=== PATIENT | female | born 1975 | race Caucasian/White ===

== ENCOUNTER → 2020-07-16 14:35 | Outpatient (BNVA) | payer OTHER, SELFPAY | PROVIDERS: PCP Internal Medicine; Referring Provider Internal Medicine; Visit Provider Internal Medicine | DX: I25.10 Atherosclerotic heart disease of native coronary artery without angina pectoris (principal); E66.01 Morbid (severe) obesity due to excess calories; Z68.42 Body mass index [BMI] 45.0-49.9, adult; I10 Essential (primary) hypertension; E78.5 Hyperlipidemia, unspecified; E11.9 Type 2 diabetes mellitus without complications; Z79.4 Long term (current) use of insulin; G47.33 Obstructive sleep apnea (adult) (pediatric); Z99.89 Dependence on other enabling machines and devices | CPT/HCPCS: 99214 ==

== ENCOUNTER → 2020-07-21 13:36 | Outpatient (BNVA) | payer OTHER, SELFPAY | PROVIDERS: PCP Internal Medicine; Referring Provider Internal Medicine; Visit Provider Internal Medicine Endocrinology, Diabetes & Metabolism | DX: E11.65 Type 2 diabetes mellitus with hyperglycemia (principal); E11.649 Type 2 diabetes mellitus with hypoglycemia without coma; E11.29 Type 2 diabetes mellitus with other diabetic kidney complication; E66.01 Morbid (severe) obesity due to excess calories; I10 Essential (primary) hypertension; G47.33 Obstructive sleep apnea (adult) (pediatric); I25.10 Atherosclerotic heart disease of native coronary artery without angina pectoris; E55.9 Vitamin D deficiency, unspecified; M19.90 Unspecified osteoarthritis, unspecified site; J45.909 Unspecified asthma, uncomplicated; E78.2 Mixed hyperlipidemia; R80.9 Proteinuria, unspecified; Z79.82 Long term (current) use of aspirin; Z68.42 Body mass index [BMI] 45.0-49.9, adult; Z79.899 Other long term (current) drug therapy; Z79.4 Long term (current) use of insulin; Z79.891 Long term (current) use of opiate analgesic | CPT/HCPCS: 99214 ==

== ENCOUNTER → 2020-08-14 08:30 | Outpatient (BNVA) | payer OTHER, SELFPAY | PROVIDERS: PCP Internal Medicine; Referring Provider Internal Medicine; Visit Provider Surgery | DX: Z76.89 Persons encountering health services in other specified circumstances (principal) ==

== ENCOUNTER → 2020-09-22 14:18 | Outpatient (BNVA) | payer OTHER, SELFPAY | PROVIDERS: PCP Internal Medicine; Referring Provider Internal Medicine; Visit Provider Student in an Organized Health Care Education/Training Program | DX: Z76.89 Persons encountering health services in other specified circumstances (principal) ==

== ENCOUNTER 2020-10-21 10:05 | Emergency (ER) | payer OTHER, SELFPAY ==
[2020-10-21 10:09] VITALS: BP 143/89; BP 160/90; PULSE 116; PULSE 119; RESP 18; TEMP 38.3; O2SAT 95; O2SAT 97; BMI 46.6
--- NOTE | 2020-10-21 10:34 | XR_ITS ---
EXAMINATION: XR CHEST CLINICAL INFORMATION: Cough and fever. COMPARISON: None TECHNIQUE: Frontal view of the chest was obtained. FINDINGS: The lungs are well-expanded with patchy by lateral perihilar increased interstitial markings but no acute infiltrates. There is no pleural effusion or thickening. The heart size and pulmonary vascularity is normal. There is mild spondylosis dorsal spine. No lytic process. XR/XR chest 1V IMPRESSION: Slight prominent bilateral parahilar interstitial markings but no acute process.
[2020-10-21] MEDS: 0.9 % Sodium Chloride 1,000 ML 999 ML IV (10:44)
[2020-10-21] MEDS: ondansetron HCL 4 MG/2 ML VIAL IVPUSH (10:48)
[2020-10-21] MEDS: Acetaminophen 325 MG TABLET 975 MG PO (10:48)
[2020-10-21 10:51] LABS: MANUAL DIFF FLAG NO
[2020-10-21 10:59] LABS: Basophils Percent Auto 0.4 % (0-2); Hematocrit 40.2 % (37-47); Hemoglobin 12.8 g/dl (12.0-16.0); INTERNATIONAL NORM RATIO 1.3 (0.9-1.1); Imm Gran Abs Auto 0.02 X10*3/uL (0.00-0.03); Imm Gran Pct Auto 0.4 % (0.0-0.4); Lymphocytes Absolute Auto 1.7 X10*3/uL (1.2-4.9); Lymphocytes Percent Auto 29.9 % (20-40); Mean Corpuscular HGB Conc 31.8 g/dl (31.0-35.0); Mean Corpuscular Hemoglobin 25.8 pg (27.0-33.0); Mean Corpuscular Volume 80.9 fL (80-98); Mean Platelet Volume 12.7 fL (9.4-12.3); Monocytes Absolute Auto 0.5 X10*3/uL (0.1-1.2); Monocytes Percent Auto 8.8 % (2-11); Neutrophils Absolute Auto 3.4 X10*3/uL (2.0-8.3); Neutrophils Percent Auto 60.5 % (45-73); Platelet Count 190 X10*3/uL (160-400); Prothrombin Time 15.3 SEC (10.8-13.0); Red Blood Count 4.97 X10*6/uL (4.20-5.50); Red Cell Distribution Width 15.4 % (11.0-16.0); White Blood Count 5.6 X10*3/uL (4.8-10.8)
[2020-10-21 11:02] LABS: Partial Thromboplastin Time 31.1 SEC (24.1-38.0)
[2020-10-21 11:20] LABS: Lactic Acid 1.5 mmol/L (0.5-2.0)
[2020-10-21 11:26] LABS: Alanine Aminotransferase 29 U/L (0-31); Albumin Level 4.2 g/dL (3.5-5.0); Alkaline Phosphatase 62 U/L (39-117); Anion Gap 16 (12-20); Aspartate Amino Transferase 31 U/L (5-31); Bilirubin Total 0.3 mg/dL (0.0-1.0); Blood Urea Nitrogen 12 mg/dL (9-16); Calcium 8.5 mg/dL (8.4-10.2); Carbon Dioxide 22 mmol/L (22-29); Chloride 101 mmol/L (96-108); Creatinine Clr Calc Pharmacy 110.8; Estimated Glomerular Filt Rate > 60; Glucose Random 174 mg/dL (60-115); Potassium 3.6 mmol/l (3.3-5.1); Sodium 135 mmol/L (135-145); Total Protein 7.7 g/dL (6.5-8.0)
[2020-10-21] MEDS: Lidocaine HCl Viscous 2 % 15 ML SOLUTION 10 ML MUCOUS MEM (11:57)
[2020-10-21] MEDS: Magnesium Hydrox/Alum Hydrox 30 ML ORAL.SUSP PO (11:57)
[2020-10-21 12:03] LABS: Influenza A PCR NEGATIVE (Negative); Influenza B PCR NEGATIVE (Negative); Resp Syncy Virus RNA Qual PCR NEGATIVE (Negative)
[2020-10-21 12:08] LABS: SARS COV2 PCR INHOUSE POSITIVE (Negative)
[2020-10-21 12:47] VITALS: BP 117/68; PULSE 88; RESP 16; O2SAT 95
--- NOTE | 2020-10-21 13:07 | ED_ITS ---
HPI - General Adult General Chief complaint: Nausea/Vomiting/Diarrhea <Deandre Dow NP - Last Filed: 10/21/20 13:45> Stated complaint: n/v/d [id number] <Deandre Dow NP - Last Filed: 10/21/20 13:45> Time Seen by Provider: 10/21/20 10:34 <Deandre Dow NP - Last Filed: 10/21/20 13:45> Source: EMS <Deandre Dow NP - Last Filed: 10/21/20 13:45> Mode of arrival: EMS <Deandre Dow NP - Last Filed: 10/21/20 13:45> Limitations: no limitations <Deandre Dow NP - Last Filed: 10/21/20 13:45> History of Present Illness HPI narrative: 44-year-old female with below noted past medical history including history of Atherosclerotic heart disease, diabetes, hypertension, hyperlipidemia, fibromyalgia, diabetes, obstructive sleep apnea amongst other history as noted below presenting via EMS from home with complaint of ongoing nausea vomiting and diarrhea for the past 1 and half week with associated body aches and today slightly congested with mild rhinorrhea. No recent travel hospitalizations or antibiotic use. States some diffuse epigastric pain with the nausea vomiting. No chest pain shortness of breath. <Deandre Dow NP - Last Filed: 10/21/20 13:45> Quality: burning <Deandre Dow NP - Last Filed: 10/21/20 13:45> Relieving factors: rest <Deandre Dow NP - Last Filed: 10/21/20 13:45> Exacerbating factors: other (Vomiting) <Deandre Dow NP - Last Filed: 10/21/20 13:45> Treatments prior to arrival: none <Deandre Dow NP - Last Filed: 10/21/20 13:45> Related Data Home medications: Home Medications Medication Instructions Recorded Confirmed insulin lispro 100 unit/mL 12 unit SUBCUT TID 09/24/20 10/23/20 subcutaneous pen Previous Rx's Medication Instructions Recorded metoprolol succinate 25 mg 25 mg PO DAILY #90 tab 07/21/20 tablet,extended release 24 hr pen needle, diabetic 32 gauge x #400 ea 07/21/20 tofacitinib 11 mg tablet,extended 11 mg PO DAILY #30 tab 09/22/20 release 24 hr dicyclomine 20 mg tablet 20 mg PO QID #30 tab 10/07/20 azithromycin [Zithromax Z-Gennaro] 250 mg PO DAILY 5 Days #6 tab 10/21/20 ondansetron HCl [Zofran] 4 mg PO Q8H PRN #10 tab 10/21/20 aspirin 81 mg tablet,delayed 81 mg PO DAILY #90 tab 10/22/20 release budesonide-formoterol HFA 160 2 puff INHALATION BID 30 Days 10/22/20 mcg-4.5 mcg/actuation aerosol #10.2 g inhaler cholecalciferol (vitamin D3) 50 50 mcg PO DAILY 90 Days #90 cap 10/22/20 mcg (2,000 unit) capsule folic acid 1 mg tablet 1 mg PO DAILY 90 Days #90 tab 10/22/20 gabapentin 400 mg capsule 400 mg PO BID 30 Days #60 cap 10/22/20 lisinopril 2.5 mg tablet 2.5 mg PO DAILY 90 Days #90 tab 10/22/20 omeprazole magnesium 20 mg 20 mg PO BID 90 Days #180 tab 10/22/20 tablet,delayed release oxybutynin chloride 5 mg 5 mg PO DAILY 90 Days #90 tab 10/22/20 tablet,extended release 24 hr rosuvastatin 40 mg tablet 40 mg PO DAILY #90 tab 10/22/20 flash glucose sensor #2 ea 10/23/20 insulin glargine 100 unit/mL (3 45 unit SUBCUT QPM 30 Days #15 ml 10/23/20 mL) subcutaneous pen tramadol 50 mg tablet 50 mg PO Q8H PRN 30 Days #90 tab 10/27/20 methotrexate sodium 2.5 mg tablet 2.5 mg PO QWEEK #32 tab 10/29/20 <Deandre Dow NP - Last Filed: 10/21/20 13:45> Allergies/adverse reactions: Allergies Allergy/AdvReac Type Severity Reaction Status Date / Time morphine [MORPHINE] Allergy Severe Anaphylaxis Verified 10/23/20 14:02 latex [LATEX] Allergy Intermediate Rash Verified 10/23/20 14:02 shellfish derived Allergy Unknown Verified 10/23/20 14:02 calcium AdvReac Unknown weakness, Verified 10/23/20 14:02 swells iron AdvReac Unknown weakness, Verified 10/23/20 14:02 swells metformin AdvReac Unknown Diarrhea Verified 10/23/20 14:02 pioglitazone AdvReac Unknown Swelling Verified 10/23/20 14:02 <Deandre Dow NP - Last Filed: 10/21/20 13:45> Review of Systems Review of Systems: Constitutional: No Weight loss, No Fever, No Chills, No Night Sweats, No Fatigue, No Malaise ENT/Mouth: No Hearing loss, No Ear Pain, No Sinus Pain, No Hoarseness, No sore throat, + Rhinorrhea, No Swallowing Difficulty Eyes: No Eye Pain, No Swelling, No Redness, No Foreign Body, No Discharge, No Vision Changes Cardiovascular: No Chest Pain, No SOB, No Dyspnea on Exertion, No Orthopnea, No Edema, No Palpitations Respiratory: No Cough, No Sputum, No Wheezing, No Smoke Exposure, No Dyspnea Gastrointestinal: As noted in HPI, No Hematochezia, No Melena Genitourinary: no irregular bleeding, No Dysuria, No Urinary Frequency, No Hematuria, No Urinary Incontinence, No Urgency, No Flank Pain, No Urinary Flow Changes, No Hesitancy Musculoskeletal: No joint pain, No Myalgias, No Joint Swelling Skin: No Skin Lesions, No rash Neuro: No Weakness, No Numbness, No Paresthesias, No Loss of Consciousness, No Dizziness, No Headache Psych: No Social Issues Heme/Lymph: No Bruising, No Bleeding,No Lymphadenopathy Endocrine: No Polyuria, No Polydipsia, No Temperature Intolerance <Deandre Dow NP - Last Filed: 10/21/20 13:45> Yes all other systems are reviewed and are negative <Deandre Dow NP - Last Filed: 10/21/20 13:45> [facility] Past Medical History Medical History: Medical History Atherosclerotic heart disease of campo coronary artery without angina pectoris Diabetes type 2, uncontrolled Essential hypertension Fibromyalgia Hyperlipidemia, unspecified Hypovitaminosis D 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 Microalbuminuria due to type 2 diabetes mellitus Morbid (severe) obesity due to excess calories PEDRO on CPAP Psoriatic arthritis Type 2 diabetes mellitus with unspecified complications <Deandre Dow NP - Last Filed: 10/21/20 13:45> Surgical History: Surgical History History of section History of laparoscopic cholecystectomy History of open reduction and internal fixation (ORIF) procedure History of tubal ligation <Deandre Dow NP - Last Filed: 10/21/20 13:45> Family History Family History: Family History Father Gout Mother Diabetes Maternal Aunt Diabetes Epilepsy Maternal Grandfather Diabetes Maternal Uncle Diabetes Maternal Grandmother Diabetes Paternal Grandfather Diabetes Paternal Grandmother Diabetes Daughter Asthma Seizure Family/Other FH: mental illness <Deandre Dow NP - Last Filed: 10/21/20 13:45> Social History Social History: Social History Alcohol intake: never Smoking Status: Never smoker <Deandre Dow NP - Last Filed: 10/21/20 13:45> Physical Exam Vital Signs: Vital Signs: Last Vital Signs Temp 94.8 F L 10/21/20 13:51 Pulse 85 10/21/20 13:51 Resp 17 10/21/20 13:51 BP 111/63 10/21/20 13:51 Pulse Ox 98 10/21/20 13:51 Body Mass Index 46.6 Reviewed <Deandre Dow NP - Last Filed: 10/21/20 13:45> Vital Signs: Last Vital Signs Temp 94.8 F L 10/21/20 13:51 Pulse 85 10/21/20 13:51 Resp 17 10/21/20 13:51 BP 111/63 10/21/20 13:51 Pulse Ox 98 10/21/20 13:51 Body Mass Index 46.6 <Mayur Blair MD - Last Filed: 10/29/20 23:28> Const: General: cooperative and healthy appearing; No acute distress or intoxicated appearing <Deandre Dow NP - Last Filed: 10/21/20 13:45> Nutritional Appearance: average body habitus <Deandre Dow NP - Last Filed: 10/21/20 13:45> Orientation/consciousness: patient oriented x3 <Deandre Dow NP - Last Filed: 10/21/20 13:45> HENMT: Head: Yes normal to inspection <[facility] Dow [facility] Last Filed: 10/21/20 13:45> Ears: hearing grossly normal bilaterally <[facility] Dow [facility] Last Filed: 10/21/20 13:45> Eyes: General: appearance normal, both eyes and all related structures <[facility] Dow [facility] Last Filed: 10/21/20 13:45> Visual Agarwal: normal visual agarwal by confrontation <[facility] Dow - Last Filed: 10/21/20 13:45> Neck: Neck: Yes normal visual inspection, No positive Brudzinski's sign, No positive Kernig's sign and No tender <[facility] Dow, [facility] Last Filed: 10/21/20 13:45> Thyroid: Thyroid normal <[facility] Dow [facility] Last Filed: 10/21/20 13:45> Chest: Chest palpation & inspection: normal inspection of the chest <[facility] Dow, [facility] Last Filed: 10/21/20 13:45> Resp: Effort & Inspection: normal respiratory effort <[facility] Dow [facility] Last Filed: 10/21/20 13:45> Auscultation: clear to auscultation bilaterally <[facility] Dow, [facility] Last Filed: 10/21/20 13:45> Cardio: Jugular venous distension: no JVD <[facility] Dow [facility] Last Filed: 10/21/20 13:45> [facility]: regular [facility] Last Filed: 10/21/20 13:45> Rhythm: regular rhythm [facility] Last Filed: 10/21/20 13:45> Heart sounds: S1 normal heart sound present and S2 normal heart sound present [facility] Last Filed: 10/21/20 13:45> GI: Inspection: Yes normal to inspection [facility] Last Filed: 10/21/20 13:45> Palpation (GI): Soft to palpation, nontender, no guarding, not rigid and hepatosplenomegaly present [facility] Last Filed: 10/21/20 13:45> Percussion: Yes normal to percussion <Deandre Dow NP - Last Filed: 10/21/20 13:45> Auscultation: normal bowel sounds <Deandre Dow NP - Last Filed: 10/21/20 1 3:45> : General: Yes no CVA tenderness <Deandre Dow NP - Last Filed: 10/21/20 13:45> Back/Spine/Pelvis: Back: no CVA tenderness <Deandre Dow NP - Last Filed: 10/21/20 13:45> Skin: General skin exam: no rashes or lesions noted <Deandre Dow NP - Last Filed: 10/21/20 13:45> Neuro: General: patient oriented x3 <Deandre Dow NP - Last Filed: 10/21/20 13:45> Extrem: General: Yes normal to inspection <Deandre Dow NP - Last Filed: 10/21/20 13:45> Course Course Course Narrative: Interview 44-year-old female with above history presenting with complaint of nausea and vomiting with mild diarrhea couple episodes that has resolved now associated with nausea and vomiting there is some epigastric pain only after vomiting otherwise no abdominal pain at this time and also body aches and chills. Labs overall stable. Exam reveals no acute abdomen. No additional nausea vomiting here. Given IV fluids. COVID-19 positive checks x-ray negative for acute disease. She is hemodynamically stable, not hypoxic not tachycardic. Will discharge home with supportive care for COVID-19 with clear return follow- up instructions. Cdc/state guidelines provided. <Deandre Dow NP - Last Filed: 10/21/20 13:45> I have reviewed the chart <Mayur Blair MD - Last Filed: 10/29/20 23:28> Medical Decision Making Differential Diagnosis Differential Diagnosis: Gastroenteritis, viral syndrome, diverticular disease, SBO, appendicitis. <Deandre Dow NP - Last Filed: 10/21/20 13:45> Lab Data Lab results reviewed: Yes I reviewed the patient's lab results. <Deandre Dow NP - Last Filed: 10/21/20 13:45> Result diagrams: : 10/21/20 10:39 10/21/20 10:39 <Deandre Dow NP - Last Filed: 10/21/20 13:45> Labs: Lab Results 10/21/20 10/21/20 10/21/20 Range/Units 10:39 10:39 10:39 WBC 5.6 (4.8-10.8) X10*3/uL RBC 4.97 (4.20-5.50) X10*6/uL Hgb 12.8 (12.0-16.0) g/dl Hct 40.2 (37-47) % MCV 80.9 (80-98) fL MCH 25.8 L (27.0-33.0) pg MCHC 31.8 (31.0-35.0) g/dl RDW 15.4 (11.0-16.0) % Plt Count 190 (160-400) X10*3/uL MPV 12.7 H (9.4-12.3) fL Immature Gran % (Auto) 0.4 (0.0-0.4) % Neut % (Auto) 60.5 (45-73) % Lymph % (Auto) 29.9 (20-40) % Bledsoe % (Auto) 8.8 (2-11) % Eos % (Auto) 0.0 (0-4) % Baso % (Auto) 0.4 (0-2) % Lymph # (Auto) 1.7 (1.2-4.9) X10*3/uL Bledsoe # (Auto) 0.5 (0.1-1.2) X10*3/uL Eos # (Auto) 0.0 (0.0-0.4) X10*3/uL Baso # (Auto) 0.0 (0.0-0.2) X10*3/uL Abs Immat Gran (auto) 0.02 (0.00-0.03) X10*3/uL Absolute Neuts (auto) 3.4 (2.0-8.3) X10*3/uL Absolute Nucleated RBC 0.000 (0.0-0.012) X10*3/uL Nucleated RBC % (auto) 0.0 (0.0-0.2) /100WBC PT 15.3 H (10.8-13.0) SEC INR 1.3 H (0.9-1.1) APTT 31.1 (24.1-38.0) SEC Sodium 135 (135-145) mmol/L Potassium 3.6 (3.3-5.1) mmol/l Chloride 101 (96-108) mmol/L Carbon Dioxide 22 (22-29) mmol/L Anion Gap 16 (12-20) BUN 12 (9-16) mg/dL Creatinine 0.95 (0.5-1.4) mg/dL Estim Creat Clear Calc 110.8 Estimated GFR > 60 Random Glucose 174 H (60-115) mg/dL Lactic Acid (0.5-2.0) mmol/L Calcium 8.5 (8.4-10.2) mg/dL Total Bilirubin 0.3 (0.0-1.0) mg/dL AST 31 (5-31) U/L ALT 29 (0-31) U/L Alkaline Phosphatase 62 (39-117) U/L Total Protein 7.7 (6.5-8.0) g/dL Albumin 4.2 (3.5-5.0) g/dL Coronavirus (PCR) (Negative) COVID-19 (LUISA) COVID-19 Clin Com Influenza Type A (PCR) (Negative) Influenza Type B (PCR) (Negative) RSV RNA Qual (PCR) (Negative) 10/21/20 10/21/20 10/21/20 Range/Units 10:39 10:39 Unknown WBC (4.8-10.8) X10*3/uL RBC (4.20-5.50) X10*6/uL Hgb (12.0-16.0) g/dl Hct (37-47) % MCV (80-98) fL MCH (27.0-33.0) pg MCHC (31.0-35.0) g/dl RDW (11.0-16.0) % Plt Count (160-400) X10*3/uL MPV (9.4-12.3) fL Immature Gran % (Auto) (0.0-0.4) % Neut % (Auto) (45-73) % Lymph % (Auto) (20-40) % Bledsoe % (Auto) (2-11) % Eos % (Auto) (0-4) % Baso % (Auto) (0-2) % Lymph # (Auto) (1.2-4.9) X10*3/uL Bledsoe # (Auto) (0.1-1.2) X10*3/uL Eos # (Auto) (0.0-0.4) X10*3/uL Baso # (Auto) (0.0-0.2) X10*3/uL Abs Immat Gran (auto) (0.00-0.03) X10*3/uL Absolute Neuts (auto) (2.0-8.3) X10*3/uL Absolute Nucleated RBC (0.0-0.012) X10*3/uL Nucleated RBC % (auto) (0.0-0.2) /100WBC PT (10.8-13.0) SEC INR (0.9-1.1) APTT (24.1-38.0) SEC Sodium (135-145) mmol/L Potassium (3.3-5.1) mmol/l Chloride (96-108) mmol/L Carbon Dioxide (22-29) mmol/L Anion Gap (12-20) BUN (9-16) mg/dL Creatinine (0.5-1.4) mg/dL Estim Creat Clear Calc Estimated GFR Random Glucose (60-115) mg/dL Lactic Acid 1.5 (0.5-2.0) mmol/L Calcium (8.4-10.2) mg/dL Total Bilirubin (0.0-1.0) mg/dL AST (5-31) U/L ALT (0-31) U/L Alkaline Phosphatase (39-117) U/L Total Protein (6.5-8.0) g/dL Albumin (3.5-5.0) g/dL Coronavirus (PCR) POSITIVE A (Negative) COVID-19 (LUISA) Cancelled COVID-19 Clin Com Cancelled Influenza Type A (PCR) NEGATIVE (Negative) Influenza Type B (PCR) NEGATIVE (Negative) RSV RNA Qual (PCR) NEGATIVE (Negative) <Deandre Dow NP - Last Filed: 10/21/20 13:45> Lab Results 10/21/20 10/21/20 10/21/20 Range/Units 10:39 10:39 10:39 WBC 5.6 (4.8-10.8) X10*3/uL RBC 4.97 (4.20-5.50) X10*6/uL Hgb 12.8 (12.0-16.0) g/dl Hct 40.2 (37-47) % MCV 80.9 (80-98) fL MCH 25.8 L (27.0-33.0) pg MCHC 31.8 (31.0-35.0) g/dl RDW 15.4 (11.0-16.0) % Plt Count 190 (160-400) X10*3/uL MPV 12.7 H (9.4-12.3) fL Immature Gran % (Auto) 0.4 (0.0-0.4) % Neut % (Auto) 60.5 (45-73) % Lymph % (Auto) 29.9 (20-40) % Bledsoe % (Auto) 8.8 (2-11) % Eos % (Auto) 0.0 (0-4) % Baso % (Auto) 0.4 (0-2) % Lymph # (Auto) 1.7 (1.2-4.9) X10*3/uL Bledsoe # (Auto) 0.5 (0.1-1.2) X10*3/uL Eos # (Auto) 0.0 (0.0-0.4) X10*3/uL Baso # (Auto) 0.0 (0.0-0.2) X10*3/uL Abs Immat Gran (auto) 0.02 (0.00-0.03) X10*3/uL Absolute Neuts (auto) 3.4 (2.0-8.3) X10*3/uL Absolute Nucleated RBC 0.000 (0.0-0.012) X10*3/uL Nucleated RBC % (auto) 0.0 (0.0-0.2) /100WBC PT 15.3 H (10.8-13.0) SEC INR 1.3 H (0.9-1.1) APTT 31.1 (24.1-38.0) SEC Sodium 135 (135-145) mmol/L Potassium 3.6 (3.3-5.1) mmol/l Chloride 101 (96-108) mmol/L Carbon Dioxide 22 (22-29) mmol/L Anion Gap 16 (12-20) BUN 12 (9-16) mg/dL Creatinine 0.95 (0.5-1.4) mg/dL Estim Creat Clear Calc 110.8 Estimated GFR > 60 Random Glucose 174 H (60-115) mg/dL Lactic Acid (0.5-2.0) mmol/L Calcium 8.5 (8.4-10.2) mg/dL Total Bilirubin 0.3 (0.0-1.0) mg/dL AST 31 (5-31) U/L ALT 29 (0-31) U/L Alkaline Phosphatase 62 (39-117) U/L Total Protein 7.7 (6.5-8.0) g/dL Albumin 4.2 (3.5-5.0) g/dL Coronavirus (PCR) (Negative) COVID-19 (LUISA) COVID-19 Clin Com Influenza Type A (PCR) (Negative) Influenza Type B (PCR) (Negative) RSV RNA Qual (PCR) (Negative) 10/21/20 10/21/20 10/21/20 Range/Units 10:39 10:39 Unknown WBC (4.8-10.8) X10*3/uL RBC (4.20-5.50) X10*6/uL Hgb (12.0-16.0) g/dl Hct (37-47) % MCV (80-98) fL MCH (27.0-33.0) pg MCHC (31.0-35.0) g/dl RDW (11.0-16.0) % Plt Count (160-400) X10*3/uL MPV (9.4-12.3) fL Immature Gran % (Auto) (0.0-0.4) % Neut % (Auto) (45-73) % Lymph % (Auto) (20-40) % Bledsoe % (Auto) (2-11) % Eos % (Auto) (0-4) % Baso % (Auto) (0-2) % Lymph # (Auto) (1.2-4.9) X10*3/uL Bledsoe # (Auto) (0.1-1.2) X10*3/uL Eos # (Auto) (0.0-0.4) X10*3/uL Baso # (Auto) (0.0-0.2) X10*3/uL Abs Immat Gran (auto) (0.00-0.03) X10*3/uL Absolute Neuts (auto) (2.0-8.3) X10*3/uL Absolute Nucleated RBC (0.0-0.012) X10*3/uL Nucleated RBC % (auto) (0.0-0.2) /100WBC PT (10.8-13.0) SEC INR (0.9-1.1) APTT (24.1-38.0) SEC Sodium (135-145) mmol/L Potassium (3.3-5.1) mmol/l Chloride (96-108) mmol/L Carbon Dioxide (22-29) mmol/L Anion Gap (12-20) BUN (9-16) mg/dL Creatinine (0.5-1.4) mg/dL Estim Creat Clear Calc Estimated GFR Random Glucose (60-115) mg/dL Lactic Acid 1.5 (0.5-2.0) mmol/L Calcium (8.4-10.2) mg/dL Total Bilirubin (0.0-1.0) mg/dL AST (5-31) U/L ALT (0-31) U/L Alkaline Phosphatase (39-117) U/L Total Protein (6.5-8.0) g/dL Albumin (3.5-5.0) g/dL Coronavirus (PCR) POSITIVE A (Negative) COVID-19 (LUISA) Cancelled COVID-19 Clin Com Cancelled Influenza Type A (PCR) NEGATIVE (Negative) Influenza Type B (PCR) NEGATIVE (Negative) RSV RNA Qual (PCR) NEGATIVE (Negative) <Mayur Blair MD - Last Filed: 10/29/20 23:28> Imaging Data Chest x-ray: Radiologist's impression: [address] [address] XRay Report Signed Patient: Wilfredo Valencia#: [id number] : 1975Acct:[id number] Age/Sex: 44 / FADM Date: 10/21/20 Loc: HO.ED Attending Dr: Ordering Physician: Deandre Dow NP Date of Service: 10/21/20 Procedure(s): XR chest 1V Accession Number(s): [id number] cc: Deandre Dow NP~ EXAMINATION: XR CHEST CLINICAL INFORMATION: Cough and fever. COMPARISON: None TECHNIQUE: Frontal view of the chest was obtained. FINDINGS: The lungs are well-expanded with patchy by lateral perihilar increased interstitial markings but no acute infiltrates. There is no pleural effusion or thickening. The heart size and pulmonary vascularity is normal. There is mild spondylosis dorsal spine. No lytic process. XR/XR chest 1V IMPRESSION: Slight prominent bilateral parahilar interstitial markings but no acute process. Dictated By:JANEE DAVID MD Signed By:<Electronically signed by JANEE DAVID MD in OV>10/21/20 1052 DD/ 1034 TD/TT: Graduate Assistant: ÁNGEL <Deandre Dow NP - Last Filed: 10/21/20 13:45> Discharge Plan Discharge Clinical Impression: Nausea & vomiting, COVID-19 <Deandre Dow NP - Last Filed: 10/21/20 13:45> Patient Disposition: Home, Self-Care <Deandre Dow NP - Last Filed: 10/21/20 13:45> Instructions: Acute Nausea and Vomiting (ED), COVID-19 (Coronavirus Disease 2019) (ED) <Deandre Dow NP - Last Filed: 10/21/20 13:45> Additional Instructions: Your COVID test was positive today Quarantine yourself for 14 days Drink plenty of fluids Supportive care as discussed Return if any concerns or worsening symptoms. Thank you <Deandre Dow NP - Last Filed: 10/21/20 13:45> Prescriptions: New azithromycin [Zithromax Z-Gennaro] 250 mg tablet 250 mg PO DAILY 5 Days Qty: 6 RF: 0 ondansetron HCl [Zofran] 4 mg tablet 4 mg PO Q8H PRN (Reason: nausea and vomiting) Qty: 10 RF: 0 No Action aspirin [Ecotrin Low Strength] 81 mg tablet,delayed release (DR/EC) 81 mg PO DAILY Qty: 90 RF: 4 cholecalciferol (vitamin D3) 50 mcg (2,000 unit) capsule 50 mcg PO DAILY 90 Days Qty: 90 RF: 3 folic acid 1 mg tablet 1 mg PO DAILY 90 Days Qty: 90 RF: 3 rosuvastatin 40 mg tablet 40 mg PO DAILY Qty: 90 RF: 4 omeprazole magnesium [Prilosec OTC] 20 mg tablet,delayed release (DR/EC) 20 mg PO BID 90 Days Qty: 180 RF: 3 oxybutynin chloride 5 mg tablet extended release 24hr 5 mg PO DAILY 90 Days Qty: 90 RF: 3 lisinopril 2.5 mg tablet 2.5 mg PO DAILY 90 Days Qty: 90 RF: 4 gabapentin 400 mg capsule 400 mg PO BID 30 Days Qty: 60 RF: 3 budesonide-formoterol [Symbicort] 160-4.5 mcg/actuation HFA aerosol inhaler 2 puff inhalation BID 30 Days Qty: 10.2 RF: 6 Basaglar KwikPen U-100 Insulin 100 unit/mL (3 mL) insulin pen 45 unit subcut QPM 30 Days Qty: 15 RF: 6 tramadol 50 mg tablet 50 mg PO Q8H PRN (Reason: pain) 30 Days Qty: 90 RF: 0 methotrexate sodium 2.5 mg tablet 2.5 mg PO QWEEK Qty: 32 RF: 3 insulin lispro [Admelog SoloStar U-100 Insulin] 100 unit/mL insulin pen 12 unit subcut TID RF: 0 dicyclomine 20 mg tablet 20 mg PO QID Qty: 30 RF: 3 (DME) pen needle, diabetic [BD Ashia 2nd Gen Pen Needle] 32 gauge x 5/32 needle See Rx Instructions .MEDSUPPLY Qty: 400 RF: 4 metoprolol succinate 25 mg tablet extended release 24 hr 25 mg PO DAILY Qty: 90 RF: 4 Xeljanz XR 11 mg tablet extended release 24 hr 11 mg PO DAILY Qty: 30 RF: 3 (DME) FreeStyle Vandana 14 Day Sensor Kit See Rx Instructions .MEDSUPPLY Qty: 2 RF: 11 <Deandre Dow NP - Last Filed: 10/21/20 13:45> Referrals: Shae Ponce MD [Primary Care Provider] - 2 weeks (PHONE VISIT ) <Deandre Dow NP - Last Filed: 10/21/20 13:45> Interventions: ED Discharge Assessment Last Done: 10/21/20 14:01 <Deandre Dow NP - Last Filed: 10/21/20 13:45> Discharge Date/Time: 10/21/20 14:01 <Deandre Dow NP - Last Filed: 10/21/20 13:45>
[2020-10-21 13:51] VITALS: BP 111/63; PULSE 85; RESP 17; TEMP 34.9; O2SAT 98
== END 2020-10-21 14:01 | disposition home or self-care (01) ==
PROVIDERS: Nurse Practitioner Primary Care; Emergency Provider Internal Medicine; PCP Internal Medicine
DX: U07.1 COVID-19 (principal); R11.2 Nausea with vomiting, unspecified; E11.9 Type 2 diabetes mellitus without complications; I10 Essential (primary) hypertension; Z79.4 Long term (current) use of insulin; Z79.899 Other long term (current) drug therapy
CPT/HCPCS: 0241U; 36415; 71045; 80053; 83605; 85025; 85610; 85730; 87040; 96361; 96374; 99283; 99284; J2405

== ENCOUNTER → 2020-10-23 13:58 | Outpatient (BNVA) | payer OTHER, SELFPAY | PROVIDERS: PCP Internal Medicine; Visit Provider Internal Medicine Endocrinology, Diabetes & Metabolism | DX: Z76.89 Persons encountering health services in other specified circumstances (principal) ==

== ENCOUNTER 2020-11-20 14:14 | Outpatient (REF) | payer OTHER, SELFPAY ==
--- NOTE | ~2020-11-20 | XR_ITS ---
EXAMINATION: XR LUMBOSACRAL SPINE CLINICAL INFORMATION: Psoriatic arthritis COMPARISON: Previous x-ray August 2014 TECHNIQUE: Three views of the lumbosacral spine. FINDINGS: There is mild 2 mm anterior subluxation of L4 with respect L5. Bone alignment is otherwise normal. No fracture or dislocation is seen. There is degenerative disc disease at L5-S1. There is lower lumbar spine facet arthritis XR/XR lumbar spine 2-3V IMPRESSION: Mild anterior subluxation of L5 with respect L5 likely spine facet arthritis. Mild degenerative disc disease at L5-S1.
[2020-11-20 15:12] LABS: MANUAL DIFF FLAG NO
[2020-11-20 15:18] LABS: Basophils Percent Auto 0.3 % (0-2); Eosinophils Absolute Auto 0.1 X10*3/uL (0.0-0.4); Eosinophils Percent Auto 0.5 % (0-4); Hematocrit 37.1 % (37-47); Hemoglobin 11.5 g/dl (12.0-16.0); Imm Gran Abs Auto 0.03 X10*3/uL (0.00-0.03); Imm Gran Pct Auto 0.3 % (0.0-0.4); Lymphocytes Absolute Auto 3.7 X10*3/uL (1.2-4.9); Lymphocytes Percent Auto 36.8 % (20-40); Mean Corpuscular Hemoglobin 25.3 pg (27.0-33.0); Mean Corpuscular Volume 81.7 fL (80-98); Mean Platelet Volume 12.1 fL (9.4-12.3); Monocytes Absolute Auto 0.4 X10*3/uL (0.1-1.2); Monocytes Percent Auto 4.4 % (2-11); Neutrophils Absolute Auto 5.8 X10*3/uL (2.0-8.3); Neutrophils Percent Auto 57.7 % (45-73); Platelet Count 282 X10*3/uL (160-400); Red Blood Count 4.54 X10*6/uL (4.20-5.50); Red Cell Distribution Width 15.9 % (11.0-16.0); White Blood Count 10.1 X10*3/uL (4.8-10.8)
[2020-11-20 15:42] LABS: Alanine Aminotransferase 19 U/L (0-31); Albumin Level 4.4 g/dL (3.5-5.0); Alkaline Phosphatase 80 U/L (39-117); Anion Gap 14 (12-20); Aspartate Amino Transferase 18 U/L (5-31); Bilirubin Total 0.4 mg/dL (0.0-1.0); Blood Urea Nitrogen 15 mg/dL (9-16); C Reactive Protein 1.31 mg/dL (< or = 0.50); Calcium 9.3 mg/dL (8.4-10.2); Carbon Dioxide 25 mmol/L (22-29); Chloride 103 mmol/L (96-108); Cholesterol 135 mg/dL; Estimated Glomerular Filt Rate > 60; Glucose Random 128 mg/dL (60-115); HDL Cholesterol 51 mg/dL; LDL Cholesterol Calculated 62 mg/dl; Potassium 4.1 mmol/L (3.3-5.1); Sodium 138 mmol/L (135-145); Total Protein 7.8 g/dL (6.5-8.0); Triglycerides 110 mg/dL
[2020-11-20 15:52] LABS: HCG Quantitative < 2 mIU/mL
[2020-11-20 16:04] LABS: Erythrocyte Sedimentation Rate 50 MM/HR (0-20)
[2020-11-20 16:07] LABS: Vitamin B12 320 pg/mL (200-900)
[2020-11-20 16:23] LABS: Reflex LDLD? No
[2020-11-21 03:13] LABS: LDL Cholesterol Direct 67 mg/dL (<100)
[2020-11-25 00:11] LABS: Fructosamine 310 umol/L (205-285)
[2020-11-26 12:02] LABS: Vitamin D 25-OH, D2 9 ng/mL; Vitamin D 25-OH, D3 21 ng/mL; Vitamin D 25-OH, Total 30 ng/mL (30-100)
== END 2020-11-20 14:15 | disposition home or self-care (01) ==
LOC: HO.LAB 14:14
PROVIDERS: Absent Provider Internal Medicine Endocrinology, Diabetes & Metabolism; PCP Nurse Practitioner Family; Visit Provider Student in an Organized Health Care Education/Training Program
DX: E11.65 Type 2 diabetes mellitus with hyperglycemia (principal); E11.649 Type 2 diabetes mellitus with hypoglycemia without coma; L40.50 Arthropathic psoriasis, unspecified; N92.1 Excessive and frequent menstruation with irregular cycle
CPT/HCPCS: 36415; 72100; 80053; 80061; 82306; 82607; 82985; 83721; 84702; 85025; 85652; 86140

== ENCOUNTER → 2020-12-16 13:10 | Outpatient (BNVA) | payer OTHER, SELFPAY | PROVIDERS: PCP Internal Medicine; Visit Provider Obstetrics & Gynecology | DX: N93.9 Abnormal uterine and vaginal bleeding, unspecified (principal) | CPT/HCPCS: 99202 ==

== ENCOUNTER → 2021-01-22 14:09 | Outpatient (BNVA) | payer OTHER, SELFPAY | PROVIDERS: PCP Internal Medicine; Visit Provider Surgery Vascular Surgery | DX: I83.11 Varicose veins of right lower extremity with inflammation (principal) | CPT/HCPCS: 99202 ==

== ENCOUNTER 2021-02-01 12:34 | Outpatient (REF) | payer OTHER, SELFPAY ==
--- NOTE | ~2021-02-01 | US_ITS ---
EXAMINATION: RIGHT and LEFT LOWER EXTREMITY VENOUS ULTRASOUND (Reflux Exam) CLINICAL INDICATION: leg pain and varicose veins. COMPARISON: None. TECHNIQUE: Color flow triplex imaging and compression Doppler was performed to evaluate both the deep and the superficial systems bilaterally. To evaluate the superficial system, the examination was performed in the upright position. Color-flow Doppler ultrasound and compression ultrasound were utilized. In addition, maneuvers were utilized to demonstrate reflux. Exam is limited due to patient body habitus. FINDINGS: 1. DEEP VENOUS ULTRASOUND OF THE RIGHT LOWER EXTREMITY: Respiratory variation, normal compression and augmented flow are noted in the right common femoral vein as well as the right popliteal vein and there is no evidence of deep venous thrombosis at these locations. There is no evidence of reflux in the deep system in either the common femoral vein or the popliteal vein. There is no evidence of a Zelaya's cyst. 2. SUPERFICIAL ULTRASOUND WITH DOPPLER OF RIGHT LOWER EXTREMITY: The right great saphenous vein at the saphenofemoral junction measures 8 mm, at the mid thigh 5 mm, yuszu-lhq-kdze 6 mm, adutj-lrt-zbca 7 mm, at mid calf 3 mm and at the ankle measures 4 mm. There is extensive right greater saphenous vein reflux measuring maximum 3.3 seconds below the knee. The right small saphenous vein measures 3 mm and shows no reflux. 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 There are multiple varicosities. The largest are below the knee and in the calf, largest maximum 0.9 mm and demonstrates maximum 2.1 seconds reflux. 3. DEEP VENOUS ULTRASOUND OF THE LEFT LOWER EXTREMITY: Respiratory variation, normal compression and augmented flow are noted in the left common femoral vein as well as the left popliteal vein and there is no evidence of deep venous thrombosis at these locations. There is no evidence of reflux in the deep system in either the common femoral vein or the popliteal vein. . There is no evidence of a Zelaya's cyst. 4. SUPERFICIAL ULTRASOUND WITH DOPPLER OF LEFT LOWER EXTREMITY: Left great saphenous vein at the saphenofemoral junction measures 9 mm, at the mid thigh 5 mm, gwuhb-dlb-ibwr 6 mm, jylbr-hht-kfav 6 mm, at mid calf 4 mm and at the ankle measures 4 mm. There is left greater saphenous vein reflux measuring maximum 2.7 seconds above the knee. The left small saphenous vein measures 3 mm and shows no reflux. There is a asbestos shingle roofer that measures 3 mm and does not demonstrate reflux. There are multiple varicosities, largest measuring 7 mm. There is a reflux in the mid thigh varicosity that measures 5 mm and demonstrates 1.4 seconds reflux. No other varicosity reflux is seen. US/US venous duplex LE BI IMPRESSION: 1. No evidence of reflux or thrombus in the common femoral veins or popliteal veins bilaterally. 2. Bilateral greater saphenous vein reflux, right greater than left. Bilateral varicosities with reflux, right greater than left.
== END 2021-02-01 12:35 | disposition home or self-care (01) ==
LOC: HO.US 12:34
PROVIDERS: PCP Internal Medicine; Visit Provider Surgery Vascular Surgery
DX: I83.893 Varicose veins of bilateral lower extremities with other complications (principal); I83.11 Varicose veins of right lower extremity with inflammation
CPT/HCPCS: 93970

== ENCOUNTER → 2021-02-09 13:31 | Outpatient (BNVA) | payer OTHER, SELFPAY | PROVIDERS: PCP Internal Medicine; Visit Provider Surgery Vascular Surgery | DX: N32.81 Overactive bladder (principal); I83.11 Varicose veins of right lower extremity with inflammation | CPT/HCPCS: 99212 ==

== ENCOUNTER → 2021-03-10 15:52 | Outpatient (BNVA) | payer OTHER, SELFPAY | PROVIDERS: PCP Internal Medicine; Visit Provider Student in an Organized Health Care Education/Training Program | DX: L40.50 Arthropathic psoriasis, unspecified (principal); Z79.899 Other long term (current) drug therapy | CPT/HCPCS: 99212 ==

== ENCOUNTER → 2021-03-30 16:01 | Outpatient (BNVA) | payer OTHER, SELFPAY | PROVIDERS: Visit Provider Urology ==

== ENCOUNTER → 2021-04-16 14:16 | Outpatient (BNVA) | payer OTHER, SELFPAY | PROVIDERS: PCP Internal Medicine; Visit Provider Internal Medicine Endocrinology, Diabetes & Metabolism | DX: E11.649 Type 2 diabetes mellitus with hypoglycemia without coma (principal); E11.29 Type 2 diabetes mellitus with other diabetic kidney complication; E78.2 Mixed hyperlipidemia; E66.01 Morbid (severe) obesity due to excess calories; E55.9 Vitamin D deficiency, unspecified; R80.9 Proteinuria, unspecified; I10 Essential (primary) hypertension; Z79.4 Long term (current) use of insulin | CPT/HCPCS: 82947; 99212 ==

== ENCOUNTER → 2021-05-14 07:38 | Outpatient (BNVA) | payer OTHER, SELFPAY | PROVIDERS: PCP Internal Medicine; Visit Provider Surgery Vascular Surgery | DX: R32 Unspecified urinary incontinence (principal); I83.11 Varicose veins of right lower extremity with inflammation | CPT/HCPCS: 36482 ==

== ENCOUNTER 2021-05-17 11:39 | Outpatient (REF) | payer OTHER, SELFPAY ==
--- NOTE | ~2021-05-17 | US_ITS ---
EXAMINATION: US VENOUS ULTRASOUND WITH DOPPLER LOWER EXTREMITY, RIGHT CLINICAL INFORMATION: Status post venaseal COMPARISON: None TECHNIQUE: Ultrasound of the deep veins is performed from the hip to the calf with compression sonography and color and pulse Doppler assessment. Spectral analysis with color-flow imaging is performed. FINDINGS: There is thrombus visualized in the greater saphenous vein approximately 2.9 cm from the common femoral venous junction. There is normal venous compression and respiratory variation and augmented flow. The visualized common femoral vein, superficial femoral vein, profunda femoral vein, popliteal vein, and the trifurcation region shows no evidence of deep venous thrombosis. The right peroneal vein is not visualized due to body habitus. There is no significant popliteal fossa cyst. If the patient's symptoms persist, followup ultrasound in 5 days 7 days might be of value to exclude proximal propagation from a non-visualized calf vein. US/US venous duplex LE RT IMPRESSION: There is a thrombus visualized in the greater saphenous vein 2.9 cm from the common femoral venous junction. There is no DVT in the right lower extremity.
== END 2021-05-17 11:40 | disposition home or self-care (01) ==
LOC: HO.HMGCX 11:39
PROVIDERS: PCP Internal Medicine; Visit Provider Surgery Vascular Surgery
DX: M79.604 Pain in right leg (principal); Z98.890 Other specified postprocedural states
CPT/HCPCS: 93971

== ENCOUNTER 2021-05-27 07:31 | Outpatient (REF) | payer OTHER, SELFPAY ==
[2021-05-27 08:02] LABS: MANUAL DIFF FLAG NO
[2021-05-27 08:10] LABS: Basophils Absolute Auto 0.1 X10*3/uL (0.0-0.2); Basophils Percent Auto 0.5 % (0-2); Eosinophils Absolute Auto 0.1 X10*3/uL (0.0-0.4); Eosinophils Percent Auto 0.8 % (0-4); Hematocrit 37.9 % (37-47); Hemoglobin 11.9 g/dl (12.0-16.0); Imm Gran Abs Auto 0.04 X10*3/uL (0.00-0.03); Imm Gran Pct Auto 0.3 % (0.0-0.4); Lymphocytes Percent Auto 25.2 % (20-40); Mean Corpuscular HGB Conc 31.4 g/dl (31.0-35.0); Mean Corpuscular Hemoglobin 26.2 pg (27.0-33.0); Mean Corpuscular Volume 83.5 fL (80-98); Mean Platelet Volume 11.3 fL (9.4-12.3); Monocytes Absolute Auto 0.7 X10*3/uL (0.1-1.2); Monocytes Percent Auto 6.1 % (2-11); Neutrophils Percent Auto 67.1 % (45-73); Platelet Count 328 X10*3/uL (160-400); Red Blood Count 4.54 X10*6/uL (4.20-5.50); Red Cell Distribution Width 15.5 % (11.0-16.0); White Blood Count 11.9 X10*3/uL (4.8-10.8)
[2021-05-27 08:56] LABS: Alanine Aminotransferase 17 U/L (0-31); Albumin Level 4.4 g/dL (3.5-5.0); Alkaline Phosphatase 69 U/L (39-117); Anion Gap 12 (12-20); Aspartate Amino Transferase 16 U/L (5-31); Bilirubin Total 0.3 mg/dL (0.0-1.0); Blood Urea Nitrogen 14 mg/dL (9-16); Calcium 9.8 mg/dL (8.4-10.2); Carbon Dioxide 25 mmol/L (22-29); Chloride 107 mmol/L (96-108); Cholesterol 115 mg/dL; Estimated Glomerular Filt Rate > 60; Glucose Fasting 88 mg/dL (60-99); HDL Cholesterol 44 mg/dL; LDL Cholesterol Calculated 52 mg/dl; Potassium 4.2 mmol/L (3.3-5.1); Sodium 140 mmol/L (135-145); Total Protein 7.7 g/dL (6.5-8.0); Triglycerides 99 mg/dL
[2021-05-27 08:57] LABS: Alanine Aminotransferase 16 U/L (0-31); Albumin Level 4.4 g/dL (3.5-5.0); Alkaline Phosphatase 69 U/L (39-117); Anion Gap 13 (12-20); Aspartate Amino Transferase 16 U/L (5-31); Bilirubin Total 0.3 mg/dL (0.0-1.0); Blood Urea Nitrogen 14 mg/dL (9-16); C Reactive Protein 0.88 mg/dL (< or = 0.50); Calcium 9.8 mg/dL (8.4-10.2); Carbon Dioxide 24 mmol/L (22-29); Chloride 106 mmol/L (96-108); Estimated Glomerular Filt Rate > 60; Glucose Random 86 mg/dL (60-115); Potassium 4.2 mmol/L (3.3-5.1); Sodium 139 mmol/L (135-145); Total Protein 7.7 g/dL (6.5-8.0)
[2021-05-27 09:07] LABS: Erythrocyte Sedimentation Rate 50 MM/HR (0-20)
[2021-05-27 11:24] LABS: Creatinine Urine 253.54 mg/dL; Microalbum/Creatinine Ratio Ur 5.1 ug/mg cr
[2021-06-01 15:41] LABS: Vitamin D 25-OH, D2 4 ng/mL; Vitamin D 25-OH, D3 28 ng/mL; Vitamin D 25-OH, Total 32 ng/mL (30-100)
== END 2021-05-27 07:32 | disposition home or self-care (01) ==
LOC: HO.LAB 07:31
PROVIDERS: Absent Provider Internal Medicine; PCP Internal Medicine; Visit Provider Student in an Organized Health Care Education/Training Program
DX: L40.50 Arthropathic psoriasis, unspecified (principal); D64.9 Anemia, unspecified; E78.5 Hyperlipidemia, unspecified; E11.9 Type 2 diabetes mellitus without complications; E55.9 Vitamin D deficiency, unspecified
CPT/HCPCS: 36415; 80053; 80061; 82043; 82306; 85025; 85652; 86140

== ENCOUNTER → 2021-06-10 13:01 | Outpatient (BNVA) | payer OTHER, SELFPAY | PROVIDERS: PCP Internal Medicine; Visit Provider Surgery Vascular Surgery | DX: I83.11 Varicose veins of right lower extremity with inflammation (principal) | CPT/HCPCS: 99212 ==

== ENCOUNTER → 2021-08-20 13:33 | Outpatient (BNVA) | payer OTHER, SELFPAY | PROVIDERS: PCP Internal Medicine; Visit Provider Nurse Practitioner Gerontology ==

== ENCOUNTER → 2021-11-26 11:40 | Outpatient (BNVA) | payer OTHER, SELFPAY | PROVIDERS: PCP Internal Medicine; Visit Provider Nurse Practitioner Gerontology | DX: E11.649 Type 2 diabetes mellitus with hypoglycemia without coma (principal); E78.2 Mixed hyperlipidemia; E55.9 Vitamin D deficiency, unspecified; E66.01 Morbid (severe) obesity due to excess calories; I10 Essential (primary) hypertension; Z79.4 Long term (current) use of insulin | CPT/HCPCS: 99212 ==

== ENCOUNTER → 2021-12-07 13:08 | Outpatient (BNVA) | payer OTHER, SELFPAY | PROVIDERS: PCP Internal Medicine; Referring Provider Internal Medicine; Visit Provider Physician Assistant ==

== ENCOUNTER → 2021-12-13 08:53 | Outpatient (BNVA) | payer OTHER, SELFPAY | PROVIDERS: PCP Internal Medicine; Visit Provider Physician Assistant Surgical ==

== ENCOUNTER 2021-12-20 06:32 | Outpatient (REF) | payer OTHER, SELFPAY ==
--- NOTE | ~2021-12-20 | XR_ITS ---
EXAMINATION: XR CHEST CLINICAL INFORMATION: Obesity COMPARISON: Previous chest x-ray October 2020 TECHNIQUE: 2 views of the chest were obtained. FINDINGS: No significant abnormality is noted involving the heart, lungs, mediastinum, bony thorax or soft tissues. XR/XR chest 2V IMPRESSION: Unremarkable examination.
--- NOTE | 2021-12-20 06:50 | ECG_ITS ---
Test Reason : OBESITY Blood Pressure : / mmHG Vent. Rate : 095 BPM Atrial Rate : 095 BPM P-R Int : 134 ms QRS Dur : 076 ms QT Int : 334 ms P-R-T Axes : 060 021 030 degrees QTc Int : 419 ms Normal sinus rhythm Normal ECG When compared with ECG of 08-MAY-2019 18:21, No significant change was found Referred By: Denver Gill Electronically Signed By:CRISTINA QUINN
[2021-12-20 06:52] LABS: MANUAL DIFF FLAG NO
[2021-12-20 07:27] LABS: Basophils Absolute Auto 0.1 X10*3/uL (0.0-0.2); Basophils Percent Auto 0.4 % (0-2); Eosinophils Absolute Auto 0.1 X10*3/uL (0.0-0.4); Eosinophils Percent Auto 0.4 % (0-4); Hematocrit 41.1 % (37.0-47.0); Hemoglobin 12.7 g/dl (12.0-16.0); Imm Gran Abs Auto 0.04 X10*3/uL (0.00-0.03); Imm Gran Pct Auto 0.3 % (0.0-0.4); Lymphocytes Absolute Auto 3.8 X10*3/uL (1.2-4.9); Lymphocytes Percent Auto 31.4 % (20-40); Mean Corpuscular HGB Conc 30.9 g/dl (31.0-35.0); Mean Corpuscular Hemoglobin 25.3 pg (27.0-33.0); Mean Corpuscular Volume 81.9 fL (80.0-98.0); Mean Platelet Volume 12.4 fL (9.4-12.3); Monocytes Absolute Auto 0.7 X10*3/uL (0.1-1.2); Monocytes Percent Auto 5.8 % (2-11); Neutrophils Absolute Auto 7.4 x10*3/uL (2.0-8.3); Neutrophils Percent Auto 61.7 % (45-73); Platelet Count 334 X10*3/uL (160-400); Red Blood Count 5.02 X10*6/uL (4.20-5.50); Red Cell Distribution Width 15.5 % (11.0-16.0)
[2021-12-20 07:37] LABS: Estimated Average Glucose 174 mg/dL; Hemoglobin A1c % 7.7 %
[2021-12-20 08:27] LABS: Creatinine Urine 142.57 mg/dL; Microalbum/Creatinine Ratio Ur 11.9 ug/mg cr
[2021-12-20 08:29] LABS: Alanine Aminotransferase 22 U/L (0-31); Albumin Level 4.6 g/dL (3.5-5.0); Alkaline Phosphatase 78 U/L (39-117); Anion Gap 17 (12-20); Aspartate Amino Transferase 18 U/L (5-31); Bilirubin Total 0.3 mg/dL (0.0-1.0); Blood Urea Nitrogen 20 mg/dL (9-16); Calcium 10.9 mg/dL (8.4-10.2); Carbon Dioxide 22 mmol/L (22-29); Chloride 103 mmol/L (96-108); Cholesterol 109 mg/dL; Estimated Glomerular Filt Rate > 60; Glucose Fasting 151 mg/dL (60-99); HDL Cholesterol 43 mg/dL; Iron 57 mcg/dL (30-160); LDL Cholesterol Calculated 51 mg/dl; Percent Iron Saturation 15 % (15-50); Potassium 4.2 mmol/L (3.3-5.1); Sodium 138 mmol/L (135-145); Total Iron Binding Capacity 373 mcg/dL (228-428); Total Protein 8.4 g/dL (6.5-8.0); Triglycerides 75 mg/dL; Unsaturated Iron Binding 316 ug/dL
[2021-12-20 08:34] LABS: Ferritin 67 ng/mL (10-250); TSH reflex Free T4 1.71 uIU/mL (0.32-4.0)
[2021-12-20 08:58] LABS: Folate > 20.0 ng/mL (> or = 4.0); Vitamin B12 958 pg/mL (200-900)
[2021-12-21 14:31] LABS: Calcium (PTHI) 10.9 mg/dL (8.6-10.2); PTHI 25 pg/mL (16-77)
[2021-12-23 23:37] LABS: Zinc 75 mcg/dL (60-130)
[2021-12-24 13:32] LABS: Vitamin B1 10 nmol/L (8-30)
[2021-12-24 13:41] LABS: Vitamin D 25-OH, D2 4 ng/mL; Vitamin D 25-OH, D3 34 ng/mL; Vitamin D 25-OH, Total 38 ng/mL (30-100)
[2021-12-26 16:22] LABS: Vitamin A 40 mcg/dL (38-98)
== END 2021-12-20 06:33 | disposition home or self-care (01) ==
LOC: HO.LAB 06:32
PROVIDERS: Absent Provider Physician Assistant Surgical; PCP Internal Medicine; Visit Provider Internal Medicine
DX: Z01.818 Encounter for other preprocedural examination (principal); A04.8 Other specified bacterial intestinal infections; L40.50 Arthropathic psoriasis, unspecified; E66.01 Morbid (severe) obesity due to excess calories; E55.9 Vitamin D deficiency, unspecified; E11.9 Type 2 diabetes mellitus without complications; E53.8 Deficiency of other specified B group vitamins; E78.5 Hyperlipidemia, unspecified
CPT/HCPCS: 36415; 71046; 80053; 80061; 82043; 82306; 82607; 82728; 82746; 83036; 83540; 83970; 84425; 84443; 84590; 84630; 85025; 86140; 93005; 99211; 99212

== ENCOUNTER 2021-12-21 13:57 | Outpatient (REF) | payer OTHER, SELFPAY ==
[2021-12-22 04:26] LABS: HBS Num1 0.95 mIU/mL (0-7.99); HBc Num1 0.07 S/CO (0.00-0.79); Hepatitis A Antibody IgM 0.16 Index (0-0.79); Hepatitis B Core Antibody Nonreactive (Nonreactive); ~HepC Num1 0.07 S/CO (0.00-0.79); ~Hepatitis A Antibody IgM Nonreactive (Nonreactive); ~Hepatitis B Surface Antibody NONREACTIVE (Nonreactive); ~Hepatitis C Antibody Nonreactive (Nonreactive)
[2021-12-22 04:37] LABS: HBsAGNum1 0.17 S/CO (0.00-0.99); Hepatitis B Surface Antigen Negative (Negative)
[2021-12-22 16:18] LABS: H Pylori Breath Test Negative (Negative)
[2021-12-23 18:22] LABS: TS Negative Control Passed; TS Panel A 0; TS Panel B 0; TS Positive Control Passed; TSpotTB Negative (Negative)
== END 2021-12-21 13:58 | disposition home or self-care (01) ==
LOC: HO.LAB 13:57
PROVIDERS: Physician Assistant Surgical; PCP Internal Medicine; Visit Provider Nurse Practitioner Family
DX: Z11.1 Encounter for screening for respiratory tuberculosis (principal); L40.50 Arthropathic psoriasis, unspecified; E66.01 Morbid (severe) obesity due to excess calories
CPT/HCPCS: 36415; 83013; 86481; 86704; 86706; 86709; 86803; 87340

== ENCOUNTER → 2021-12-23 12:11 | Outpatient (BNVA) | payer OTHER, SELFPAY | PROVIDERS: PCP Internal Medicine; Referring Provider Internal Medicine; Visit Provider Internal Medicine | DX: R00.2 Palpitations (principal); I25.10 Atherosclerotic heart disease of native coronary artery without angina pectoris; I10 Essential (primary) hypertension; E66.01 Morbid (severe) obesity due to excess calories; E78.2 Mixed hyperlipidemia; E11.8 Type 2 diabetes mellitus with unspecified complications; Z99.89 Dependence on other enabling machines and devices; G47.33 Obstructive sleep apnea (adult) (pediatric); Z68.41 Body mass index [BMI] 40.0-44.9, adult | CPT/HCPCS: 99212 ==

== ENCOUNTER → 2021-12-27 12:46 | Outpatient (BNVA) | payer OTHER, SELFPAY | PROVIDERS: PCP Internal Medicine; Referring Provider Internal Medicine; Visit Provider Physician Assistant | DX: Z13.89 Encounter for screening for other disorder (principal) ==

== ENCOUNTER → 2022-01-04 08:15 | Outpatient (BNVA) | payer OTHER, SELFPAY | PROVIDERS: PCP Internal Medicine; Visit Provider Dietitian, Registered | DX: E66.01 Morbid (severe) obesity due to excess calories (principal) | CPT/HCPCS: 97802 ==

== ENCOUNTER → 2022-01-05 14:31 | Outpatient (BNVA) | payer OTHER, SELFPAY | PROVIDERS: PCP Internal Medicine; Visit Provider Surgery | DX: Z13.89 Encounter for screening for other disorder (principal) ==

== ENCOUNTER → 2022-01-06 13:13 | Outpatient (BNVA) | payer OTHER, SELFPAY | PROVIDERS: PCP Internal Medicine; Visit Provider Nurse Practitioner Family | DX: Z13.89 Encounter for screening for other disorder (principal) ==

== ENCOUNTER → 2022-01-07 08:12 | Outpatient (BNVA) | payer OTHER, SELFPAY | PROVIDERS: PCP Internal Medicine; Visit Provider Surgery | DX: Z13.89 Encounter for screening for other disorder (principal) ==

== ENCOUNTER 2022-01-10 12:17 | Outpatient (REF) | payer OTHER, SELFPAY ==
--- NOTE | ~2022-01-10 | MM_ITS ---
EXAMINATION: MM SCREENING DIGITAL BREAST TOMOSYNTHESIS, BILATERAL CLINICAL INFORMATION: Screening. Asymptomatic. The lifetime risk of breast cancer based on the Tyrer-Cuzick Model is 11%. COMPARISON: Mammography: 03/15/2019, 09/05/2018, 08/03/2018; targeted left breast ultrasound 09/05/2018. TECHNIQUE: Digital breast tomosynthesis is performed in both the craniocaudal and mediolateral oblique views along with computer-aided detection (CAD). Synthesized 2D images are generated from the tomosynthesis. FINDINGS: There are scattered areas of fibroglandular density (ACR BI-RADS breast composition Category b). The nodular asymmetric density medial left breast noted on prior imaging is not demonstrated on current exam. Otherwise, the parenchymal pattern is similar to prior studies. There is no developing density or interval mass or architectural abnormality. No abnormal calcifications. The skin contours are smooth. MM/MM tomosynthesis screening BI IMPRESSION: No mammographic evidence of malignancy. ASSESSMENT: BI-RADS 2: Benign RECOMMENDATION: Routine annual mammography screening. This patient's information was entered into a reminder system with a target due date for their next mammogram.
== END 2022-01-10 12:18 | disposition home or self-care (01) ==
LOC: HO.MAMMO 12:17
PROVIDERS: PCP Internal Medicine; Visit Provider Internal Medicine
DX: Z12.31 Encounter for screening mammogram for malignant neoplasm of breast (principal)
CPT/HCPCS: 77063; 77067

== ENCOUNTER → 2022-01-14 14:17 | Outpatient (BNVA) | payer OTHER, SELFPAY | PROVIDERS: PCP Internal Medicine; Visit Provider Physician Assistant | DX: Z13.89 Encounter for screening for other disorder (principal) ==

== ENCOUNTER → 2022-01-20 08:06 | Outpatient (BNVA) | payer OTHER, SELFPAY | PROVIDERS: PCP Internal Medicine; Referring Provider Physician Assistant Surgical; Visit Provider Dietitian, Registered | DX: E66.01 Morbid (severe) obesity due to excess calories (principal); E11.8 Type 2 diabetes mellitus with unspecified complications; Z68.41 Body mass index [BMI] 40.0-44.9, adult | CPT/HCPCS: 97803 ==

== ENCOUNTER → 2022-01-25 11:51 | Outpatient (BNVA) | payer OTHER, SELFPAY | PROVIDERS: PCP Internal Medicine; Referring Provider Internal Medicine; Visit Provider Physician Assistant | DX: Z13.89 Encounter for screening for other disorder (principal) ==

== ENCOUNTER 2022-01-26 08:06 | Outpatient (REF) | payer OTHER, SELFPAY ==
--- NOTE | ~2022-01-26 | US_ITS ---
EXAMINATION: US COMPLETE ABDOMEN WITH LIVER ELASTOGRAPHY CLINICAL INFORMATION: Morbid obesity. COMPARISON: CT abdomen of 01/31/2017. TECHNIQUE: Real-time imaging of the abdominal viscera. Noninvasive ultrasound liver fibrosis assessment is performed using Arnav ElastPQ point quantification shear wave elastography (2D-SWE) with a C5-2 MHz transducer. Multiple elastography samples are obtained. FINDINGS: PANCREAS: Normal. The visualized pancreatic head and body are normal in appearance. The remainder of the pancreas is obscured from visualization by the overlying bowel gas. ABDOMINAL AORTA: The proximal, middle, and distal aortic segments are normal in caliber. INFERIOR VENA CAVA: Visualized portions are normal. LIVER: There is diffusely increased echogenicity consistent with fatty infiltration. No focal mass identified. No intrahepatic bile duct dilatation is seen. The right lobe is prominent at 19 cm in vertical span. The right lobe measures 19.4 cm in length. The left lobe measures 12.9 cm in length. Portal flow is hepatopedal. Shear wave liver elastography median stiffness is 1.15 m/s (reference: normal median stiffness is 1.3 m/s or less). IQR/median stiffness to assess sampling precision is 0.08 (reference: good quality data set is IQR/median stiffness of 0.15 or less). GALLBLADDER: Status post cholecystectomy. COMMON BILE DUCT: Normal in caliber measuring 0.4 cm in diameter. RIGHT KIDNEY: Within the midpole there is a 5 mm echogenic focus and within the midpole there is a 7 mm echogenic focus with some twinkle artifact consistent with nonobstructing calculi. The kidney measures 12.7 cm in maximum dimension. LEFT KIDNEY: There is mild fullness of the upper collecting system. No renal calculi or focal parenchymal lesions. The kidney measures 12.1 cm in maximum dimension. SPLEEN: Normal. The spleen measures 10.9 cm in maximum dimension. FREE FLUID: None. US/US abdomen comp w elastography IMPRESSION: 1. Fatty infiltration of the liver. Probable nonobstructing right renal calculi. Mild fullness of the left upper collecting system similar to previous CT scan of 01/31/2017. 2. Liver elastography: Measurements are consistent with a high probability of normal liver stiffness. REFERENCE: Society of Radiologists in Ultrasound Liver Stiffness Thresholds (2020): LIVER STIFFNESS THRESHOLDS: *Liver Stiffness equal or less than 1.3 m/s: High probability of being normal. *Liver Stiffness less than 1.7 m/s: In the absence of other known clinical signs, rules out compensated advanced chronic liver disease. *Liver Stiffness 1.7-2.1 m/s: Suggestive of compensated advanced chronic liver disease but need further test for confirmation. *Liver Stiffness over 2.1 m/s: Rules in compensated advanced chronic liver disease. *Liver Stiffness over 2.4 m/s: Suggestive of clinically significant portal hypertension. QUALITY OF DATA SET: *IQR/Median value equal or less than 0.15 implies a quality data set. *IQR/Median value over 0.15 implies a poor quality data set. SIGNIFICANT CHANGE FROM PRIOR EXAM: Significant change if liver stiffness measurement is 10% or greater from prior exam. OTHER CONSIDERATIONS: The stage of liver fibrosis may be overestimated in the setting of acute hepatitis, liver inflammation, elevated liver function tests, hepatic vascular congestion, obstructive cholestasis, non-fasting state, and infiltrative diseases such as amyloidosis and lymphoma. In some patients with NAFLD, the liver stiffness thresholds for compensated advanced chronic liver disease may be lower. In causes other than viral hepatitis and NAFLD, liver stiffness thresholds are not well established.
--- NOTE | ~2022-01-26 | FL_ITS ---
PROCEDURE: XR FLUOROSCOPY UPPER GI WITH AIR CLINICAL INFORMATION: Morbid obesity. COMPARISON: None TECHNIQUE: Air-contrast upper GI examination..... FINDINGS: There is normal elevation of the soft palate while saying candy . The patient swallowed barium without difficulty. There is no nasopharyngeal reflux or tracheal aspiration. There is normal esophageal motility. There is a small hiatal hernia present with some gastroesophageal reflux to the level of the abdullahi identified which cleared slowly. There appears to be some mild mucosal irregularity about the distal esophagus. The stomach demonstrates normal distensibility without evidence of abnormal mass or ulceration. There is no delay in gastric emptying. The duodenal bulb and sweep appear unremarkable. FLUOROSCOPY TIME: 1.8 minutes DOSE AREA PRODUCT: 17.392 Gy-cm2 (hernandez-centimeter squared) FL/FL upper GI w air IMPRESSION: Small hiatal hernia with mild gastroesophageal reflux to the level of the abdullahi which clears slowly. Mild mucosal irregularity about the distal esophagus.
== END 2022-01-26 08:07 | disposition home or self-care (01) ==
LOC: HO.US 08:06
PROVIDERS: Visit Provider Surgery
DX: E66.01 Morbid (severe) obesity due to excess calories (principal)
CPT/HCPCS: 74246; 76705; 76981

== ENCOUNTER 2022-02-02 13:42 | Outpatient (RCR) | payer OTHER, SELFPAY ==
--- NOTE | 2022-02-23 13:49 | MHC.OT.DC ---
[address] [phone] F: [phone] Occupational Therapy Discharge Note Provider: Rosmery Davalos PA-C Diagnosis: Psoriatic arthritis, pain and weakness in bilateral hands Date of Surgery: Date of Evaluation: 02/02/22 Date of Discharge: 02/23/22 Treatments to Date: 1 Cancellations to Date: 1 No Shows to Date: 1 Discharge Status: Visit Non-compliance Discharge Summary: See eval for details Pt seen 1x began instruction on joint protection and ther ex Electronically Signed By: Gail De OT CHT CLT Reviewed/agree with student documentation: N/A Therapist: Please Sign and return to therapist, thank you for your referral.
== END 2022-02-23 13:49 | disposition home or self-care (01) ==
LOC: HO.OT 13:42
PROVIDERS: PCP Internal Medicine; Visit Provider Nurse Practitioner Family
DX: L40.50 Arthropathic psoriasis, unspecified (principal); M79.641 Pain in right hand; M79.642 Pain in left hand
CPT/HCPCS: 97166

== ENCOUNTER → 2022-02-02 15:17 | Outpatient (BNVA) | payer OTHER, SELFPAY | PROVIDERS: PCP Internal Medicine; Referring Provider Internal Medicine; Visit Provider Physician Assistant Surgical | DX: Z13.89 Encounter for screening for other disorder (principal) ==

== ENCOUNTER → 2022-02-04 09:45 | Outpatient (BNVA) | payer OTHER, SELFPAY | PROVIDERS: PCP Internal Medicine; Referring Provider Internal Medicine; Visit Provider Dietitian, Registered | DX: E66.01 Morbid (severe) obesity due to excess calories (principal); E11.9 Type 2 diabetes mellitus without complications; Z71.3 Dietary counseling and surveillance | CPT/HCPCS: 97803 ==

== ENCOUNTER 2022-02-08 12:19 | Outpatient (REF) | payer OTHER, SELFPAY ==
[2022-02-08 12:35] LABS: MANUAL DIFF FLAG NO
[2022-02-08 12:48] LABS: Basophils Absolute Auto 0.1 X10*3/uL (0.0-0.2); Basophils Percent Auto 0.8 % (0-2); Eosinophils Absolute Auto 0.1 X10*3/uL (0.0-0.4); Eosinophils Percent Auto 1.4 % (0-4); Hematocrit 41.9 % (37.0-47.0); Hemoglobin 12.5 g/dl (12.0-16.0); Imm Gran Abs Auto 0.03 X10*3/uL (0.00-0.03); Imm Gran Pct Auto 0.3 % (0.0-0.4); Lymphocytes Absolute Auto 2.3 X10*3/uL (1.2-4.9); Lymphocytes Percent Auto 24.9 % (20-40); Mean Corpuscular HGB Conc 29.8 g/dl (31.0-35.0); Mean Corpuscular Hemoglobin 24.5 pg (27.0-33.0); Mean Corpuscular Volume 82.2 fL (80.0-98.0); Mean Platelet Volume 11.6 fL (9.4-12.3); Monocytes Absolute Auto 0.6 X10*3/uL (0.1-1.2); Monocytes Percent Auto 6.7 % (2-11); Neutrophils Percent Auto 65.9 % (45-73); Platelet Count 286 X10*3/uL (160-400); Red Cell Distribution Width 15.9 % (11.0-16.0); White Blood Count 9.1 X10*3/uL (4.8-10.8)
[2022-02-08 13:14] LABS: Alanine Aminotransferase 14 U/L (0-31); Albumin Level 4.4 g/dL (3.5-5.0); Alkaline Phosphatase 72 U/L (39-117); Anion Gap 16 (12-20); Aspartate Amino Transferase 16 U/L (5-31); Bilirubin Total 0.5 mg/dL (0.0-1.0); Blood Urea Nitrogen 17 mg/dL (9-16); C Reactive Protein 1.06 mg/dL (< or = 0.50); Calcium 9.9 mg/dL (8.4-10.2); Carbon Dioxide 24 mmol/L (22-29); Chloride 105 mmol/L (96-108); Estimated Glomerular Filt Rate > 60; Glucose Random 124 mg/dL (60-115); Potassium 4.6 mmol/L (3.3-5.1); Sodium 140 mmol/L (135-145)
[2022-02-08 16:01] LABS: Erythrocyte Sedimentation Rate 44 MM/HR (0-20)
== END 2022-02-08 12:20 | disposition home or self-care (01) ==
LOC: HO.LAB 12:19
PROVIDERS: PCP Internal Medicine; Visit Provider Nurse Practitioner Family
DX: L40.50 Arthropathic psoriasis, unspecified (principal)
CPT/HCPCS: 36415; 80053; 85025; 85652; 86140

== ENCOUNTER → 2022-02-18 09:41 | Outpatient (BNVA) | payer OTHER, SELFPAY | PROVIDERS: PCP Internal Medicine; Referring Provider Internal Medicine; Visit Provider Physician Assistant Surgical | DX: Z13.89 Encounter for screening for other disorder (principal) ==

== ENCOUNTER → 2022-02-23 08:33 | Outpatient (BNVA) | payer OTHER, SELFPAY | PROVIDERS: PCP Internal Medicine; Visit Provider Surgery | DX: E66.01 Morbid (severe) obesity due to excess calories (principal) ==

== ENCOUNTER → 2022-02-28 13:56 | Outpatient (REF) | payer OTHER, SELFPAY ==
--- NOTE | 2022-02-28 14:01 | CA_ITS ---
Transthoracic Echocardiogram Patient (Last, First, Middle): Hanna Valencia, Gender: Female Date of : 1975 Age: 46 Procedure Date: 02/28/2022 Procedure Type: Transthoracic Echocardiogram Location: OP Height: 170.18 cm Weight: 122.47 kg BSA: 2.30 m2 Heart Rate: bpm BP: 122 / 70 mmHg Hand Pattern Marker: JEFFERY Referring MD: Martin Tamayo MD Symptoms: I25.10 - Atherosclerotic heart disease of [place] coronary... Study Quality: Fair ECG Rhythm: Sinus Conclusions: - The left ventricular systolic function is normal. The calculated ejection fraction is 57% by biplane method. - No obvious valvular pathology seen on this study. Findings Left Ventricle Normal left ventricular cavity size. There is normal left ventricular wall thickness. The left ventricular systolic function is normal. The calculated ejection fraction is 57% by biplane method. There is no evidence of regional wall motion abnormalities. Diastolic function is normal for age. Right Ventricle Normal right ventricular cavity size and systolic function. Atria Both atria are normal in size. Aortic Valve There is a normal trileaflet aortic valve. There is no aortic valve stenosis. There is no aortic valve regurgitation. Mitral Valve The mitral valve appears normal. There is trace mitral valve regurgitation. There is no mitral valve stenosis. Pulmonic Valve The pulmonic valve is likely normal. Tricuspid Valve Normal tricuspid valve structure. There is mild tricuspid valve regurgitation. The pulmonary artery systolic pressure is normal. Great Vessels The aortic annulus, sinuses of valsalva, asc aorta, and aortic arch are normal in size. Venous The inferior vena cava is normal in size and collapses greater than 50% with inspiration. Pericardium/Pleural There is no evidence of pericardial effusion. Prior Study Comparison No significant change compared to prior study dated: 03/26/2018. Recommendations, Care & Conclusions No obvious valvular pathology seen on this study. Measurements 2D Linear Measurements IVSd: 0.91 0.6-0.9/0.6-1.0 cm LVIDd: 4.57 3.9-5.3/4.2-5.9 cm LVIDd Index: 1.99 2.4-3.2/2.2-3.1 cm/m2 LVIDs: 3.08 2.0-3.6 cm LVPWd: 0.91 0.7-1.1 cm LA Diam: 3.80 2.7-3.8/3.0-4.0 cm LAIDs Index: 1.65 1.5-2.3 cm/m2 LV Mass: 171.58 67-162/88-224 g LV Mass Index: 74.60 43-95/49-115 g/m2 LVOT Diam: 2.10 3.0+(-)1.3 cm 2D Systolic Function EF 4C: 55.10 >55% EF 2C: 57.60 >55% EF BiP: 57.30 >55% Mitral Valve MV Pk E: 0.78 MV PK A: 0.64 MV Decel Time: 160.00 E/A: 1.20 E'Lateral: 12.50 E'Medial: 7.51 E/E' Med: 10.40 E/E' Lat: 6.20 PHT: 47.00 MVA PHT: 4.68 Decel [place]: 4.87 Aortic Valve AoV Pk Vazquez: 1.56 AoV Mn Vazquez: 1.17 AoV VTI: 0.34 AoV Pk Grad: 10.00 Aov Mn Grad: 6.00 DAPHNEY Cont.VTI: 2.30 LVOT LVOT Pk Vazquez: 1.00 LVOT Mn Vazquez: 0.73 LVOT VTI: 0.23 LVOT Pk Grad: 4.00 LVOT Mn Grad: 2.00 LVOT Diam: 2.10 LVOT Area: 3.46 Diastolic Function MV Pk E: 0.78 MV Pk A: 0.64 E/A: 1.20 E'Medial: 7.51 E/E' Med: 10.40 E' Laterial: 12.50 E/E' Lat: 6.20 Right Ventricle TAPSE (mm): 23.50 TVS' Vazquez: 11.50 Tricuspid Valve TR Pk Vazquez: 2.67 TR Pk Grad: 29.00 RA Press: 3.00 RVSP: 32.00 Great Vessels Aorta Sinus of Valsalva: 2.78 2.0-3.[address] [place]: 2.57 1.7-3.4 cm Ao Asc: 2.80 2.1-3.4 cm Ao Arch: 2.90 Updated in Other Vendor System with Status of Final Martin Tamayo MD electronically signed on 02/28/2022 4:33:45 PM with status of Final
--- NOTE | 2022-02-28 14:01 | HM_ITS ---
* Total monitoring time 2 days and 16 hours. * Underlying rhythm is sinus. Average rate 86/Min. Range 64 to 123/Min. * No atrial fibrillation or flutter or AV blocks or pauses. * Very rare ventricular ectopy with minimal burden. * No patient events. MTDD
== END ==
LOC: HO.CARD 13:56
PROVIDERS: PCP Internal Medicine; Visit Provider Internal Medicine
DX: R00.2 Palpitations (principal); I25.10 Atherosclerotic heart disease of native coronary artery without angina pectoris
CPT/HCPCS: 93242; 93306

== ENCOUNTER → 2022-03-04 13:46 | Outpatient (BNVA) | payer OTHER, SELFPAY | PROVIDERS: PCP Internal Medicine; Visit Provider Nurse Practitioner Family | DX: L40.50 Arthropathic psoriasis, unspecified (principal) | CPT/HCPCS: 99212 ==

== ENCOUNTER → 2022-03-09 10:23 | Outpatient (BNVA) | payer OTHER, SELFPAY | PROVIDERS: PCP Internal Medicine; Visit Provider Physician Assistant | DX: Z13.89 Encounter for screening for other disorder (principal) ==

== ENCOUNTER → 2022-03-11 08:54 | Outpatient (BNVA) | payer OTHER, SELFPAY | PROVIDERS: PCP Internal Medicine; Referring Provider Internal Medicine; Visit Provider Surgery | DX: Z13.89 Encounter for screening for other disorder (principal) ==

== ENCOUNTER → 2022-03-14 13:33 | Outpatient (BNVA) | payer OTHER, SELFPAY | PROVIDERS: PCP Internal Medicine; Referring Provider Internal Medicine; Visit Provider Internal Medicine | DX: Z01.810 Encounter for preprocedural cardiovascular examination (principal); I25.10 Atherosclerotic heart disease of native coronary artery without angina pectoris; E78.2 Mixed hyperlipidemia; E66.01 Morbid (severe) obesity due to excess calories; Z68.41 Body mass index [BMI] 40.0-44.9, adult; I10 Essential (primary) hypertension; E11.9 Type 2 diabetes mellitus without complications; G47.33 Obstructive sleep apnea (adult) (pediatric); Z79.4 Long term (current) use of insulin; Z79.82 Long term (current) use of aspirin; Z79.899 Other long term (current) drug therapy; Z99.89 Dependence on other enabling machines and devices | CPT/HCPCS: 99212 ==

== ENCOUNTER 2022-03-24 06:09 | Inpatient (IN) | payer OTHER, SELFPAY ==
--- NOTE | 2022-03-20 12:47 | P.HPSUR_ITS ---
Pre-Procedural Eval Section A Date of Service: 03/20/22 The patient is an INPATIENT: Yes The History & Physical has been completed within 30 days and I have reviewed it.: Yes Section B Chief Complaint: obesity Relevant Family History (Specify if Yes): No Relevant Social History: None Present Medications: None Medical History: No relevant PMH History of Previous Operations: No relevant previous surgery Allergies: Allergies Allergy/AdvReac Type Severity Reaction Status Date / Time morphine [MORPHINE] Allergy Severe Anaphylaxis Verified 03/14/22 13:51 latex [LATEX] Allergy Intermediate Rash Verified 03/14/22 13:51 shellfish derived Allergy Intermediate swelling Verified 03/14/22 13:51 calcium AdvReac Intermediate weakness, Verified 03/14/22 13:51 swells iron AdvReac Intermediate weakness, Verified 03/14/22 13:51 swells metformin AdvReac Intermediate Diarrhea Verified 03/14/22 13:51 pioglitazone AdvReac Intermediate Swelling Verified 03/14/22 13:51 Review of Systems Sugical H&P ROS: Negative: Constitution, Cardiovascular, Respiratory, Neurological, Psychiatric, Hem-Onc, Allergic/Immunologic, Gastrointestinal, Genitourinary, Musculoskeletal, Integumentary, Endocrine and Eyes/ Ears/Nose/Throat Exam Surgical H&P Exam: Normal: HEENT, Normal: Heart, Normal: Lungs, Normal: Extremities, Normal: Abdomen, Normal: Skin and Normal: Neurological Plan Diagnosis/Plan: Unchanged I have reviewed the history and physical and performed a pertinent physical examination on my patient. No changes have occurred unless specified.
[2022-03-21 07:29] LABS: MANUAL DIFF FLAG NO
[2022-03-21 08:05] LABS: INTERNATIONAL NORM RATIO 1.1 (0.9-1.1); Prothrombin Time 12.4 SEC (9.9-13.0)
[2022-03-21 08:17] LABS: Basophils Absolute Auto 0.1 X10*3/uL (0.0-0.2); Basophils Percent Auto 0.5 % (0-2); Eosinophils Absolute Auto 0.2 X10*3/uL (0.0-0.4); Eosinophils Percent Auto 1.6 % (0-4); Hematocrit 38.6 % (37.0-47.0); Hemoglobin 11.6 g/dl (12.0-16.0); Imm Gran Abs Auto 0.03 X10*3/uL (0.00-0.03); Imm Gran Pct Auto 0.3 % (0.0-0.4); Lymphocytes Absolute Auto 2.3 X10*3/uL (1.2-4.9); Lymphocytes Percent Auto 19.6 % (20-40); Mean Corpuscular HGB Conc 30.1 g/dl (31.0-35.0); Mean Corpuscular Hemoglobin 23.8 pg (27.0-33.0); Mean Corpuscular Volume 79.1 fL (80.0-98.0); Mean Platelet Volume 11.9 fL (9.4-12.3); Monocytes Absolute Auto 0.6 X10*3/uL (0.1-1.2); Neutrophils Absolute Auto 8.4 x10*3/uL (2.0-8.3); Platelet Count 306 X10*3/uL (160-400); Red Blood Count 4.88 X10*6/uL (4.20-5.50); Red Cell Distribution Width 16.1 % (11.0-16.0); White Blood Count 11.5 X10*3/uL (4.8-10.8)
[2022-03-21 08:27] LABS: Alanine Aminotransferase 12 U/L (0-31); Albumin Level 4.1 g/dL (3.5-5.0); Alkaline Phosphatase 78 U/L (39-117); Anion Gap 11 (12-20); Aspartate Amino Transferase 12 U/L (5-31); Bilirubin Total 0.4 mg/dL (0.0-1.0); Blood Urea Nitrogen 19 mg/dL (9-16); C Reactive Protein 1.26 mg/dL (< or = 0.50); Calcium 9.2 mg/dL (8.4-10.2); Carbon Dioxide 25 mmol/L (22-29); Chloride 106 mmol/L (96-108); Cholesterol 105 mg/dL; Estimated Glomerular Filt Rate > 60; Glucose Random 124 mg/dL (60-115); HDL Cholesterol 38 mg/dL; LDL Cholesterol Calculated 50 mg/dl; Potassium 4.3 mmol/L (3.3-5.1); Sodium 138 mmol/L (135-145); Total Protein 7.5 g/dL (6.5-8.0); Triglycerides 86 mg/dL
[2022-03-21 08:49] LABS: Insulin 44 uU/mL (2-29); TSH reflex Free T4 1.48 uIU/mL (0.32-4.0)
[2022-03-21 09:04] LABS: Estimated Average Glucose 128 mg/dL; Hemoglobin A1c % 6.1 %
[2022-03-21 18:32] LABS: Erythrocyte Sedimentation Rate 36 MM/HR (0-20)
--- NOTE | 2022-03-23 08:26 | HO.ANESPROP2 ---
Documented by User: Angle Andrews NP 03/23/22 08:30 HPI - Anesthesia Eval Consult details Narrative: 46yo F for Gastrectomy Sleeve,EGD,poss diaphragmatic hernia,poss ventral hernia,poss open Cardiac cleared PMFSH Active Problems Active Problems: All Active Problems (Updated 03/20/22 @ 12:34 by Brian Pendleton MD) GERD (gastroesophageal reflux disease) (Acute) Preoperative cardiovascular examination (Acute) Renal calculi (Acute) Physical exam (Acute) Palpitation (Acute) Morbid obesity (Acute) Situational depression (Acute) Moderate asthma (Acute) Urinary incontinence (Acute) Right leg pain (Acute) Migraines (Acute) Overactive bladder (Acute) Varicose veins of right lower extremity with inflammation (Acute) Hip pain (Acute) Dyslipidemia (Acute) Peripheral arterial disease (Acute) Menometrorrhagia (Acute) COVID-19 (Acute) Nausea (Acute) 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) Psoriatic arthritis (Acute) Microalbuminuria due to type 2 diabetes mellitus (Acute) Diabetes type 2, uncontrolled (Acute) PEDRO on CPAP (Acute) 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 (Acute) Type 2 diabetes mellitus with unspecified complications (Acute) Hyperlipidemia, unspecified (Acute) Morbid (severe) obesity due to excess calories (Acute) Atherosclerotic heart disease of [place] coronary artery without angina pectoris (Acute) Fibromyalgia (Acute) Essential hypertension (Acute) Hypovitaminosis D (Acute) Past Medical History Medical History (Updated 03/24/22 @ 10:24 by Brian Pendleton MD) Fibromyalgia Hyperlipidemia, unspecified Migraines Overactive bladder PONV (postoperative nausea and vomiting) Situational depression Varicose veins of right lower extremity with inflammation Family History Family History Father Gout Mother Diabetes Dementia Maternal Aunt Diabetes Epilepsy Maternal Grandfather Diabetes Maternal Uncle Diabetes Maternal Grandmother Diabetes Paternal Grandfather Diabetes Paternal Grandmother Diabetes Daughter Asthma Seizure Family/Other FH: mental illness Surgical History Surgical History (Updated 03/24/22 @ 10:24 by Brian Pendleton MD) History of section History of laparoscopic cholecystectomy History of open reduction and internal fixation (ORIF) procedure History of tubal ligation Social History Social History Housing: Apartment Are you a primary medical care administrator to a significant other at home: No Do you presently have visiting nurse or other home services: No Alcohol intake: never Patient Tobacco Use Status: Never used Tobacco e-Cigarette/Vaping Use: Never Used Second Hand Smoke Exposure: No Use of substances other than those prescribed or required for medical reasons: No Currently Displaying Signs/Symptoms of Drug Intoxication Withdrawal: No Have you been hit, kicked, punched, or otherwise hurt by someone within the past year? If so, by whom?: No Are you DNR?: No Advance Directives: No Advance Directives Information Provided: Yes () Advance Directives on File: No Recently lost weight without trying: No How much weight loss: 24-33 pounds Eating poorly because of decreased appetite: No Nutrition screen score: 3 Nutrition Risks: No Nutritional Risk Patient : No : No Poor oral hygiene: No service: No Current occupational status: unemployed Gender identity: Female Cognitive needs: No Hearing needs: No Vision needs: No Meds Allergies Allergy/AdvReac Type Severity Reaction Status Date / Time morphine [MORPHINE] Allergy Severe Anaphylaxis Verified 03/24/22 06:39 latex [LATEX] Allergy Intermediate Rash Verified 03/24/22 06:39 shellfish derived Allergy Intermediate swelling Verified 03/24/22 06:39 calcium AdvReac Intermediate weakness, Verified 03/24/22 06:39 swells iron AdvReac Intermediate weakness, Verified 03/24/22 06:39 swells metformin AdvReac Intermediate Diarrhea Verified 03/24/22 06:39 pioglitazone AdvReac Intermediate Swelling Verified 03/24/22 06:39 Home Medications Medication Instructions Recorded Confirmed Last Taken Type metoprolol succinate 25 mg 25 mg PO BEDTIME 03/23/22 03/23/22 Unknown History tablet,extended release 24 hr Exam Exam Date and Time: March 23, 2022825 Pertinent Lab Results Pertinent Lab Results: Laboratory Tests 03/21/22 03/21/22 03/21/22 07:15 07:28 07:28 WBC 11.5 H RBC 4.88 Hgb 11.6 L Hct 38.6 MCV 79.1 L MCH 23.8 L MCHC 30.1 L RDW 16.1 H Plt Count 306 MPV 11.9 Immature Gran % (Auto) 0.3 Neut % (Auto) 73.0 Lymph % (Auto) 19.6 L [place] % (Auto) 5.0 Eos % (Auto) 1.6 Baso % (Auto) 0.5 Lymph # (Auto) 2.3 [place] # (Auto) 0.6 Eos # (Auto) 0.2 Baso # (Auto) 0.1 Abs Immat Gran (auto) 0.03 Absolute Neuts (auto) 8.4 H Absolute Nucleated RBC 0.000 Nucleated RBC % (auto) 0.0 ESR PT 12.4 INR 1.1 APTT 32.0 Sodium Potassium Chloride Carbon Dioxide Anion Gap BUN Creatinine Estim Creat Clear Calc Estimated GFR Random Glucose Estimat Average Glucose Hemoglobin A1c % Insulin Level Calcium Total Bilirubin AST ALT Alkaline Phosphatase C-Reactive Protein Total Protein Albumin Triglycerides Cholesterol LDL Cholesterol, Calc HDL Cholesterol TSH Blood Type O Positive Antibody Screen NEGATIVE 03/21/22 03/21/22 03/21/22 07:28 07:28 07:28 WBC RBC Hgb Hct MCV MCH MCHC RDW Plt Count MPV Immature Gran % (Auto) Neut % (Auto) Lymph % (Auto) [place] % (Auto) Eos % (Auto) Baso % (Auto) Lymph # (Auto) [place] # (Auto) Eos # (Auto) Baso # (Auto) Abs Immat Gran (auto) Absolute Neuts (auto) Absolute Nucleated RBC Nucleated RBC % (auto) ESR 36 H PT INR APTT Sodium 138 Potassium 4.3 Chloride 106 Carbon Dioxide 25 Anion Gap 11 L BUN 19 H Creatinine 0.81 Estim Creat Clear Calc TNP Estimated GFR > 60 Random Glucose 124 H Estimat Average Glucose 128 Hemoglobin A1c % 6.1 Insulin Level 44 H Calcium 9.2 D Total Bilirubin 0.4 AST 12 ALT 12 Alkaline Phosphatase 78 C-Reactive Protein 1.26 H Total Protein 7.5 Albumin 4.1 Triglycerides 86 Cholesterol 105 LDL Cholesterol, Calc 50 HDL Cholesterol 38 TSH 1.48 Blood Type Antibody Screen Narrative Narrative: EKG 12/2021 Vent. Rate : 095 BPM ? ? Atrial Rate : 095 BPM ?? P-R Int : 134 ms? QRS Dur : 076 ms ? ? QT Int : 334 ms ? ? ? P-R-T Axes : 060 021 030 degrees ?? QTc Int : 419 ms ? Normal sinus rhythm Normal ECG When compared with ECG of 08-MAY-2019 18:21, No significant change was found Holter 2 Day 02/2022 Total monitoring time 2 days and 16 hours. Underlying rhythm is sinus.? Average rate 86/Min.? Range 64 to 123/Min. No atrial fibrillation or flutter or AV blocks or pauses. Very rare ventricular ectopy with minimal burden. No patient events. Echo 02/2022 Conclusions: - The left ventricular systolic function is normal.? The ? calculated ejection fraction is 57% by biplane method. ? - No obvious valvular pathology seen on this study.? Findings Left Ventricle Normal left ventricular cavity size.? There is normal left ventricular wall thickness.? The left ventricular systolic function is normal.? The calculated ejection fraction is 57% by biplane method.? There is no evidence of regional wall motion abnormalities.? Diastolic function is normal for age. Myocardial perfusion imaging study 2017 with mild intensity basal inferior, inferolateral and anterior wall ischemia.? In the coronary CTA, there was mild calcification distal left main as well as proximal left anterior descending coronary artery.? There was no significant disease elsewhere.? Assessment and Plan Assessment Anesthesia Assessment: Chart Reviewed Documented by User: Adam Mosher MD 03/24/22 16:36 [facility] Past Medical History Medical History (Updated 03/24/22 @ 10:24 by Brian Pendleton MD) Fibromyalgia Hyperlipidemia, unspecified Migraines Overactive bladder PONV (postoperative nausea and vomiting) Situational depression Varicose veins of right lower extremity with inflammation Family History Family History Father Gout Mother Diabetes Dementia Maternal Aunt Diabetes Epilepsy Maternal Grandfather Diabetes Maternal Uncle Diabetes Maternal Grandmother Diabetes Paternal Grandfather Diabetes Paternal Grandmother Diabetes Daughter Asthma Seizure Family/Other FH: mental illness Family history of problems with anesthesia: No Surgical History Surgical History (Updated 03/24/22 @ 10:24 by Brian Pendleton MD) History of section History of laparoscopic cholecystectomy History of open reduction and internal fixation (ORIF) procedure History of tubal ligation History of Problems with Anesthesia: No Social History Social History Housing: Apartment Are you a primary medical care administrator to a significant other at home: No Do you presently have visiting nurse or other home services: No Alcohol intake: never Patient Tobacco Use Status: Never used Tobacco e-Cigarette/Vaping Use: Never Used Second Hand Smoke Exposure: No Use of substances other than those prescribed or required for medical reasons: No Currently Displaying Signs/Symptoms of Drug Intoxication Withdrawal: No Have you been hit, kicked, punched, or otherwise hurt by someone within the past year? If so, by whom?: No Are you DNR?: No Advance Directives: No Advance Directives Information Provided: Yes () Advance Directives on File: No Recently lost weight without trying: No How much weight loss: 24-33 pounds Eating poorly because of decreased appetite: No Nutrition screen score: 3 Nutrition Risks: No Nutritional Risk Patient : No : No Poor oral hygiene: No service: No Current occupational status: unemployed Gender identity: Female Cognitive needs: No Hearing needs: No Vision needs: No Meds Allergies Allergy/AdvReac Type Severity Reaction Status Date / Time morphine [MORPHINE] Allergy Severe Anaphylaxis Verified 03/24/22 06:39 latex [LATEX] Allergy Intermediate Rash Verified 03/24/22 06:39 shellfish derived Allergy Intermediate swelling Verified 03/24/22 06:39 calcium AdvReac Intermediate weakness, Verified 03/24/22 06:39 swells iron AdvReac Intermediate weakness, Verified 03/24/22 06:39 swells metformin AdvReac Intermediate Diarrhea Verified 03/24/22 06:39 pioglitazone AdvReac Intermediate Swelling Verified 03/24/22 06:39 Home Medications Medication Instructions Recorded Confirmed Last Taken Type metoprolol succinate 25 mg 25 mg PO BEDTIME 03/23/22 03/23/22 Unknown History tablet,extended release 24 hr Exam Airway Mallampati Class: III TM Dist: >3cm Neck ROM: Full Loose/Missing/Broken Teeth: Yes Heart: S1,S2 Lungs: b/l breath sounds Assessment and Plan Assessment Anesthesia Assessment: Anesthesia Plan Discussed Final Anesthetic Review Family History of Problems with Anesthesia: No History of Problems with Anesthesia: No NPO: Yes ASA Class: III Final Preanesthetic Review: Meds/Allgs Chart Reviewed, Consent Obtained/Reviewed and Anes Risks/Benef Reviewed Patient Risk: High Procedure Risk: Intermediate Anesthetic Plan Anesthetic Plan: GA Disposition: Standard PACU
[2022-03-23 12:07] VITALS: BMI 40.2
[2022-03-23 13:02] LABS: COVID-19 Test Negative (Negative); IDNOW Serial# 16C4AD1C
[2022-03-24] VITALS (16 sets, daily range): BP systolic 128–154; BP diastolic 69–92; PULSE 82–95; RESP 16–18; TEMP 36.1–36.6; O2SAT 96–100
[2022-03-24 06:47] LABS: Glucose, Whole Blood 115 mg/dL (60-115)
--- NOTE | 2022-03-24 06:48 | PC.NURSE ---
attempt and insertion by arianna barroso rn
[2022-03-24] MEDS: Lactated Ringers 1,000 ML 100 ML IVCONT ×4 (06:49→21:13)
--- NOTE | 2022-03-24 07:07 | PHA.MEDREC ---
Pharmacy Consult ? Medication Reconciliation Pharmacy has reviewed the medication reconciliation completed by nursing. Lona Tijerina, BillyD
[2022-03-24] MEDS: Scopolamine 1.5 MG PATCH.TD.3 EAR-BEHIND (07:36)
--- NOTE | 2022-03-24 07:43 | PM.OP ---
Brief Operative Note Date of Service: 03/24/22 Pre-op diagnosis: Refractory morbid obesity with comorbidities (see below) Post-op diagnosis: same Procedure: INITIAL PATIENT BMI ON PRESENTATION AT OUR OFFICE: 45.3 kg/m2 LAST BMI BEFORE SURGERY: 41.8 kg/m2 COMORBIDITIES: insulin dependent diabetes, GERD, diaphragmatic hernia, sleep apnea, asthma, hypertension, CAD, PVD, Rheumatoid arthritis, stress incontinence, liver steatosis, nephrolithiasis ?The patient presented to the Weight Management Program with significant obesity that was negatively impacting the patient's comorbidities as listed above.? The program is a phased program with a special focus on preoperative medical weight management to promote substantial weight loss and prepare the patients for the second phase of the program: bariatric surgery. The patient participated in an intensive weekly lifestyle ?intervention and exercise program during which the patient ?has lost between the initial office visit and the last preoperative visit 22.2 lbs, or 7.68% of initial actual body weight. It was deemed appropriate for the patient to now have bariatric surgery. In light of the current Covid-19 pandemic and the well documented strong association of obesity and increased risk of worse outcomes if infected with Covid-19 (REFERENCES:https://pubmed.ncbi.nlm.nih.gov/63931426/,?https://pubmed.ncbi.nlm.nih.gov/65464790/), any delay in undergoing bariatric surgery may lead to the patient's worsening health condition and increased?risk of more severe Covid-19 disease if infected. In addition a recent?study from [facility] published in [facility] [employer] on 10/04/2021 ([email or web address]) found that, among patients with obesity, substantial weight loss achieved with surgery was associated with improved outcomes of COVID-19 infection. The findings suggest that obesity can be a modifiable risk factor for the severity of COVID-19 infection. In addition, the patient met the BMI-criteria for bariatric surgery based on the BMI on initial presentation. The patient should not be penalized for achieving such weight loss because ?it is not sustainable long-term without surgical intervention and it was achieved in preparation for bariatric surgery ?under my direction and based on my published research ([email or web address] and?https://www.soard.org/article/[email or web address](82)33630-X/pdf) ?that a 10% preoperative weight loss improves long-term weight loss after surgery and reduces perioperative complications.? Insurance carriers such as [facility] have endorsed my recommendations ?and have included in their policies criteria to include a 10% preoperative weight loss requirement. PROCEDURE: Esophago-gastroscopy, laparoscopic repair of incarcerated diaphragmatic hernia, laparoscopic lysis of adhesions, laparoscopic sleeve gastrectomy and laparoscopic gastropexy INDICATIONS: This is a 46 year-old female who was electively scheduled for laparoscopic, possibly open sleeve gastrectomy. The risks and complications of the procedure were discussed with the patient in advance, particularly the possibility of ; pulmonary embolism; staple line leak; bleeding; GERD; cardiac, pulmonary, or renal complications; as well as long-term problems such as insufficient weight loss, vitamin deficiency, strictures, or ulcers. The patient understood all the risks, and was in agreement to proceed with surgery. DESCRIPTION OF PROCEDURE: After informed consent was obtained from the patient, the patient was given preoperative antibiotics, and was transferred to the operating room. After successful induction of general anesthesia, pneumatic compression devices were placed on both lower extremities. An upper endoscopy was performed next. The oropharynx and esophagus appeared to be within normal limits. There was a diaphragmatic hernia present of moderate size consistent with the findings of the preoperative upper GI. The stomach was entered. Then after all fluid and air were suctioned and the stomach was fully decompressed, the scope was withdrawn and secured in the mid esophagus. The patient was then prepped and draped in the usual sterile manner, and abdominal access was established at the right upper quadrant with the Kayley technique. A 12 mm blunt port was inserted, and the abdomen was insufflated with CO2 to a pressure of 15 mmHg. Under direct visualization, additional ports were placed, specifically two 5 mm Versi-step ports to the left upper quadrant, and a 5 mm Versi-Step port to the right upper quadrant. 1% lidocaine plain was used to infiltrate all port sites as well as all fascia defects. Using the EndoClose suture passer device, I placed a #1 Polysorb tie across the falciform ligament in order to retract it up against the abdominal wall and prevent injury of the ligament with our instruments during the procedure. Following that, the patient was placed in a steep reverse Trendelenburg position. An additional 5 mm port was placed to the right flank for the Mediflex retractor that was used to retract the left lobe of the liver. The gastro-esophageal fat pad was opened with the ultrasonic device (Thunderbeat, Olympus) and the anterior esophagus and hiatus were exposed. The angle of His was opened with the ultrasonic device the fundus of the stomach from any diaphragmatic and splenic attachments. I then opened the gastrocolic ligament between the transverse colon and the greater curvature of the stomach with the ultrasonic device to enter the lesser sac and facilitate the ligation of the short gastric vessels. I started at a mid-point along the greater curvature and using the Thunderbeat, all short gastric vessels were divided all the way to the angle of His until the left inessa was completely dissected at its entirety. I then divided the gastro-colic ligament distally to a distance of about 3-4 cm proximal to the pylorus. There was an obvious significant-sized hiatal hernia. I continued dissecting along the hiatus toward the left inessa and the angle of His. I fully mobilized the fat pad that was incarcerated in the hernia. I then continued by dissecting even further into the posterior retro-esophageal space all the way to the angle of His. I continued to mobilize the esophagus into the mediastinum circumferentially. Both vagal nerves were seen and preserved. At that point, I was able to have at least 3 to 5 cm of esophagus into the abdomen.? After I completely mobilized the esophagus from both the left and right inessa and I had a good mobilization of the esophagus circumferentially, I closed the hernia defect with three interrupted #0 Surgidac sutures using the Endo Stitch device, two of which was placed posterior and one of which anterior to the esophagus. ? The stomach was then divided transversely with one Endo ALISON-45 purple and five ALISON-60 articulating orange loads using the AEON stapler and loads. Every effort was made that the gastric sleeve had a tubular shape and an even caliber throughout. Once the sleeve resection was completed, the staple line of the gastric sleeve was reinforced with Hemoclips. The resected stomach was retrieved without difficulty from the Kayley port. A gastropexy was then performed in order to prevent postoperative GERD and partial gastric volvulus. Several interrupted 2.0 Surgidac sutures were placed between the sleeve's staple line and the previously divided greater omentum and gastro-colic ligament using the Endo-Stitch device. ?An upper endoscopy was performed. There was no narrowing at the GE junction. The scope was easily advanced all the way to the pylorus which was clearly visualized. There was no narrowing anywhere and the sleeve's caliber was even throughout. The sleeve's staple line was inspected and there was no evidence of ischemia, bleeding or dehiscence. At that point the gastroscope was withdrawn from the patient?s mouth while we were decompressing the bowel and the stomach from any remaining air. I looked into the lesser sac to see how the sleeve was situating and it was situating well. There was no bleeding from the staple line, spleen, or short gastric vessels. The Mediflex retractor was removed, and the undersurface of the liver was inspected and there was no bleeding. The patient was placed in supine position. I closed the fascial defect of the 12 mm port site with a figure of eight #1 Polysorb suture. Then 40cc of Rupivacaine plain with 10 mg of Dexamethasone were used to infiltrate the fascial closure as well as all skin incisions. A total of 5ml of Zynrelef was applied at the Kayley wound. At this point, the abdomen was deflated, all ports were removed under direct vision, and no bleeding was noted from any of the port sites. The skin incisions were irrigated with saline and were closed with 4-0 absorbable monofilament sutures. Steri-Strips and OpSites were used to cover all incisions. The patient was extubated and was transferred in stable condition to the recovery room for further care. I was present and performed all lugo parts of the procedure. Mr. Gill was the pharmacy affairs assistant. There were no residents to assist with this case. Lee Pendleton MD, PhD, FACS Surgeon: Brian Pendleton MD Anesthesia: GETA, local and other (TAP block & 7ml Zynrelef) Was an Psychiatric Nurse Practitioner used for this Procedure?: No Psychiatric Nurse Practitioner: Denver Gill Estimated blood loss (mL): 10 IV fluids (mL): 3,000 Urine output (mL): 0 (No Gutierrez to record) Pathology: other (Stomach) Condition: stable Disposition: PACU
--- NOTE | 2022-03-24 07:47 | P.PNGS_ITS ---
Subjective Subjective Date of Service: 03/25/22 Interval history: Patient has mild incisional pain, but was able to ambulate and use the incentive spirometer. She is tolerating phase 1 bariatric diet Physical Exam Vital Signs: Vital Signs: Last Vital Signs Temp 97.8 F 03/24/22 06:17 Pulse 91 03/24/22 06:17 Resp 18 03/24/22 06:17 BP 143/78 H 03/24/22 06:17 Pulse Ox 99 03/24/22 06:17 O2 Del Method 03/24/22 06:17 BMI result Body Mass Index 40.2 GI: Inspection: Yes normal to inspection, Yes incision (clean, dry and intact) and Yes obesity Extrem: Right lower extremity: normal to inspection (no calf tenderness) Left lower extremity: normal to inspection (no calf tenderness) Objective Data Active Medications Albuterol Sulfate (Albuterol Sulfate (0.083%) 2.5 Mg/3 Ml Vial.Neb) 2.5 mg INHALE ONCE PRN PRN Reason: Shortness of Breath/Wheezing Lactated Ringer's (Lr) 1,000 mls @ 100 mls/hr IVCONT .Q10H [facility] Last Admin: 03/24/22 06:49 Dose: 100 mls/hr Documented By: SHEREE Lactated Ringer's (Lr) 1,000 mls @ 999 mls/hr IV .Q1H1M [facility] Stop: 03/24/22 08:15 Labs CBC & Chem 7: 03/25/22 05:54 03/25/22 05:54 Labs: Laboratory Results - last 24 hr 03/23/22 03/24/22 12:15 06:33 POC Glucose 115 COVID-19 (LUISA) Negative COVID-19 Clin Com See Note Procedures Date of Service Date of Service: 03/25/22 Progress Note: A&P Assessment and plan (1) Morbid obesity: Status: Acute Assessment and Plan: s/p laparoscopic sleeve gastrectomy, repair of diaphragmatic hernia, and gastropexy Doing well Check am labs. If OK, will discharge home? (2) Urinary incontinence: Status: Acute (3) Dyslipidemia: Status: Acute (4) Peripheral arterial disease: Status: Acute (5) Psoriatic arthritis: Status: Acute (6) Atherosclerotic heart disease of [place] coronary artery without angina pectoris: Status: Acute (7) PEDRO on CPAP: Status: Acute (8) Diabetes type 2, uncontrolled: Status: Acute (9) GERD (gastroesophageal reflux disease): Status: Acute (10) Moderate asthma: Status: Acute (11) Essential hypertension: Status: Acute (12) Steatosis, liver: Status: Acute (13) Diaphragmatic hernia: (14) Status post sleeve gastrectomy: Status: Acute (15) Status post repair of paraesophageal diaphragmatic hernia: Status: Acute Time Spent With Patient Time: Total time spent is greater than 50% in coordination of care (as documented) at patient's floor/unit and/or counseling patient: Quality Stroke Does the patient have a stroke diagnosis?: No VTE Prior VTE?: No VTE Risk Level:: Surgical - moderate VTE Device Contraindication: N/A - Device Ordered VTE Drug Contraindication: Treatment Not Indicated
--- NOTE | 2022-03-24 10:33 | PM.DS ---
DS: Providers Provider Date of Service: 03/25/22 Date of admission: 03/24/22 06:09 Primary care physician: Yessi Ball MD DS: Diagnosis Discharge Diagnosis (1) Morbid obesity: Status: Acute (2) Urinary incontinence: Status: Acute (3) Dyslipidemia: Status: Acute (4) Peripheral arterial disease: Status: Acute (5) Psoriatic arthritis: Status: Acute (6) Atherosclerotic heart disease of [place] coronary artery without angina pectoris: Status: Acute (7) PEDRO on CPAP: Status: Acute (8) Diabetes type 2, uncontrolled: Status: Acute (9) GERD (gastroesophageal reflux disease): Status: Acute (10) Moderate asthma: Status: Acute (11) Essential hypertension: Status: Acute (12) Steatosis, liver: Status: Acute (13) Diaphragmatic hernia: (14) Status post sleeve gastrectomy: Status: Acute (15) Status post repair of paraesophageal diaphragmatic hernia: Status: Acute DS: Summary Hospital Course Hospital Course: ADMITTING DIAGNOSIS: morbid obesity, CAD, GERD, HTN, PEDRO, PAD, Fibromyalgia ? DISCHARGE DIAGNOSIS: same, s/p laparoscopic sleeve gastrectomy and repair diaphragmatic hernia ? PAST SURGICAL HISTORY: laparoscopic cholecystectomy, tubal ligation ? PROCEDURE: upper endoscopy, laparoscopic sleeve gastrectomy and repair of diaphragmatic hernia hernia ? DISCHARGE SUMMARY: ? History of Present Illness: ? The patient is a?46 year-old woman with a BMI of?45.3 kg/m2 and associated co-morbidities as described above. The patient had extensive work-up,lost?22.8 lbs preoperatively and was electively scheduled for laparoscopic, possible open sleeve gastrectomy and gastropexy. Risks and complications of the surgery were discussed with the patient in advance, particularly the possibility of , pulmonary embolism, anastomotic leak, bleeding, bowel injury, GERD, cardiac, renal or pulmonary complications. The patient understood all the risks and was in agreement with the surgical plan. ? Hospital Course: ? The patient underwent an uneventful laparoscopic sleeve gastrectomy with gastropexy and repair of diaphragmatic hernia on the day of admission. Postoperatively, the patient was transferred to the surgical floor. The patient received IV Acetaminophen and IV dilaudid for pain control. Patient was started on bariatric phase 1 diet POD #0. On postoperative day one, the patient was feeling well without nausea, vomiting, fevers, or tachycardia. The patient had some mild incisional pain and the abdomen was soft. ? On the morning of postoperative day one, the patient was continued on 1 ounce of water or ice every half hour. During the day, the patient did fairly well, having some incisional pain, but able to ambulate adequately and to tolerate liquids well. ? Since the patient is doing well, we decided that the patient was ready to be discharged. The patient was given instructions to follow-up with me next week and to call my office for any fever over 101, persistent abdominal pain, nausea, vomiting, GERD, symptoms of DVT such as calf tenderness, or leg swelling, or pulmonary embolism such as chest pain or shortness of breath. The patient was also instructed to drink 40-60 ounces of liquids per day using the 1-ounce cups. The patient had been given prescriptions for Tylenol for pain, Zofran prn for nausea, and pantoprazole and carafate previously. The patient was encouraged to ambulate and use the incentive spirometer. The patient was allowed to shower, but no baths, and encouraged to stay active at home. All of these instructions were given to the patient personally. All questions were answered and the patient understood all instructions, the instructions were also given to the patient in print. Time Spent with Patient Time attestation: Total time spent providing and/or coordinating discharge services: Discharge coordination time: Less than 30 minutes Quality: Safe Use of Opioids Does Pt have an Active Cancer Diagnosis on the Problem List?: No Quality: Stroke Does the patient have a stroke diagnosis?: No Physical Exam Vital Signs: Vital Signs: Last Vital Signs Temp 97.8 F 03/24/22 06:17 Pulse 91 03/24/22 06:17 Resp 18 03/24/22 06:17 BP 143/78 H 03/24/22 06:17 Pulse Ox 99 03/24/22 06:17 O2 Del Method 03/24/22 06:17 BMI result Body Mass Index 40.2 DS: Data Data Completed and Pending Pending studies at discharge: Pending at discharge 03/24/22 09:42 Surgical [PTH] Routine Labs on day of discharge: Laboratory Results - last 24 hr 03/23/22 03/24/22 12:15 06:33 POC Glucose 115 COVID-19 (LUISA) Negative COVID-19 Clin Com See Note Discharge Plan Discharge Patient Disposition: Home, Self-Care Discharge Diagnosis: s/p laparoscopic sleeve gastrectomy and repair of diaphragmatic hernia Referrals: Yessi Carson MD [Primary Care Provider] - 1 Week Discharge Medications: Continued (DME) Ultra-Light Rollator Misc See Rx Instructions .ROUTE .MEDSUPPLY Qty: 1 0RF Rx Instructions: As directed oxybutynin chloride 10 mg tablet extended release 24hr 10 mg PO DAILY 30 Days Qty: 90 1RF ondansetron HCl 4 mg tablet 4 mg PO Q12H Qty: 30 0RF sucralfate 100 mg/mL suspension 10 ml PO BID Qty: 400 2RF pantoprazole 40 mg tablet,delayed release (DR/EC) 40 mg PO DAILY Qty: 90 0RF budesonide-formoterol [Symbicort] 160-4.5 mcg/actuation HFA aerosol inhaler 2 puff inhalation BID 30 Days Qty: 10.2 6RF rosuvastatin 40 mg tablet 40 mg PO DAILY Qty: 90 4RF sennosides [senna] 8.6 mg tablet 8.6 mg PO BEDTIME PRN (Reason: constipation) 90 Days Qty: 90 0RF (DME) FreeStyle Vandana 14 Day Sensor Kit See Rx Instructions .MEDSUPPLY Qty: 2 11RF Rx Instructions: every 14 days (DME) pen needle, diabetic [BD Ashia 2nd Gen Pen Needle] 32 gauge x 5/32 needle See Rx Instructions .MEDSUPPLY Qty: 400 4RF Rx Instructions: 5 times a day Held lisinopril 2.5 mg tablet 2.5 mg PO DAILY 90 Days Qty: 90 4RF Hold Instructions: Resume on 03/25/22. Do not take until you send blood pressure readings to Dr. Pendleton and responds to you what to do Trulicity 1.5 mg/0.5 mL pen injector 1.5 mg subcut QWEEK 28 Days Qty: 2 4RF Hold Instructions: Resume on 04/08/22. Do not take until you send blood sugar readings to Dr. Pendleton and responds to you what to do Lantus Solostar U-100 Insulin 100 unit/mL (3 mL) insulin pen 25 unit subcut QPM 30 Days Qty: 7.5 6RF Hold Instructions: Resume on 03/25/22. Do not take until you send blood sugar readings to Dr. Pendleton and responds to you what to do Humira(CF) Pen 40 mg/0.4 mL pen injector kit See Rx Instructions subcut .COMPLEX Qty: 2 1RF Hold Instructions: Resume on 04/25/22. Rx Instructions: inject one - 40 mg/0.4 mL pen every 2 weeks subcut gabapentin 400 mg capsule 400 mg PO BID 90 Days Qty: 180 0RF Hold Instructions: until discussed with Dr Pendleton norethindrone (contraceptive) 0.35 mg tablet 0.35 mg PO DAILY Qty: 28 2RF Hold Instructions: until discussed with Dr Pendleton metoprolol succinate 25 mg tablet extended release 24 hr 25 mg PO BEDTIME Hold Instructions: Resume on 03/25/22. Do not take until you send blood pressure readings to Dr. Pendleton and responds to you what to do dicyclomine 20 mg tablet 20 mg PO QID Qty: 30 3RF Hold Instructions: until discussed with Dr Pendleton Discontinued Farxiga 10 mg tablet 10 mg PO QAM Qty: 30 6RF tramadol 50 mg tablet 50 mg PO Q8H PRN (Reason: pain) 30 Days Qty: 90 0RF polyethylene glycol 3350 [Miralax] 17 gram powder in packet 17 g PO DAILY Qty: 14 0RF Rx Instructions: Mix each packet with 8oz of water and do 7 packets on 03/22/22 and another 7 packets on 03/23/22 cholecalciferol (vitamin D3) 25 mcg (1,000 unit) tablet 25 mcg PO DAILY 90 Days Qty: 90 3RF folic acid 1 mg tablet 1 mg PO DAILY 90 Days Qty: 90 3RF magnesium oxide 250 mg magnesium tablet 250 mg PO DAILY 90 Days Qty: 90 2RF ascorbic acid (vitamin C) 500 mg tablet 500 mg PO DAILY 90 Days Qty: 90 3RF mecobalamin (vitamin B12) 5,000 mcg tablet,disintegrating 5,000 mcg PO .once a day 90 Days Qty: 90 3RF cyanocobalamin (vitamin B-12) 1,000 mcg tablet extended release 1,000 mcg PO DAILY 90 Days Qty: 90 1RF vitamin E 200 unit capsule 800 unit PO DAILY 90 Days Qty: 360 3RF Discharge Orders: Discharge Order (Routine); Ordered 03/25/22 Ordered By: Brian Pendleton Diet: other Activity on Discharge: No heavy lifting Stand Alone Forms: Patient Portal Discharge page Care Plan Goals: weight loss Health Concerns: morbid obesity Plan of Treatment: No tub baths, sex or returning to work until discussed at first post op appointment. No exercise, alcohol, tobacco or illegal drug use. Continue to use incentive spirometer hourly while awake. Walk in home for 5- 10 minutes every 2 hours during the first week. Follow all instructions in the bariatric handbook and call with any questions.Discharge Instructions 1. Please call your doctor or come back to the emergency room should any new symptoms arise. 2. You will receive a courtesy call from [facility] 24-48 hours after discharge. 3. Activity: abstain from alcohol, practice limited stair climbing, no bending, no driving, no exercise, no illicit substances, no lifting, no sex, no tub bath, no work. 4. Diet: continue as discussed with Dr. Pendleton. 5. Dressing Change/Wound Care: Your incision is covered by clear bandages and guaze underneath. If the area is tender, you may apply an ice pack for short intervals (no more than 20 minutes on, followed by at least 20 minutes off). Do not apply heat. Do not use creams, lotions, or topical antibiotics unless instructed to do so by your surgeon. These can cause infection or allergic reaction. 6. Call your doctor if: - Your temperature exceeds 101.5 F - You experience excessive pain or swelling - You have an unexpected reaction to medication - You have excessive bleeding - You experience continued vomiting/nausea - Your incision begins to separate - Your incision shows signs of infection such as increased redness, swelling, excessive pain, heat, or drainage (light blood or clear fluid is normal) 7. General instructions: No lifting greater than 5 lbs for the next 4 weeks[address] driving within 24 hours of taking narcotic pain medications. If you do not move your bowels in the next 2 days, please take milk of magnesia over the counter. Please follow the post op diet and do not advance your diet until you are seen in the office in about 2 weeks. Please walk around your home every hour or two to prevent blood clots from forming in your legs. You do not need to wake from sleeping to walk. Please sleep in a bed or couch to prevent kinking at the hips and knees. Please take your incentive spirometer (your lung travel specialist) home with you and use it for the next few days to prevent pneumonias. You may shower, no hot tubs, baths or swimming pools. Please call the office with any questions or concerns such as increasing abdominal pain, fever, chills, shortness of breath, chest pain, leg pain or swelling, or redness or drainage from your incisions. Please stay on stage 3 diet which includes sugar free clear liquids such as ice pops and jello and broth and crystal light. Avoid all carbonation. Please drink 3 protein shakes with at least 25-30 grams of protein daily or 3 of the Celebrate 4:1 shakes which can be purchased in our office. The Celebrate shakes have all of the bariatric vitamins you need if you consume these shakes. If you are drinking other protein shakes, you will need to purchase the Celebrate multivitamins and calcium that we provide in the office (they will provide all the vitamins you need). Please make sure you are consuming at least 40-60 ounces of water in addition to your 3 protein shakes daily. Do not hesitate to contact the office with any questions at . The patient's medical history has been reviewed and they are considered low risk for post op DVT and therefore DVT prophylaxis is not considered necessary. Travel after surgery was reviewed. The patient has not disclosed any travel plans during the first 30 days after surgery and they have been advised that within the first 30 days after surgery any bus, plane, train or car travel over 2 hours in duration is contraindicated due to the possibility of developing blood clots from immobility. Any travel, needs to include periods of ambulation of 10 minutes in duration every 2 hours.? The patient was instructed to discuss any plans for travel during this period with their bariatric surgeon. Assessment: stable s/p laparoscopic sleeve gastrectomy and repair of diaphragmatic hernia
[2022-03-24 10:34] LABS: Hematocrit 39.3 % (37.0-47.0); Hemoglobin 11.8 g/dl (12.0-16.0)
[2022-03-24] MEDS: Famotidine/PF 20 MG/2 ML VIAL IVPUSH ×2 (10:47→20:28)
[2022-03-24 10:52] LABS: Anion Gap 14 (12-20); Blood Urea Nitrogen 17 mg/dL (9-16); Calcium 8.9 mg/dL (8.4-10.2); Carbon Dioxide 22 mmol/L (22-29); Chloride 103 mmol/L (96-108); Creatinine Clr Calc Pharmacy 111.4; Estimated Glomerular Filt Rate > 60; Glucose Random 165 mg/dL (60-115); Potassium 4.4 mmol/L (3.3-5.1); Sodium 135 mmol/L (135-145)
[2022-03-24] MEDS: ceFAZolin Sodium/Dextrose,Iso 2 GM/50 ML PIGGYBACK IV (14:04)
[2022-03-24] MEDS: ondansetron HCL 4 MG/2 ML VIAL IVPUSH ×2 (16:05→23:13)
[2022-03-24 16:14] LABS: Glucose, Whole Blood 141 mg/dL (60-115)
[2022-03-24 20:02] LABS: Glucose, Whole Blood 160 mg/dL (60-115)
[2022-03-24] MEDS: Insulin Lispro 100 UNIT/ML 3 ML VIAL SUBCUT (20:27)
[2022-03-24] MEDS: 0.9 % Sodium Chloride Flush 3 ML SYRINGE IVFLUSH (20:28)
[2022-03-24] MEDS: Metoclopramide HCl 10 MG/2 ML VIAL IVPUSH (20:30)
[2022-03-24] MEDS: LORazepam 0.5 MG TABLET PO (21:35)
[2022-03-24 23:09] LABS: Glucose, Whole Blood 142 mg/dL (60-115)
--- NOTE | 2022-03-24 23:44 | PC.NURSE ---
pt refusing to wear cpap, stating she does not wear it at home. PURVI Erickson is aware.
[2022-03-25] VITALS: BP 120/64; PULSE 88; RESP 18; TEMP 36.6; O2SAT 94
[2022-03-25 03:05] LABS: Glucose, Whole Blood 129 mg/dL (60-115)
[2022-03-25 04:00] VITALS: BP 136/70; PULSE 93; RESP 18; TEMP 36.8; O2SAT 94
[2022-03-25 06:22] LABS: MANUAL DIFF FLAG NO
[2022-03-25 06:32] LABS: Basophils Percent Auto 0.2 % (0-2); Hematocrit 35.8 % (37.0-47.0); Imm Gran Abs Auto 0.07 X10*3/uL (0.00-0.03); Imm Gran Pct Auto 0.5 % (0.0-0.4); Lymphocytes Absolute Auto 1.1 X10*3/uL (1.2-4.9); Lymphocytes Percent Auto 8.6 % (20-40); Mean Corpuscular HGB Conc 30.7 g/dl (31.0-35.0); Mean Corpuscular Hemoglobin 23.9 pg (27.0-33.0); Mean Corpuscular Volume 77.7 fL (80.0-98.0); Mean Platelet Volume 11.7 fL (9.4-12.3); Monocytes Absolute Auto 0.9 X10*3/uL (0.1-1.2); Monocytes Percent Auto 6.7 % (2-11); Neutrophils Absolute Auto 10.7 x10*3/uL (2.0-8.3); Platelet Count 294 X10*3/uL (160-400); Red Blood Count 4.61 X10*6/uL (4.20-5.50); Red Cell Distribution Width 15.9 % (11.0-16.0); White Blood Count 12.8 X10*3/uL (4.8-10.8)
[2022-03-25] MEDS: Lactated Ringers 1,000 ML 100 ML IVCONT (06:38)
[2022-03-25 06:59] LABS: Anion Gap 12 (12-20); Blood Urea Nitrogen 12 mg/dL (9-16); Calcium 8.9 mg/dL (8.4-10.2); Carbon Dioxide 25 mmol/L (22-29); Chloride 103 mmol/L (96-108); Creatinine Clr Calc Pharmacy 126.3; Estimated Glomerular Filt Rate > 60; Glucose Random 140 mg/dL (60-115); Potassium 4.3 mmol/L (3.3-5.1); Sodium 136 mmol/L (135-145)
[2022-03-25 07:34] LABS: Glucose, Whole Blood 123 mg/dL (60-115)
[2022-03-25 07:46] VITALS: BP 135/76; PULSE 81; RESP 17; TEMP 36.3; O2SAT 100
[2022-03-25] MEDS: ondansetron HCL 4 MG/2 ML VIAL IVPUSH (08:20)
[2022-03-25] MEDS: Famotidine/PF 20 MG/2 ML VIAL IVPUSH (08:21)
[2022-03-25] MEDS: 0.9 % Sodium Chloride Flush 3 ML SYRINGE IVFLUSH (08:21)
--- NOTE | 2022-03-25 08:35 | MHC.CM.PN ---
PATIENT IS INDEPENDENT WITH ALL ADLS NO DME OR [facility] SERVICES SHE LIVES WITH HCP/SPOUSE (COPY REQUESTED) WHO IS IN ROOM TO PROVIDE TRANSPORTATION HOME. PATIENT HAS HAD 2 COVID-19 VACCINES ([employer]) BUT DOES NOT RECALL THE DATES. SHE IS DC HOME - SELF CARE
--- NOTE | 2022-03-25 11:25 | HO.POSTANES ---
Post Anesthesia Evaluation Post Anesthesia Evaluation Vital Signs: Vital Signs Temp Pulse Resp BP Pulse Ox O2 Del Method 03/25/22 07:46 97.3 F 81 17 135/76 100 Room Air 03/25/22 04:00 98.2 F 93 18 136/70 94 Room Air 03/25/22 00:00 97.9 F 88 18 120/64 94 Room Air Anesthesia: General Endotracheal-GETA Mental Status: Awake Pain Control: Satisfactory Nausea/Vomiting: None Hydration: Adequate Anesthesia-Related Issues: No Anes. Related Issues
== END 2022-03-25 10:00 | disposition home or self-care (01) | DRG 403 ==
LOC: HO.SSSA 10:33 → HO.S3 14:11
PROVIDERS: Nurse Practitioner Family; Physician Assistant Surgical; Admitting Provider Surgery; PCP Internal Medicine; Visit Provider Surgery
PROC: 0DB64Z3 Excision of Stomach, Percutaneous Endoscopic Approach, Vertical (ICD-10-PCS; CPT 43845; principal; 2022-03-24 07:30)
DX: E66.01 Morbid (severe) obesity due to excess calories (principal); E11.51 Type 2 diabetes mellitus with diabetic peripheral angiopathy without gangrene; K44.0 Diaphragmatic hernia with obstruction, without gangrene; J45.909 Unspecified asthma, uncomplicated; I10 Essential (primary) hypertension; M06.9 Rheumatoid arthritis, unspecified; E78.5 Hyperlipidemia, unspecified; N32.81 Overactive bladder; Z87.442 Personal history of urinary calculi; Z20.822 Contact with and (suspected) exposure to COVID-19; Z68.41 Body mass index [BMI] 40.0-44.9, adult; Z98.51 Tubal ligation status; Z91.040 Latex allergy status; Z91.013 Allergy to seafood; Z88.5 Allergy status to narcotic agent; Z88.8 Allergy status to other drugs, medicaments and biological substances; Z79.4 Long term (current) use of insulin; Z79.899 Other long term (current) drug therapy
CPT/HCPCS: 36415; 80048; 80053; 80061; 82947; 83036; 83525; 84443; 85014; 85018; 85025; 85610; 85652; 85730; 86140; 86850; 86900; 86901; 87635; 88307; 88342; A4649; C9088; J0131; J0690; J1100; J1170; J2250; J2405; J2765; J2795; J3010

== ENCOUNTER → 2022-05-03 15:28 | Outpatient (BNVA) | payer OTHER, SELFPAY | PROVIDERS: PCP Internal Medicine | DX: N20.0 Calculus of kidney (principal); R39.14 Feeling of incomplete bladder emptying | CPT/HCPCS: 51798; 99202 ==

== ENCOUNTER 2022-06-01 15:17 | Outpatient (REF) | payer OTHER, SELFPAY ==
--- NOTE | ~2022-06-01 | XR_ITS ---
EXAMINATION: CERVICAL SPINE 3 VIEWS CLINICAL INFORMATION: Pain. COMPARISON: Radiographs dated 08/20/2014. TECHNIQUE: Frontal, lateral and odontoid views are obtained. FINDINGS: Vertebral body heights and alignment are normal. The disc spaces are well-maintained. No acute fracture or spondylolisthesis is seen. The posterior elements are intact. There is no prevertebral soft tissue swelling. The dens and C7-T1 interface are normal. XR/XR cervical spine 2V IMPRESSION: Negative examination. EXAMINATION: XR THORACIC SPINE CLINICAL INFORMATION: Pain. COMPARISON: Radiographs dated 08/20/2014. TECHNIQUE: Frontal and lateral views of the thoracic spine are submitted. FINDINGS: There is a slight lumbar dextroscoliosis, which may be positional. There is a chronic, stable mild T7 anterior wedge compression fracture. There is moderate degenerative disc disease at T6-T7 and T7-T8. Vertebral body heights are otherwise unremarkable. There is multi-level mild thoracic spondylosis. No acute fracture or spondylolisthesis is seen. The posterior elements are intact. The paravertebral soft tissues are unremarkable. IMPRESSION: 1. A chronic, stable mild T7 anterior wedge compression fracture is seen. 2. There is moderate degenerative disc disease at T6-T7 and T7-T8. 3. There is multi-level mild thoracic spondylosis. 4. There is a slight lumbar dextroscoliosis, which may be positional.
--- NOTE | ~2022-06-01 | XR_ITS ---
EXAMINATION: XR KNEE, RIGHT CLINICAL INFORMATION: Pain. COMPARISON: None TECHNIQUE: Frontal, lateral and axial views of the right knee are submitted. FINDINGS: Bony alignment and mineralization are normal. The lateral, medial and patellofemoral joint space compartments are well-maintained. There is mild peripheral osteophyte formation of the lateral and patellofemoral compartments. There is no fracture, dislocation or significant joint effusion. No foreign body is seen. A right tibial intramedullary renee is noted. XR/XR knee LT 3V IMPRESSION: 1. There is mild osteoarthritic change of the lateral and patellofemoral joint space compartments of the right knee. 2. No right knee fracture, dislocation or joint effusion is seen. EXAMINATION: XR KNEE, LEFT CLINICAL INFORMATION: Pain. COMPARISON: Prior radiographs, most recently 06/09/2020. TECHNIQUE: Frontal, lateral and axial views of the left knee are submitted. FINDINGS: Bony alignment and mineralization are normal. The lateral, medial and patellofemoral joint space compartments are well-maintained. There is mild tricompartment peripheral osteophyte formation. There is no fracture, dislocation or significant joint effusion. No foreign body is seen. IMPRESSION: 1. There is mild tricompartment osteoarthritic change of the left knee. 2. No left knee fracture, dislocation or joint effusion is seen.
--- NOTE | ~2022-06-01 | XR_ITS ---
EXAMINATION: CERVICAL SPINE 3 VIEWS CLINICAL INFORMATION: Pain. COMPARISON: Radiographs dated 08/20/2014. TECHNIQUE: Frontal, lateral and odontoid views are obtained. FINDINGS: Vertebral body heights and alignment are normal. The disc spaces are well-maintained. No acute fracture or spondylolisthesis is seen. The posterior elements are intact. There is no prevertebral soft tissue swelling. The dens and C7-T1 interface are normal. XR/XR thoracic spine 2V IMPRESSION: Negative examination. EXAMINATION: XR THORACIC SPINE CLINICAL INFORMATION: Pain. COMPARISON: Radiographs dated 08/20/2014. TECHNIQUE: Frontal and lateral views of the thoracic spine are submitted. FINDINGS: There is a slight lumbar dextroscoliosis, which may be positional. There is a chronic, stable mild T7 anterior wedge compression fracture. There is moderate degenerative disc disease at T6-T7 and T7-T8. Vertebral body heights are otherwise unremarkable. There is multi-level mild thoracic spondylosis. No acute fracture or spondylolisthesis is seen. The posterior elements are intact. The paravertebral soft tissues are unremarkable. IMPRESSION: 1. A chronic, stable mild T7 anterior wedge compression fracture is seen. 2. There is moderate degenerative disc disease at T6-T7 and T7-T8. 3. There is multi-level mild thoracic spondylosis. 4. There is a slight lumbar dextroscoliosis, which may be positional.
--- NOTE | ~2022-06-01 | XR_ITS ---
EXAMINATION: XR KNEE, RIGHT CLINICAL INFORMATION: Pain. COMPARISON: None TECHNIQUE: Frontal, lateral and axial views of the right knee are submitted. FINDINGS: Bony alignment and mineralization are normal. The lateral, medial and patellofemoral joint space compartments are well-maintained. There is mild peripheral osteophyte formation of the lateral and patellofemoral compartments. There is no fracture, dislocation or significant joint effusion. No foreign body is seen. A right tibial intramedullary renee is noted. XR/XR knee RT 3V IMPRESSION: 1. There is mild osteoarthritic change of the lateral and patellofemoral joint space compartments of the right knee. 2. No right knee fracture, dislocation or joint effusion is seen. EXAMINATION: XR KNEE, LEFT CLINICAL INFORMATION: Pain. COMPARISON: Prior radiographs, most recently 06/09/2020. TECHNIQUE: Frontal, lateral and axial views of the left knee are submitted. FINDINGS: Bony alignment and mineralization are normal. The lateral, medial and patellofemoral joint space compartments are well-maintained. There is mild tricompartment peripheral osteophyte formation. There is no fracture, dislocation or significant joint effusion. No foreign body is seen. IMPRESSION: 1. There is mild tricompartment osteoarthritic change of the left knee. 2. No left knee fracture, dislocation or joint effusion is seen.
[2022-06-01 15:29] LABS: MANUAL DIFF FLAG NO
[2022-06-01 15:43] LABS: Basophils Absolute Auto 0.1 X10*3/uL (0.0-0.2); Basophils Percent Auto 0.6 % (0-2); Eosinophils Absolute Auto 0.1 X10*3/uL (0.0-0.4); Eosinophils Percent Auto 1.4 % (0-4); Hematocrit 36.9 % (37.0-47.0); Hemoglobin 11.5 g/dl (12.0-16.0); Imm Gran Abs Auto 0.02 X10*3/uL (0.00-0.03); Imm Gran Pct Auto 0.2 % (0.0-0.4); Lymphocytes Absolute Auto 2.3 X10*3/uL (1.2-4.9); Lymphocytes Percent Auto 26.8 % (20-40); Mean Corpuscular HGB Conc 31.2 g/dl (31.0-35.0); Mean Corpuscular Hemoglobin 24.4 pg (27.0-33.0); Mean Corpuscular Volume 78.2 fL (80.0-98.0); Mean Platelet Volume 11.7 fL (9.4-12.3); Monocytes Absolute Auto 0.5 X10*3/uL (0.1-1.2); Monocytes Percent Auto 5.8 % (2-11); Neutrophils Absolute Auto 5.6 x10*3/uL (2.0-8.3); Neutrophils Percent Auto 65.2 % (45-73); Platelet Count 286 X10*3/uL (160-400); Red Blood Count 4.72 X10*6/uL (4.20-5.50); White Blood Count 8.7 X10*3/uL (4.8-10.8)
[2022-06-01 16:08] LABS: Alanine Aminotransferase 10 U/L (0-31); Aspartate Amino Transferase 14 U/L (5-31); C Reactive Protein 0.77 mg/dL (< or = 0.50); Estimated Glomerular Filt Rate > 60
[2022-06-01 16:22] LABS: Erythrocyte Sedimentation Rate 33 MM/HR (0-20)
== END 2022-06-01 15:18 | disposition home or self-care (01) ==
LOC: HO.XRAY 15:17
PROVIDERS: PCP Internal Medicine; Visit Provider Nurse Practitioner Family
DX: L40.50 Arthropathic psoriasis, unspecified (principal); M25.561 Pain in right knee; M25.562 Pain in left knee; M54.6 Pain in thoracic spine; M54.2 Cervicalgia; Z79.899 Other long term (current) drug therapy
CPT/HCPCS: 36415; 72040; 72070; 73562; 82565; 84450; 84460; 85025; 85652; 86140; 99212

== ENCOUNTER 2022-06-08 12:34 | Outpatient (REF) | payer OTHER, SELFPAY ==
--- NOTE | ~2022-06-08 | XR_ITS ---
EXAMINATION: XR FEMUR, LEFT CLINICAL INFORMATION: Pain. No acute injury. COMPARISON: None TECHNIQUE: AP and lateral views of the left femur were obtained. FINDINGS: The bones and soft tissues are normal. No fracture. No osseous lesions. XR/XR femur LT 2V IMPRESSION: Normal left femur.
== END 2022-06-08 12:35 | disposition home or self-care (01) ==
LOC: HO.HMGCX 12:34
PROVIDERS: PCP Internal Medicine; Visit Provider Emergency Medicine
DX: M79.605 Pain in left leg (principal)
CPT/HCPCS: 73552

== ENCOUNTER → 2022-06-30 08:17 | Outpatient (BNVA) | payer OTHER, SELFPAY | PROVIDERS: PCP Internal Medicine; Visit Provider Physician Assistant Surgical | DX: E66.9 Obesity, unspecified (principal); Z68.36 Body mass index [BMI] 36.0-36.9, adult; Z98.84 Bariatric surgery status | CPT/HCPCS: 99212 ==

== ENCOUNTER → 2022-08-15 12:00 | Outpatient (BNVA) | payer OTHER, SELFPAY | PROVIDERS: PCP Internal Medicine; Referring Provider Internal Medicine; Visit Provider Nurse Practitioner Family | DX: S22.060A Wedge compression fracture of T7-T8 vertebra, initial encounter for closed fracture (principal); M54.6 Pain in thoracic spine; M25.561 Pain in right knee; M25.562 Pain in left knee; M54.2 Cervicalgia; L40.50 Arthropathic psoriasis, unspecified | CPT/HCPCS: 99212 ==

== ENCOUNTER 2022-08-23 13:46 | Outpatient (REF) | payer OTHER, SELFPAY ==
--- NOTE | ~2022-08-23 | MM_ITS ---
EXAMINATION: BONE DENSITOMETRY CLINICAL INDICATION: Wedge compression fracture T7-T8 vertebra. Age 46. COMPARISON: None (current study represents initial baseline exam). TECHNIQUE: Using a [employer] DXA System (software version: 13.1) manufactured by [employer], dual-energy x-ray absorptiometry was performed of the lumbar spine and left hip. The images are of good technical quality. Based on ISCD (International Society for Clinical Densitometry) standards of reporting, Z-scores instead of T-scores are reported in this premenopausal woman. Summary results are attached. FINDINGS: AP SPINE L1-L4: BMD 1.358 g/cm2, T-score 1.5, Z-score 0.3, Z-score within expected range for age. LEFT FEMUR, NECK: BMD 0.943 g/cm2, T-score -0.7, Z-score -0.9, Z-score within expected range for age. LEFT FEMUR, TOTAL: BMD 0.906 g/cm2, T-score -0.8, Z-score -1.4, Z-score within expected range for age. IDENTIFIED RISK FACTORS: Menopause, rheumatoid arthritis, secondary osteoporosis, history of fracture (adult). HISTORY OF FRACTURE: Spine, ankle. MEDICATIONS: Calcium, vitamin D. MM/XR DEXA axial skeleton IMPRESSION: 1. DIAGNOSIS: Based on the lowest Z-score value of -1.4 in the total femur, the patient's bone density is within the expected range for age. 2. 10-YEAR FRACTURE RISK PREDICTION, FRAX: Not performed in this perimenopausal patient. 3. Treatment Recommendations: NOF guidelines recommend consideration for treatment in postmenopausal women and men age 50 and older presenting with the following: -A hip or vertebral (clinical or morphometric) fracture. -T-score less than or equal to -2.5 at the femoral neck or spine after appropriate evaluation to exclude secondary causes. -Low bone mass at the hip or spine and a 10-year fracture probability by FRAX of greater than or equal to 3% for hip fracture or greater than or equal to 20% for major osteoporotic fracture based on the [place] adapted WHO algorithm. 4. Other Recommendations: All treatment decisions require clinical judgment and consideration of individual patient factors, including patient preferences, comorbidities, previous drug use, risk factors not captured in the FRAX model (e.g. frailty, falls, vitamin D deficiency, increased bone turnover, interval significant decline in bone density) and possible under or overestimation of fracture risk by FRAX. FUTURE SCAN RECOMMENDATION: People with diagnosed cases of osteoporosis or at high risk for fracture should have regular bone mineral density tests. For patients eligible for Medicare, routine testing is allowed once every 2 years. The testing frequency can be increased to one year for patients who have rapidly progressing disease, those who are receiving or discontinuing medical therapy to restore bone mass, or have additional risk factors.
== END 2022-08-23 13:47 | disposition home or self-care (01) ==
LOC: HO.MAMMO 13:46
PROVIDERS: PCP Internal Medicine; Visit Provider Nurse Practitioner Family
DX: Z13.820 Encounter for screening for osteoporosis (principal); M06.9 Rheumatoid arthritis, unspecified; S22.060A Wedge compression fracture of T7-T8 vertebra, initial encounter for closed fracture; Z78.0 Asymptomatic menopausal state
CPT/HCPCS: 77080

== ENCOUNTER 2022-09-05 16:27 | Outpatient (REF) | payer OTHER, SELFPAY ==
--- NOTE | ~2022-09-05 | XR_ITS ---
EXAMINATION: XR LUMBOSACRAL SPINE CLINICAL INFORMATION: Low back pain COMPARISON: None TECHNIQUE: Three views of the lumbosacral spine. FINDINGS: There is maintained lumbar lordosis. The vertebral heights are normal. There is grade 1 anterolisthesis L4 on L5. Rest of the vertebral alignment is normal. There is mild loss of L5-S1 disc height with mild ventral spondylosis at L3-L4, L4-L5 and L5-S1 disc levels. No visible acute fracture, dislocation or subluxation seen. No bony erosive changes. The soft tissues are normal. XR/XR lumbar spine 2-3V IMPRESSION: Grade 1 anterolisthesis L4 over L5 with degenerative disc changes at L5-S1 disc level.
[2022-09-05 16:45] LABS: MANUAL DIFF FLAG NO
[2022-09-05 17:00] LABS: Basophils Absolute Auto 0.1 X10*3/uL (0.0-0.2); Basophils Percent Auto 0.9 % (0-2); Eosinophils Absolute Auto 0.2 X10*3/uL (0.0-0.4); Eosinophils Percent Auto 1.7 % (0-4); Hematocrit 40.7 % (37.0-47.0); Hemoglobin 12.7 g/dl (12.0-16.0); Imm Gran Abs Auto 0.03 X10*3/uL (0.00-0.03); Imm Gran Pct Auto 0.3 % (0.0-0.4); Lymphocytes Absolute Auto 2.9 X10*3/uL (1.2-4.9); Lymphocytes Percent Auto 29.9 % (20-40); Mean Corpuscular HGB Conc 31.2 g/dl (31.0-35.0); Mean Corpuscular Hemoglobin 25.8 pg (27.0-33.0); Mean Corpuscular Volume 82.6 fL (80.0-98.0); Monocytes Absolute Auto 0.6 X10*3/uL (0.1-1.2); Monocytes Percent Auto 6.2 % (2-11); Neutrophils Absolute Auto 5.9 x10*3/uL (2.0-8.3); Platelet Count 310 X10*3/uL (160-400); Red Blood Count 4.93 X10*6/uL (4.20-5.50); Red Cell Distribution Width 14.4 % (11.0-16.0); White Blood Count 9.6 X10*3/uL (4.8-10.8)
[2022-09-05 17:56] LABS: Alanine Aminotransferase 14 U/L (0-31); Albumin Level 4.5 g/dL (3.5-5.0); Alkaline Phosphatase 94 U/L (39-117); Anion Gap 11 (12-20); Aspartate Amino Transferase 17 U/L (5-31); Bilirubin Total 0.3 mg/dL (0.0-1.0); Blood Urea Nitrogen 26 mg/dL (9-16); Calcium 9.9 mg/dL (8.4-10.2); Carbon Dioxide 26 mmol/L (22-29); Chloride 104 mmol/L (96-108); Cholesterol 216 mg/dL; Estimated Glomerular Filt Rate > 60; Glucose Fasting 105 mg/dL (60-99); HDL Cholesterol 51 mg/dL; LDL Cholesterol Calculated 125 mg/dl; Potassium 4.4 mmol/L (3.3-5.1); Sodium 137 mmol/L (135-145); Total Protein 8.1 g/dL (6.5-8.0); Triglycerides 200 mg/dL
[2022-09-05 17:59] LABS: Creatinine Urine 203.26 mg/dL; Microalbum/Creatinine Ratio Ur 9.8 ug/mg cr
[2022-09-05 17:59] LABS: Erythrocyte Sedimentation Rate 50 MM/HR (0-20)
[2022-09-05 18:18] LABS: Vitamin D 25-OH Total 46.4 ng/mL (>30)
== END 2022-09-05 16:28 | disposition home or self-care (01) ==
LOC: HO.LAB 16:27
PROVIDERS: PCP Internal Medicine; Visit Provider Nurse Practitioner Family
DX: L40.50 Arthropathic psoriasis, unspecified (principal); E55.9 Vitamin D deficiency, unspecified; E78.5 Hyperlipidemia, unspecified; E11.649 Type 2 diabetes mellitus with hypoglycemia without coma; M54.50 Low back pain, unspecified; Z79.899 Other long term (current) drug therapy
CPT/HCPCS: 36415; 72100; 80053; 80061; 82043; 82306; 85025; 85652; 86140

== ENCOUNTER 2022-09-15 10:45 | Outpatient (REF) | payer OTHER, SELFPAY ==
--- NOTE | ~2022-09-15 | US_ITS ---
EXAMINATION: US RETROPERITONEAL LIMITED (RENAL ONLY) CLINICAL INFORMATION: Calculus of kidney. COMPARISON: Ultrasound abdomen complete with elastography 01/26/2022. CT abdomen and pelvis 01/31/2017. Limited abdominal ultrasound 05/31/2013. TECHNIQUE: Real-time imaging of the kidneys. FINDINGS: RIGHT KIDNEY: 12.6 x 5.5 x 5.4 cm (SAG x AP x TRV). The kidney is normal in size, contour, and echogenicity. Renal cortical thickness is normal. Mild hydroureter involving the proximal to mid ureter. No hydronephrosis. Midpole 1 cm simple cyst. No specific follow-up recommended. 0.6 cm midpole renal calculus. There is also a cluster of small calculi at the mid to upper pole measuring 0.4 cm. LEFT KIDNEY: 11.7 x 5.3 x 4.2 cm (SAG x AP x TRV). The kidney is normal in size, contour, and echogenicity. Renal cortical thickness is normal. No focal parenchymal lesions. Mild hydronephrosis. The pole 0.2 cm calculus seen. Of note, the bilateral ureteral jets are not visualized. US/US renal BI IMPRESSION: 1. Mild left hydronephrosis. Nonobstructing 0.2 cm midpole calculus. 2. Although there is no right-sided hydronephrosis, there is mild hydroureter. Nonobstructing right renal calculi are present. 3. The lack of ureteral jets is nonspecific. Cannot exclude distal obstructing calculi.
== END 2022-09-15 10:46 | disposition home or self-care (01) ==
LOC: HO.US 10:45
DX: N20.0 Calculus of kidney (principal)
CPT/HCPCS: 76775

== ENCOUNTER 2022-11-01 15:06 | Outpatient (REF) | payer OTHER, SELFPAY ==
[2022-11-07 20:53] LABS: Stone Source KIDNEY
== END 2022-11-01 15:07 | disposition home or self-care (01) ==
LOC: HO.LNP 15:06
PROVIDERS: PCP Internal Medicine; Visit Provider Nurse Practitioner Family
DX: N20.0 Calculus of kidney (principal)
CPT/HCPCS: 82365; 88300; 99212

== ENCOUNTER 2023-02-06 06:59 | Outpatient (REF) | payer OTHER, SELFPAY ==
[2023-02-06 07:47] LABS: Estimated Average Glucose 137 mg/dL; Hemoglobin A1c % 6.4 %
[2023-02-06 08:07] LABS: Alanine Aminotransferase 11 U/L (0-31); Albumin Level 4.2 g/dL (3.5-5.0); Alkaline Phosphatase 75 U/L (39-117); Anion Gap 14 (12-20); Aspartate Amino Transferase 14 U/L (5-31); Bilirubin Total 0.6 mg/dL (0.0-1.0); Blood Urea Nitrogen 18 mg/dL (9-16); Calcium 9.7 mg/dL (8.4-10.2); Carbon Dioxide 25 mmol/L (22-29); Chloride 105 mmol/L (96-108); Cholesterol 216 mg/dL; Estimated Glomerular Filt Rate > 60; HDL Cholesterol 47 mg/dL; LDL Cholesterol Calculated 146 mg/dl; Potassium 4.1 mmol/L (3.3-5.1); Sodium 140 mmol/L (135-145); Total Protein 7.4 g/dL (6.5-8.0); Triglycerides 118 mg/dL
[2023-02-06 10:17] LABS: Microalbum/Creatinine Ratio Ur 5.8 ug/mg cr
[2023-02-06 11:56] LABS: Glucose Fasting 113 mg/dL (60-99)
== END 2023-02-06 07:00 | disposition home or self-care (01) ==
LOC: HO.LAB 06:59
PROVIDERS: PCP Internal Medicine; Visit Provider Internal Medicine
DX: E11.649 Type 2 diabetes mellitus with hypoglycemia without coma (principal); E11.40 Type 2 diabetes mellitus with diabetic neuropathy, unspecified; E78.5 Hyperlipidemia, unspecified; E55.9 Vitamin D deficiency, unspecified
CPT/HCPCS: 36415; 80053; 80061; 82043; 82306; 83036

== ENCOUNTER → 2023-02-13 13:47 | Outpatient (BNVA) | payer OTHER, SELFPAY | PROVIDERS: PCP Internal Medicine; Referring Provider Internal Medicine; Visit Provider Internal Medicine | DX: I25.10 Atherosclerotic heart disease of native coronary artery without angina pectoris (principal); I10 Essential (primary) hypertension; E66.01 Morbid (severe) obesity due to excess calories; Z68.38 Body mass index [BMI] 38.0-38.9, adult; E78.2 Mixed hyperlipidemia; E11.8 Type 2 diabetes mellitus with unspecified complications; G47.33 Obstructive sleep apnea (adult) (pediatric); Z99.89 Dependence on other enabling machines and devices | CPT/HCPCS: 93005; 99212 ==

== ENCOUNTER 2023-02-20 13:13 | Outpatient (REF) | payer OTHER, SELFPAY ==
--- NOTE | ~2023-02-20 | XR_ITS ---
EXAMINATION: XR SACROILIAC JOINTS CLINICAL INFORMATION: Sacrococcygeal disorder COMPARISON: None available. TECHNIQUE: 3 views of the sacroiliac joints FINDINGS: Bones and soft tissues are normal. No fracture. Alignment is anatomic. Sacroiliac joint spaces are well-maintained without erosions or surrounding sclerosis. XR/XR sacroiliac joint 1-2V IMPRESSION: Normal sacroiliac joints.
[2023-02-20 13:52] LABS: MANUAL DIFF FLAG NO
[2023-02-20 14:30] LABS: Basophils Absolute Auto 0.1 X10*3/uL (0.0-0.2); Basophils Percent Auto 0.8 % (0-2); Eosinophils Absolute Auto 0.2 X10*3/uL (0.0-0.4); Hematocrit 39.6 % (37.0-47.0); Hemoglobin 12.5 g/dl (12.0-16.0); Imm Gran Abs Auto 0.03 X10*3/uL (0.00-0.03); Imm Gran Pct Auto 0.3 % (0.0-0.4); Lymphocytes Percent Auto 31.6 % (20-40); Mean Corpuscular HGB Conc 31.6 g/dl (31.0-35.0); Mean Corpuscular Hemoglobin 25.9 pg (27.0-33.0); Monocytes Absolute Auto 0.5 X10*3/uL (0.1-1.2); Monocytes Percent Auto 5.2 % (2-11); Neutrophils Absolute Auto 5.7 x10*3/uL (2.0-8.3); Neutrophils Percent Auto 60.1 % (45-73); Platelet Count 312 X10*3/uL (160-400); Red Blood Count 4.83 X10*6/uL (4.20-5.50); Red Cell Distribution Width 13.8 % (11.0-16.0); White Blood Count 9.5 X10*3/uL (4.8-10.8)
[2023-02-20 15:09] LABS: Erythrocyte Sedimentation Rate 28 MM/HR (0-20)
[2023-02-20 15:20] LABS: C Reactive Protein 0.37 mg/dL (< or = 0.50)
[2023-02-23 23:39] LABS: Prot Elec - Albumin 4.2 g/dL (3.8-4.8); Prot Elec - Alpha1 0.3 g/dL (0.2-0.3); Prot Elec - Alpha2 0.9 g/dL (0.5-0.9); Prot Elec - Beta 1 0.5 g/dL (0.4-0.6); Prot Elec - Beta 2 0.5 g/dL (0.2-0.5); Prot Elec - Gamma 1.4 g/dL (0.8-1.7); Prot Elec - Total Protein 7.8 g/dL (6.1-8.1)
[2023-02-24 07:28] LABS: PES-Abn Protein Band 2 TNPT
== END 2023-02-20 13:14 | disposition home or self-care (01) ==
LOC: HO.XRAY 13:13
PROVIDERS: Absent Provider Nurse Practitioner Family; PCP Internal Medicine; Visit Provider Internal Medicine
DX: M53.3 Sacrococcygeal disorders, not elsewhere classified (principal); R70.0 Elevated erythrocyte sedimentation rate; L40.50 Arthropathic psoriasis, unspecified
CPT/HCPCS: 36415; 72200; 84165; 85025; 85652; 86140

== ENCOUNTER 2023-02-22 07:50 | Outpatient (REF) | payer OTHER, SELFPAY ==
--- NOTE | ~2023-02-22 | MM_ITS ---
EXAMINATION: MM SCREENING DIGITAL BREAST TOMOSYNTHESIS, BILATERAL CLINICAL INFORMATION: Screening. Asymptomatic. The lifetime risk of breast cancer based on the Tyrer-Cuzick Model is 11%. COMPARISON: Mammography: 01/10/2022, 03/15/2019, 09/05/2018, 08/03/2018 TECHNIQUE: Digital breast tomosynthesis is performed in both the craniocaudal and mediolateral oblique views along with computer-aided detection (CAD). Synthesized 2D images are generated from the tomosynthesis. FINDINGS: There are scattered areas of fibroglandular density (ACR BI-RADS breast composition Category b). There are no significant masses, abnormal calcifications, or other abnormalities. No architectural abnormality or developing density or significant change from prior studies. The axilla and skin contours are unremarkable. MM/MM tomosynthesis screening BI IMPRESSION: No mammographic evidence of malignancy. ASSESSMENT: BI-RADS 1: Negative RECOMMENDATION: Routine annual mammography screening. This patient's information was entered into a reminder system with a target due date for their next mammogram.
== END 2023-02-22 07:51 | disposition home or self-care (01) ==
LOC: HO.MAMMO 07:50
PROVIDERS: PCP Internal Medicine; Visit Provider Internal Medicine
DX: Z12.31 Encounter for screening mammogram for malignant neoplasm of breast (principal); M53.3 Sacrococcygeal disorders, not elsewhere classified; E66.9 Obesity, unspecified
CPT/HCPCS: 77063; 77067; 99212

== ENCOUNTER → 2023-03-17 13:29 | Outpatient (BNVA) | payer OTHER, SELFPAY | PROVIDERS: PCP Internal Medicine; Visit Provider Physician Assistant | DX: M53.3 Sacrococcygeal disorders, not elsewhere classified (principal) | CPT/HCPCS: 99202 ==

== ENCOUNTER 2023-05-02 15:49 | Outpatient (REF) | payer OTHER, SELFPAY ==
--- NOTE | ~2023-05-02 | US_ITS ---
EXAMINATION: US RETROPERITONEAL LIMITED (RENAL ONLY) CLINICAL INFORMATION: Calculus of kidney. COMPARISON: Ultrasound retroperitoneal limited (renal only) 09/15/2022. TECHNIQUE: Real-time imaging of the kidneys. FINDINGS: RIGHT KIDNEY: 11.5 x 5.7 x 5.3 cm (SAG x AP x TRV). Mild hydronephrosis. The kidney is normal in size, contour, and echogenicity. Renal cortical thickness is normal. There is a 1.2 x 1.1 x 1 cm cyst in the interpolar region with a peripheral calcification measuring up to 0.5 cm, stable compared to the ultrasound from 09/15/2022. LEFT KIDNEY: 10.8 x 5.1 x 4.1 cm (SAG x AP x TRV). Mild hydronephrosis. The kidney is normal in size, contour, and echogenicity. Renal cortical thickness is normal. No focal parenchymal lesions. There is a 0.4 cm calculus in the lower pole. BLADDER: Bilateral ureteral jets are demonstrated. US/US renal BI IMPRESSION: 1. Mild chronic bilateral hydronephrosis is stable compared to 09/15/2022, uncertain etiology. Further evaluation with a CT or MRI could be obtained as clinically indicated for evaluation of obstructive abnormalities. 2. Redemonstration of a 0.4 cm calculus in the lower pole of the left kidney. 3. Stable 1.2 cm cyst in the right kidney with a 0.5 cm peripheral calcification. In view of size of the calcification, this constitutes a complex cyst. Continued follow-up with ultrasound or further characterization with an abdominal MRI with and without IV contrast is recommended.
== END 2023-05-02 15:50 | disposition home or self-care (01) ==
LOC: HO.US 15:49
PROVIDERS: PCP Internal Medicine; Visit Provider Nurse Practitioner Family
DX: N20.0 Calculus of kidney (principal)
CPT/HCPCS: 76775

== ENCOUNTER 2023-05-10 07:52 | Outpatient (AMB) | payer OTHER, SELFPAY ==
[2023-05-10 07:58] VITALS: BP 130/82; PULSE 72; O2SAT 100; BMI 37.8
--- NOTE | 2023-05-10 07:58 | MHC.OFFVIS ---
Intake Vital Signs 05/10/23 07:58 Height 5 ft 7 in Weight 241 lb 10.026 oz BMI 37.8 BP 130/82 Blood Pressure Location Rt brachial Position Sitting Pulse 72 Pulse Source Pulse Oximeter Pulse Oximetry (%) 100 Oxygen Delivery Method Room Air Intake Visit Reasons: PSA - Confirmed Intake Note: Patient presents for PSA Allergies morphine [MORPHINE] Allergy (Severe, Verified 05/10/23 09:05) Anaphylaxis latex [LATEX] Allergy (Intermediate, Verified 05/10/23 09:05) Rash shellfish derived Allergy (Intermediate, Verified 05/10/23 09:05) swelling calcium Adverse Reaction (Intermediate, Verified 05/10/23 09:05) weakness, swells iron Adverse Reaction (Intermediate, Verified 05/10/23 09:05) weakness, swells metformin Adverse Reaction (Intermediate, Verified 05/10/23 09:05) Diarrhea pioglitazone Adverse Reaction (Intermediate, Verified 05/10/23 09:05) Swelling Medication List - Last Reconciled 05/10/23 by Marlon Miller MD adalimumab (Humira(CF) Pen) 40 mg (0.4 mL) subcut Q2W albuterol sulfate 2.5 mg (3 mL) inhalation Q4-6H PRN 30 days [terence +D PO BID] [centrum mvi PO] flash glucose sensor (FreeStyle Vandana 14 Day Sensor kit) every 14 days nebulizers (AeroEclipse II Nebulizer) As directed rosuvastatin (Crestor) 40 mg PO DAILY tramadol 50 mg PO DAILY PRN 30 days Ventolin HFA 90 mcg/actuation (albuterol sulfate) 2 puffs inhalation Q6H PRN 30 days NS HPI HPI Comments History of Present Illness Details The patient presents for evaluation of her psoriatic arthritis. She remains on 40 mg of Humira subcutaneously every 2 weeks. She has noted occasional skin lesions on the right ankle but nothing significant has flared up with respect to psoriasis. She still has fairly widespread pains involving the arms, lower back, upper back, knees, elbows, and the right ankle. She does not really notice any significant swelling. It is unclear whether these pains are much different than they been over the past year or 2. She also complains of significant fatigue. 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 Menometrorrhagia Microalbuminuria due to type 2 diabetes mellitus Migraines Morbid (severe) obesity due to excess calories Nausea Overactive bladder Palpitation Peripheral arterial disease Physical exam PONV (postoperative nausea and vomiting) Preoperative cardiovascular examination Psoriatic arthritis Renal calculi Renal calculi Situational depression Type 2 diabetes mellitus with unspecified complications Urinary incontinence Varicose veins of right lower extremity with inflammation Surgical History History of section History of laparoscopic cholecystectomy History of open reduction and internal fixation (ORIF) procedure History of tubal ligation Status post sleeve gastrectomy Family History Father Gout Mother Diabetes Dementia Maternal Aunt Diabetes Epilepsy Maternal Grandfather Diabetes Maternal Uncle Diabetes Maternal Grandmother Diabetes Paternal Grandfather Diabetes Paternal Grandmother Diabetes Daughter Asthma Seizure Family/Other FH: mental illness Social History Housing: Apartment Are you a primary wound care physician to a significant other at home: No Do you presently have visiting nurse or other home services: No Alcohol intake: never Patient Tobacco Use Status: Never used Tobacco e-Cigarette/Vaping Use: Never Used Second Hand Smoke Exposure: No service: No Current occupational status: employed Current occupational exposures/hazards: No Gender identity: Female Cognitive needs: No Hearing needs: No Vision needs: Yes Review of Systems Const Details: She has lost some weight since gastric sleeve operation last year. Negative for appetite change, fever, chills, malaise and fatigue Eyes Details: Negative for vision change, dry eyes,headaches and dizziness Skin/Breast Details: Negative for itching, rash, hives, Raynaud's symptoms, sun sensitivity, and skin cancer Psych Details: Negative for anxiety, depression and stress Endo Details: Negative for polyuria and polydypsia Jairo/Lymph Details: Negative for excessive bruising or bleeding. Physical Exam Vital Signs: Last Vital Signs Pulse 72 05/10/23 07:58 BP 130/82 05/10/23 07:58 Pulse Ox 100 05/10/23 07:58 Oxygen Delivery Method Room Air 05/10/23 07:58 BMI result Body Mass Index 37.8 APPEARANCE: Patient in no acute distress EYES no redness, pupils equal and reactive to light, eyelids normal EXTREMITIES: No edema, no calf tenderness, normal peripheral pulses. NEURO: Oriented and alert x3. No focal weakness. Reflexes symmetric. Gait normal. SKIN: Some dryness of the skin on the right medial malleolar region. No redness or warmth. No objective signs of Raynaud's disease. She has some tenderness on the lateral aspect of the 1st toenail. There seems to be some ingrown toenail that is bothering her there. No localized signs of infection. Otherwise no nail changes elsewhere. JOINT EXAM:.?? Cervical Spine:.? Full range of motion without pain; mild cervical muscle tenderness. Thoracic Spine:.? No scoliosis.? No tenderness on palpation. Lumbar Spine:.? Alignment normal.? Full range of motion with mild pain at the extremes. There is some paraspinal muscle tenderness. Chest Wall:.? No tenderness, swelling, increased warmth or erythema. Hands:.? Right: Normal pain-free range of motion. There is some slight tenderness at the 4th MCP but I do not appreciate any swelling. Other joints have no swelling or tenderness. Left: Normal pain-free range of motion without tenderness, swelling, increased warmth or erythema. 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 Wrists:.? Mild pain with flexion extension at 80 degrees. There is some slight dorsal tenderness but no swelling, increased warmth or erythema. Elbows:. Normal pain-free range of motion without tenderness, swelling, increased warmth or erythema. Shoulders:.?? Full range of motion without pain. No tenderness, weakness, swelling, increased warmth or erythema. Hips:.? Full range of motion with some lumbar pain at the extremes of internal or external rotation. No groin pain with motion. Hip bursa:.? Mild trochanteric tenderness. Knees:.?? Right: Well-healed anterior scar from her knee replacement. There is pain-free range of motion without tenderness or swelling. Left: Mild patellofemoral crepitus but otherwise normal pain-free range of motion without tenderness, swelling, increased warmth or erythema.? There is no effusion Ankles:.? Normal pain-free range of motion with mild medial lateral tenderness but no swelling, increased warmth or erythema. Feet:.? Tenderness in the right 1st toenail as noted above. Otherwise she has normal pain-free range of motion without tenderness, swelling, increased warmth or erythema. Tender points:.? Mild tenderness to digital palpation at the occiput, trapezius, second rib, lateral epicondyle, knees, greater trochanter and gluteal area bilaterally. ? 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 I think there may be osteoarthritis in the lumbar spine and many of her other pains are due to fibromyalgia. The fatigue remains a prominent complaint, also likely due to fibromyalgia. I will repeat some inflammatory markers, CBC and TSH to investigate the fatigue. I think she might benefit from some lumbar spine exercises for her back pain. Follow-up in 4-5 months is recommended. 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
== END 2023-05-10 08:42 | disposition home or self-care (01) ==
PROVIDERS: PCP Internal Medicine; Visit Provider Internal Medicine Rheumatology
DX: L60.0 Ingrowing nail (principal); M47.816 Spondylosis without myelopathy or radiculopathy, lumbar region; R53.83 Other fatigue; Z79.899 Other long term (current) drug therapy; L40.50 Arthropathic psoriasis, unspecified
CPT/HCPCS: 99213

== ENCOUNTER → 2023-05-10 07:52 | Outpatient (BNVA) | payer OTHER, SELFPAY | PROVIDERS: Visit Provider Internal Medicine Rheumatology | DX: L40.50 Arthropathic psoriasis, unspecified (principal); L60.0 Ingrowing nail; M47.816 Spondylosis without myelopathy or radiculopathy, lumbar region; R53.83 Other fatigue; Z79.899 Other long term (current) drug therapy | CPT/HCPCS: 99212 ==

== ENCOUNTER 2023-05-10 08:52 | Outpatient (AMB) | payer OTHER, SELFPAY ==
[2023-05-10 08:53] VITALS: BP 130/78; BMI 37.7
--- NOTE | 2023-05-10 08:53 | A.OFFPC_ITS ---
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: No Accompanied by: Self / Same As Patient Allergies morphine [MORPHINE] Allergy (Severe, Verified 05/10/23 09:05) Anaphylaxis latex [LATEX] Allergy (Intermediate, Verified 05/10/23 09:05) Rash shellfish derived Allergy (Intermediate, Verified 05/10/23 09:05) swelling calcium Adverse Reaction (Intermediate, Verified 05/10/23 09:05) weakness, swells iron Adverse Reaction (Intermediate, Verified 05/10/23 09:05) weakness, swells metformin Adverse Reaction (Intermediate, Verified 05/10/23 09:05) Diarrhea pioglitazone Adverse Reaction (Intermediate, Verified 05/10/23 09:05) Swelling Medication List - Last Reconciled 05/10/23 by Yessi Ball MD adalimumab (Humira(CF) Pen) 40 mg (0.4 mL) subcut Q2W albuterol sulfate 2.5 mg (3 mL) inhalation Q4-6H PRN 30 days [terence +D PO BID] [centrum mvi PO] flash glucose sensor (FreeStyle Vandana 14 Day Sensor kit) every 14 days nebulizers (AeroEclipse II Nebulizer) As directed rosuvastatin (Crestor) 40 mg PO DAILY tramadol 50 mg PO DAILY PRN 30 days Ventolin HFA 90 mcg/actuation (albuterol sulfate) 2 puffs inhalation Q6H PRN 30 days NS Tobacco use date assessed: 12/29/22 Dental Screening Dental Screen Date: 05/10/23 Did you have a dental visit in the last 12 months?: Yes Did you have a dental problem in the last 6 months where you did not have access to dental care?: No Was dental information given to patient?: Patient has dentist HPI HPI Comments History of Present Illness Details This is a 47-year-old female with mild major depression, diabetes mellitus type 2 and psoriatic arthritis comes for her physical exam. Depression has been in remission. A1c within goal with low-carbohydrate diet. On Humira for psoriatic arthritis and still has diffuse joint pain. Psoriatic arthritis is follow by Rheumatology. No chest pain or shortness of breath. Has strong family history of dementia. Last Pap smear was a year ago at [facility] and is was normal as per patient. Mammogram done February 2023. Has never had a colonoscopy and would prefer a Cologuard. 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 Menometrorrhagia Microalbuminuria due to type 2 diabetes mellitus Migraines Morbid (severe) obesity due to excess calories Nausea Overactive bladder Palpitation Peripheral arterial disease Physical exam PONV (postoperative nausea and vomiting) Preoperative cardiovascular examination Psoriatic arthritis Renal calculi Renal calculi Situational depression Type 2 diabetes mellitus with unspecified complications Urinary incontinence Varicose veins of right lower extremity with inflammation Surgical History History of section History of laparoscopic cholecystectomy History of open reduction and internal fixation (ORIF) procedure History of tubal ligation Status post sleeve gastrectomy Family History Father Gout Mother Diabetes Dementia Maternal Aunt Diabetes Epilepsy Maternal Grandfather Diabetes Maternal Uncle Diabetes Maternal Grandmother Diabetes Paternal Grandfather Diabetes Paternal Grandmother Diabetes Daughter Asthma Seizure Family/Other FH: mental illness Social History Housing: Apartment Are you a primary life care planner to a significant other at home: No Do you presently have visiting nurse or other home services: No Alcohol intake: never Patient Tobacco Use Status: Never used Tobacco e-Cigarette/Vaping Use: Never Used Second Hand Smoke Exposure: No service: No Current occupational status: employed Current occupational exposures/hazards: No Gender identity: Female Cognitive needs: No Hearing needs: No Vision needs: Yes Questionnaire Thrive Questionnaire Date Thrive assessed: 12/29/22 KARMA-7 AMB Questionnaire KARMA-7 Date KARMA - 7 assessed: 12/29/22 Source: Developed by Drs. Reggie Miranda, Nora Erickson, Randy Taylor and colleagues, with an educational myron from [employer]. Review of Systems Const All systems reviewed & are unremarkable except as noted in HPI and below Eyes Reports no additional complaints, Denies change in vision and Denies other visual disturbances Card Denies chest pain at rest, Denies chest pain with activity, Denies edema, Denies irregular heart rhythm, Denies claudication, Denies dyspnea, Denies dyspnea on exertion, Denies orthopnea, Denies paroxysmal nocturnal dyspnea and Denies slow heart rate Resp Denies cough, Denies dyspnea and Denies dyspnea on exertion GI Denies abdominal pain, Denies change in bowel habits, Denies excessive flatus, Denies nausea and Denies vomiting Denies urinary incontinence, Denies urinary hesitancy and Denies urinary urgency Musc Denies abnormal gait, Denies atrophy, Denies deformity and Denies limited range of motion Skin/Breast Denies bleeding lesions, Denies changing lesions and Denies rash Neuro Denies abnormal gait and Denies lack of coordination Physical exam (Primary Care) Vital Signs: Last Vital Signs BP 130/78 05/10/23 08:53 BMI result Body Mass Index 37.7 Tobacco/Smoking Status: Tobacco use Status Tobacco use date assessed 12/29/22 05/10/23 08:58 Patient Tobacco Use Status Never used Tobacco 05/10/23 08:58 e-Cigarette/Vaping Use Never Used 05/10/23 08:58 Thrive Assessment: Date of Thrive Assessment Date Thrive assessed 12/29/22 05/10/23 08:58 Const Orientation/consciousness: patient oriented x3 HENMT Head: Yes normal to inspection, Yes normocephalic and Yes atraumatic Ears: external ears normal Eyes General: appearance normal, both eyes and all related structures Eyelids: Yes eyelids normal Conjunctivae: conjunctivae normal Neck Neck: Yes normal visual inspection and Yes supple Resp Effort & Inspection: normal respiratory effort Auscultation: clear to auscultation bilaterally Cardio Jugular venous distension: no JVD Rate: regular rate Rhythm: regular rhythm Heart sounds: S1 normal heart sound present and S2 normal heart sound present GI Inspection: Yes normal to inspection Palpation (GI): Soft to palpation and nontender Auscultation: normal bowel sounds Skin General skin exam: no rashes or lesions noted Neuro General: patient oriented x3 and no focal motor deficits Extrem General: Yes full ROM Psych Appearance: grossly normal Results AMB Hemoglobin A1c AMB Hemoglobin A1c 6.7 % Last Edit by NISREEN Ortega on 05/10/23 09:1 6 Assessment and Plan Assessment & Plan (1) Physical exam: Code(s): Z00.00 - Encounter for general adult medical examination without abnormal findings Plan: Repeat in a year (2) Diabetes mellitus: Code(s): E11.9 - Type 2 diabetes mellitus without complications Plan: Continue low-carbohydrate diet. A1c goal is equal or less than 7% (3) Mild major depression: Code(s): F32.0 - Major depressive disorder, single episode, mild Plan: In remission (4) Psoriatic arthritis: Comment: Tried methotrexate Enbrel- pain with injection Xeljanz 09/2020- 12/2021- stopped due to CAD Humira december 2021-Present Code(s): L40.50 - Arthropathic psoriasis, unspecified Plan: Continue Humira. Follow-up with rheumatology. Orders: Orders Comprehensive [place]. Panel Fast 4 Months E11.9 - Type 2 diabetes mellitus without complications Lipid Panel 4 Months E78.5 - Hyperlipidemia, unspecified Microalbumin, Random (w Creat) 4 Months E11.9 - Type 2 diabetes mellitus without complications AMB Hemoglobin A1c Today E11.9 - Type 2 diabetes mellitus without complications Referrals Cologuard Test Z12.11 - Encounter for screening for malignant neoplasm of colon, Z12.12 - Encounter for screening for malignant neoplasm of rectum Medications: New vitamin E (dl, acetate) 180 mg PO BID 90 days 180 caps 1RF Coding Level of Care Code Est Pt Prev Care 40-64y(73989) Diagnoses Physical exam Z00.00 Diabetes mellitus E11.9 Mild major depression F32.0 Psoriatic arthritis L40.50 Time Spent (min) 33
== END 2023-05-10 09:25 | disposition home or self-care (01) ==
PROVIDERS: PCP Internal Medicine; Visit Provider Internal Medicine
DX: Z00.00 Encounter for general adult medical examination without abnormal findings (principal); E11.9 Type 2 diabetes mellitus without complications; F32.0 Major depressive disorder, single episode, mild; L40.50 Arthropathic psoriasis, unspecified
CPT/HCPCS: 83036; 99396

== ENCOUNTER 2023-05-22 17:29 | Emergency (ER) | payer OTHER, SELFPAY ==
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
[2023-05-22 17:39] VITALS: BP 147/87; PULSE 105; RESP 16; TEMP 36.9; O2SAT 99; BMI 39.3
--- NOTE | 2023-05-22 17:45 | PC.NURSE ---
alert and oriented, respirations even and unlabored. ice pack provided for pt's left lower leg with bruising and swelling noted to extremity. call frazier within reach. pt remains in c-collar from [facility]
[2023-05-22 17:48] LABS: Glucose, Whole Blood 136 mg/dL (60-115)
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
[2023-05-22 19:55] VITALS: BP 150/89; PULSE 87; RESP 14; O2SAT 98
[2023-05-22] MEDS: Ibuprofen 400 MG TABLET PO (20:43)
[2023-05-22] MEDS: Acetaminophen 325 MG TABLET 975 MG PO (20:43)
== END 2023-05-22 20:51 | disposition home or self-care (01) ==
PROVIDERS: Emergency Provider Student in an Organized Health Care Education/Training Program; PCP Internal Medicine
DX: S80.12XA Contusion of left lower leg, initial encounter (principal); V43.52XA Car driver injured in collision with other type car in traffic accident, initial encounter; M79.18 Myalgia, other site; Y93.89 Activity, other specified; Y92.410 Unspecified street and highway as the place of occurrence of the external cause; Y99.9 Unspecified external cause status
CPT/HCPCS: 70450; 71250; 72125; 73590; 82947; 93005; 99284; 99285

== ENCOUNTER 2023-05-26 08:05 | Outpatient (AMB) | payer OTHER, SELFPAY ==
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
== END 2023-05-26 09:11 | disposition home or self-care (01) ==
PROVIDERS: PCP Internal Medicine; Visit Provider Nurse Practitioner Family
DX: N13.30 Unspecified hydronephrosis (principal); N28.1 Cyst of kidney, acquired; N20.0 Calculus of kidney
CPT/HCPCS: 99213

== ENCOUNTER → 2023-05-26 08:05 | Outpatient (BNVA) | payer OTHER, SELFPAY | PROVIDERS: PCP Internal Medicine; Visit Provider Nurse Practitioner Family | DX: N13.30 Unspecified hydronephrosis (principal); R39.15 Urgency of urination; N28.1 Cyst of kidney, acquired; N20.0 Calculus of kidney | CPT/HCPCS: 81003; 99212 ==

== ENCOUNTER 2023-05-29 12:46 | Outpatient (AMB) | payer OTHER, SELFPAY ==
[2023-05-29 12:48] VITALS: BP 142/80; BMI 38.2
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
== END 2023-05-29 13:55 | disposition home or self-care (01) ==
PROVIDERS: PCP Internal Medicine; Visit Provider Internal Medicine
DX: M79.641 Pain in right hand (principal); M79.642 Pain in left hand; T30.0 Burn of unspecified body region, unspecified degree; Z04.3 Encounter for examination and observation following other accident; Z09 Encounter for follow-up examination after completed treatment for conditions other than malignant neoplasm
CPT/HCPCS: 99214

== ENCOUNTER 2023-05-29 13:56 | Outpatient (REF) | payer OTHER, SELFPAY ==
--- NOTE | ~2023-05-29 | XR_ITS ---
EXAMINATION: Bilateral hand x-ray CLINICAL INFORMATION: Pain COMPARISON: Previous x-ray from March 2018 TECHNIQUE: 3 views of each hand FINDINGS: Bone alignment is normal. No fracture or dislocation. Normal joint spaces. Normal soft tissues. XR/XR hand LT 2V IMPRESSION: Unremarkable examination.
--- NOTE | ~2023-05-29 | XR_ITS ---
EXAMINATION: Bilateral hand x-ray CLINICAL INFORMATION: Pain COMPARISON: Previous x-ray from March 2018 TECHNIQUE: 3 views of each hand FINDINGS: Bone alignment is normal. No fracture or dislocation. Normal joint spaces. Normal soft tissues. XR/XR hand RT 2V IMPRESSION: Unremarkable examination.
== END 2023-05-29 13:57 | disposition home or self-care (01) ==
LOC: HO.XRAY 13:56
PROVIDERS: PCP Internal Medicine; Visit Provider Internal Medicine
DX: M79.641 Pain in right hand (principal); M79.642 Pain in left hand
CPT/HCPCS: 73120

== ENCOUNTER 2023-05-29 13:59 | Outpatient (REF) | payer OTHER, SELFPAY ==
[2023-05-29 15:13] LABS: Blood Urea Nitrogen 15 mg/dL (9-16); Estimated Glomerular Filt Rate > 60
== END 2023-05-29 14:00 | disposition home or self-care (01) ==
LOC: HO.LAB 13:59
PROVIDERS: PCP Internal Medicine; Visit Provider Nurse Practitioner Family
DX: R39.15 Urgency of urination (principal)
CPT/HCPCS: 36415; 82565; 84520

== ENCOUNTER 2023-07-25 13:37 | Emergency (ER) | payer OTHER, SELFPAY ==
--- NOTE | ~2023-07-25 | XR_ITS ---
EXAMINATION: XR CHEST CLINICAL INFORMATION: Chest pain. COMPARISON: 12/20/2021. TECHNIQUE: Frontal view of the chest was obtained. FINDINGS: The cardiomediastinal silhouette is normal. There is no focal lung consolidation or pleural effusion. The bony structures and soft tissues are unremarkable. XR/XR chest 1V IMPRESSION: No active cardiopulmonary disease.
--- NOTE | 2023-07-25 13:39 | ECG_ITS ---
Test Reason : CP Blood Pressure : / mmHG Vent. Rate : 068 BPM Atrial Rate : 068 BPM P-R Int : 160 ms QRS Dur : 076 ms QT Int : 392 ms P-R-T Axes : 044 010 016 degrees QTc Int : 416 ms Normal sinus rhythm Normal ECG When compared with ECG of 22-MAY-2023 19:24, No significant change was found Referred By: Kevin Murillo Electronically Signed By:MARLENE SALINAS MD
[2023-07-25 13:57] LABS: MANUAL DIFF FLAG NO
[2023-07-25 14:05] LABS: Basophils Absolute Auto 0.1 X10*3/uL (0.0-0.2); Basophils Percent Auto 0.7 % (0-2); Eosinophils Absolute Auto 0.2 X10*3/uL (0.0-0.4); Eosinophils Percent Auto 2.5 % (0-4); Hematocrit 37.9 % (37.0-47.0); Hemoglobin 12.1 g/dl (12.0-16.0); Imm Gran Abs Auto 0.02 X10*3/uL (0.00-0.03); Imm Gran Pct Auto 0.2 % (0.0-0.4); Lymphocytes Absolute Auto 3.3 X10*3/uL (1.2-4.9); Lymphocytes Percent Auto 37.5 % (20-40); Mean Corpuscular HGB Conc 31.9 g/dl (31.0-35.0); Mean Corpuscular Hemoglobin 26.1 pg (27.0-33.0); Mean Corpuscular Volume 81.7 fL (80.0-98.0); Mean Platelet Volume 11.4 fL (9.4-12.3); Monocytes Absolute Auto 0.4 X10*3/uL (0.1-1.2); Monocytes Percent Auto 4.8 % (2-11); Neutrophils Absolute Auto 4.7 x10*3/uL (2.0-8.3); Neutrophils Percent Auto 54.3 % (45-73); Platelet Count 283 X10*3/uL (160-400); Red Blood Count 4.64 X10*6/uL (4.20-5.50); Red Cell Distribution Width 13.5 % (11.0-16.0); White Blood Count 8.7 X10*3/uL (4.8-10.8)
[2023-07-25 14:16] LABS: Alanine Aminotransferase 18 U/L (0-31); Albumin Level 4.2 g/dL (3.5-5.0); Alkaline Phosphatase 80 U/L (39-117); Anion Gap 12 (12-20); Aspartate Amino Transferase 17 U/L (5-31); Bilirubin Total 0.3 mg/dL (0.0-1.0); Blood Urea Nitrogen 20 mg/dL (9-16); Calcium 9.7 mg/dL (8.4-10.2); Carbon Dioxide 26 mmol/L (22-29); Chloride 103 mmol/L (96-108); Estimated Glomerular Filt Rate > 60; Glucose Random 123 mg/dL (60-115); Magnesium 2.1 mg/dL (1.6-2.6); Sodium 137 mmol/L (135-145)
[2023-07-25 14:19] LABS: B Type Natriuretic Peptide 38 pg/mL (<100)
[2023-07-25 14:22] LABS: Troponin-I High Sensitivity < 2.7 ng/L (<3.5-17.0)
--- NOTE | 2023-07-25 14:37 | ED.GENADULT ---
HPI - General Adult General Chief complaint: Chest Pain Stated complaint: Chest pain/Headache Related Data Home Medications ?Medication ?Instructions ?Recorded ?Confirmed terence +D PO BID 06/10/22 10/03/23 centrum mvi PO 06/10/22 10/03/23 Previous Rx's ?Medication ?Instructions ?Recorded albuterol sulfate 2.5 mg/3 mL 2.5 mg (3 mL) inhalation Q4-6H PRN 08/13/22 (0.083 %) solution for nebulization shortness of breath or wheezing 30 days #75 mL nebulizers (AeroEclipse II #1 ea 08/13/22 Nebulizer) Ventolin HFA 90 mcg/actuation 2 puff inhalation Q6H PRN 11/06/22 aerosol inhaler (albuterol sulfate) shortness of breath or wheezing 30 days #8 grams silver sulfadiazine 1 % topical 1 appl topical DAILY 14 days #20 05/29/23 cream grams adalimumab 40 mg/0.4 mL 40 mg (0.4 mL) subcut QWEEK #4 ea 09/25/23 subcutaneous pen kit (Humira(CF) Pen) flash glucose sensor (FreeStyle #2 ea 09/27/23 Vandana 14 Day Sensor kit) vitamin E (dl, acetate) 180 mg 180 mg PO BID 90 days #180 caps 11/04/23 (400 unit) capsule dulaglutide 0.75 mg/0.5 mL 0.75 mg (0.5 mL) subcut QWEEK 28 12/06/23 subcutaneous pen injector days #2 mL (Trulicity) rosuvastatin 40 mg tablet 40 mg PO DAILY #90 tabs 12/13/23 tramadol 50 mg tablet 50 mg PO BID PRN pain 30 days #30 01/09/24 tabs Allergies Allergy/AdvReac Type Severity Reaction Status Date / Time morphine [MORPHINE] Allergy Severe Anaphylaxis Verified 10/03/23 13:19 latex [LATEX] Allergy Intermediate Rash Verified 10/03/23 13:19 shellfish derived Allergy Intermediate swelling Verified 10/03/23 13:19 calcium AdvReac Intermediate weakness, Verified 10/03/23 13:19 swells iron AdvReac Intermediate weakness, Verified 10/03/23 13:19 swells metformin AdvReac Intermediate Diarrhea Verified 10/03/23 13:19 pioglitazone AdvReac Intermediate Swelling Verified 10/03/23 13:19 [facility] Past Medical History Medical History Renal calculi Diaphragmatic hernia PONV (postoperative nausea and vomiting) Preoperative cardiovascular examination Renal calculi Physical exam Palpitation Situational depression Urinary incontinence Migraines Overactive bladder Varicose veins of right lower extremity with inflammation Dyslipidemia Peripheral arterial disease Menometrorrhagia COVID-19 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 Psoriatic arthritis Microalbuminuria due to type 2 diabetes mellitus USP (current) use of insulin Type 2 diabetes mellitus with unspecified complications Hyperlipidemia, unspecified Morbid (severe) obesity due to excess calories Atherosclerotic heart disease of [place] coronary artery without angina pectoris Fibromyalgia Hypovitaminosis D Surgical History Status post sleeve gastrectomy History of open reduction and internal fixation (ORIF) procedure History of tubal ligation History of laparoscopic cholecystectomy History of section Family History Family History Father Gout Mother Diabetes Dementia Maternal Aunt Diabetes Epilepsy Maternal Grandfather Diabetes Maternal Uncle Diabetes Maternal Grandmother Diabetes Paternal Grandfather Diabetes Paternal Grandmother Diabetes Daughter Asthma Seizure Family/Other FH: mental illness Social History Social History Housing: Apartment Are you a primary career technical education instructor to a significant other at home: No Do you presently have visiting nurse or other home services: No Alcohol intake: never Patient Tobacco Use Status: Never used Tobacco e-Cigarette/Vaping Use: Never Used Second Hand Smoke Exposure: No service: No Current occupational status: employed Current occupational exposures/hazards: No Gender identity: Female Cognitive needs: No Hearing needs: No Vision needs: Yes Physical Exam ED Vital Signs: BMI result Body Mass Index 38.9 Course Course Course Narrative: This is an RME: Additional HPI, ROS, PE not included below will be deferred to primary provider. 47 yo female with PMH of migraines and diabetes presenting with headache and chest pain that radiates to the left neck x 2 days associated with nausea. No dizziness or sob. Plan- labs, cxr, ekg Medical Decision Making Lab Data 07/25/23 13:53 07/25/23 13:53 Labs: Lab Results 07/25/23 Range/Units 13:53 WBC 8.7 (4.8-10.8) X10*3/uL RBC 4.64 (4.20-5.50) X10*6/uL Hgb 12.1 (12.0-16.0) g/dl Hct 37.9 (37.0-47.0) % MCV 81.7 (80.0-98.0) fL MCH 26.1 L (27.0-33.0) pg MCHC 31.9 (31.0-35.0) g/dl RDW 13.5 (11.0-16.0) % Plt Count 283 (160-400) X10*3/uL MPV 11.4 (9.4-12.3) fL Immature Gran % (Auto) 0.2 (0.0-0.4) % Neut % (Auto) 54.3 (45-73) % Lymph % (Auto) 37.5 (20-40) % [place] % (Auto) 4.8 (2-11) % Eos % (Auto) 2.5 (0-4) % Baso % (Auto) 0.7 (0-2) % Lymph # (Auto) 3.3 (1.2-4.9) X10*3/uL [place] # (Auto) 0.4 (0.1-1.2) X10*3/uL Eos # (Auto) 0.2 (0.0-0.4) X10*3/uL Baso # (Auto) 0.1 (0.0-0.2) X10*3/uL Abs Immat Gran (auto) 0.02 (0.00-0.03) X10*3/uL Absolute Neuts (auto) 4.7 (2.0-8.3) x10*3/uL Absolute Nucleated RBC 0.000 (0.0-0.012) X10*3/uL Nucleated RBC % (auto) 0.0 (0.0-0.2) /100WBC Sodium 137 (135-145) mmol/L Potassium 4.0 (3.3-5.1) mmol/L Chloride 103 (96-108) mmol/L Carbon Dioxide 26 (22-29) mmol/L Anion Gap 12 (12-20) BUN 20 H (9-16) mg/dL Creatinine 0.80 (0.5-1.4) mg/dL Estim Creat Clear Calc TNP Estimated GFR > 60 Random Glucose 123 H (60-115) mg/dL Calcium 9.7 (8.4-10.2) mg/dL Magnesium 2.1 (1.6-2.6) mg/dL Total Bilirubin 0.3 (0.0-1.0) mg/dL AST 17 (5-31) U/L ALT 18 (0-31) U/L Alkaline Phosphatase 80 (39-117) U/L Troponin I High Sens < 2.7 (<3.5-17.0) ng/L B-Natriuretic Peptide 38 (<100) pg/mL Total Protein 8.0 (6.5-8.0) g/dL Albumin 4.2 (3.5-5.0) g/dL Discharge Plan Discharge Clinical Impression: Eloped from emergency department Patient Disposition: Left W/O Completing Treatment Prescriptions: No Action albuterol sulfate 2.5 mg /3 mL (0.083 %) solution for nebulization 2.5 mg inhalation Q4-6H PRN (Reason: shortness of breath or wheezing) 30 Days Qty: 75 2RF (DME) nebulizers [AeroEclipse II Nebulizer] Misc See Rx Instructions .Route Qty: 1 0RF Rx Instructions: As directed albuterol sulfate [Ventolin HFA] 90 mcg/actuation HFA aerosol inhaler 2 puff inhalation Q6H PRN (Reason: shortness of breath or wheezing) 30 Days Qty: 8 1RF (DME) FreeStyle Vandana 14 Day Sensor Kit See Rx Instructions .MEDSUPPLY Qty: 2 11RF Rx Instructions: every 14 days vitamin E (dl, acetate) 180 mg (400 unit) capsule 180 mg PO BID 90 Days Qty: 180 1RF Trulicity 0.75 mg/0.5 mL pen injector 0.75 mg subcut QWEEK 28 Days Qty: 2 2RF rosuvastatin 40 mg tablet 40 mg PO DAILY Qty: 90 3RF tramadol 50 mg tablet 50 mg PO BID PRN (Reason: pain) 30 Days Qty: 30 0RF silver sulfadiazine 1 % cream 1 appl topical DAILY 14 Days Qty: 20 0RF Rx Instructions: apply a 1.5 mm thickness centrum mvi PO terence +D PO BID Humira(CF) Pen 40 mg/0.4 mL pen injector kit 40 mg subcut QWEEK Qty: 4 5RF Hold Instructions: Resume on 04/25/22. Discharge Date/Time: 07/25/23 20:20
[2023-07-25 14:39] VITALS: BP 147/93; PULSE 65; RESP 16; TEMP 36; O2SAT 100; BMI 38.9
== END 2023-07-25 20:20 | disposition left against medical advice (07) ==
LOC: HO.ED 21:17
PROVIDERS: Physician Assistant; Emergency Provider Emergency Medicine; PCP Internal Medicine
DX: R07.9 Chest pain, unspecified (principal); R51.9 Headache, unspecified; E11.9 Type 2 diabetes mellitus without complications; E78.5 Hyperlipidemia, unspecified; Z79.899 Other long term (current) drug therapy; Z79.4 Long term (current) use of insulin
CPT/HCPCS: 36415; 71045; 80053; 83735; 83880; 84484; 85025; 93005; 99283

== ENCOUNTER 2023-08-08 13:04 | Outpatient (AMB) | payer OTHER, SELFPAY ==
[2023-08-08 13:54] VITALS: BP 136/80; PULSE 88; BMI 38.5
--- NOTE | 2023-08-08 13:54 | MHC.OFFVIS ---
Intake Vital Signs 08/08/23 13:54 Height 5 ft 7 in Weight 246 lb 0.574 oz BMI 38.5 BP 136/80 Blood Pressure Location Lt brachial Position Sitting Pulse 88 Intake Visit Reasons: ED follow up/ CP Intake Note: ED follow up Pivot End Polisher Required: No Accompanied by: Self / Same As Patient Allergies morphine [MORPHINE] Allergy (Severe, Verified 08/08/23 13:56) Anaphylaxis latex [LATEX] Allergy (Intermediate, Verified 08/08/23 13:56) Rash shellfish derived Allergy (Intermediate, Verified 08/08/23 13:56) swelling calcium Adverse Reaction (Intermediate, Verified 08/08/23 13:56) weakness, swells iron Adverse Reaction (Intermediate, Verified 08/08/23 13:56) weakness, swells metformin Adverse Reaction (Intermediate, Verified 08/08/23 13:56) Diarrhea pioglitazone Adverse Reaction (Intermediate, Verified 08/08/23 13:56) Swelling Medication List - Last Reconciled 08/08/23 by Martin Tamayo MD adalimumab (Humira(CF) Pen) 40 mg (0.4 mL) subcut Q2W albuterol sulfate 2.5 mg (3 mL) inhalation Q4-6H PRN 30 days [terence +D PO BID] [centrum mvi PO] flash glucose sensor (FreeStyle Vandana 14 Day Sensor kit) every 14 days nebulizers (AeroEclipse II Nebulizer) As directed silver sulfadiazine 1% 1 appl topical DAILY 14 days tramadol 50 mg PO BID PRN 30 days Ventolin HFA 90 mcg/actuation (albuterol sulfate) 2 puffs inhalation Q6H PRN 30 days NS vitamin E (dl, acetate) 180 mg PO BID 90 days HPI HPI Comments History of Present Illness Details Hanna returns for follow-up. She has numerous medical comorbidities including morbid obesity, type 2 diabetes, dyslipidemia, untreated sleep apnea. In the past, she was seen for chest pain at different times, but somewhat atypical. She underwent workup including echocardiogram, stress test as well as coronary CTA and being treated for stable CAD. Recently, she again had a few episodes of chest pain and that led to ER visit. However, because of wait time she did not get seen. EKG/high sensitive troponin where any case within normal limits. She thinks is all from anxiety. Of note, she underwent weight loss surgery and after that, lost lot of weight. However, she still clearly markedly obese. She believes she lost about 80 lb or so. 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 Menometrorrhagia Microalbuminuria due to type 2 diabetes mellitus Migraines Morbid (severe) obesity due to excess calories Nausea Overactive bladder Palpitation Peripheral arterial disease Physical exam PONV (postoperative nausea and vomiting) Preoperative cardiovascular examination Psoriatic arthritis Renal calculi Renal calculi Situational depression Type 2 diabetes mellitus with unspecified complications Urinary incontinence Varicose veins of right lower extremity with inflammation Surgical History Status post sleeve gastrectomy History of open reduction and internal fixation (ORIF) procedure History of tubal ligation History of laparoscopic cholecystectomy History of section Family History Father Gout Mother Diabetes Dementia Maternal Aunt Diabetes Epilepsy Maternal Grandfather Diabetes Maternal Uncle Diabetes Maternal Grandmother Diabetes Paternal Grandfather Diabetes Paternal Grandmother Diabetes Daughter Asthma Seizure Family/Other FH: mental illness Social History Housing: Apartment Are you a primary furnace caretaker to a significant other at home: No Do you presently have visiting nurse or other home services: No Alcohol intake: never Patient Tobacco Use Status: Never used Tobacco e-Cigarette/Vaping Use: Never Used Second Hand Smoke Exposure: No service: No Current occupational status: employed Current occupational exposures/hazards: No Gender identity: Female Cognitive needs: No Hearing needs: No Vision needs: Yes Review of Systems Const Denies weakness ENT Denies dizziness Card Denies chest pain, Denies chest pain with activity, Denies syncope, Denies rapid heart rate, Denies pedal edema, Denies edema, Denies leg edema, Denies lightheadedness, Denies palpitations, Denies dyspnea, Denies dyspnea on exertion and Denies orthopnea Resp Denies cough, Denies dyspnea and Denies dyspnea on exertion GI Denies hematochezia and Denies change in stool character Musc Denies abnormal gait, Denies muscle cramps, Denies muscle weakness, Denies numbness, Denies radiating pain into limb and Denies tingling Neuro Denies abnormal gait, Denies dizziness, Denies syncope, Denies numbness, Denies tingling and Denies weakness Endo Denies palpitations Physical Exam Vital Signs: Last Vital Signs Pulse 88 08/08/23 13:54 BP 136/80 08/08/23 13:54 BMI result Body Mass Index 38.5 Const General: comfortable and no acute distress Orientation/consciousness: patient oriented x3 HEENT Other: Unremarkable Head: Yes normal to inspection Neck Neck: Yes normal visual inspection Chest Chest palpation & inspection: normal inspection of the chest Resp Auscultation: clear to auscultation bilaterally Cardio Palpation: normal PMI Heart sounds: S1 normal heart sound present, S2 normal heart sound present, no gallops, no murmurs and no rubs GI Palpation (GI): Soft to palpation Back/Spine/Pelvis Other: unremarkable Skin General skin exam: no rashes or lesions noted Neuro General: patient oriented x3 Extrem General: Yes normal to inspection Psych Mental Status: mental status grossly normal Assessment & Plan Assessment & Plan (1) Atherosclerotic heart disease of [place] coronary artery without angina pectoris: Code(s): I25.10 - Atherosclerotic heart disease of [place] coronary artery without angina pectoris Qualifiers: [place] vs. transplanted heart: [place] heart Qualified Code(s): I25.10 - Atherosclerotic heart disease of [place] coronary artery without angina pectoris (2) Morbid (severe) obesity due to excess calories: Code(s): E66.01 - Morbid (severe) obesity due to excess calories (3) Essential hypertension: Code(s): I10 - Essential (primary) hypertension (4) Hyperlipidemia, unspecified: Code(s): E78.5 - Hyperlipidemia, unspecified Qualifiers: Hyperlipidemia type: mixed hyperlipidemia Qualified Code(s): E78.2 - Mixed hyperlipidemia (5) Type 2 diabetes mellitus with unspecified complications: Code(s): E11.8 - Type 2 diabetes mellitus with unspecified complications Plan Cardiac studies reviewed. Echocardiogram with LVEF 57%. No significant valvular issues or wall motion abnormalities or anything else of concern. Holter shows underlying sinus rhythm with an average rate of 86/Min. No significant arrhythmias. Myocardial perfusion imaging study 2017 with mild intensity basal inferior, inferolateral and anterior wall ischemia. In the coronary CTA, there was mild calcification distal left main as well as proximal left anterior descending coronary artery. There was no significant disease elsewhere. In the most recent EKG from the emergency room, no ischemic changes. High sensitivity troponin was also normal. Overall, multiple risk factors, mild CAD, atypical symptoms. Could have either anxiety or some components of into the renal dysfunction/microvascular disease versus noncardiac chest pain. Any case, continue aggressive risk factor modification. She did lose weight but not much. With regard to diabetes, she states she is no longer on insulin. Hemoglobin A1c seems okay. Stable blood pressure. With regard to statins, her LDL was only in the 50s but most recent LDL is 146 mg/dL. She was on Crestor 40mg daily in the past but no longer in her list. Will need to confirm the pharmacy. Probably have to resume. Follow-up lipids at some point. Return to clinic in 1 year. In the interim, to call with concerns. Coding Level of Care Code Est Pt Level 4 (39481) Diagnoses Atherosclerosis of [place] coronary artery of [place] heart without angina pectoris I25.10 [place] vs. transplanted heart: [place] heart Morbid (severe) obesity due to excess calories E66.01 Essential hypertension I10 Mixed hyperlipidemia E78.2 Hyperlipidemia type: mixed hyperlipidemia Type 2 diabetes mellitus with unspecified complications E11.8
== END 2023-08-08 14:15 | disposition home or self-care (01) ==
PROVIDERS: PCP Internal Medicine; Visit Provider Internal Medicine
DX: I25.10 Atherosclerotic heart disease of native coronary artery without angina pectoris (principal); E66.01 Morbid (severe) obesity due to excess calories; I10 Essential (primary) hypertension; E78.2 Mixed hyperlipidemia; E11.8 Type 2 diabetes mellitus with unspecified complications
CPT/HCPCS: 99214

== ENCOUNTER → 2023-08-08 13:04 | Outpatient (BNVA) | payer OTHER, SELFPAY | PROVIDERS: PCP Internal Medicine; Visit Provider Internal Medicine | DX: I25.10 Atherosclerotic heart disease of native coronary artery without angina pectoris (principal); I10 Essential (primary) hypertension; E78.2 Mixed hyperlipidemia; E11.8 Type 2 diabetes mellitus with unspecified complications; E66.01 Morbid (severe) obesity due to excess calories; Z68.38 Body mass index [BMI] 38.0-38.9, adult | CPT/HCPCS: 99212 ==

== ENCOUNTER 2023-08-23 16:24 | Outpatient (REF) | payer OTHER, SELFPAY ==
--- NOTE | ~2023-08-23 | MR_ITS ---
EXAMINATION: MR ABDOMEN WITHOUT AND WITH CONTRAST CLINICAL INFORMATION: Kidney cyst COMPARISON: Renal ultrasound 04/02/2023 TECHNIQUE: MRI of the abdomen before and after the IV administration of 10 mL of Gadavist was obtained using routine sequences. FINDINGS: LUNG BASES: The visualized lung bases are unremarkable. KIDNEYS AND URETERS: A 1.3 cm T2 hyperintense bosniak 1 right renal cyst, no routine imaging follow-up recommended. Previously seen suspected associated calcification was not appreciated though MR, though MR is insensitive for the detection of calcification. No suspicious solid renal mass. GALLBLADDER: Status post cholecystectomy. LIVER AND BILIARY TREE: Liver is enlarged measuring 21.8 cm in span. Mild loss of signal opposed phase imaging suggesting mild hepatic steatosis. No intra or extrahepatic biliary duct dilatation. PANCREAS: Unremarkable SPLEEN: Unremarkable ADRENAL GLANDS: Unremarkable GASTROINTESTINAL TRACT: Small hiatal hernia. LYMPH NODES: No lymphadenopathy. VASCULAR: Unremarkable ABDOMINAL WALL: Unremarkable. OSSEOUS STRUCTURES: Unremarkable. MR/MR kidney wo/w con IMPRESSION: 1. A 1.3 cm T2 hyperintense bosniak 1 right renal cyst, no routine imaging follow-up recommended. Previously seen suspected associated calcification was not appreciated on MR though MR is insensitive for the detection of calcification. No suspicious solid renal mass. 2. Hepatomegaly and mild hepatic steatosis.
[2023-08-23] MEDS: gadobutroL 10 ML VIAL IVPUSH (17:52)
== END 2023-08-23 16:25 | disposition home or self-care (01) ==
LOC: HO.MRI 16:24
PROVIDERS: PCP Internal Medicine; Visit Provider Nurse Practitioner Family
DX: N28.1 Cyst of kidney, acquired (principal)
CPT/HCPCS: 74181; A9585

== ENCOUNTER 2023-09-18 13:35 | Outpatient (AMB) | payer OTHER, SELFPAY ==
--- NOTE | 2023-09-18 13:37 | A.OFFVIS_ITS ---
Intake Intake Visit Reasons: MRI Results Intake Note: Patient presents for follow up MRI kidney stone Urology Medication: None Blood Thinner: none Mathematical Engineering Technician Required: Yes Accompanied by: Self / Same As Patient Allergies morphine [MORPHINE] Allergy (Severe, Verified 09/18/23 19:42) Anaphylaxis latex [LATEX] Allergy (Intermediate, Verified 09/18/23 19:42) Rash shellfish derived Allergy (Intermediate, Verified 09/18/23 19:42) swelling calcium Adverse Reaction (Intermediate, Verified 09/18/23 19:42) weakness, swells iron Adverse Reaction (Intermediate, Verified 09/18/23 19:42) weakness, swells metformin Adverse Reaction (Intermediate, Verified 09/18/23 19:42) Diarrhea pioglitazone Adverse Reaction (Intermediate, Verified 09/18/23 19:42) Swelling Medication List - Last Reconciled 09/18/23 by ANGELICA Limon-MARLEE adalimumab (Humira(CF) Pen) 40 mg (0.4 mL) subcut Q2W albuterol sulfate 2.5 mg (3 mL) inhalation Q4-6H PRN 30 days [terence +D PO BID] [centrum mvi PO] flash glucose sensor (FreeStyle Vandana 14 Day Sensor kit) every 14 days nebulizers (AeroEclipse II Nebulizer) As directed rosuvastatin 40 mg PO DAILY silver sulfadiazine 1% 1 appl topical DAILY 14 days tramadol 50 mg PO BID PRN 30 days Ventolin HFA 90 mcg/actuation (albuterol sulfate) 2 puffs inhalation Q6H PRN 30 days NS vitamin E (dl, acetate) 180 mg PO BID 90 days HPI HPI Comments History of Present Illness Details Hanna Haji is a pleasant 47-year-old female patient of . She has a past medical history of CAD, dyslipidemia, fibromyalgia, hyperlipidemia, migraines, obesity, nephrolithiasis, type 2 diabetes, and psoriatic arthritis. She is being follow-up on today via telehealth to review recent MRI results. Of note, patient was seen approximately 4 months ago at which time an MRI was ordered for further assessment evaluation of complex cyst noted on CT. These results were reviewed with the patient today. A 1.3 cm T2 hyperintense bosniak 1 right renal cyst, no routine imaging follow-up recommended. Previously seen suspected associated calcification was not appreciated on MR though MR is insensitive for the detection of calcification. No suspicious solid renal mass. Hepatomegaly and mild hepatic steatosis. When asked patient continues to report bilateral flank pain and discusses feeling that she is not urinating enough throughout the day despite drinking plenty of water daily. Discussed obtaining 24 hour urine collection for further assessment evaluation as well as for further nephrolithiasis workup as patient with 4 mm calculus in the lower pole of the left kidney. She otherwise denies urinary urgency, urinary frequency, incontinence, nocturia, hematuria, dysuria, foul smelling urine, changes to urinary stream, fever, and or chills. She otherwise offers no other issues or concerns at this time. 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 Psoriatic arthritis Microalbuminuria due to type 2 diabetes mellitus alf (current) use of insulin Type 2 diabetes mellitus with unspecified complications Hyperlipidemia, unspecified Morbid (severe) obesity due to excess calories Atherosclerotic heart disease of [place] coronary artery without angina pectoris Fibromyalgia Hypovitaminosis D Surgical History Status post sleeve gastrectomy History of open reduction and internal fixation (ORIF) procedure History of tubal ligation History of laparoscopic cholecystectomy History of section Family History Father Gout Mother Diabetes Dementia Maternal Aunt Diabetes Epilepsy Maternal Grandfather Diabetes Maternal Uncle Diabetes Maternal Grandmother Diabetes Paternal Grandfather Diabetes Paternal Grandmother Diabetes Daughter Asthma Seizure Family/Other FH: mental illness Social History Housing: Apartment Are you a primary livestock caretaker to a significant other at home: No Do you presently have visiting nurse or other home services: No Alcohol intake: never Patient Tobacco Use Status: Never used Tobacco e-Cigarette/Vaping Use: Never Used Second Hand Smoke Exposure: No service: No Current occupational status: employed Current occupational exposures/hazards: No Gender identity: Female Cognitive needs: No Hearing needs: No Vision needs: Yes Physical Exam Const General: cooperative Orientation/consciousness: patient oriented x3 Resp Effort & Inspection: able to speak in complete sentences Neuro General: patient oriented x3 Psych Speech and movement: Clear speech present Attitude: cooperative Thought process: Normal thought process present Thought content: Normal thought content present Insight: Fair insight present (Psych) Judgement: Fair judgement present (Psych) Results Reviewed Results Reviewed: Date of Service: 08/23/23 EXAMINATION: MR ABDOMEN WITHOUT AND WITH CONTRAST FINDINGS: LUNG BASES: The visualized lung bases are unremarkable. KIDNEYS AND URETERS: A 1.3 cm T2 hyperintense bosniak 1 right renal cyst, no routine imaging follow-up recommended. Previously seen suspected associated calcification was not appreciated though MR, though MR is insensitive for the detection of calcification. No suspicious solid renal mass. GALLBLADDER: Status post cholecystectomy. LIVER AND BILIARY TREE: Liver is enlarged measuring 21.8 cm in span. Mild loss of signal opposed phase imaging suggesting mild hepatic steatosis. No intra or extrahepatic biliary duct dilatation. PANCREAS: Unremarkable SPLEEN: Unremarkable ADRENAL GLANDS: Unremarkable GASTROINTESTINAL TRACT: Small hiatal hernia. LYMPH NODES: No lymphadenopathy. VASCULAR: Unremarkable ABDOMINAL WALL: Unremarkable. OSSEOUS STRUCTURES: Unremarkable. IMPRESSION: 1. A 1.3 cm T2 hyperintense bosniak 1 right renal cyst, no routine imaging follow-up recommended. Previously seen suspected associated calcification was not appreciated on MR though MR is insensitive for the detection of calcification. No suspicious solid renal mass. 2. Hepatomegaly and mild hepatic steatosis. Assessment & Plan Assessment & Plan (1) Renal calculi: Code(s): N20.0 - Calculus of kidney (2) Complex renal cyst: Code(s): N28.1 - Cyst of kidney, acquired Plan Recent MRI results reviewed with the patient today; as noted above. Discussed obtaining metabolic workup given patient reporting low urine output as well as history of nephrolithiasis. Discussed instruction for collection of URORISK/24hour urine at length. Will obtain BUN and creatinine for further assessment evaluation. Discussed and stressed the importance of drinking plenty of water daily. Discussed possibly obtaining CT urogram for further assessment evaluation if patient continues with bilateral flank pain. Discussed at length nephrolithiasis Follow-up in 1-2 months with your risk and labs to be completed prior; or sooner with any issues, concerns, and or questions. Orders: Orders Creatinine Today R39.15 - Urgency of urination URORISK Today N20.0 - Calculus of kidney Blood Urea Nitrogen Today R39.15 - Urgency of urination Patient Instructions: The patient had an opportunity to ask questions regarding the treatment plan. All questions were answered. Physical exam, labs, and imaging were discussed and reviewed in detail. As well as risks, benefits, and discussion of treatment choices. No major barriers to understanding were identified. The patient expressed understanding and agreement with the above treatment plan. The patient was made aware they should contact our office by phone for worsening of their current condition, the appearance of new symptoms, or with any questions or concerns. Compliance is encouraged with any medications and follow up testing that is ordered. It is a privilege to be allowed the opportunity to participate in? your urological care.? Again, if you have any questions or concerns If you have any questions or concerns please do not hesitate to contact me. The office is [phone]. This note is constructed using voice recognition software. While every effort has been made to ensure accuracy grit removal operator errors may have been included. Yours sincerely, SERGIO LimonP- Telehealth Telehealth Location of provider rendering services: practice address Location of patient: address on file Patient Identification confirmed using: Name, : Yes Telehealth method: voice only Patient verbally consented to treatment: Yes Patient verbally consented to billing insurance company: Yes Patient informed of any privacy concerns related to visit: Yes Minutes spent on Phone/Video with Pt.: 15 Coding Level of Care Code Tele Est Pt Level 3 (28721) Diagnoses Renal calculi N20.0 Complex renal cyst N28.1 Time Spent (min) 15
== END 2023-09-18 14:43 | disposition home or self-care (01) ==
LOC: HO.HUSH 13:35
PROVIDERS: PCP Internal Medicine; Visit Provider Nurse Practitioner Family
DX: N20.0 Calculus of kidney (principal); N28.1 Cyst of kidney, acquired
CPT/HCPCS: 99213

== ENCOUNTER → 2023-09-18 13:35 | Outpatient (BNVA) | payer OTHER, SELFPAY | PROVIDERS: PCP Internal Medicine; Visit Provider Nurse Practitioner Family ==

== ENCOUNTER 2023-09-25 06:00 | Outpatient (REF) | payer OTHER, SELFPAY ==
[2023-09-25 06:20] LABS: MANUAL DIFF FLAG NO
[2023-09-25 07:21] LABS: Basophils Absolute Auto 0.1 X10*3/uL (0.0-0.2); Eosinophils Absolute Auto 0.2 X10*3/uL (0.0-0.4); Eosinophils Percent Auto 2.3 % (0-4); Hemoglobin 12.5 g/dl (12.0-16.0); Imm Gran Abs Auto 0.02 X10*3/uL (0.00-0.03); Imm Gran Pct Auto 0.2 % (0.0-0.4); Lymphocytes Absolute Auto 2.6 X10*3/uL (1.2-4.9); Lymphocytes Percent Auto 31.7 % (20-40); Mean Corpuscular HGB Conc 31.3 g/dl (31.0-35.0); Mean Corpuscular Hemoglobin 25.6 pg (27.0-33.0); Mean Platelet Volume 11.9 fL (9.4-12.3); Monocytes Absolute Auto 0.5 X10*3/uL (0.1-1.2); Monocytes Percent Auto 6.2 % (2-11); Neutrophils Absolute Auto 4.8 x10*3/uL (2.0-8.3); Neutrophils Percent Auto 58.6 % (45-73); Platelet Count 248 X10*3/uL (160-400); Red Blood Count 4.88 X10*6/uL (4.20-5.50); Red Cell Distribution Width 13.7 % (11.0-16.0); White Blood Count 8.3 X10*3/uL (4.8-10.8)
[2023-09-25 07:33] LABS: Blood Urea Nitrogen 23 mg/dL (9-16)
[2023-09-25 07:43] LABS: Alanine Aminotransferase 15 U/L (0-31); Albumin Level 4.2 g/dL (3.5-5.0); Alkaline Phosphatase 80 U/L (39-117); Anion Gap 11 (12-20); Aspartate Amino Transferase 16 U/L (5-31); Bilirubin Total 0.4 mg/dL (0.0-1.0); Blood Urea Nitrogen 25 mg/dL (9-16); C Reactive Protein 0.49 mg/dL (< or = 0.50); Calcium 9.6 mg/dL (8.4-10.2); Carbon Dioxide 25 mmol/L (22-29); Chloride 104 mmol/L (96-108); Cholesterol 147 mg/dL (<200); Estimated Glomerular Filt Rate > 60; Glucose Fasting 236 mg/dL (60-99); HDL Cholesterol 48 mg/dL (>40); LDL Cholesterol Calculated 73 mg/dL (<100); Potassium 4.2 mmol/L (3.3-5.1); Sodium 136 mmol/L (135-145); Total Protein 7.9 g/dL (6.5-8.0); Triglycerides 134 mg/dL (<150)
[2023-09-25 08:00] LABS: Thyroid Stimulating Hormone 1.25 uIU/mL (0.32-4.0)
[2023-09-25 08:13] LABS: Erythrocyte Sedimentation Rate 23 MM/HR (0-20)
[2023-09-25 08:33] LABS: Creatinine Urine 181.13 mg/dL
== END 2023-09-25 06:01 | disposition home or self-care (01) ==
LOC: HO.LAB 06:00
PROVIDERS: Absent Provider Nurse Practitioner Family; PCP Internal Medicine; Visit Provider Internal Medicine Rheumatology
DX: R53.83 Other fatigue (principal); E11.9 Type 2 diabetes mellitus without complications; E78.5 Hyperlipidemia, unspecified; R39.15 Urgency of urination; M47.816 Spondylosis without myelopathy or radiculopathy, lumbar region; L40.9 Psoriasis, unspecified; L40.50 Arthropathic psoriasis, unspecified; Z79.899 Other long term (current) drug therapy
CPT/HCPCS: 36415; 80053; 80061; 82043; 82570; 84443; 84520; 85025; 85652; 86140; 99212

== ENCOUNTER 2023-09-25 14:58 | Outpatient (AMB) | payer OTHER, SELFPAY ==
--- NOTE | 2023-09-25 15:13 | MHC.OFFVIS ---
Intake Vital Signs 09/25/23 15:31 Height 5 ft 7 in Weight 253 lb 8.505 oz BMI 39.7 BP 124/82 Blood Pressure Location Rt radial Position Sitting Pulse 79 Pulse Source Pulse Oximeter Temp 97.9 F Temp Source Skin Pulse Oximetry (%) 98 Oxygen Delivery Method Room Air Intake Visit Reasons: psa/oa Intake Note: Patient last seen 05/10/23, presents today for follow up and test results. Requesting Tramadol refill. Given by Dr. Sunshine. Mercury Washer Required: No Accompanied by: Self / Same As Patient Allergies morphine [MORPHINE] Allergy (Severe, Verified 09/25/23 17:27) Anaphylaxis latex [LATEX] Allergy (Intermediate, Verified 09/25/23 17:27) Rash shellfish derived Allergy (Intermediate, Verified 09/25/23 17:27) swelling calcium Adverse Reaction (Intermediate, Verified 09/25/23 17:27) weakness, swells iron Adverse Reaction (Intermediate, Verified 09/25/23 17:27) weakness, swells metformin Adverse Reaction (Intermediate, Verified 09/25/23 17:27) Diarrhea pioglitazone Adverse Reaction (Intermediate, Verified 09/25/23 17:27) Swelling Medication List - Last Reconciled 09/25/23 by Marlon Miller MD adalimumab (Humira(CF) Pen) 40 mg (0.4 mL) subcut Q2W albuterol sulfate 2.5 mg (3 mL) inhalation Q4-6H PRN 30 days [terence +D PO BID] [centrum mvi PO] flash glucose sensor (FreeStyle Vandana 14 Day Sensor kit) every 14 days nebulizers (AeroEclipse II Nebulizer) As directed rosuvastatin 40 mg PO DAILY silver sulfadiazine 1% 1 appl topical DAILY 14 days tramadol 50 mg PO BID PRN 30 days Ventolin HFA 90 mcg/actuation (albuterol sulfate) 2 puffs inhalation Q6H PRN 30 days NS vitamin E (dl, acetate) 180 mg PO BID 90 days HPI HPI Comments History of Present Illness Details The patient returns for evaluation of her psoriasis and psoriatic arthritis. She complains again of overall fatigue suggesting of fibromyalgia as well. Areas of pain include the lower back, ankles, and the hands. The ankles are slightly swollen. She remains on Humira 40 mg every 2 weeks. She says she feels some return of joint pains about 4 days before each Humira injection. There have been no skin reactions to the Humira. She does have some dryness over face, scalp, and the palms of the hands but no franco rashes currently. [facility] Medical History Renal calculi Diaphragmatic hernia PONV (postoperative nausea and vomiting) Preoperative cardiovascular examination Renal calculi Physical exam Palpitation Situational depression Urinary incontinence Migraines Overactive bladder Varicose veins of right lower extremity with inflammation Dyslipidemia Peripheral arterial disease Menometrorrhagia COVID-19 Nausea [facility] methotrexate user Psoriatic arthritis Microalbuminuria due to type 2 diabetes mellitus [facility] (current) use of insulin Type 2 diabetes mellitus with unspecified complications Hyperlipidemia, unspecified Morbid (severe) obesity due to excess calories Atherosclerotic heart disease of [place] coronary artery without angina pectoris Fibromyalgia Hypovitaminosis D Surgical History Status post sleeve gastrectomy History of open reduction and internal fixation (ORIF) procedure History of tubal ligation History of laparoscopic cholecystectomy History of section Family History Father Gout Mother Diabetes Dementia Maternal Aunt Diabetes Epilepsy Maternal Grandfather Diabetes Maternal Uncle Diabetes Maternal Grandmother Diabetes Paternal Grandfather Diabetes Paternal Grandmother Diabetes Daughter Asthma Seizure Family/Other FH: mental illness Social History Housing: Apartment Are you a primary college and career counselor to a significant other at home: No Do you presently have visiting nurse or other home services: No Alcohol intake: never Patient Tobacco Use Status: Never used Tobacco e-Cigarette/Vaping Use: Never Used Second Hand Smoke Exposure: No service: No Current occupational status: employed Current occupational exposures/hazards: No Gender identity: Female Cognitive needs: No Hearing needs: No Vision needs: Yes Review of Systems Const Details: Fatigue and low energy. Negative for appetite change, weight change, fever, chills, malaise Eyes Details: Negative for vision change, dry eyes,headaches and dizziness Card Details: Negative chest pain, edema and syncope Resp Details: Negative for SOB, cough and wheezing GI Details: Negative indigestion/heartburn, nausea, abdominal pain, bowel changes, diarrhea, constipation and bloody stool. Skin/Breast Details: Negative for itching, rash, hives, Raynaud's symptoms, sun sensitivity, and skin cancer Jairo/Lymph Details: Negative for excessive bruising or bleeding. Physical Exam Vital Signs: Last Vital Signs Temp 97.9 F 09/25/23 15:31 Pulse 79 09/25/23 15:31 BP 124/82 09/25/23 15:31 Pulse Ox 98 09/25/23 15:31 Oxygen Delivery Method Room Air 09/25/23 15:31 BMI result Body Mass Index 39.7 APPEARANCE: Patient in no acute distress EYES no redness, pupils equal and reactive to light, eyelids normal EXTREMITIES: Trace pretibial edema, no calf tenderness, normal peripheral pulses. NEURO: Oriented and alert x3. No focal weakness. Reflexes symmetric. Gait normal. SKIN: Some dryness of the skin on the right medial cheek and over the palms. No palpable lesions however. No redness or warmth. No objective signs of Raynaud's disease. JOINT EXAM:.?? Cervical Spine:.? Full range of motion without pain; mild cervical muscle tenderness. Thoracic Spine:.? No scoliosis.? No tenderness on palpation. Lumbar Spine:.? Alignment normal.? Full range of motion with mild pain at the extremes. There is some paraspinal muscle tenderness. Chest Wall:.? No tenderness, swelling, increased warmth or erythema. Hands:.? Right: Normal pain-free range of motion. There is some slight tenderness at the the PIP joints and 2nd through 4th MCP joints but I do not appreciate any swelling. Other joints have no swelling or tenderness. Left: Normal pain-free range of motion with slight tenderness across the MCP and PIP joints but there is no swelling, increased warmth or erythema. Able to make a full fist and has a good cad engineer strength. Wrists:.? Mild pain with flexion extension at 80 degrees. There is some slight dorsal tenderness but no swelling, increased warmth or erythema. Elbows:. Normal pain-free range of motion without tenderness, swelling, increased warmth or erythema. Shoulders:.?? Full range of motion with mild pain with 160 degrees of abduction or with extremes of internal or external rotation. There is mild anterior tenderness without adenopathy, abductor weakness, swelling, increased warmth or erythema. Hips:.? Full range of motion with some lumbar pain at the extremes of internal or external rotation. No groin pain with motion. Hip bursa:.? Mild trochanteric tenderness. Knees:.?? Right: Well-healed anterior scar from her knee replacement. There is pain-free range of motion without tenderness or swelling. Left: Mild patellofemoral crepitus but otherwise normal pain-free range of motion without tenderness, swelling, increased warmth or erythema.? There is no effusion Ankles:.? Normal pain-free range of motion with mild medial and lateral tenderness but no swelling, increased warmth or erythema. Feet:? Slight enlargement at the 1st MTP bilaterally. There is mild tenderness across all of the MTP joints but not in the instep. No heel tenderness. No redness or warmth or toenail tenderness today. Tender points:? Mild tenderness to digital palpation at the trapezius, lateral epicondyle, knees, greater trochanter and gluteal area bilaterally. Results Reviewed Results Reviewed: Laboratory Tests 09/25/23 06:15 WBC 8.3 Hgb 12.5 ESR 23 H Creatinine 0.88 C-Reactive Protein 0.49 Assessment & Plan Assessment & Plan (1) Osteoarthritis of lumbar spine: Code(s): M47.816 - Spondylosis without myelopathy or radiculopathy, lumbar region (2) emt intermediate current use of immunosuppressive drug: Code(s): Z79.899 - Other intermission coordinator (current) drug therapy (3) Psoriatic arthritis: Comment: Tried methotrexate Enbrel- pain with injection Xeljanz 09/2020- 12/2021- stopped due to CAD Humira december 2021-Present Code(s): L40.50 - Arthropathic psoriasis, unspecified Plan She seems to have some increased pain in the joints towards the end of the interval between Humira injections. This makes me suspect she may be making an antibody against the Humira that shortness it is effective half life. She has some dryness in the skin but no clear psoriatic lesions presently. Topical lubricating agents are recommended for that. We will increase her Humira dosing frequency, if her insurance permits, to 40 mg every week. We will check again lab work before the next visit in about 4 months. Medications: Changed From adalimumab (Humira(CF) Pen) 40 mg (0.4 mL) subcut Q2W 2 ea 5RF L40.50 - Arthropathic psoriasis, unspecified To adalimumab (Humira(CF) Pen) 40 mg (0.4 mL) subcut QWEEK 4 ea 5RF L40.50 - Arthropathic psoriasis, unspecified Coding Level of Care Code Est Pt Level 3 (84729) Diagnoses Osteoarthritis of lumbar spine M47.816 [facility] current use of immunosuppressive drug Z79.899 Psoriatic arthritis L40.50
[2023-09-25 15:31] VITALS: BP 124/82; PULSE 79; TEMP 36.6; O2SAT 98; BMI 39.7
== END 2023-09-25 16:00 | disposition home or self-care (01) ==
PROVIDERS: PCP Internal Medicine; Visit Provider Internal Medicine Rheumatology
DX: M47.816 Spondylosis without myelopathy or radiculopathy, lumbar region (principal); Z79.899 Other long term (current) drug therapy; L40.50 Arthropathic psoriasis, unspecified
CPT/HCPCS: 99213

== ENCOUNTER 2023-09-25 17:12 | Outpatient (AMB) | payer OTHER, SELFPAY ==
[2023-09-25 17:13] VITALS: BP 126/82; BMI 39.5
--- NOTE | 2023-09-25 17:13 | MHC.PC.OV ---
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 Teacher Required: No Accompanied by: Daughter Allergies morphine [MORPHINE] Allergy (Severe, Verified 09/25/23 17:27) Anaphylaxis latex [LATEX] Allergy (Intermediate, Verified 09/25/23 17:27) Rash shellfish derived Allergy (Intermediate, Verified 09/25/23 17:27) swelling calcium Adverse Reaction (Intermediate, Verified 09/25/23 17:27) weakness, swells iron Adverse Reaction (Intermediate, Verified 09/25/23 17:27) weakness, swells metformin Adverse Reaction (Intermediate, Verified 09/25/23 17:27) Diarrhea pioglitazone Adverse Reaction (Intermediate, Verified 09/25/23 17:27) Swelling Medication List - Last Reconciled 09/25/23 by Yessi Ball MD adalimumab (Humira(CF) Pen) 40 mg (0.4 mL) subcut QWEEK albuterol sulfate 2.5 mg (3 mL) inhalation Q4-6H PRN 30 days [terence +D PO BID] [centrum mvi PO] flash glucose sensor (FreeStyle Vandana 14 Day Sensor kit) every 14 days nebulizers (AeroEclipse II Nebulizer) As directed rosuvastatin 40 mg PO DAILY silver sulfadiazine 1% 1 appl topical DAILY 14 days tramadol 50 mg PO BID PRN 30 days Ventolin HFA 90 mcg/actuation (albuterol sulfate) 2 puffs inhalation Q6H PRN 30 days NS vitamin E (dl, acetate) 180 mg PO BID 90 days Tobacco use date assessed: 12/29/22 Dental Screening Dental Screen Date: 09/25/23 Did you have a dental visit in the last 12 months?: Yes Did you have a dental problem in the last 6 months where you did not have access to dental care?: No Was dental information given to patient?: Patient has dentist HPI HPI Comments History of Present Illness Details This is a 47-year-old female with diabetes mellitus type 2, psoriatic arthritis, mild major depression and dyslipidemia that comes today for follow-up on her conditions. She declines to have an A1c done today. Her fasting blood glucose is elevated and I will start her on Trulicity which she has had in the past. Metformin and Actos cause side effects on her. Psoriatic arthritis stable with Humira. Depression is in remission. LDL close to goal and she is compliant with rosuvastatin for her dyslipidemia. She admits not been follow a diabetic and low-cholesterol diet. Accompanied by daughter. 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 Type 2 diabetes mellitus with unspecified complications Hyperlipidemia, unspecified Morbid (severe) obesity due to excess calories Atherosclerotic heart disease of [place] coronary artery without angina pectoris Fibromyalgia Hypovitaminosis D Surgical History Status post sleeve gastrectomy History of open reduction and internal fixation (ORIF) procedure History of tubal ligation History of laparoscopic cholecystectomy History of section Family History Father Gout Mother Diabetes Dementia Maternal Aunt Diabetes Epilepsy Maternal Grandfather Diabetes Maternal Uncle Diabetes Maternal Grandmother Diabetes Paternal Grandfather Diabetes Paternal Grandmother Diabetes Daughter Asthma Seizure Family/Other FH: mental illness Social History Housing: Apartment Are you a primary career consultant to a significant other at home: No Do you presently have visiting nurse or other home services: No Alcohol intake: never Patient Tobacco Use Status: Never used Tobacco e-Cigarette/Vaping Use: Never Used Second Hand Smoke Exposure: No service: No Current occupational status: employed Current occupational exposures/hazards: No Gender identity: Female Cognitive needs: No Hearing needs: No Vision needs: Yes Questionnaire Thrive Questionnaire Date Thrive assessed: 12/29/22 KARMA-7 AMB Questionnaire KARMA-7 Date KARMA - 7 assessed: 12/29/22 Source: Developed by Drs. Reggie Miranda, Nora Erickson, Randy Taylor and colleagues, with an educational myron from [employer]. Review of Systems Const All systems reviewed & are unremarkable except as noted in HPI and below Eyes Reports no additional complaints, Denies change in vision and Denies other visual disturbances Card Denies chest pain at rest, Denies chest pain with activity, Denies edema, Denies irregular heart rhythm, Denies claudication, Denies dyspnea, Denies dyspnea on exertion, Denies orthopnea, Denies paroxysmal nocturnal dyspnea and Denies slow heart rate Resp Denies cough, Denies dyspnea and Denies dyspnea on exertion GI Denies abdominal pain, Denies change in bowel habits, Denies excessive flatus, Denies nausea and Denies vomiting Denies urinary incontinence, Denies urinary hesitancy and Denies urinary urgency Musc Denies abnormal gait, Denies atrophy, Denies deformity and Denies limited range of motion Skin/Breast Denies bleeding lesions, Denies changing lesions and Denies rash Neuro Denies abnormal gait, Denies behavioral changes and Denies lack of coordination Psych Denies behavioral changes Physical exam (Primary Care) Vital Signs: Last Vital Signs BP 126/82 09/25/23 17:13 BMI result Body Mass Index 39.5 Tobacco/Smoking Status: Tobacco use Status Tobacco use date assessed 12/29/22 09/25/23 17:13 Patient Tobacco Use Status Never used Tobacco 09/25/23 17:13 e-Cigarette/Vaping Use Never Used 09/25/23 17:13 Thrive Assessment: Date of Thrive Assessment Date Thrive assessed 12/29/22 09/25/23 17:13 Eyes General: appearance normal, both eyes and all related structures Eyelids: Yes eyelids normal Conjunctivae: conjunctivae normal Neck Neck: Yes normal visual inspection and Yes supple Resp Effort & Inspection: normal respiratory effort Auscultation: clear to auscultation bilaterally Cardio Jugular venous distension: no JVD Rate: regular rate Rhythm: regular rhythm Heart sounds: S1 normal heart sound present and S2 normal heart sound present Extrem General: Yes full ROM Office Procedures Flu Questionnaire Does the patient have a severe egg allergy?: No Immunizations flu vacc [id number] 6mos up(PF) 60 mcg(15 mcgx4)/0.5 mL IM syringe Performing Provider: Yessi Ball MD [facility] Documented (not given) by: NISREEN Ortega on 09/25/23 17:44 Reason Not Given: Not Given Assessment and Plan Assessment & Plan (1) Diabetes mellitus: Code(s): E11.9 - Type 2 diabetes mellitus without complications Plan: Restart Trulicity. A1c goal is equal or less than 7% (2) Mild major depression: Code(s): F32.0 - Major depressive disorder, single episode, mild Plan: In remission. (3) Psoriatic arthritis: Comment: Tried methotrexate Enbrel- pain with injection Xeljanz 09/2020- 12/2021- stopped due to CAD Humira december 2021-Present Code(s): L40.50 - Arthropathic psoriasis, unspecified Plan: Continue Humira. Follow-up with rheumatology. (4) Dyslipidemia: Code(s): E78.5 - Hyperlipidemia, unspecified Plan: Continue statins. LDL should be less than 70. Orders: Orders Influenza [id number] Immunization 09/25/23 Z23 - Encounter for immunization Medications: New dulaglutide (Trulicity) 0.75 mg (0.5 mL) subcut QWEEK 28 days 2 mL 2RF E11.9 - Type 2 diabetes mellitus without complications Coding Level of Care Code Est Pt Level 4 (14102) Diagnoses Diabetes mellitus E11.9 Mild major depression F32.0 Psoriatic arthritis L40.50 Dyslipidemia E78.5 Time Spent (min) 22
== END 2023-09-25 17:37 | disposition home or self-care (01) ==
PROVIDERS: PCP Internal Medicine; Visit Provider Internal Medicine
DX: E11.69 Type 2 diabetes mellitus with other specified complication (principal); F32.0 Major depressive disorder, single episode, mild; L40.50 Arthropathic psoriasis, unspecified; E78.5 Hyperlipidemia, unspecified
CPT/HCPCS: 99214

== ENCOUNTER 2023-10-03 13:03 | Outpatient (AMB) | payer OTHER, SELFPAY ==
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
[2023-10-03 13:11] VITALS: BP 132/80; BMI 38.8
== END 2023-10-03 14:07 | disposition home or self-care (01) ==
PROVIDERS: PCP Internal Medicine; Visit Provider Internal Medicine
DX: M54.2 Cervicalgia (principal); E11.9 Type 2 diabetes mellitus without complications; M47.816 Spondylosis without myelopathy or radiculopathy, lumbar region
CPT/HCPCS: 99213

== ENCOUNTER 2024-01-17 12:21 | Outpatient (REF) | payer OTHER, SELFPAY ==
[2024-01-17 13:26] LABS: MANUAL DIFF FLAG NO
[2024-01-17 13:58] LABS: Basophils Absolute Auto 0.1 X10*3/uL (0.0-0.2); Basophils Percent Auto 0.9 % (0-2); Eosinophils Absolute Auto 0.2 X10*3/uL (0.0-0.4); Eosinophils Percent Auto 1.8 % (0-4); Hemoglobin 13.1 g/dl (12.0-16.0); Imm Gran Abs Auto 0.02 X10*3/uL (0.00-0.03); Imm Gran Pct Auto 0.2 % (0.0-0.4); Lymphocytes Absolute Auto 2.7 X10*3/uL (1.2-4.9); Lymphocytes Percent Auto 32.4 % (20-40); Mean Corpuscular Hemoglobin 26.2 pg (27.0-33.0); Mean Platelet Volume 11.9 fL (9.4-12.3); Monocytes Absolute Auto 0.5 X10*3/uL (0.1-1.2); Monocytes Percent Auto 5.8 % (2-11); Neutrophils Absolute Auto 4.8 x10*3/uL (2.0-8.3); Neutrophils Percent Auto 58.9 % (45-73); Platelet Count 300 X10*3/uL (160-400); Red Cell Distribution Width 13.4 % (11.0-16.0); White Blood Count 8.2 X10*3/uL (4.8-10.8)
[2024-01-17 14:38] LABS: Alanine Aminotransferase 33 U/L (0-31); Albumin Level 4.4 g/dL (3.5-5.0); Alkaline Phosphatase 82 U/L (39-117); Anion Gap 12 (12-20); Aspartate Amino Transferase 32 U/L (5-31); Bilirubin Total 0.3 mg/dL (0.0-1.0); Blood Urea Nitrogen 18 mg/dL (9-16); C Reactive Protein 0.15 mg/dL (< or = 0.50); Calcium 9.8 mg/dL (8.4-10.2); Carbon Dioxide 27 mmol/L (22-29); Chloride 104 mmol/L (96-108); Estimated Glomerular Filt Rate > 60; Glucose Random 131 mg/dL (60-115); Potassium 4.2 mmol/L (3.3-5.1); Sodium 139 mmol/L (135-145); Total Protein 8.2 g/dL (6.5-8.0)
[2024-01-17 14:54] LABS: Erythrocyte Sedimentation Rate 26 MM/HR (0-20)
[2024-01-18 04:56] LABS: HBS Num1 0.56 mIU/mL (0-7.99); Hepatitis A Antibody IgM 0.18 Index (0-0.79); Hepatitis B Core Antibody Nonreactive (Nonreactive); Hepatitis B Surface Antigen Negative (Negative); ~HepC Num1 0.14 S/CO (0.00-0.79); ~Hepatitis A Antibody IgM Nonreactive (Nonreactive); ~Hepatitis B Surface Antibody NONREACTIVE (Nonreactive); ~Hepatitis C Antibody Nonreactive (Nonreactive)
[2024-01-19 22:18] LABS: TS Negative Control Passed; TS Panel A 0; TS Panel B 1; TS Positive Control Passed; TSpotTB Negative (Negative)
== END 2024-01-17 12:22 | disposition home or self-care (01) ==
LOC: HO.10HDL 12:21
PROVIDERS: Visit Provider Student in an Organized Health Care Education/Training Program
DX: Z11.7 Encounter for testing for latent tuberculosis infection (principal); Z11.59 Encounter for screening for other viral diseases; M06.9 Rheumatoid arthritis, unspecified; Z72.89 Other problems related to lifestyle
CPT/HCPCS: 36415; 80053; 85025; 85652; 86140; 86481; 86704; 86706; 86709; 86803; 87340

== ENCOUNTER 2024-01-23 15:36 | Outpatient (AMB) | payer OTHER, SELFPAY ==
--- NOTE | 2024-01-23 15:40 | MHC.OFFVIS ---
Intake Vital Signs 01/23/24 15:41 Height 5 ft 7 in Weight 249 lb 1.957 oz BMI 39.0 BP 128/72 Blood Pressure Location Rt brachial Position Sitting Pulse 99 Pulse Source Pulse Oximeter Pulse Oximetry (%) 97 Oxygen Delivery Method Room Air Intake Visit Reasons: psa Intake Note: Patient last seen by Dr Miller 09/25/23 presents today for follow up and test results. Reports lots of pain, wrists, knees, elbows. 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 Accompanied by: Self / Same As Patient Allergies morphine [MORPHINE] Allergy (Severe, Verified 01/23/24 15:51) Anaphylaxis latex [LATEX] Allergy (Intermediate, Verified 01/23/24 15:51) Rash shellfish derived Allergy (Intermediate, Verified 01/23/24 15:51) swelling calcium Adverse Reaction (Intermediate, Verified 01/23/24 15:51) weakness, swells iron Adverse Reaction (Intermediate, Verified 01/23/24 15:51) weakness, swells metformin Adverse Reaction (Intermediate, Verified 01/23/24 15:51) Diarrhea pioglitazone Adverse Reaction (Intermediate, Verified 01/23/24 15:51) Swelling Medication List - Last Reconciled 01/23/24 by J Carlos Patel MD adalimumab (Humira(CF) Pen) 40 mg (0.4 mL) subcut QWEEK albuterol sulfate 2.5 mg (3 mL) inhalation Q4-6H PRN 30 days [terence +D PO BID] [centrum mvi PO] dulaglutide (Trulicity) 0.75 mg (0.5 mL) subcut QWEEK 28 days flash glucose sensor (FreeStyle Vandana 14 Day Sensor kit) every 14 days nebulizers (AeroEclipse II Nebulizer) As directed rosuvastatin 40 mg PO DAILY silver sulfadiazine 1% 1 appl topical DAILY 14 days tramadol 50 mg PO BID PRN 30 days Ventolin HFA 90 mcg/actuation (albuterol sulfate) 2 puffs inhalation Q6H PRN 30 days NS vitamin E (dl, acetate) 180 mg PO BID 90 days HPI HPI Comments History of Present Illness Details 48-year-old female with psoriasis and psoriatic arthritis returns for follow-up. States that Humira has been advanced to weekly about 3 months now. She states that she continues to have joint pain 2-3 days before the Humira dose. She is complaining of pain in her hands, right foot toes, both shoulders and blateral lower back. Most recent history by Dr. Miller 09/2023: The patient returns for evaluation of her psoriasis and psoriatic arthritis. She complains again of overall fatigue suggesting of fibromyalgia as well. Areas of pain include the lower back, ankles, and the hands. The ankles are slightly swollen. She remains on Humira 40 mg every 2 weeks. She says she feels some return of joint pains about 4 days before each Humira injection. There have been no skin reactions to the Humira. She does have some dryness over face, scalp, and the palms of the hands but no franco rashes currently. 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 Type 2 diabetes mellitus with unspecified complications Hyperlipidemia, unspecified Morbid (severe) obesity due to excess calories Atherosclerotic heart disease of [place] coronary artery without angina pectoris Fibromyalgia Hypovitaminosis D Surgical History Status post sleeve gastrectomy History of open reduction and internal fixation (ORIF) procedure History of tubal ligation History of laparoscopic cholecystectomy History of section Family History Father Gout Mother Diabetes Dementia Maternal Aunt Diabetes Epilepsy Maternal Grandfather Diabetes Maternal Uncle Diabetes Maternal Grandmother Diabetes Paternal Grandfather Diabetes Paternal Grandmother Diabetes Daughter Asthma Seizure Family/Other FH: mental illness Social History Housing: Apartment Are you a primary intensive care ambulance paramedic to a significant other at home: No Do you presently have visiting nurse or other home services: No Alcohol intake: never Patient Tobacco Use Status: Never used Tobacco e-Cigarette/Vaping Use: Never Used Second Hand Smoke Exposure: No service: No Current occupational status: employed Current occupational exposures/hazards: No Gender identity: Female Cognitive needs: No Hearing needs: No Vision needs: Yes Review of Systems Musc Reports back pain, Reports arthralgias and Reports stiffness Physical Exam Vital Signs: Last Vital Signs Pulse 99 01/23/24 15:41 BP 128/72 01/23/24 15:41 Pulse Ox 97 01/23/24 15:41 Oxygen Delivery Method Room Air 01/23/24 15:41 BMI result Body Mass Index 39.0 Const General: cooperative, healthy appearing and comfortable Nutritional Appearance: obese morbidly obese Orientation/consciousness: patient oriented x3 Limitations: no limitations HEENT Head: Yes normocephalic and Yes atraumatic Mouth: moist mucous membranes Resp Effort & Inspection: normal respiratory effort and able to speak in complete sentences Auscultation: clear to auscultation bilaterally Cardio Rate: regular rate Rhythm: regular rhythm Skin General skin exam: no rashes or lesions noted Neuro General: patient oriented x3 Extrem Other: Right wrist tenderness and pain with flexion-extension Right 3rd and 4th MCP tenderness Bilateral shoulder pain with abduction Positive empty can test on the right Positive Speed's test on the left Bilateral lower paraspinal muscle tenderness Positive straight leg raise test on the right Jo Ann test 10-12 cm Right 2nd through 5th toe tenderness without swelling no ankle swelling or tenderness bilaterally Assessment & Plan Assessment & Plan (1) Psoriatic arthritis: Comment: Tried methotrexate Enbrel- pain with injection Xeljanz 09/2020- 12/2021- stopped due to CAD Humira december 2021-Present , advanced to weekly 10/2023 Code(s): L40.50 - Arthropathic psoriasis, unspecified Plan: This is a 48-year-old female with psoriasis and psoriatic arthritis who presents for follow-up. This is her 1st visit with me. She used to follow-up with Dr. Miller. Humira was advanced to 40 mg weekly for about 3 months now but continues to have joint pain 2-3 days before Humira dose. On exam she continues to have multiple tender joints. Will check anti adalimumab antibodies. We discussed switching to Simponi subQ injections. 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 Plan I spent 30 minutes reviewing patient's chart, evaluating patient, ordering diagnostic workup, counseling patient and documenting in the chart Orders: Orders Complete Blood Count Auto Diff 01/17/24 M06.9 - Rheumatoid arthritis, unspecified Comprehensive Met. 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 of immunosuppressive biologic XR sacroiliac joint min 3V Today L40.50 - Arthropathic psoriasis, unspecified XR shoulder LT min 2V Today L40.50 - Arthropathic psoriasis, unspecified Erythrocyte Sedimentation Rate 3 Months Z79.899 - Other [place] [facility] (current[facility] drug therapy C Reactive Protein 01/17/24 M06.9 - Rheumatoid arthritis, unspecified Erythrocyte Sedimentation Rate 01/17/24 M06.9 - Rheumatoid arthritis, unspecified XR shoulder RT min 2V Today L40.50 - Arthropathic psoriasis, unspecified Complete Blood Count Auto Diff 3 Months Z79.899 - Other [place] [facility] (current) drug therapy Comprehensive Met. 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
[2024-01-23 15:41] VITALS: BP 128/72; PULSE 99; O2SAT 97; BMI 39.0
== END 2024-01-23 16:02 | disposition home or self-care (01) ==
PROVIDERS: PCP Internal Medicine; Visit Provider Student in an Organized Health Care Education/Training Program
DX: L40.50 Arthropathic psoriasis, unspecified (principal); Z79.899 Other long term (current) drug therapy
CPT/HCPCS: 99214

== ENCOUNTER → 2024-01-23 15:36 | Outpatient (BNVA) | payer OTHER, SELFPAY | PROVIDERS: PCP Internal Medicine; Visit Provider Student in an Organized Health Care Education/Training Program | DX: L40.50 Arthropathic psoriasis, unspecified (principal); Z79.899 Other long term (current) drug therapy | CPT/HCPCS: 99212 ==

== ENCOUNTER 2024-01-23 16:11 | Outpatient (AMB) | payer OTHER, SELFPAY ==
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
[2024-01-23 16:22] VITALS: BP 122/80; BMI 38.8
== END 2024-01-23 16:49 | disposition home or self-care (01) ==
PROVIDERS: PCP Internal Medicine; Visit Provider Internal Medicine
DX: E11.9 Type 2 diabetes mellitus without complications (principal); F41.1 Generalized anxiety disorder; F32.0 Major depressive disorder, single episode, mild; L40.50 Arthropathic psoriasis, unspecified
CPT/HCPCS: 83036; 99214

== ENCOUNTER 2024-04-01 07:27 | Outpatient (REF) | payer OTHER, SELFPAY ==
--- NOTE | ~2024-04-01 | XR_ITS ---
EXAMINATION: XR SHOULDER, LEFT CLINICAL INFORMATION: Reason for Exam L40.50 - Arthropathic psoriasis, unspecified COMPARISON: None TECHNIQUE: Four views of the shoulder. FINDINGS: No acute fracture or dislocation. No cortical erosion. Inferior subluxation of the humeral head with respect to the glenoid which can be seen in setting of rotator cuff pathology. Mineralization adjacent to the greater tuberosity may reflect sequelae of hydroxyapatite deposition disease. Soft tissues are unremarkable. XR/XR shoulder LT min 2V IMPRESSION: 1. Inferior subluxation of the humeral head with respect to the glenoid which can be seen in setting of rotator cuff pathology. 2. Mineralization adjacent to the greater tuberosity may reflect sequelae of hydroxyapatite deposition disease. 3. No acute osseous abnormality. No cortical erosion to suggest an inflammatory arthropathy.
--- NOTE | ~2024-04-01 | XR_ITS ---
EXAMINATION: XR SACROILIAC JOINTS CLINICAL INFORMATION: Psoriatic arthritis COMPARISON: 02/20/2023 radiographs TECHNIQUE: 3 views of the sacroiliac joints FINDINGS: Bones and soft tissues are normal. No fracture. Alignment is anatomic. Sacroiliac joint spaces are well-maintained without erosions or surrounding sclerosis. XR/XR sacroiliac joint min 3V IMPRESSION: Normal sacroiliac joints.
--- NOTE | ~2024-04-01 | XR_ITS ---
EXAMINATION: XR SHOULDER, RIGHT CLINICAL INFORMATION: Reason for Exam L40.50 - Arthropathic psoriasis, unspecified COMPARISON: None TECHNIQUE: Four views of the shoulder. FINDINGS: No acute fracture or dislocation. Inferior subluxation of the humeral head with respect to glenoid which can be seen in the setting of rotator cuff pathology. Remote healed lateral clavicular fracture deformity. Mild osteoarthritis in the acromioclavicular joint with degenerative spurring. No cortical erosions. Soft tissues are unremarkable. XR/XR shoulder RT min 2V IMPRESSION: 1. Inferior subluxation of the humeral head with respect to glenoid which can be seen in the setting of rotator cuff pathology. 2. Remote healed lateral clavicular fracture deformity. 3. Mild osteoarthritis in the acromioclavicular joint with degenerative spurring. 4. No cortical erosions to suggest an inflammatory arthropathy.
[2024-04-01 07:42] LABS: MANUAL DIFF FLAG NO
[2024-04-01 07:54] LABS: Basophils Absolute Auto 0.1 X10*3/uL (0.0-0.2); Basophils Percent Auto 0.9 % (0-2); Eosinophils Absolute Auto 0.2 X10*3/uL (0.0-0.4); Eosinophils Percent Auto 2.7 % (0-4); Hemoglobin 12.6 g/dl (12.0-16.0); Imm Gran Abs Auto 0.03 X10*3/uL (0.00-0.03); Imm Gran Pct Auto 0.3 % (0.0-0.4); Lymphocytes Absolute Auto 3.2 X10*3/uL (1.2-4.9); Lymphocytes Percent Auto 35.8 % (20-40); Mean Corpuscular HGB Conc 32.3 g/dl (31.0-35.0); Mean Corpuscular Hemoglobin 26.4 pg (27.0-33.0); Mean Corpuscular Volume 81.8 fL (80.0-98.0); Mean Platelet Volume 11.6 fL (9.4-12.3); Monocytes Absolute Auto 0.5 X10*3/uL (0.1-1.2); Monocytes Percent Auto 5.3 % (2-11); Neutrophils Absolute Auto 4.9 x10*3/uL (2.0-8.3); Platelet Count 265 X10*3/uL (160-400); Red Blood Count 4.77 X10*6/uL (4.20-5.50); White Blood Count 8.9 X10*3/uL (4.8-10.8)
[2024-04-01 08:23] LABS: Alanine Aminotransferase 29 U/L (0-31); Albumin Level 4.3 g/dL (3.5-5.0); Alkaline Phosphatase 84 U/L (39-117); Anion Gap 11 (12-20); Aspartate Amino Transferase 24 U/L (5-31); Bilirubin Total 0.4 mg/dL (0.0-1.0); Blood Urea Nitrogen 17 mg/dL (9-16); C Reactive Protein 0.31 mg/dL (< or = 0.50); Calcium 10.1 mg/dL (8.4-10.2); Carbon Dioxide 26 mmol/L (22-29); Chloride 106 mmol/L (96-108); Estimated Glomerular Filt Rate > 60; Glucose Random 137 mg/dL (60-115); Potassium 4.1 mmol/L (3.3-5.1); Sodium 139 mmol/L (135-145); Total Protein 7.9 g/dL (6.5-8.0)
[2024-04-01 08:34] LABS: Erythrocyte Sedimentation Rate 23 MM/HR (0-20)
[2024-04-09 18:54] LABS: Adalimumab Drug Level <0.8 mcg/mL; Anti-Adalimumab Antibody >100 AU (<10)
== END 2024-04-01 07:28 | disposition home or self-care (01) ==
LOC: HO.XRAY 07:27
PROVIDERS: PCP Internal Medicine; Visit Provider Student in an Organized Health Care Education/Training Program
DX: L40.50 Arthropathic psoriasis, unspecified (principal); Z79.899 Other long term (current) drug therapy
CPT/HCPCS: 36415; 72202; 73030; 80053; 80145; 83520; 85025; 85652; 86140

== ENCOUNTER 2024-04-24 15:41 | Outpatient (AMB) | payer OTHER, SELFPAY ==
--- NOTE | 2024-04-24 15:42 | MHC.OFFVIS ---
Vital Signs 04/24/24 15:51 Height 5 ft 7 in Weight 249 lb 12.54 oz BMI 39.1 BP 124/72 Blood Pressure Location Rt radial Position Sitting Pulse 95 Pulse Source Pulse Oximeter Pulse Oximetry (%) 98 Oxygen Delivery Method Room Air Intake Visit Reasons: PsA/cm Intake Note: Patient presents for PsA. Allergies morphine [MORPHINE] Allergy (Severe, Verified 04/24/24 15:50) Anaphylaxis latex [LATEX] Allergy (Intermediate, Verified 04/24/24 15:50) Rash shellfish derived Allergy (Intermediate, Verified 04/24/24 15:50) swelling calcium Adverse Reaction (Intermediate, Verified 04/24/24 15:50) weakness, swells iron Adverse Reaction (Intermediate, Verified 04/24/24 15:50) weakness, swells metformin Adverse Reaction (Intermediate, Verified 04/24/24 15:50) Diarrhea pioglitazone Adverse Reaction (Intermediate, Verified 04/24/24 15:50) Swelling Medication List - Last Reconciled 04/24/24 by J Carlos Patel MD albuterol sulfate 2.5 mg (3 mL) inhalation Q4-6H PRN 30 days alcohol swabs (BD Alcohol Swabs) 1 pad topical DAILY 90 days blood sugar diagnostic (FreeStyle Lite Strips) Use 1 test strip once a da blood-glucose meter (FreeStyle Lite Meter kit) As directed [terence +D PO BID] [centrum mvi PO] dulaglutide (Trulicity) 0.75 mg (0.5 mL) subcut QWEEK 90 days flash glucose sensor (FreeStyle Vandana 14 Day Sensor kit) every 14 days lancets (FreeStyle Lancets) Use 1 lancet once a day nebulizers (AeroEclipse II Nebulizer) As directed rosuvastatin 40 mg PO DAILY semaglutide (Ozempic) 0.5 mg (0.736 mL) subcut QWEEK 30 days sertraline 25 mg PO DAILY 90 days silver sulfadiazine 1% 1 appl topical DAILY 14 days tramadol 50 mg PO BID PRN 30 days underpads (Bed Underpads) Use 1 to 3 bedpads as needed daily Ventolin HFA 90 mcg/actuation (albuterol sulfate) 2 puffs inhalation Q6H PRN 30 days NS vitamin E (dl, acetate) 180 mg PO BID 90 days HPI Comments Details: 48-year-old female with psoriasis and psoriatic arthritis returns for follow-up. She remains on Humira injections weekly. Continues to have pain in her shoulders, knees, hands, ankles, lower back. Has not had any psoriasis rashes recently. Most recent history by Dr. Miller 09/2023: The patient returns for evaluation of her psoriasis and psoriatic arthritis. She complains again of overall fatigue suggesting of fibromyalgia as well. Areas of pain include the lower back, ankles, and the hands. The ankles are slightly swollen. She remains on Humira 40 mg every 2 weeks. She says she feels some return of joint pains about 4 days before each Humira injection. There have been no skin reactions to the Humira. She does have some dryness over face, scalp, and the palms of the hands but no franco rashes currently. 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 Psoriatic arthritis Microalbuminuria due to type 2 diabetes mellitus senior living (current) use of insulin Type 2 diabetes mellitus with unspecified complications Hyperlipidemia, unspecified Morbid (severe) obesity due to excess calories Atherosclerotic heart disease of [place] coronary artery without angina pectoris Fibromyalgia Hypovitaminosis D Surgical History Status post sleeve gastrectomy History of open reduction and internal fixation (ORIF) procedure History of tubal ligation History of laparoscopic cholecystectomy History of section Family History Father Gout Mother Diabetes Dementia Maternal Aunt Diabetes Epilepsy Maternal Grandfather Diabetes Maternal Uncle Diabetes Maternal Grandmother Diabetes Paternal Grandfather Diabetes Paternal Grandmother Diabetes Daughter Asthma Seizure Family/Other FH: mental illness Social History Housing: Apartment Are you a primary point of care technician to a significant other at home: No Do you presently have visiting nurse or other home services: No Alcohol intake: never Patient Tobacco Use Status: Never used Tobacco e-Cigarette/Vaping Use: Never Used Second Hand Smoke Exposure: No service: No Current occupational status: employed Current occupational exposures/hazards: No Gender identity: Female Cognitive needs: No Hearing needs: No Vision needs: Yes Review of Systems Musc Reports back pain, Reports arthralgias and Reports stiffness Skin/Breast Denies rash Physical Exam Vital Signs: BMI result Body Mass Index 39.1 Const General: cooperative, healthy appearing and comfortable Nutritional Appearance: obese morbidly obese Orientation/consciousness: patient oriented x3 Limitations: no limitations HEENT Head: Yes normocephalic and Yes atraumatic Mouth: moist mucous membranes Resp Effort & Inspection: normal respiratory effort and able to speak in complete sentences Cardio Rate: regular rate Rhythm: regular rhythm Skin General skin exam: no rashes or lesions noted Neuro General: patient oriented x3 Extrem Other: Right wrist tenderness and pain with flexion-extension Right 4th MCP tenderness Right 2nd through 5th PIP tenderness Left 2nd through 5th PIP tenderness Bilateral shoulder pain with abduction Positive empty can test bilaterally Positive Speed's test bilaterally Right knee pain with full flexion-extension Bilateral lower paraspinal muscle tenderness Jo Ann test 10-12 cm Right 2nd through 5th toe tenderness without swelling no ankle swelling or tenderness bilaterally Results Reviewed Results Reviewed: Laboratory Tests 04/01/24 07:37 Adalimumab Level <0.8 Anti-Adalimumab Ab >100 H XR/XR sacroiliac joint min 3V 03/2024 IMPRESSION: Normal sacroiliac joints. EXAMINATION: XR SHOULDER, LEFT CLINICAL INFORMATION: Reason for Exam L40.50 - Arthropathic psoriasis, unspecified COMPARISON: None TECHNIQUE: Four views of the shoulder. FINDINGS: No acute fracture or dislocation. No cortical erosion. Inferior subluxation of the humeral head with respect to the glenoid which can be seen in setting of rotator cuff pathology. Mineralization adjacent to the greater tuberosity may reflect sequelae of hydroxyapatite deposition disease. Soft tissues are unremarkable. XR/XR shoulder LT min 2V IMPRESSION: 1. Inferior subluxation of the humeral head with respect to the glenoid which can be seen in setting of rotator cuff pathology. 2. Mineralization adjacent to the greater tuberosity may reflect sequelae of hydroxyapatite deposition disease. 3. No acute osseous abnormality. No cortical erosion to suggest an inflammatory arthropathy. EXAMINATION: XR SHOULDER, RIGHT CLINICAL INFORMATION: Reason for Exam L40.50 - Arthropathic psoriasis, unspecified COMPARISON: None TECHNIQUE: Four views of the shoulder. FINDINGS: No acute fracture or dislocation. Inferior subluxation of the humeral head with respect to glenoid which can be seen in the setting of rotator cuff pathology. Remote healed lateral clavicular fracture deformity. Mild osteoarthritis in the acromioclavicular joint with degenerative spurring. No cortical erosions. Soft tissues are unremarkable. XR/XR shoulder RT min 2V IMPRESSION: 1. Inferior subluxation of the humeral head with respect to glenoid which can be seen in the setting of rotator cuff pathology. 2. Remote healed lateral clavicular fracture deformity. 3. Mild osteoarthritis in the acromioclavicular joint with degenerative spurring. 4. No cortical erosions to suggest an inflammatory arthropathy. Assessment & Plan Assessment & Plan (1) Psoriatic arthritis: Comment: Methotrexate ineffective Enbrel- pain with injection Xeljanz 09/2020- 12/2021- stopped due to CAD Humira december 2021-Present , advanced to weekly 10/2023 Code(s): L40.50 - Arthropathic psoriasis, unspecified Category: Medical Plan: This is a 48-year-old female with psoriasis and psoriatic arthritis who presents for follow-up. She is on Humira weekly. Patient is not doing well with multiple tender joints, tenderness at the entheses. She has developed secondary nonresponse and resistance Humira, blood work showed significantly elevated anti adalimumab antibodies and undetectable adalimumab level. We will need to switch DMARDs. Discussed risks and benefits of Simponi. Patient agreed to proceed. 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 Plan I spent 25 minutes reviewing patient's chart, evaluating patient, ordering diagnostic workup, counseling patient and documenting in the chart Orders: Orders C Reactive Protein 3 Months L40.50 - Arthropathic psoriasis, unspecified Erythrocyte Sedimentation Rate 3 Months L40.50 - Arthropathic psoriasis, unspecified Complete Blood Count Auto Diff 3 Months L40.50 - Arthropathic psoriasis, unspecified Comprehensive Met. Panel 3 Months L40.50 - Arthropathic psoriasis, unspecified Coding Level of Care Code Est Pt Level 4 (31691) Diagnoses Psoriatic arthritis L40.50 senior living current use of immunosuppressive drug Z79.899
[2024-04-24 15:51] VITALS: BP 124/72; PULSE 95; O2SAT 98; BMI 39.1
== END 2024-04-24 16:07 | disposition home or self-care (01) ==
PROVIDERS: PCP Internal Medicine; Visit Provider Student in an Organized Health Care Education/Training Program
DX: L40.50 Arthropathic psoriasis, unspecified (principal); Z79.899 Other long term (current) drug therapy
CPT/HCPCS: 99214

== ENCOUNTER → 2024-04-24 15:41 | Outpatient (BNVA) | payer OTHER, SELFPAY | PROVIDERS: PCP Internal Medicine; Visit Provider Student in an Organized Health Care Education/Training Program | DX: L40.50 Arthropathic psoriasis, unspecified (principal); Z79.899 Other long term (current) drug therapy | CPT/HCPCS: 99212 ==

== ENCOUNTER 2024-06-13 13:38 | Outpatient (AMB) | payer OTHER, SELFPAY ==
[2024-06-13 13:43] VITALS: BP 118/80; BMI 39.0
--- NOTE | 2024-06-13 13:43 | A.OFFPC_ITS ---
Vital Signs 06/13/24 13:43 Height 5 ft 7 in Weight 249 lb BMI 39.0 BP 118/80 Blood Pressure Location Lt brachial Position Sitting Intake Visit Reasons: Annual Exam Intake Note: Patient here for an annual physical exam Technical Operations Specialist Required: No Accompanied by: Self / Same As Patient Allergies morphine [MORPHINE] Allergy (Severe, Verified 06/13/24 14:08) Anaphylaxis golimumab [From Simponi] Allergy (Intermediate, Verified 06/13/24 14:08) Rash latex [LATEX] Allergy (Intermediate, Verified 06/13/24 14:08) Rash shellfish derived Allergy (Intermediate, Verified 06/13/24 14:08) swelling calcium Adverse Reaction (Intermediate, Verified 06/13/24 14:08) weakness, swells iron Adverse Reaction (Intermediate, Verified 06/13/24 14:08) weakness, swells metformin Adverse Reaction (Intermediate, Verified 06/13/24 14:08) Diarrhea pioglitazone Adverse Reaction (Intermediate, Verified 06/13/24 14:08) Swelling Medication List - Last Reconciled 06/13/24 by Yessi Ball MD albuterol sulfate 2.5 mg (3 mL) inhalation Q4-6H PRN 30 days alcohol swabs (BD Alcohol Swabs) 1 pad topical DAILY 90 days bacitracin 1 appl topical Q8H 1 week blood sugar diagnostic (FreeStyle Lite Strips) Use 1 test strip once a da blood-glucose meter (FreeStyle Lite Meter kit) As directed [terence +D PO BID] [centrum mvi PO] clobetasol 0.05% 1 appl topical BID dulaglutide (Trulicity) 0.75 mg (0.5 mL) subcut QWEEK 90 days flash glucose sensor (FreeStyle Vandana 14 Day Sensor kit) every 14 days lancets (FreeStyle Lancets) Use 1 lancet once a day nebulizers (AeroEclipse II Nebulizer) As directed rosuvastatin 40 mg PO DAILY semaglutide (Ozempic) 1 mg (0.75 mL) subcut QWEEK 4 weeks sertraline 25 mg PO DAILY 90 days silver sulfadiazine 1% 1 appl topical DAILY 14 days Taltz Autoinjector (ixekizumab) 80 mg subcut Q4W NS tramadol 50 mg PO BID PRN 30 days underpads (Bed Underpads) Use 1 to 3 bedpads as needed daily Ventolin HFA 90 mcg/actuation (albuterol sulfate) 2 puffs inhalation Q6H PRN 30 days NS vitamin E (dl, acetate) 180 mg PO BID 90 days Tobacco use date assessed: 01/23/24 Dental Screening Dental Screen Date: 01/23/24 HPI HPI Comments History of Present Illness Details This is a 48-year-old female with diabetes mellitus type 2, psoriatic arthritis and mild major depression that comes for her physical exam. A1c within goal. Depression stable with SSRIs. Follow-up with rheumatology for psoriatic arthritis with just started a medication. Cologuard was negative this year. Last Pap smear was over 5 years ago and will be referred to OBGYN. Last mammogram was over a year ago. Diabetic eye exam is scheduled for next year. COUNTS INCLUDE 234 BEDS AT THE [facility] Medical History (Updated 06/14/24 @ 12:43 by Yessi Ball MD) Physical exam Diabetes type 2, uncontrolled Compression fracture of T7 vertebra Renal calculi Diaphragmatic hernia PONV (postoperative nausea and vomiting) Preoperative cardiovascular examination Renal calculi Palpitation Situational depression Urinary incontinence Migraines Overactive bladder Varicose veins of right lower extremity with inflammation Dyslipidemia Peripheral arterial disease Menometrorrhagia COVID-19 Nausea Psoriatic arthritis Microalbuminuria due to type 2 diabetes mellitus snf (current) use of insulin Type 2 diabetes mellitus with unspecified complications Hyperlipidemia, unspecified Morbid (severe) obesity due to excess calories Atherosclerotic heart disease of [place] coronary artery without angina pectoris Fibromyalgia Hypovitaminosis D Surgical History Status post sleeve gastrectomy History of open reduction and internal fixation (ORIF) procedure History of tubal ligation History of laparoscopic cholecystectomy History of section Family History Father Gout Mother Diabetes Dementia Maternal Aunt Diabetes Epilepsy Maternal Grandfather Diabetes Maternal Uncle Diabetes Maternal Grandmother Diabetes Paternal Grandfather Diabetes Paternal Grandmother Diabetes Daughter Asthma Seizure Family/Other FH: mental illness Social History Housing: Apartment Are you a primary animal care worker to a significant other at home: No Do you presently have visiting nurse or other home services: No Alcohol intake: never Patient Tobacco Use Status: Never used Tobacco e-Cigarette/Vaping Use: Never Used Second Hand Smoke Exposure: No service: No Current occupational status: employed Current occupational exposures/hazards: No Gender identity: Female Cognitive needs: No Hearing needs: No Vision needs: Yes Questionnaire PHQ-9 Over the last 2 weeks, how often have you been bothered by any of the following problems? 1. Little interest or pleasure in doing things: not at all 2. Feeling down, depressed, or hopeless: several days 3. Trouble falling or staying asleep, or sleeping too much: more than half the days 4. Feeling tired or having little energy: several days 5. Poor appetite or overeating: several days 6. Feeling bad about yourself - or that you are a failure or have let yourself or your family down: not at all 7. Trouble concentrating on things, such as reading the newspaper or watching television: nearly every day 8. Moving or speaking so slowly that other people could have noticed. Or the opposite - being so fidgety or restless that you have been moving around a lot more than usual: not at all 9. Thoughts that you would be better off or of hurting yourself in some way: not at all Total score: 8 Depression Screening Interpretation: Positive Depression Screening Follow-up: Existing condition, In treatment and Follow-up Visit Requested Depression Screening Done: Yes 64430 - PHQ-9 Billing: Yes Source: Developed by Drs. Reggie Miranda, Nora Erickson, Randy Taylor and colleagues, with an educational myron from [employer]. Thrive Questionnaire Date Thrive assessed: 06/06/24 I am a: Patient What is your living situation today?: I have a steady place to live Within the past 12 months, did the food you bought not last and you didn't have the money to get more?: I choose not to answer this question Within the past 12 months, did you worry whether your food would run out before you got money to buy more?: I choose not to answer this question Do you have trouble paying for medicines?: No Do you have trouble getting transportation to medical appointments?: Yes Do you have trouble paying your heating and electricity bill?: Yes Do you have trouble taking care of your child, family member or friend?: No Do you have trouble with day-to-day activities such as bathing, preparing meals, shopping, managing finances, etc.?: Yes Are you currently unemployed and looking for a job?: No Are you interested in more education?: Yes Please select the resources that you would like help with: Food and Utilities Currently or been in a relationship where the following occur: I choose not to answer THRIVE Score: 2 AUDIT C Alcohol Use Questionnaire (AUDIT-C) 1. How often do you have a drink containing alcohol?: Never Total Score: 0 Score Reviewed/Action Taken: No KARMA-7 AMB Questionnaire KARMA-7 Date KARMA - 7 assessed: 01/23/24 Feeling nervous, anxious, or on edge: 1 = Several days Not being able to stop or control worryin = Several days Worrying too much about different things: 1 = Several days Trouble relaxin = Several days Being so restless that it is hard to sit still: 0 = Not at all Becoming easily annoyed or irritable: 0 = Not at all Feeling afraid as if something awful might happen: 0 = Not at all Total KARMA-7 score (0-4 normal; 5-9 mild; 10-14 moderate; 15-21 severe): 4 Source: Developed by Drs. Reggie Miranda, Nora Erickson, Randy Taylor and colleagues, with an educational myron from [employer]. KARMA-7 Assessment Billing KARMA-7 Assessment Tool: KARMA-7 Assessment 00001 Review of Systems Const All systems reviewed & are unremarkable except as noted in HPI and below Card Denies chest pain at rest, Denies chest pain with activity, Denies edema, Denies irregular heart rhythm, Denies claudication, Denies dyspnea, Denies dyspnea on exertion, Denies orthopnea, Denies paroxysmal nocturnal dyspnea and Denies slow heart rate Resp Denies cough, Denies dyspnea and Denies dyspnea on exertion GI Denies abdominal pain, Denies change in bowel habits, Denies excessive flatus, Denies nausea and Denies vomiting Denies urinary incontinence, Denies urinary hesitancy and Denies urinary urgency Musc Denies abnormal gait, Denies atrophy, Denies deformity and Denies limited range of motion Skin/Breast Denies bleeding lesions, Denies changing lesions and Denies rash Neuro Denies abnormal gait, Denies behavioral changes and Denies lack of coordination Psych Denies behavioral changes Physical exam (Primary Care) Vital Signs: Last Vital Signs BP 118/80 06/13/24 13:43 BMI result Body Mass Index 39.0 BMI Assessment/Plan discussion: High BMI High, discussed plan: lifestyle, weight reduction, dietary and physical activity Tobacco/Smoking Status: Tobacco use Status Tobacco use date assessed 01/23/24 06/13/24 13:47 Patient Tobacco Use Status Never used Tobacco 06/13/24 13:47 e-Cigarette/Vaping Use Never Used 06/13/24 13:47 PHQ-9: PHQ-9 Score PHQ-9: Total score 8 06/14/24 08:03 Depression Screening Interpretation: Positive Depression Screening Follow-up: Existing condition, In treatment and Follow-up Visit Requested Thrive Assessment: Date of Thrive Assessment Date Thrive assessed 06/06/24 06/13/24 13:47 Currently or been in a relationship where the following occur: I choose not to answer HENMT Head: Yes normal to inspection, Yes normocephalic and Yes atraumatic Ears: external ears normal Eyes General: appearance normal, both eyes and all related structures Eyelids: Yes eyelids normal Conjunctivae: conjunctivae normal Neck Neck: Yes normal visual inspection and Yes supple Resp Effort & Inspection: normal respiratory effort Auscultation: clear to auscultation bilaterally Cardio Jugular venous distension: no JVD Rate: regular rate Rhythm: regular rhythm Heart sounds: S1 normal heart sound present and S2 normal heart sound present GI Inspection: Yes normal to inspection Palpation (GI): Soft to palpation and nontender Auscultation: normal bowel sounds Skin General skin exam: no rashes or lesions noted Neuro General: no focal motor deficits Extrem General: Yes full ROM Psych Appearance: grossly normal Results AMB Hemoglobin A1c AMB Hemoglobin A1c 6.9 % Last Edit by NISREEN Ortega on 06/13/24 14:0 2 Results Reviewed Results Reviewed: Laboratory Last Values Hgb A1c (Clinic) 6.9 % (4.0-6.0) H 06/13/24 14:01 Assessment and Plan Assessment & Plan (1) Physical exam: Code(s): Z00.00 - Encounter for general adult medical examination without abnormal findings Plan: Repeat in a year. (2) Diabetes mellitus: Code(s): E11.9 - Type 2 diabetes mellitus without complications Qualifiers: Diabetes mellitus type: type 2 Diabetes mellitus terminal operator insulin use: without terminal operator use Diabetes mellitus complication status: without complication Qualified Code(s): E11.9 - Type 2 diabetes mellitus without complications Plan: Continue Ozempic. A1c goal is equal or less than 7%. (3) Mild major depression: Code(s): F32.0 - Major depressive disorder, single episode, mild Plan: Continue SSRIs. (4) Psoriatic arthritis: Comment: Methotrexate ineffective Enbrel- pain with injection Xeljanz 09/2020- 12/2021- stopped due to CAD Humira december 2021-Present , advanced to weekly 10/2023 Code(s): L40.50 - Arthropathic psoriasis, unspecified Plan: Continue Taltx. Orders: Orders MM screening mammo BI 06/13/24 Z12.31 - Encounter for screening mammogram for malignant neoplasm of breast AMB Hemoglobin A1c 06/13/24 E11.9 - Type 2 diabetes mellitus without complications Lipid Panel 06/13/24 E78.5 - Hyperlipidemia, unspecified Microalbumin, Random (w Creat) 06/13/24 E11.9 - Type 2 diabetes mellitus without complications Comprehensive [place]. Panel Fast 06/13/24 E11.9 - Type 2 diabetes mellitus without complications Referrals INFORMATION TECHNOLOGY ADVISOR Referral Z12.4 - Encounter for screening for malignant neoplasm of cervix Medications: Refilled semaglutide (Ozempic) 1 mg (0.75 mL) subcut QWEEK 4 weeks 3 mL 0RF E11.9 - Type 2 diabetes mellitus without complications semaglutide (Ozempic) 1 mg (0.75 mL) subcut QWEEK 4 weeks 3 mL 0RF E11.9 - Type 2 diabetes mellitus without complications Coding Level of Care Code Est Pt Prev Care 40-64y(96035) Diagnoses Physical exam Z00.00 Type 2 diabetes mellitus without complication, without long-term current use of insulin E11.9 Diabetes mellitus type: type 2 Diabetes mellitus terminal operator insulin use: without terminal operator use Diabetes mellitus complication status: without complication Mild major depression F32.0 Psoriatic arthritis L40.50 Additional Codes KARMA-7 Assessment Billing - KARMA-7 Assessment Tool: KARMA-7 Assessment 06125 ([id number]) Time Spent (min) 31
== END 2024-06-13 14:27 | disposition home or self-care (01) ==
PROVIDERS: PCP Internal Medicine; Visit Provider Internal Medicine
DX: E11.9 Type 2 diabetes mellitus without complications (principal)
CPT/HCPCS: 83036; 99396

== ENCOUNTER 2024-07-23 11:32 | Outpatient (REF) | payer OTHER, SELFPAY ==
[2024-07-23 13:12] LABS: MANUAL DIFF FLAG NO
[2024-07-23 13:16] LABS: Basophils Absolute Auto 0.1 X10*3/uL (0.0-0.2); Basophils Percent Auto 0.9 % (0-2); Eosinophils Absolute Auto 0.2 X10*3/uL (0.0-0.4); Eosinophils Percent Auto 1.9 % (0-4); Hematocrit 40.4 % (37.0-47.0); Hemoglobin 12.8 g/dl (12.0-16.0); Imm Gran Abs Auto 0.01 X10*3/uL (0.00-0.03); Imm Gran Pct Auto 0.1 % (0.0-0.4); Lymphocytes Absolute Auto 2.7 X10*3/uL (1.2-4.9); Lymphocytes Percent Auto 29.8 % (20-40); Mean Corpuscular HGB Conc 31.7 g/dl (31.0-35.0); Mean Corpuscular Hemoglobin 26.3 pg (27.0-33.0); Mean Corpuscular Volume 83.1 fL (80.0-98.0); Mean Platelet Volume 11.5 fL (9.4-12.3); Monocytes Absolute Auto 0.6 X10*3/uL (0.1-1.2); Monocytes Percent Auto 6.6 % (2-11); Neutrophils Absolute Auto 5.5 x10*3/uL (2.0-8.3); Neutrophils Percent Auto 60.7 % (45-73); Platelet Count 275 X10*3/uL (160-400); Red Blood Count 4.86 X10*6/uL (4.20-5.50); Red Cell Distribution Width 13.6 % (11.0-16.0); White Blood Count 9.1 X10*3/uL (4.8-10.8)
[2024-07-23 13:40] LABS: Alanine Aminotransferase 22 U/L (0-31); Albumin Level 4.4 g/dL (3.5-5.0); Alkaline Phosphatase 71 U/L (39-117); Anion Gap 12 (12-20); Aspartate Amino Transferase 22 U/L (5-31); Bilirubin Total 0.3 mg/dL (0.0-1.0); Blood Urea Nitrogen 17 mg/dL (9-16); C Reactive Protein 0.12 mg/dL (< or = 0.50); Calcium 9.9 mg/dL (8.4-10.2); Carbon Dioxide 26 mmol/L (22-29); Chloride 107 mmol/L (96-108); Estimated Glomerular Filt Rate > 60; Glucose Random 131 mg/dL (60-115); Potassium 4.3 mmol/L (3.3-5.1); Sodium 141 mmol/L (135-145); Total Protein 8.1 g/dL (6.5-8.0)
[2024-07-23 13:53] LABS: Erythrocyte Sedimentation Rate 23 MM/HR (0-20)
== END 2024-07-23 11:33 | disposition home or self-care (01) ==
LOC: HO.10HDL 11:32
PROVIDERS: Visit Provider Student in an Organized Health Care Education/Training Program
DX: L40.50 Arthropathic psoriasis, unspecified (principal)
CPT/HCPCS: 36415; 80053; 85025; 85652; 86140

== ENCOUNTER 2024-07-25 14:52 | Outpatient (AMB) | payer OTHER, SELFPAY ==
--- NOTE | 2024-07-25 14:54 | MHC.OFFVIS ---
Vital Signs 07/25/24 14:57 Height 5 ft 7 in Weight 242 lb 4.608 oz BMI 37.9 BP 112/68 Blood Pressure Location Rt brachial Position Sitting Pulse 80 Pulse Source Pulse Oximeter Pulse Oximetry (%) 99 Oxygen Delivery Method Room Air Intake Visit Reasons: PsA/lvm Intake Note: Patient presents for PsA. Allergies morphine [MORPHINE] Allergy (Severe, Verified 07/25/24 14:58) Anaphylaxis golimumab [From Simponi] Allergy (Intermediate, Verified 07/25/24 14:58) Rash latex [LATEX] Allergy (Intermediate, Verified 07/25/24 14:58) Rash shellfish derived Allergy (Intermediate, Verified 07/25/24 14:58) swelling calcium Adverse Reaction (Intermediate, Verified 07/25/24 14:58) weakness, swells iron Adverse Reaction (Intermediate, Verified 07/25/24 14:58) weakness, swells metformin Adverse Reaction (Intermediate, Verified 07/25/24 14:58) Diarrhea pioglitazone Adverse Reaction (Intermediate, Verified 07/25/24 14:58) Swelling Medication List - Last Reconciled 07/25/24 by J Carlos Patel MD albuterol sulfate 2.5 mg (3 mL) inhalation Q4-6H PRN 30 days alcohol swabs (BD Alcohol Swabs) 1 pad topical DAILY 90 days amoxicillin 500 mg PO BID 7 days bacitracin 1 appl topical Q8H 1 week blood sugar diagnostic (FreeStyle Lite Strips) Use 1 test strip once a da blood-glucose meter (FreeStyle Lite Meter kit) As directed buspirone 5 mg PO BID [terence +D PO BID] cane As directed [centrum mvi PO] clobetasol 0.05% 1 appl topical BID dulaglutide (Trulicity) 0.75 mg (0.5 mL) subcut QWEEK 90 days flash glucose sensor (FreeStyle Vandana 14 Day Sensor kit) every 14 days lancets (FreeStyle Lancets) Use 1 lancet once a day nebulizers (AeroEclipse II Nebulizer) As directed rosuvastatin 40 mg PO DAILY semaglutide (Ozempic) 1 mg (0.75 mL) subcut QWEEK 4 weeks sertraline 25 mg PO DAILY 90 days sertraline 25 mg PO DAILY silver sulfadiazine 1% 1 appl topical DAILY 14 days Taltz Autoinjector (ixekizumab) 80 mg subcut Q4W NS tramadol 50 mg PO BID PRN 30 days underpads (Bed Underpads) Use 1 to 3 bedpads as needed daily Ventolin HFA 90 mcg/actuation (albuterol sulfate) 2 puffs inhalation Q6H PRN 30 days NS vitamin E (dl, acetate) 180 mg PO BID 90 days HPI Comments Details: 48-year-old female with psoriasis and psoriatic arthritis returns for follow-up. Patient discontinued Simponi after 1 dose due to an allergic reaction. She is allergic to latex. She has been using Taltz for 3 months now. Has not had any side effects to it. She states that she continues to have diffuse pain especially in her wrists, right knee, low back, hips, both shoulders. Denies any psoriasis rash. She takes Motrin 400 mg most nights for her right knee pain. Most recent history by Dr. Miller 09/2023: The patient returns for evaluation of her psoriasis and psoriatic arthritis. She complains again of overall fatigue suggesting of fibromyalgia as well. Areas of pain include the lower back, ankles, and the hands. The ankles are slightly swollen. She remains on Humira 40 mg every 2 weeks. She says she feels some return of joint pains about 4 days before each Humira injection. There have been no skin reactions to the Humira. She does have some dryness over face, scalp, and the palms of the hands but no franco rashes currently. [facility] Medical History Physical exam Diabetes type 2, uncontrolled Compression fracture of T7 vertebra Renal calculi Diaphragmatic hernia PONV (postoperative nausea and vomiting) Preoperative cardiovascular examination Renal calculi Palpitation Situational depression Urinary incontinence Migraines Overactive bladder Varicose veins of right lower extremity with inflammation Dyslipidemia Peripheral arterial disease Menometrorrhagia COVID-19 Nausea Psoriatic arthritis Microalbuminuria due to type 2 diabetes mellitus penitentiary (current) use of insulin Type 2 diabetes mellitus with unspecified complications Hyperlipidemia, unspecified Morbid (severe) obesity due to excess calories Atherosclerotic heart disease of [place] coronary artery without angina pectoris Fibromyalgia Hypovitaminosis D Surgical History Status post sleeve gastrectomy History of open reduction and internal fixation (ORIF) procedure History of tubal ligation History of laparoscopic cholecystectomy History of section Family History Father Gout Mother Diabetes Dementia Maternal Aunt Diabetes Epilepsy Maternal Grandfather Diabetes Maternal Uncle Diabetes Maternal Grandmother Diabetes Paternal Grandfather Diabetes Paternal Grandmother Diabetes Daughter Asthma Seizure Family/Other FH: mental illness Social History Housing: Apartment Are you a primary small animal caretaker to a significant other at home: No Do you presently have visiting nurse or other home services: No Alcohol intake: never Patient Tobacco Use Status: Never used Tobacco e-Cigarette/Vaping Use: Never Used Second Hand Smoke Exposure: No service: No Current occupational status: employed Current occupational exposures/hazards: No Gender identity: Female Cognitive needs: No Hearing needs: No Vision needs: Yes Female Reproductive History Menstrual Date of last menstrual period: 12/16/20 control method: none and permanent sterilization Total pregnancies: 3 Full term: 3 Review of Systems Musc Reports back pain, Reports arthralgias and Reports stiffness Skin/Breast Denies rash Physical Exam Vital Signs: Last Vital Signs Pulse 80 07/25/24 14:57 BP 112/68 07/25/24 14:57 Pulse Ox 99 07/25/24 14:57 Oxygen Delivery Method Room Air 07/25/24 14:57 BMI result Body Mass Index 37.9 Const General: cooperative, healthy appearing and comfortable Nutritional Appearance: obese morbidly obese Orientation/consciousness: patient oriented x3 Limitations: no limitations HEENT Head: Yes normocephalic and Yes atraumatic Mouth: moist mucous membranes Resp Effort & Inspection: normal respiratory effort and able to speak in complete sentences Cardio Rate: regular rate Rhythm: regular rhythm Skin General skin exam: no rashes or lesions noted Neuro General: patient oriented x3 Extrem Other: Right wrist tenderness and pain with flexion-extension Few tender MCPs, PIPs and DIPs without any swelling Bilateral shoulder pain with abduction Positive empty can test bilaterally Positive Speed's test bilaterally Right knee pain with full flexion-extension Bilateral lower paraspinal muscle tenderness Jo Ann test 10-13.5 cm Results Reviewed Results Reviewed: Laboratory Tests 04/01/24 07:37 Adalimumab Level <0.8 Anti-Adalimumab Ab >100 H XR/XR sacroiliac joint min 3V 03/2024 IMPRESSION: Normal sacroiliac joints. EXAMINATION: XR SHOULDER, LEFT CLINICAL INFORMATION: Reason for Exam L40.50 - Arthropathic psoriasis, unspecified COMPARISON: None TECHNIQUE: Four views of the shoulder. FINDINGS: No acute fracture or dislocation. No cortical erosion. Inferior subluxation of the humeral head with respect to the glenoid which can be seen in setting of rotator cuff pathology. Mineralization adjacent to the greater tuberosity may reflect sequelae of hydroxyapatite deposition disease. Soft tissues are unremarkable. XR/XR shoulder LT min 2V IMPRESSION: 1. Inferior subluxation of the humeral head with respect to the glenoid which can be seen in setting of rotator cuff pathology. 2. Mineralization adjacent to the greater tuberosity may reflect sequelae of hydroxyapatite deposition disease. 3. No acute osseous abnormality. No cortical erosion to suggest an inflammatory arthropathy. EXAMINATION: XR SHOULDER, RIGHT CLINICAL INFORMATION: Reason for Exam L40.50 - Arthropathic psoriasis, unspecified COMPARISON: None TECHNIQUE: Four views of the shoulder. FINDINGS: No acute fracture or dislocation. Inferior subluxation of the humeral head with respect to glenoid which can be seen in the setting of rotator cuff pathology. Remote healed lateral clavicular fracture deformity. Mild osteoarthritis in the acromioclavicular joint with degenerative spurring. No cortical erosions. Soft tissues are unremarkable. XR/XR shoulder RT min 2V IMPRESSION: 1. Inferior subluxation of the humeral head with respect to glenoid which can be seen in the setting of rotator cuff pathology. 2. Remote healed lateral clavicular fracture deformity. 3. Mild osteoarthritis in the acromioclavicular joint with degenerative spurring. 4. No cortical erosions to suggest an inflammatory arthropathy. Assessment & Plan Assessment & Plan (1) Psoriatic arthritis: Comment: Methotrexate ineffective Enbrel- pain with injection Xeljanz 09/2020- 12/2021- stopped due to CAD Humira december 2021-Present , advanced to weekly 10/2023. DC 04/2024 due to secondary nonresponse with ++ adalimumab antibodies Simponi 04/2024 DC after 1 dose due to an allergic reaction (allergic to latex) Ariane 05/2024 effective Code(s): L40.50 - Arthropathic psoriasis, unspecified Category: Medical Plan: This is a 48-year-old female with psoriasis and psoriatic arthritis who presents for follow-up. She has been on Taltz regularly for the last 3 months now. Continues to have diffuse pain. On exam however I do not see any active synovitis. Inflammatory markers are normal. I think the majority of her comprehensive are due to degenerative arthritis. 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 (3) Osteoarthritis of right knee: Code(s): M17.11 - Unilateral primary osteoarthritis, right knee Category: Medical Qualifiers: Osteoarthritis type: post-traumatic Qualified Code(s): M17.31 - Unilateral post-traumatic osteoarthritis, right knee Plan: Patient stated that she broke her right knee in 2019 s/p ORIF. Has been having worsening right knee pain recently. I suggested re-evaluation by Orthopedics. Patient declined. She has been taking Motrin 400 mg most nights. Advised patient to try using Voltaren gel 4 times a day in an attempt to reduce the reliance on oral NSAIDs (4) Lumbar degenerative disc disease: Code(s): M51.369 - Other intervertebral disc degeneration, lumbar region without mention of lumbar back pain or lower extremity pain Category: Medical Qualifiers: Disc-related pain type: discogenic back pain only Qualified Code(s): M51.360 - Other intervertebral disc degeneration, lumbar region with discogenic back pain only Plan: Discussed PT referral. Patient declined Plan I spent 25 minutes reviewing patient's chart, evaluating patient, ordering diagnostic workup, counseling patient and documenting in the chart Orders: Orders Comprehensive Met. Panel Today L40.50 - Arthropathic psoriasis, unspecified C Reactive Protein Today L40.50 - Arthropathic psoriasis, unspecified Complete Blood Count Auto Diff 4 Months L40.50 - Arthropathic psoriasis, unspecified Erythrocyte Sedimentation Rate Today L40.50 - Arthropathic psoriasis, unspecified Coding Level of Care Code Est Pt Level 4 (49052) Complex EM visit Add On G2211 Diagnoses Psoriatic arthritis L40.50 penitentiary current use of immunosuppressive drug Z79.899 Post-traumatic osteoarthritis of right knee M17.31 Osteoarthritis type: post-traumatic Degeneration of intervertebral disc of lumbar region with discogenic back pain M51.360 Disc-related pain type: discogenic back pain only
[2024-07-25 14:57] VITALS: BP 112/68; PULSE 80; O2SAT 99; BMI 37.9
== END 2024-07-25 15:26 | disposition home or self-care (01) ==
PROVIDERS: PCP Internal Medicine; Visit Provider Student in an Organized Health Care Education/Training Program
DX: L40.50 Arthropathic psoriasis, unspecified (principal); Z79.899 Other long term (current) drug therapy; M17.31 Unilateral post-traumatic osteoarthritis, right knee; M51.360 Other intervertebral disc degeneration, lumbar region with discogenic back pain only
CPT/HCPCS: 99214; G2211

== ENCOUNTER → 2024-07-25 14:52 | Outpatient (BNVA) | payer OTHER, SELFPAY | PROVIDERS: PCP Internal Medicine; Visit Provider Student in an Organized Health Care Education/Training Program | DX: L40.50 Arthropathic psoriasis, unspecified (principal); M17.31 Unilateral post-traumatic osteoarthritis, right knee; M51.360 Other intervertebral disc degeneration, lumbar region with discogenic back pain only; Z79.899 Other long term (current) drug therapy | CPT/HCPCS: 99212 ==

== ENCOUNTER 2024-08-08 14:46 | Outpatient (AMB) | payer OTHER, SELFPAY ==
--- NOTE | 2024-08-08 14:49 | MHC.OFFVIS ---
Vital Signs 08/08/24 14:50 Height 5 ft 7 in Weight 238 lb 1.588 oz BMI 37.3 BP 118/60 Blood Pressure Location Lt brachial Position Sitting Pulse 79 Pulse Source Monitor Intake Visit Reasons: 1 yr f/up [employer] Required: No Allergies morphine [MORPHINE] Allergy (Severe, Verified 07/25/24 14:58) Anaphylaxis golimumab [From Simponi] Allergy (Intermediate, Verified 07/25/24 14:58) Rash latex [LATEX] Allergy (Intermediate, Verified 07/25/24 14:58) Rash shellfish derived Allergy (Intermediate, Verified 07/25/24 14:58) swelling calcium Adverse Reaction (Intermediate, Verified 07/25/24 14:58) weakness, swells iron Adverse Reaction (Intermediate, Verified 07/25/24 14:58) weakness, swells metformin Adverse Reaction (Intermediate, Verified 07/25/24 14:58) Diarrhea pioglitazone Adverse Reaction (Intermediate, Verified 07/25/24 14:58) Swelling Medication List - Last Reconciled 08/08/24 by Martin Tamayo MD albuterol sulfate 2.5 mg (3 mL) inhalation Q4-6H PRN 30 days bacitracin 1 appl topical Q8H 1 week blood sugar diagnostic (FreeStyle Lite Strips) Use 1 test strip once a da blood-glucose meter (FreeStyle Lite Meter kit) As directed buspirone 5 mg PO BID cane As directed clobetasol 0.05% 1 appl topical BID flash glucose sensor (FreeStyle Vandana 14 Day Sensor kit) every 14 days lancets (FreeStyle Lancets) Use 1 lancet once a day nebulizers (AeroEclipse II Nebulizer) As directed rosuvastatin 40 mg PO DAILY semaglutide (Ozempic) 1 mg (0.75 mL) subcut QWEEK 4 weeks sertraline 25 mg PO DAILY 90 days sertraline 25 mg PO DAILY silver sulfadiazine 1% 1 appl topical DAILY 14 days Taltz Autoinjector (ixekizumab) 80 mg subcut Q4W NS tramadol 50 mg PO BID PRN 30 days underpads (Bed Underpads) Use 1 to 3 bedpads as needed daily Ventolin HFA 90 mcg/actuation (albuterol sulfate) 2 puffs inhalation Q6H PRN 30 days NS vitamin E (dl, acetate) 180 mg PO BID 90 days HPI Comments Details: Hanna returns for follow-up. She has numerous medical comorbidities including morbid obesity, type 2 diabetes, dyslipidemia, untreated sleep apnea. In the past, she was seen for chest pain at different times, but somewhat atypical. She underwent workup including echocardiogram, stress test as well as coronary CTA and being treated for stable CAD. Overall, no new complaints. Some random palpitations but nothing specific. She has had bariatric surgery and lost some weight but still obese. 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 Type 2 diabetes mellitus with unspecified complications Hyperlipidemia, unspecified Morbid (severe) obesity due to excess calories Atherosclerotic heart disease of [place] coronary artery without angina pectoris Fibromyalgia Hypovitaminosis D Surgical History Status post sleeve gastrectomy History of open reduction and internal fixation (ORIF) procedure History of tubal ligation History of laparoscopic cholecystectomy History of section Family History Father Gout Mother Diabetes Dementia Maternal Aunt Diabetes Epilepsy Maternal Grandfather Diabetes Maternal Uncle Diabetes Maternal Grandmother Diabetes Paternal Grandfather Diabetes Paternal Grandmother Diabetes Daughter Asthma Seizure Family/Other FH: mental illness Social History Housing: Apartment Are you a primary adult live in caregiver to a significant other at home: No Do you presently have visiting nurse or other home services: No Alcohol intake: never Patient Tobacco Use Status: Never used Tobacco e-Cigarette/Vaping Use: Never Used Second Hand Smoke Exposure: No service: No Current occupational status: employed Current occupational exposures/hazards: No Gender identity: Female Cognitive needs: No Hearing needs: No Vision needs: Yes Review of Systems Const Denies weakness ENT Denies dizziness Card Denies chest pain, Denies chest pain with activity, Denies syncope, Denies rapid heart rate, Denies pedal edema, Denies edema, Denies leg edema, Denies lightheadedness, Reports palpitations, Denies dyspnea, Denies dyspnea on exertion and Denies orthopnea Resp Denies cough, Denies dyspnea and Denies dyspnea on exertion GI Denies hematochezia and Denies change in stool character Musc Denies abnormal gait, Denies muscle cramps, Denies muscle weakness, Denies numbness, Denies radiating pain into limb and Denies tingling Neuro Denies abnormal gait, Denies dizziness, Denies syncope, Denies numbness, Denies tingling and Denies weakness Endo Reports palpitations Physical Exam Vital Signs: Last Vital Signs Pulse 79 08/08/24 14:50 BP 118/60 08/08/24 14:50 BMI result Body Mass Index 37.3 Const General: comfortable and no acute distress Orientation/consciousness: patient oriented x3 HEENT Other: Unremarkable Head: Yes normal to inspection Neck Neck: Yes normal visual inspection Chest Chest palpation & inspection: normal inspection of the chest Resp Auscultation: clear to auscultation bilaterally Cardio Palpation: normal PMI Heart sounds: S1 normal heart sound present, S2 normal heart sound present, no gallops, no murmurs and no rubs GI Palpation (GI): Soft to palpation Back/Spine/Pelvis Other: unremarkable Skin General skin exam: no rashes or lesions noted Neuro General: patient oriented x3 Extrem General: Yes normal to inspection Psych Mental Status: mental status grossly normal Office Procedures EKG Details: EKG with underlying sinus rhythm at 79/Min; nonspecific ST-[place] changes; [place] [id number], Complete Assessment & Plan Assessment & Plan (1) Atherosclerotic heart disease of [place] coronary artery without angina pectoris: Code(s): I25.10 - Atherosclerotic heart disease of [place] coronary artery without angina pectoris Category: Medical Qualifiers: [place] vs. transplanted heart: [place] heart Qualified Code(s): I25.10 - Atherosclerotic heart disease of [place] coronary artery without angina pectoris (2) Morbid (severe) obesity due to excess calories: Code(s): E66.01 - Morbid (severe) obesity due to excess calories Category: Medical (3) Essential hypertension: Code(s): I10 - Essential (primary) hypertension Category: Medical (4) Hyperlipidemia, unspecified: Code(s): E78.5 - Hyperlipidemia, unspecified Category: Medical Qualifiers: Hyperlipidemia type: mixed hyperlipidemia Qualified Code(s): E78.2 - Mixed hyperlipidemia (5) Type 2 diabetes mellitus with unspecified complications: Code(s): E11.8 - Type 2 diabetes mellitus with unspecified complications Category: Medical Plan Cardiac studies reviewed. Echocardiogram with LVEF 57%. No significant valvular issues or wall motion abnormalities or anything else of concern. Holter shows underlying sinus rhythm with an average rate of 86/Min. No significant arrhythmias. Myocardial perfusion imaging study 2017 with mild intensity basal inferior, inferolateral and anterior wall ischemia. In the coronary CTA, there was mild calcification distal left main as well as proximal left anterior descending coronary artery. There was no significant disease elsewhere. Overall, multiple risk factors, mild CAD, atypical symptoms. Could have either anxiety or some components of microvascular disease versus noncardiac chest pain. Any case, continue aggressive risk factor modification. She did lose weight but not much. With regard to diabetes, hemoglobin A1c is 6.9%. On Ozempic. Blood pressure seems stable. With regard to lipids, LDL is 73 mg/dL. In the past has been in the 40s, 50s, 60s etc. on statins. Coding Level of Care Code Est Pt Level 4 (99512) Diagnoses Atherosclerosis of [place] coronary artery of [place] heart without angina pectoris I25.10 [place] vs. transplanted heart: [place] heart Morbid (severe) obesity due to excess calories E66.01 Essential hypertension I10 Mixed hyperlipidemia E78.2 Hyperlipidemia type: mixed hyperlipidemia Type 2 diabetes mellitus with unspecified complications E11.8 CPT Codes EKG - CPT: 97745-[id number], Complete ([id number])
[2024-08-08 14:50] VITALS: BP 118/60; PULSE 79; BMI 37.3
== END 2024-08-08 15:12 | disposition home or self-care (01) ==
LOC: HO.HCS 14:47
PROVIDERS: PCP Internal Medicine; Visit Provider Internal Medicine
DX: I25.10 Atherosclerotic heart disease of native coronary artery without angina pectoris (principal); E66.01 Morbid (severe) obesity due to excess calories; I10 Essential (primary) hypertension; E78.2 Mixed hyperlipidemia; E11.8 Type 2 diabetes mellitus with unspecified complications
CPT/HCPCS: 93010; 99214

== ENCOUNTER → 2024-08-08 14:46 | Outpatient (BNVA) | payer OTHER, SELFPAY | PROVIDERS: PCP Internal Medicine; Visit Provider Internal Medicine | DX: I25.10 Atherosclerotic heart disease of native coronary artery without angina pectoris (principal); I10 Essential (primary) hypertension; E78.2 Mixed hyperlipidemia; E11.8 Type 2 diabetes mellitus with unspecified complications; E66.01 Morbid (severe) obesity due to excess calories; Z68.37 Body mass index [BMI] 37.0-37.9, adult | CPT/HCPCS: 93005; 99212 ==

== ENCOUNTER 2024-10-23 09:13 | Outpatient (REF) | payer OTHER, SELFPAY ==
[2024-10-23 10:39] LABS: MANUAL DIFF FLAG NO
[2024-10-23 10:43] LABS: Basophils Absolute Auto 0.1 X10*3/uL (0.0-0.2); Basophils Percent Auto 0.9 % (0-2); Eosinophils Absolute Auto 0.3 X10*3/uL (0.0-0.4); Eosinophils Percent Auto 2.9 % (0-4); Hematocrit 41.4 % (37.0-47.0); Hemoglobin 13.7 g/dl (12.0-16.0); Imm Gran Abs Auto 0.03 X10*3/uL (0.00-0.03); Imm Gran Pct Auto 0.3 % (0.0-0.4); Lymphocytes Percent Auto 32.2 % (20-40); Mean Corpuscular HGB Conc 33.1 g/dl (31.0-35.0); Mean Corpuscular Hemoglobin 26.6 pg (27.0-33.0); Mean Corpuscular Volume 80.2 fL (80.0-98.0); Mean Platelet Volume 10.9 fL (9.4-12.3); Monocytes Absolute Auto 0.5 X10*3/uL (0.1-1.2); Monocytes Percent Auto 5.2 % (2-11); Neutrophils Absolute Auto 5.5 x10*3/uL (2.0-8.3); Neutrophils Percent Auto 58.5 % (45-73); Platelet Count 305 X10*3/uL (160-400); Red Blood Count 5.16 X10*6/uL (4.20-5.50); Red Cell Distribution Width 13.3 % (11.0-16.0); White Blood Count 9.4 X10*3/uL (4.8-10.8)
[2024-10-23 11:08] LABS: Alanine Aminotransferase 42 U/L (0-31); Albumin Level 4.4 g/dL (3.5-5.0); Alkaline Phosphatase 83 U/L (39-117); Anion Gap 12 (12-20); Aspartate Amino Transferase 33 U/L (5-31); Bilirubin Total 0.5 mg/dL (0.0-1.0); Blood Urea Nitrogen 18 mg/dL (9-16); C Reactive Protein 0.16 mg/dL (< or = 0.50); Calcium 9.3 mg/dL (8.4-10.2); Carbon Dioxide 24 mmol/L (22-29); Chloride 108 mmol/L (96-108); Cholesterol 136 mg/dL (<200); Estimated Glomerular Filt Rate > 60; Glucose Fasting 168 mg/dL (60-99); Glucose Random 167 mg/dL (60-115); HDL Cholesterol 53 mg/dL (>40); LDL Cholesterol Calculated 51 mg/dL (<100); Sodium 140 mmol/L (135-145); Total Protein 8.3 g/dL (6.5-8.0); Triglycerides 162 mg/dL (<150)
[2024-10-23 11:20] LABS: Creatinine Urine 328.38 mg/dL; Microalbum/Creatinine Ratio Ur 23.1 ug/mg cr (<30)
[2024-10-23 11:26] LABS: Erythrocyte Sedimentation Rate 18 MM/HR (0-20)
== END 2024-10-23 09:14 | disposition home or self-care (01) ==
LOC: HO.10HDL 09:13
PROVIDERS: Internal Medicine; Visit Provider Student in an Organized Health Care Education/Training Program
DX: L40.50 Arthropathic psoriasis, unspecified (principal); E78.5 Hyperlipidemia, unspecified; E11.9 Type 2 diabetes mellitus without complications
CPT/HCPCS: 36415; 80053; 80061; 82043; 82570; 85025; 85652; 86140

== ENCOUNTER 2024-10-24 13:48 | Outpatient (AMB) | payer OTHER, SELFPAY ==
[2024-10-24 14:01] VITALS: BP 132/80; BMI 37.7
--- NOTE | 2024-10-24 14:01 | A.OFFPC_ITS ---
Vital Signs 10/24/24 14:01 Height 5 ft 7 in Weight 241 lb BMI 37.7 BP 132/80 Blood Pressure Location Lt brachial Position Sitting Intake Visit Reasons: dm Intake Note: Patient here for a follow up DM Sales Department Manager Required: Yes Sales Department Manager Language: Administration Clerk Name: Yessi Ball MD Information Interpreted: non-clinical & clinical Accompanied by: Self / Same As Patient Allergies morphine [MORPHINE] Allergy (Severe, Verified 10/24/24 14:28) Anaphylaxis golimumab [From Simponi] Allergy (Intermediate, Verified 10/24/24 14:28) Rash latex [LATEX] Allergy (Intermediate, Verified 10/24/24 14:28) Rash shellfish derived Allergy (Intermediate, Verified 10/24/24 14:28) swelling calcium Adverse Reaction (Intermediate, Verified 10/24/24 14:28) weakness, swells iron Adverse Reaction (Intermediate, Verified 10/24/24 14:28) weakness, swells metformin Adverse Reaction (Intermediate, Verified 10/24/24 14:28) Diarrhea pioglitazone Adverse Reaction (Intermediate, Verified 10/24/24 14:28) Swelling Medication List - Last Reconciled 10/24/24 by Yessi Ball MD albuterol sulfate 2.5 mg (3 mL) inhalation Q4-6H PRN 30 days bacitracin 1 appl topical Q8H 1 week blood sugar diagnostic (FreeStyle Lite Strips) Use 1 test strip once a da blood-glucose meter (FreeStyle Lite Meter kit) As directed buspirone 5 mg PO BID cane As directed clobetasol 0.05% 1 appl topical BID flash glucose sensor (FreeStyle Vandana 14 Day Sensor kit) every 14 days lancets (FreeStyle Lancets) Use 1 lancet once a day nebulizers (AeroEclipse II Nebulizer) As directed rosuvastatin 40 mg PO DAILY semaglutide (Ozempic) 1 mg (0.75 mL) subcut QWEEK 4 weeks sertraline 25 mg PO DAILY 90 days silver sulfadiazine 1% 1 appl topical DAILY 14 days Taltz Autoinjector (ixekizumab) 80 mg subcut Q4W NS tramadol 50 mg PO BID PRN 30 days underpads (Bed Underpads) Use 1 to 3 bedpads as needed daily Ventolin HFA 90 mcg/actuation (albuterol sulfate) 2 puffs inhalation Q6H PRN 30 days NS vitamin E (dl, acetate) 180 mg PO BID 90 days Tobacco use date assessed: 10/24/24 Dental Screening Dental Screen Date: 10/24/24 Did you have a dental visit in the last 12 months?: No Did you have a dental problem in the last 6 months where you did not have access to dental care?: No Was dental information given to patient?: Patient has dentist HPI HPI Comments History of Present Illness Details The patient is a 48-year-old female presenting with long-standing Type 2 Diabetes Mellitus, currently managed with Ozempic 1 mg weekly. Her last Hemoglobin A1c was 6.9% in June. She has psoriatic arthritis, previously treated with Simponi but discontinued due to an allergic reaction causing a rash. The patient also suffers from hyperlipidemia, controlled with rosuvastatin 40 mg. Anxiety is managed with buspirone, and she sees a psychiatrist regularly. Chronic pain has persisted despite previous use of pain management medications like Simponi and Tramadol. She describes localized masses causing pain in some areas, thought to be fatty tissue. Current management options and previous medication intolerances, such as latex in Simponi, were discussed. With hypertension currently well-controlled, she maintains regular follow-ups for comprehensive care. 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 Type 2 diabetes mellitus with unspecified complications Hyperlipidemia, unspecified Morbid (severe) obesity due to excess calories Atherosclerotic heart disease of [place] coronary artery without angina pectoris Fibromyalgia Hypovitaminosis D Surgical History Status post sleeve gastrectomy History of open reduction and internal fixation (ORIF) procedure History of tubal ligation History of laparoscopic cholecystectomy History of section Family History Father Gout Mother Diabetes Dementia Maternal Aunt Diabetes Epilepsy Maternal Grandfather Diabetes Maternal Uncle Diabetes Maternal Grandmother Diabetes Paternal Grandfather Diabetes Paternal Grandmother Diabetes Daughter Asthma Seizure Family/Other FH: mental illness Social History Housing: Apartment Are you a primary patient care manager to a significant other at home: No Do you presently have visiting nurse or other home services: No Alcohol intake: never Patient Tobacco Use Status: Never used Tobacco e-Cigarette/Vaping Use: Never Used Second Hand Smoke Exposure: No service: No Current occupational status: employed Current occupational exposures/hazards: No Gender identity: Female Cognitive needs: No Hearing needs: No Vision needs: Yes Questionnaire PHQ-9 Over the last 2 weeks, how often have you been bothered by any of the following problems? 1. Little interest or pleasure in doing things: not at all 2. Feeling down, depressed, or hopeless: several days 3. Trouble falling or staying asleep, or sleeping too much: more than half the days 4. Feeling tired or having little energy: several days 5. Poor appetite or overeating: several days 6. Feeling bad about yourself - or that you are a failure or have let yourself or your family down: not at all 7. Trouble concentrating on things, such as reading the newspaper or watching television: several days 8. Moving or speaking so slowly that other people could have noticed. Or the opposite - being so fidgety or restless that you have been moving around a lot more than usual: not at all 9. Thoughts that you would be better off or of hurting yourself in some way: not at all Total score: 6 Depression Screening Interpretation: Positive Depression Screening Follow-up: Existing condition, In treatment and Follow-up Visit Requested Depression Screening Done: Yes 03228 - PHQ-9 Billing: Yes Source: Developed by Drs. Reggie Miranda, Nora Erickson, Randy Taylor and colleagues, with an educational myron from [employer]. Thrive Questionnaire Date Thrive assessed: 10/24/24 I am a: Patient What is your living situation today?: I have a steady place to live Within the past 12 months, did the food you bought not last and you didn't have the money to get more?: Never true Within the past 12 months, did you worry whether your food would run out before you got money to buy more?: Never true Do you have trouble paying for medicines?: No Do you have trouble getting transportation to medical appointments?: No Do you have trouble paying your heating and electricity bill?: No Do you have trouble taking care of your child, family member or friend?: No Do you have trouble with day-to-day activities such as bathing, preparing meals, shopping, managing finances, etc.?: No Are you currently unemployed and looking for a job?: No Are you interested in more education?: No Please select the resources that you would like help with: None Currently or been in a relationship where the following occur: No concerns reported THRIVE Score: 0 AUDIT C Alcohol Use Questionnaire (AUDIT-C) 1. How often do you have a drink containing alcohol?: Never Total Score: 0 Score Reviewed/Action Taken: No KARMA-7 AMB Questionnaire KARMA-7 Date KARMA - 7 assessed: 10/24/24 Feeling nervous, anxious, or on edge: 1 = Several days Not being able to stop or control worryin = Several days Worrying too much about different things: 1 = Several days Trouble relaxin = Several days Being so restless that it is hard to sit still: 0 = Not at all Becoming easily annoyed or irritable: 0 = Not at all Feeling afraid as if something awful might happen: 0 = Not at all Total KARMA-7 score (0-4 normal; 5-9 mild; 10-14 moderate; 15-21 severe): 4 Source: Developed by Drs. Reggie Miranda, Nora Erickson, Randy Taylor and colleagues, with an educational myron from [employer]. KARMA-7 Assessment Billing KARMA-7 Assessment Tool: KARMA-7 Assessment 12138 Review of Systems Const All systems reviewed & are unremarkable except as noted in HPI and below Card Denies chest pain at rest, Denies chest pain with activity, Denies edema, Denies irregular heart rhythm, Denies claudication, Denies dyspnea, Denies dyspnea on exertion, Denies orthopnea, Denies paroxysmal nocturnal dyspnea and Denies slow heart rate Resp Denies cough, Denies dyspnea and Denies dyspnea on exertion Musc Reports arthralgias Physical exam (Primary Care) Vital Signs: Last Vital Signs BP 132/80 10/24/24 14:01 BMI result Body Mass Index 37.7 Tobacco/Smoking Status: Tobacco use Status Tobacco use date assessed 10/24/24 10/24/24 14:08 Patient Tobacco Use Status Never used Tobacco 10/24/24 14:08 e-Cigarette/Vaping Use Never Used 10/24/24 14:08 PHQ-9: PHQ-9 Score PHQ-9: Total score 6 10/24/24 15:50 Depression Screening Interpretation: Positive Depression Screening Follow-up: Existing condition, In treatment and Follow-up Visit Requested Thrive Assessment: Date of Thrive Assessment Date Thrive assessed 10/24/24 10/24/24 14:08 Currently or been in a relationship where the following occur: No concerns reported Resp Effort & Inspection: normal respiratory effort Auscultation: clear to auscultation bilaterally Cardio Jugular venous distension: no JVD Rate: regular rate Rhythm: regular rhythm Heart sounds: S1 normal heart sound present and S2 normal heart sound present Extrem General: Yes full ROM Office Procedures Flu Questionnaire Does the patient have a severe egg allergy?: No Immunizations Fluarix Triv [id number] (PF) 45 mcg (15 mcg x 3)/0.5 mL IM syringe Performing Provider: Yessi Ball MD Performing Location: [facility] [place] [facility] Documented (not given) by: NISREEN Ortega on 10/24/24 15:51 Reason Not Given: Patient Refused Coding Level of Care Code Est Pt Level 4 (41267) Complex EM visit Add On G2211 Diagnoses KARMA (generalized anxiety disorder) F41.1 Type 2 diabetes mellitus without complication, without long-term current use of insulin E11.9 Diabetes mellitus type: type 2 Diabetes mellitus residential insulin use: without medical terminologist use Diabetes mellitus complication status: without complication Mild major depression F32.0 Essential hypertension I10 Psoriatic arthritis L40.50 GERD (gastroesophageal reflux disease) K21.9 Additional Codes KARMA-7 Assessment Billing - KARMA-7 Assessment Tool: KARMA-7 Assessment 50870 ([id number]) PHQ-9 - 99581 - PHQ-9 Billing: Yes ([id number]) Time Spent (min) 22 Assessment & Plan Assessment & Plan (1) KARMA (generalized anxiety disorder): Code(s): F41.1 - Generalized anxiety disorder Category: Medical (2) Diabetes mellitus: Code(s): E11.9 - Type 2 diabetes mellitus without complications Category: Medical Qualifiers: Diabetes mellitus type: type 2 Diabetes mellitus medical terminologist insulin use: without residential use Diabetes mellitus complication status: without complication Qualified Code(s): E11.9 - Type 2 diabetes mellitus without complications (3) Mild major depression: Code(s): F32.0 - Major depressive disorder, single episode, mild Category: Medical (4) Essential hypertension: Code(s): I10 - Essential (primary) hypertension Category: Medical (5) Psoriatic arthritis: Comment: Methotrexate ineffective Enbrel- pain with injection Xeljanz 09/2020- 12/2021- stopped due to CAD Humira december 2021-Present , advanced to weekly 10/2023. DC 04/2024 due to secondary nonresponse with ++ adalimumab antibodies Simponi 04/2024 DC after 1 dose due to an allergic reaction (allergic to latex) Taltz 05/2024 effective Code(s): L40.50 - Arthropathic psoriasis, unspecified Category: Medical (6) GERD (gastroesophageal reflux disease): Code(s): K21.9 - Gastro-esophageal reflux disease without esophagitis Category: Medical Plan - Continue Ozempic 1 mg weekly for Type 2 Diabetes Mellitus. - Consider alternative therapies for rheumatoid arthritis due to previous Simponi intolerance. - Maintain rosuvastatin for hyperlipidemia control. - Address chronic pain with potentially adjusting current medication, possibly including bypass suggestions if weight impact discussions continue. - Discussed weight management options including potential bypass surgery. - Continue psychiatric care and current pharmacotherapy for anxiety. Patient was informed and verbally consented to the use of an ambient scribe for clinic note documentation during this visit. I reviewed the patient's chronic conditions, including diabetes, rheumatoid arthritis, and hyperlipidemia, with a focus on medication tolerances and previous allergic reactions. We discussed the benefits of continuing current treatments and explored potential changes in medication for persistent chronic pain due to past ineffective trials. The risks and alternatives of proposed weight management interventions, including bypass surgery, were considered, but further coverage details are necessary. I advised the patient to continue psychiatric support for anxiety and maintain a focus on lifestyle modifications to bolster current therapy efficacy. Follow-up labs and assessments will guide further care. Orders: Orders Influenza [id number] Immunization Today Z23 - Encounter for immunization Referrals Medical Weight Management Referral E66.812 - Obesity, class 2, Z68.37 - Body mass index [BMI] 37.0-37.9, adult Medications: New semaglutide (Ozempic) 2 mg (0.75 mL) subcut QWEEK 3 mL 4RF 4 weeks E11.9 - Type 2 diabetes mellitus without complications Discontinued semaglutide (Ozempic) Discontinued Reason: Patient Completed Course 1 mg (0.75 mL) subcut QWEEK 4 weeks 3 mL 0RF E11.9 - Type 2 diabetes mellitus without complications
== END 2024-10-24 14:40 | disposition home or self-care (01) ==
PROVIDERS: PCP Internal Medicine; Visit Provider Internal Medicine
DX: E11.9 Type 2 diabetes mellitus without complications (principal); F32.0 Major depressive disorder, single episode, mild; L40.50 Arthropathic psoriasis, unspecified; F41.1 Generalized anxiety disorder; I10 Essential (primary) hypertension; K21.9 Gastro-esophageal reflux disease without esophagitis; Z23 Encounter for immunization

== ENCOUNTER → 2024-10-24 13:48 | Outpatient (BNVA) | payer OTHER, SELFPAY | PROVIDERS: PCP Internal Medicine; Visit Provider Internal Medicine | DX: F41.1 Generalized anxiety disorder (principal); E11.9 Type 2 diabetes mellitus without complications; F32.0 Major depressive disorder, single episode, mild; I10 Essential (primary) hypertension; L40.50 Arthropathic psoriasis, unspecified; K21.9 Gastro-esophageal reflux disease without esophagitis | CPT/HCPCS: 96127; 99212 ==

== ENCOUNTER 2024-11-06 09:30 | Outpatient (AMB) | payer OTHER, SELFPAY ==
[2024-11-06 09:32] VITALS: BP 100/60; PULSE 100; O2SAT 96; BMI 37.3
--- NOTE | 2024-11-06 09:32 | MHC.OFFVIS ---
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 drugs: Boilermaker Mechanic Required: Yes Boilermaker Mechanic Language: Oyster Unloader Services: Boilermaker Mechanic Offered & Declined Accompanied by: Daughter Allergies morphine [MORPHINE] Allergy (Severe, Verified 11/06/24 09:41) Anaphylaxis golimumab [From Simponi] Allergy (Intermediate, Verified 11/06/24 09:41) Rash latex [LATEX] Allergy (Intermediate, Verified 11/06/24 09:41) Rash shellfish derived Allergy (Intermediate, Verified 11/06/24 09:41) swelling calcium Adverse Reaction (Intermediate, Verified 11/06/24 09:41) weakness, swells iron Adverse Reaction (Intermediate, Verified 11/06/24 09:41) weakness, swells metformin Adverse Reaction (Intermediate, Verified 11/06/24 09:41) Diarrhea pioglitazone Adverse Reaction (Intermediate, Verified 11/06/24 09:41) Swelling Medication List - Last Reconciled 11/06/24 by Danii Saleem MD albuterol sulfate 2.5 mg (3 mL) inhalation Q4-6H PRN 30 days bacitracin 1 appl topical Q8H 1 week blood sugar diagnostic (FreeStyle Lite Strips) Use 1 test strip once a da blood-glucose meter (FreeStyle Lite Meter kit) As directed buspirone 5 mg PO BID cane As directed clobetasol 0.05% 1 appl topical BID flash glucose sensor (FreeStyle Vandana 14 Day Sensor kit) every 14 days lancets (FreeStyle Lancets) Use 1 lancet once a day nebulizers (AeroEclipse II Nebulizer) As directed rosuvastatin 40 mg PO DAILY semaglutide (Ozempic) 2 mg (0.75 mL) subcut QWEEK 4 weeks sertraline 25 mg PO DAILY 90 days silver sulfadiazine 1% 1 appl topical DAILY 14 days Taltz Autoinjector (ixekizumab) 80 mg subcut Q4W NS tramadol 50 mg PO BID PRN 30 days underpads (Bed Underpads) Use 1 to 3 bedpads as needed daily Ventolin HFA 90 mcg/actuation (albuterol sulfate) 2 puffs inhalation Q6H PRN 30 days NS vitamin E (dl, acetate) 180 mg PO BID 90 days HPI Comments Details: Patient is a 48-year-old female with diabetes, hypertension, hyperlipidemia, mild depressive disorder, psoriasis and psoriatic arthritis here today for follow up Interval History: Patient last seen 07/25/2024. At that time she followed up with Dr. Patel. Patient had discontinued Simponi after 1 dose due to an allergic reaction and had was on Taltz for 3 months prior to the visit. Despite being on Taltz for 3 months she continued to have diffuse pain especially into her wrists, right knee, low back hips and both shoulders. Her exam was more consistent with degenerative arthritis and she was instructed to continue the Taltz. Today, Patient complaining of prolonged AM stiffness, widespread joint pain and intermittent joint swelling Feels Taltz is not helping her Rheumatologic History: Methotrexate ineffective Enbrel- pain with injection Xeljanz 09/2020- 12/2021- stopped due to CAD Humira december 2021-Present , advanced to weekly 10/2023. DC 04/2024 due to secondary nonresponse with ++ adalimumab antibodies Simponi 04/2024 DC after 1 dose due to an allergic reaction (allergic to latex) Taltz 05/2024 - 10/2024. Secondary non response Only had a small PsO patch around her ankle Thought simponi had some benefit but the preparation had latex and so she discontinued it Current Rheumatology Medication(s): Taltz 80mg every other week [facility] Medical History Physical exam Diabetes type 2, uncontrolled Compression fracture of T7 vertebra Renal calculi Diaphragmatic hernia PONV (postoperative nausea and vomiting) Preoperative cardiovascular examination Renal calculi Palpitation Situational depression Urinary incontinence Migraines Overactive bladder Varicose veins of right lower extremity with inflammation Dyslipidemia Peripheral arterial disease Menometrorrhagia COVID-19 Nausea Psoriatic arthritis Microalbuminuria due to type 2 diabetes mellitus [facility] (current) use of insulin Type 2 diabetes mellitus with unspecified complications Hyperlipidemia, unspecified Morbid (severe) obesity due to excess calories Atherosclerotic heart disease of [place] coronary artery without angina pectoris Fibromyalgia Hypovitaminosis D Surgical History Status post sleeve gastrectomy History of open reduction and internal fixation (ORIF) procedure History of tubal ligation History of laparoscopic cholecystectomy History of section Family History Father Gout Mother Diabetes Dementia Maternal Aunt Diabetes Epilepsy Maternal Grandfather Diabetes Maternal Uncle Diabetes Maternal Grandmother Diabetes Paternal Grandfather Diabetes Paternal Grandmother Diabetes Daughter Asthma Seizure Family/Other FH: mental illness Social History Housing: Apartment Are you a primary foster care social worker to a significant other at home: No Do you presently have visiting nurse or other home services: No Alcohol intake: never Patient Tobacco Use Status: Never used Tobacco e-Cigarette/Vaping Use: Never Used Second Hand Smoke Exposure: No service: No Current occupational status: employed Current occupational exposures/hazards: No Gender identity: Female Cognitive needs: No Hearing needs: No Vision needs: Yes Review of Systems Const Details: Review of Systems Constitutional: Denies fever, chills, weight loss ENT: Denies vision changes, eye pain or eye redness, dental caries, dry mouth GI: Denies nausea, vomiting, diarrhea, abdominal pain, change in BM Pulm: Denies SOB, NELSON, hemoptysis, wheezing Cards: Denies chest pain, palpitations Skin: Denies Raynaud's, rash, nail changes, photosensitivity, CLINICAL SOCIAL WORK AIDE: Denies headaches, weakness, paresthesias, recurrent falls MSK: as per HPI All other systems reviewed and are unremarkable except noted above Physical Exam Vital Signs: Last Vital Signs Pulse 100 11/06/24 09:32 BP 100/60 11/06/24 09:32 Pulse Ox 96 11/06/24 09:32 Oxygen Delivery Method Room Air 11/06/24 09:32 BMI result Body Mass Index 37.3 Vital signs reviewed Physical Examination CONSTITUITIONAL Patient alert and cooperative. Ambulated using a cane. Morbidly obese HEENT Conjunctiva and sclera clear. ?Pupils equal round and reactive to light. ?No lymphadenopathy. ? CHEST/RESPIRATORY SYSTEM Normal respiratory effort and able to speak in complete sentences. ?Clear to auscultation bilaterally. ?No crackles, rales, rhonchi, wheezes heard. CARDIAC SYSTEM Regular rate and rhythm. ?S1 and S2 heard no murmurs. ?Radial pulses intact bilaterally MSK Hands: ?Good pallet stone inserter strength bilaterally. No deformities noted. ?No overt synovitis but tenderness to palpation of the MCPs, PIPs and DIPs. Wrists: ?Full range of motion at the wrists without pain. ?No overt synovitis but tenderness to palpation of bilateral wrists Elbows: Full range of motion without pain. No swelling noted but tenderness to palpation of bilateral elbow joints. Shoulders: Full range of motion without pain. No tenderness, weakness, swelling, increased warmth or erythema. Hips: Full range of motion without pain. Hip bursa: No tenderness to palpation Knees: ?Full range of motion. ?No tenderness, swelling, increased warmth or erythema.?No effusion or crepitations Ankles: Full range of motion. ?No tenderness, swelling, increased warmth or erythema.? Feet: ?Negative squeeze test. ?No tenderness to palpation or swelling of the MTPs. Tender points:? Tenderness to palpation of bilateral trapezius, supraspinatus, anterior costochondral junction, bilateral pes anserinus bursa SKIN Faint erythema noted to lateral right ankle but no plaque psoriasis Results Reviewed Results Reviewed: Laboratory Tests 02/12/19 10/23/24 08:30 09:26 WBC 9.4 RBC 5.16 Hgb 13.7 Hct 41.4 Plt Count 305 ESR 18 Sodium 140 Potassium 4.0 Chloride 108 Carbon Dioxide 24 BUN 18 H Creatinine 0.88 AST 33 H ALT 42 H Alkaline Phosphatase 83 C-Reactive Protein 0.16 Total Protein 8.3 H Albumin 4.4 HLA-B27 Negative Assessment & Plan Assessment & Plan (1) Psoriatic arthritis: Comment: Methotrexate ineffective Enbrel- pain with injection Xeljanz 09/2020- 12/2021- stopped due to CAD Humira december 2021-Present , advanced to weekly 10/2023. DC 04/2024 due to secondary nonresponse with ++ adalimumab antibodies Simponi 04/2024 DC after 1 dose due to an allergic reaction (allergic to latex) Ariane 05/2024 - 10/2024 secondary non response Cimstaci 10/2024 Code(s): L40.50 - Arthropathic psoriasis, unspecified Category: Medical Plan: #PsO complicated by PsA Patient not currently in remission with tenderness to palpation several joints. Also with prolonged morning stiffness. She previously had good response to Humira and good response to Simponi but she had secondary nonresponse with adalimumab antibodies and her Simponi had latex in the preparation and so she could not use it. I think doing another TNF like Cimzia would be beneficial for her. Plan - Stop Taltz - Cimzia 400mg SC every 2 weeks x 3 doses THEN Cimzia 200mg SC every 2 weeks - RTC 4 months - Labs before next visit: CBC, CMP, ESR, CRP, T spot and Hepatitis panel (2) Fibromyalgia: Code(s): M79.7 - Fibromyalgia Category: Medical Plan: #Fibromyalgia Patient also has a component of fibromyalgia as evidenced by multiple tender points on examination. She also had an elevated somatic pain score and somatic symptoms. Tried gabapentin in the past but thought it was not helpful. 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 immunosuppressive drug: Code(s): Z79.899 - Other correction (current) drug therapy Category: Medical Plan: #Long-term Use of TNF Inhibitors: Cimzia Discussed with the patient the benefits and risks of TNF inhibitors for the management of the rheumatic condition Benefits include reduce pain, maintenance of remission and reduction of flares as well as ?progression of the disease Risks include injection sites/infusion reactions, serious infections (such as bacterial infections, opportunistic infections), malignancy, delaminating syndromes, autoimmune phenomena, CHF exacerbations, palmar plantar psoriasis and cytopenias Recommended rotating injection sites, and holding medication during and for up to 1 week after resolution of a febrile illness or open skin wound Plan I spent 40 minutes reviewing the record and labs, taking a history, examining the patient, discussing the treatment plan and documenting in the medical record Orders: Orders Complete Blood Count Auto Diff 4 Months L40.50 - Arthropathic psoriasis, unspecified, Z79.899 - Other termite inspector (current) drug therapy Erythrocyte Sedimentation Rate 4 Months L40.50 - Arthropathic psoriasis, unspecified, Z79.899 - Other termite inspector (current) drug therapy Hepatitis A,B,C Profile 4 Months L40.50 - Arthropathic psoriasis, unspecified, Z79.899 - Other termite inspector (current) drug therapy T Spot TB 4 Months L40.50 - Arthropathic psoriasis, unspecified, Z79.899 - Other termite inspector (current) drug therapy Comprehensive Met. Panel 4 Months L40.50 - Arthropathic psoriasis, unspecified, Z79.899 - Other termite inspector (current) drug therapy C Reactive Protein 4 Months L40.50 - Arthropathic psoriasis, unspecified, Z79.899 - Other termite inspector (current) drug therapy Medications: New certolizumab pegol (Cimzia) To start after the starter dose 200 mg subcut Q2W 2 ea 4RF L40.50 - Arthropathic psoriasis, unspecified certolizumab pegol (Cimzia Starter Kit) administer as 2 equally divided doses at 2 different sites in abdomen or thigh 400 mg (2 mL) subcut Q2W 3 ea 0RF L40.50 - Arthropathic psoriasis, unspecified pregabalin 50 mg PO BEDTIME 90 caps 1RF M79.7 - Fibromyalgia Discontinued Taltz Autoinjector (ixekizumab) Discontinued Reason: Doctor's Order 80 mg subcut Q4W 1 mL 3RF NS Coding Level of Care Code Est Pt Level 5 (52790) Complex EM visit Add On G2211 Diagnoses Psoriatic arthritis L40.50 Fibromyalgia M79.7 termite inspector current use of immunosuppressive drug Z79.899
--- OUTSIDE RECORDS SUMMARY | 2024-11-06 11:02 | XMS_ITS | Clinical Summary ---
Author Organization [employer] Address [address] [place] [address] Care Team Providers Care Loose Hand Packer Name Role Phone Unavailable Primary Care Provider Unavailabl e Social History Tobacco Use Types Packs/Day Years Used Date Smoking Tobacco: Never Assessed Comments Unknown Sex and Gender Information Value Date Recorded Sex Assigned at Female 11/24/2022 5:27 PM EST Legal Sex Female 1:50 PM EST Gender Identity Female 11/24/2022 5:27 PM EST Sexual Orientation Choose not to disclose 2022 5:27 PM EST Plan of Treatment Health Maintenance Due Date Last Done Comments CT Colonography 1977 Colonoscopy 1977 Colorectal Cancer Screening 1977 Depression Screening 1977 FIT DNA/Cologuard 1977 FIT 1977 FOBT 1977 HIV Screening 1977 SDOH Screening 1977 Sigmoidoscopy 1977 Alcohol/Substance Use Screening 1989 Tobacco Screening 1989 Family Planning (PISQ) 1992 Hepatitis C Screening 1995 DTaP/Tdap/Td Vaccines (1 - Tdap) 1996 Hepatitis B Vaccines (1 of 3 - 19+ 3-dose series) 1996 Pap Smear 1998 Cervical Cancer Screening 2007 HPV/Cotest 2007 Mammogram 2017 COVID-19 Vaccine (3 - 2023-2 5 season) 2024 04/04/2021, 03/14/2021 Influenza Vaccine (#1) 2024 , 09/04/2015, 07/28/2014 Zoster Vaccines (1 of 2) 2027 RSV Patients and Patients Aged 60 years or older (1 - 1-dose 75+ series) 2052 Pneumococcal Vaccine: Pediatrics (0 to 5 Years) and At-Risk Patients (6 to 49) Years) Aged Out 04/17/2019 No longer eligible b ased on patient's age to complete this topic HIB Vaccines Aged Out No longer eligi ble based on patient's age to complete this topic HPV Vaccines Aged Out No longer eligi ble based on patient's age to complete this topic Hepatitis A Vaccines Aged Out No long er eligible based on patient's age to complete this topic IPV Vaccines Aged Out No longer eligi ble based on patient's age to complete this topic Meningococcal Vaccine Aged Out No cordelia jeremy eligible based on patient's age to complete this topic RSV under 20 months Aged Out No longe r eligible based on patient's age to complete this topic Rotavirus Vaccines Aged Out No longer eligible based on patient's age to complete this topic [place] [address] [address] [address] STANDARD
== END 2024-11-06 10:32 | disposition home or self-care (01) ==
PROVIDERS: PCP Internal Medicine; Visit Provider Student in an Organized Health Care Education/Training Program
DX: L40.50 Arthropathic psoriasis, unspecified (principal); M79.7 Fibromyalgia; Z79.899 Other long term (current) drug therapy
CPT/HCPCS: 99215; G2211

== ENCOUNTER → 2024-11-06 09:30 | Outpatient (BNVA) | payer OTHER, SELFPAY | PROVIDERS: PCP Internal Medicine; Visit Provider Student in an Organized Health Care Education/Training Program | DX: L40.50 Arthropathic psoriasis, unspecified (principal); M79.7 Fibromyalgia; Z79.60 Long term (current) use of unspecified immunomodulators and immunosuppressants; Z79.899 Other long term (current) drug therapy | CPT/HCPCS: 99212 ==

== ENCOUNTER 2024-12-11 06:58 | Outpatient (REF) | payer OTHER, SELFPAY ==
[2024-12-11 07:12] LABS: MANUAL DIFF FLAG NO
[2024-12-11 08:00] LABS: Basophils Absolute Auto 0.1 X10*3/uL (0.0-0.2); Basophils Percent Auto 0.8 % (0-2); Eosinophils Absolute Auto 0.3 X10*3/uL (0.0-0.4); Eosinophils Percent Auto 3.3 % (0-4); Hematocrit 40.9 % (37.0-47.0); Hemoglobin 13.3 g/dl (12.0-16.0); Imm Gran Abs Auto 0.02 X10*3/uL (0.00-0.03); Imm Gran Pct Auto 0.2 % (0.0-0.4); Lymphocytes Absolute Auto 4.3 X10*3/uL (1.2-4.9); Lymphocytes Percent Auto 44.6 % (20-40); Mean Corpuscular HGB Conc 32.5 g/dl (31.0-35.0); Mean Corpuscular Hemoglobin 26.4 pg (27.0-33.0); Mean Corpuscular Volume 81.2 fL (80.0-98.0); Mean Platelet Volume 11.7 fL (9.4-12.3); Monocytes Absolute Auto 0.6 X10*3/uL (0.1-1.2); Monocytes Percent Auto 5.7 % (2-11); Neutrophils Absolute Auto 4.4 x10*3/uL (2.0-8.3); Neutrophils Percent Auto 45.4 % (45-73); Platelet Count 274 X10*3/uL (160-400); Red Blood Count 5.04 X10*6/uL (4.20-5.50); Red Cell Distribution Width 13.8 % (11.0-16.0); White Blood Count 9.7 X10*3/uL (4.8-10.8)
[2024-12-11 08:18] LABS: Alanine Aminotransferase 37 U/L (0-31); Albumin Level 4.4 g/dL (3.5-5.0); Alkaline Phosphatase 75 U/L (39-117); Anion Gap 13 (12-20); Aspartate Amino Transferase 33 U/L (5-31); Bilirubin Total 0.5 mg/dL (0.0-1.0); Blood Urea Nitrogen 19 mg/dL (9-16); C Reactive Protein < 0.10 mg/dL (< or = 0.50); Calcium 9.6 mg/dL (8.4-10.2); Carbon Dioxide 23 mmol/L (22-29); Chloride 106 mmol/L (96-108); Estimated Glomerular Filt Rate > 60; Glucose Random 136 mg/dL (60-115); Potassium 3.8 mmol/L (3.3-5.1); Sodium 138 mmol/L (135-145); Total Protein 8.6 g/dL (6.5-8.0)
[2024-12-11 08:40] LABS: Erythrocyte Sedimentation Rate 17 MM/HR (0-20)
[2024-12-11 08:41] LABS: HBS Num1 0.48 mIU/mL (0-7.99); HBc Num1 0.14 S/CO (0.00-0.79); HBsAGNum1 0.24 S/CO (0.00-0.99); Hepatitis A Antibody IgM 0.12 Index (0-0.79); Hepatitis B Core Antibody Nonreactive (Nonreactive); Hepatitis B Surface Antigen Negative (Negative); ~HepC Num1 0.14 S/CO (0.00-0.79); ~Hepatitis A Antibody IgM Nonreactive (Nonreactive); ~Hepatitis B Surface Antibody NONREACTIVE (Nonreactive); ~Hepatitis C Antibody Nonreactive (Nonreactive)
[2024-12-14 11:39] LABS: TS Negative Control Passed; TS Panel A 0; TS Panel B 1; TS Positive Control Passed; TSpotTB Negative (Negative)
== END 2024-12-11 06:59 | disposition home or self-care (01) ==
LOC: HO.LAB 06:58
PROVIDERS: PCP Internal Medicine; Visit Provider Student in an Organized Health Care Education/Training Program
DX: L40.50 Arthropathic psoriasis, unspecified (principal); Z79.899 Other long term (current) drug therapy
CPT/HCPCS: 36415; 80053; 85025; 85652; 86140; 86481; 86704; 86706; 86709; 86803; 87340

== ENCOUNTER 2025-01-09 16:10 | Outpatient (AMB) | payer OTHER, SELFPAY ==
--- NOTE | 2025-01-09 16:19 | MHC.PC.OV ---
Vital Signs 01/09/25 16:25 Height 5 ft 7 in Weight 239 lb BMI 37.4 BP 110/82 Blood Pressure Location Lt brachial Position Sitting Intake Visit Reasons: follow up Scrap Drop Operator Required: No Accompanied by: Self / Same As Patient Allergies morphine [MORPHINE] Allergy (Severe, Verified 01/09/25 16:46) Anaphylaxis golimumab [From Simponi] Allergy (Intermediate, Verified 01/09/25 16:46) Rash latex [LATEX] Allergy (Intermediate, Verified 01/09/25 16:46) Rash shellfish derived Allergy (Intermediate, Verified 01/09/25 16:46) swelling calcium Adverse Reaction (Intermediate, Verified 01/09/25 16:46) weakness, swells iron Adverse Reaction (Intermediate, Verified 01/09/25 16:46) weakness, swells metformin Adverse Reaction (Intermediate, Verified 01/09/25 16:46) Diarrhea pioglitazone Adverse Reaction (Intermediate, Verified 01/09/25 16:46) Swelling Medication List - Last Reconciled 01/09/25 by Yessi Ball MD albuterol sulfate 2.5 mg (3 mL) inhalation Q4-6H PRN 30 days bacitracin 1 appl topical Q8H 1 week blood sugar diagnostic (FreeStyle Lite Strips) Use 1 test strip once a da blood-glucose meter (FreeStyle Lite Meter kit) As directed buspirone 5 mg PO BID cane As directed certolizumab pegol (Cimzia) 200 mg subcut Q2W certolizumab pegol (Cimzia Starter Kit) 400 mg (2 mL) subcut Q2W 3 doses clobetasol 0.05% 1 appl topical BID flash glucose sensor (FreeStyle Vandana 14 Day Sensor kit) every 14 days lancets (FreeStyle Lancets) Use 1 lancet once a day nebulizers (AeroEclipse II Nebulizer) As directed pregabalin 75 mg PO BID 90 days rosuvastatin 40 mg PO DAILY semaglutide (Ozempic) 2 mg (0.75 mL) subcut QWEEK 4 weeks sertraline 25 mg PO DAILY 90 days silver sulfadiazine 1% 1 appl topical DAILY 14 days tramadol 50 mg PO BID PRN 30 days underpads (Bed Underpads) Use 1 to 3 bedpads as needed daily Ventolin HFA 90 mcg/actuation (albuterol sulfate) 2 puffs inhalation Q6H PRN 30 days NS vitamin E (dl, acetate) 180 mg PO BID 90 days Tobacco use date assessed: 10/24/24 Dental Screening Dental Screen Date: 10/24/24 HPI HPI Comments History of Present Illness Details The patient is a 49-year-old female presenting with a follow-up for Type 2 Diabetes Mellitus management. She reports that her Hemoglobin A1c is at 6.6%, indicating well-controlled blood glucose levels. Despite her consistent use of Ozempic, she has not noticed weight loss, although her condition has not worsened. A strict dietary regimen is being followed to manage her blood sugar and weight, where she avoids carbohydrates and sugary drinks. She reports prior difficulties in exercise due to leg problems, yet she currently manages to walk. The patient's hyperlipidemia appears to be well-controlled, with recent favorable lipid panel results. She suffers from depression and psoriatic arthritis, both managed with medications including Cimzia, bupropion, sertraline, and Lyrica. Low-dose sertraline has been mentioned as potentially contributing to weight concerns, yet it is deemed low risk given the dosage. Additionally, the patient has a range of allergies that influence her medication choices. 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 Type 2 diabetes mellitus with unspecified complications Hyperlipidemia, unspecified Morbid (severe) obesity due to excess calories Atherosclerotic heart disease of [place] coronary artery without angina pectoris Fibromyalgia Hypovitaminosis D Surgical History Status post sleeve gastrectomy History of open reduction and internal fixation (ORIF) procedure History of tubal ligation History of laparoscopic cholecystectomy History of section Family History Father Gout Mother Diabetes Dementia Maternal Aunt Diabetes Epilepsy Maternal Grandfather Diabetes Maternal Uncle Diabetes Maternal Grandmother Diabetes Paternal Grandfather Diabetes Paternal Grandmother Diabetes Daughter Asthma Seizure Family/Other FH: mental illness Social History Housing: Apartment Are you a primary urgent care physician to a significant other at home: No Do you presently have visiting nurse or other home services: No Alcohol intake: never Patient Tobacco Use Status: Never used Tobacco e-Cigarette/Vaping Use: Never Used Second Hand Smoke Exposure: No service: No Current occupational status: employed Current occupational exposures/hazards: No Gender identity: Female Cognitive needs: No Hearing needs: No Vision needs: Yes Questionnaire Thrive Questionnaire Date Thrive assessed: 10/24/24 KARMA-7 AMB Questionnaire KARMA-7 Date KARMA - 7 assessed: 10/24/24 Source: Developed by Drs. Reggie Miranda, Nora Erickson, Randy Taylor and colleagues, with an educational myron from [employer]. Review of Systems Const All systems reviewed & are unremarkable except as noted in HPI and below Card Denies chest pain at rest, Denies chest pain with activity, Denies edema, Denies irregular heart rhythm, Denies claudication, Denies dyspnea, Denies dyspnea on exertion, Denies orthopnea, Denies paroxysmal nocturnal dyspnea and Denies slow heart rate Resp Denies cough, Denies dyspnea and Denies dyspnea on exertion GI Denies abdominal pain, Denies change in bowel habits, Denies excessive flatus, Denies nausea and Denies vomiting Denies urinary incontinence, Denies urinary hesitancy and Denies urinary urgency Musc Denies atrophy, Denies deformity and Denies limited range of motion Skin/Breast Denies bleeding lesions, Denies changing lesions and Denies rash Physical exam (Primary Care) Vital Signs: Last Vital Signs BP 110/82 01/09/25 16:25 BMI result Body Mass Index 37.4 BMI Assessment/Plan discussion: High BMI High, discussed plan: lifestyle, weight reduction, dietary and physical activity Tobacco/Smoking Status: Tobacco use Status Tobacco use date assessed 10/24/24 01/09/25 16:19 Patient Tobacco Use Status Never used Tobacco 01/09/25 16:19 e-Cigarette/Vaping Use Never Used 01/09/25 16:19 Thrive Assessment: Date of Thrive Assessment Date Thrive assessed 10/24/24 01/09/25 16:19 Resp Effort & Inspection: normal respiratory effort Auscultation: clear to auscultation bilaterally Cardio Jugular venous distension: no JVD Rate: regular rate Rhythm: regular rhythm Heart sounds: S1 normal heart sound present and S2 normal heart sound present Extrem General: Yes full ROM Results AMB Hemoglobin A1c AMB Hemoglobin A1c 6.6 % Last Edit by NISREEN Ortega on 01/09/25 16:33 Results Reviewed Results Reviewed: Laboratory Last Values Hgb A1c (Clinic) 6.6 % (4.0-6.0) H 01/09/25 16:18 Coding Level of Care Code Est Pt Level 4 (98838) Complex EM visit Add On G2211 Diagnoses Type 2 diabetes mellitus without complication, without long-term current use of insulin E11.9 Diabetes mellitus type: type 2 Diabetes mellitus detention insulin use: without detention use Diabetes mellitus complication status: without complication Mild major depression F32.0 Essential hypertension I10 Psoriatic arthritis L40.50 Dyslipidemia E78.5 Time Spent (min) 23 Assessment & Plan Assessment & Plan (1) Diabetes mellitus: Code(s): E11.9 - Type 2 diabetes mellitus without complications Category: Medical Qualifiers: Diabetes mellitus type: type 2 Diabetes mellitus termite helper insulin use: without termite helper use Diabetes mellitus complication status: without complication Qualified Code(s): E11.9 - Type 2 diabetes mellitus without complications (2) Mild major depression: Code(s): F32.0 - Major depressive disorder, single episode, mild Category: Medical (3) Essential hypertension: Code(s): I10 - Essential (primary) hypertension Category: Medical (4) Psoriatic arthritis: Comment: Methotrexate ineffective Enbrel- pain with injection Xeljanz 09/2020- 12/2021- stopped due to CAD Humira december 2021-Present , advanced to weekly 10/2023. DC 04/2024 due to secondary nonresponse with ++ adalimumab antibodies Simponi 04/2024 DC after 1 dose due to an allergic reaction (allergic to latex) Talsergio 05/2024 - 10/2024 secondary non response Cimzia 10/2024 Code(s): L40.50 - Arthropathic psoriasis, unspecified Category: Medical (5) Dyslipidemia: Code(s): E78.5 - Hyperlipidemia, unspecified Category: Medical Plan Continue managing Type 2 Diabetes Mellitus with Ozempic at the current dosage as it maintains target glucose levels. The patient?s lipid profile is well-controlled with rosuvastatin 40 mg, and attention will be given to liver function due to slight enzyme elevation. Emphasize adherence to her restricted diet and increased physical activity to manage weight. Continue current depression management with low-dose sertraline and bupropion and monitor for any weight changes. Reinforce engagement with regular walking as weather permits, and careful monitoring of allergies helps ensure no adverse reactions to medications and dietary elements, contributing to effective management. Patient was informed and verbally consented to the use of an ambient scribe for clinic note documentation during this visit. During the visit, I discussed the management plan for Type 2 Diabetes Mellitus, which includes the continuation of Ozempic and emphasized the importance of diet and physical activity in managing weight and blood glucose levels. We reviewed the favorable lipid profile results, reinforcing the continuation of rosuvastatin for hyperlipidemia. I addressed the patient's concerns regarding sertraline and potential weight gain, explaining its low-dose usage limits possible impact on weight. The need for regular physical activity such as walking was discussed, along with the planned increase in activity as weather improves. We examined the patient's comprehensive list of allergies to avoid drug and dietary reactions. Follow-up consultations will focus on monitoring liver enzymes and managing overall health through lifestyle modifications. Orders: Orders AMB Hemoglobin A1c Today E11.9 - Type 2 diabetes mellitus without complications Lipid Panel 5 Months E78.5 - Hyperlipidemia, unspecified Microalbumin, Random (w Creat) 5 Months R80.9 - Proteinuria, unspecified Vitamin D 25-OH Total 5 Months E55.9 - Vitamin D deficiency, unspecified Comprehensive [place]. Panel Fast 5 Months E11.9 - Type 2 diabetes mellitus without complications Referrals Medical Weight Management Referral E66.812 - Obesity, class 2, Z68.37 - Body mass index [BMI] 37.0-37.9, adult Patient Instructions: - Continue taking Ozempic at 2 mg once weekly as prescribed. - Maintain a low-carbohydrate and sugar-free diet, drink only water. - Engage in regular walking exercises, increasing gradually as tolerated. - Adhere to the current medication regimen for depression and osteoarthritis. - Monitor and report any changes in weight or depressive symptoms. - Avoid known allergens, and inform healthcare providers of all allergies. - Schedule regular follow-ups to monitor lipid levels and liver function.
[2025-01-09 16:25] VITALS: BP 110/82; BMI 37.4
--- OUTSIDE RECORDS SUMMARY | 2025-01-09 17:07 | XMS_ITS | Clinical Summary ---
Author Organization [facility] it Address [address] [place] [address] Care Team Providers Care Panman Name Role Phone Yessi Ball MD Primary Care Provider [phone] Social History Tobacco Use Types Packs/Day Years Used Date Smoking Tobacco: Never Assessed Comments Unknown Sex and Gender Information Value Date Recorded Sex Assigned at Not on file Legal Sex Female 4:18 AM EST Gender Identity Not on file Sexual Orientation Not on file Plan of Treatment Health Maintenance Due Date Last Done Comments Breast Cancer Screening 1977 DTaP,Tdap,and Td Vaccines (1 - Tdap) 1996 Hepatitis B Vaccines (1 of 3 - 19+ 3-dose series) 1996 Cervical Cancer Screening: P ap Smear 1998 COVID-19 Vaccine (2023-2 5 season) 2024 Influenza Vaccine (#1) 2024 HIB Vaccines Aged Out No longer eligi [...] on patient's age to complete this topic MMR Vaccines Aged Out No longer eligi ble based on patient's age to complete this topic Meningococcal ACWY Vaccine Aged Out N o longer eligible based on patient's age to complete this topic Meningococcal B Vacine Aged Out No lo nger eligible based on patient's age to complete this topic Pneumococcal Vaccine: Pediat rics (0 to 5 Years) and At-Risk Patients (6 to 64 Years) Aged Out No longer eligible b ased on patient's age to complete this topic RSV Immunization Patients Un nathalia 20 months Aged Out No longer eligible b ased on patient's age to complete this topic Varicella Vaccines Aged Out No longer eligible based on patient's age to complete this topic Care Teams Panman Relationship Specialty Start Date End Date Yessi Ball MD [address] [facility] , [address] [facility] D/B/A: [facility] RONIT Jose PCP - General Internal Medicine 07/11/17
== END 2025-01-09 16:57 | disposition home or self-care (01) ==
LOC: HO.HMCH 16:10
PROVIDERS: PCP Internal Medicine; Visit Provider Internal Medicine
DX: E11.9 Type 2 diabetes mellitus without complications (principal); F32.0 Major depressive disorder, single episode, mild; I10 Essential (primary) hypertension; L40.50 Arthropathic psoriasis, unspecified; E78.5 Hyperlipidemia, unspecified

== ENCOUNTER → 2025-01-09 16:10 | Outpatient (BNVA) | payer OTHER, SELFPAY | PROVIDERS: PCP Internal Medicine; Visit Provider Internal Medicine | DX: E11.9 Type 2 diabetes mellitus without complications (principal); F32.0 Major depressive disorder, single episode, mild; E78.5 Hyperlipidemia, unspecified; L40.50 Arthropathic psoriasis, unspecified | CPT/HCPCS: 83036; 99212 ==

== ENCOUNTER 2025-01-27 12:02 | Outpatient (REF) | payer OTHER, SELFPAY ==
[2025-01-27 12:15] LABS: MANUAL DIFF FLAG NO
[2025-01-27 12:50] LABS: Basophils Absolute Auto 0.1 X10*3/uL (0.0-0.2); Basophils Percent Auto 0.9 % (0-2); Eosinophils Absolute Auto 0.2 X10*3/uL (0.0-0.4); Hematocrit 41.4 % (37.0-47.0); Hemoglobin 13.3 g/dl (12.0-16.0); Imm Gran Abs Auto 0.02 X10*3/uL (0.00-0.03); Imm Gran Pct Auto 0.2 % (0.0-0.4); Lymphocytes Absolute Auto 3.2 X10*3/uL (1.2-4.9); Lymphocytes Percent Auto 39.9 % (20-40); Mean Corpuscular HGB Conc 32.1 g/dl (31.0-35.0); Mean Corpuscular Hemoglobin 26.6 pg (27.0-33.0); Mean Corpuscular Volume 82.8 fL (80.0-98.0); Mean Platelet Volume 11.9 fL (9.4-12.3); Monocytes Absolute Auto 0.6 X10*3/uL (0.1-1.2); Monocytes Percent Auto 7.4 % (2-11); Neutrophils Percent Auto 48.6 % (45-73); Platelet Count 251 X10*3/uL (160-400); Red Cell Distribution Width 13.6 % (11.0-16.0); White Blood Count 8.1 X10*3/uL (4.8-10.8)
[2025-01-27 13:15] LABS: Alanine Aminotransferase 32 U/L (0-31); Aspartate Amino Transferase 27 U/L (5-31); Estimated Glomerular Filt Rate > 60
== END 2025-01-27 12:03 | disposition home or self-care (01) ==
LOC: HO.LAB 12:02
PROVIDERS: Absent Provider Student in an Organized Health Care Education/Training Program; PCP Internal Medicine; Visit Provider Internal Medicine Rheumatology
DX: Z79.899 Other long term (current) drug therapy (principal)
CPT/HCPCS: 36415; 82565; 84450; 84460; 85025

== ENCOUNTER 2025-01-28 14:24 | Outpatient (AMB) | payer OTHER, SELFPAY ==
--- NOTE | 2024-12-30 14:16 | MHC.OFFWIV ---
Intake Intake Visit Reasons: Follow up Patient Tobacco Use Status: Never used Tobacco Allergies morphine [MORPHINE] Allergy (Severe, Verified 11/06/24 09:41) Anaphylaxis golimumab [From Simponi] Allergy (Intermediate, Verified 11/06/24 09:41) Rash latex [LATEX] Allergy (Intermediate, Verified 11/06/24 09:41) Rash shellfish derived Allergy (Intermediate, Verified 11/06/24 09:41) swelling calcium Adverse Reaction (Intermediate, Verified 11/06/24 09:41) weakness, swells iron Adverse Reaction (Intermediate, Verified 11/06/24 09:41) weakness, swells metformin Adverse Reaction (Intermediate, Verified 11/06/24 09:41) Diarrhea pioglitazone Adverse Reaction (Intermediate, Verified 11/06/24 09:41) Swelling [facility] Medical History (Updated 11/06/24 @ 10:45 by Danii Saleem MD) Physical exam Diabetes type 2, uncontrolled Compression fracture of T7 vertebra Renal calculi Diaphragmatic hernia PONV (postoperative nausea and vomiting) Preoperative cardiovascular examination Renal calculi Palpitation Situational depression Urinary incontinence Migraines Overactive bladder Varicose veins of right lower extremity with inflammation Dyslipidemia Peripheral arterial disease Menometrorrhagia COVID-19 Nausea Psoriatic arthritis Microalbuminuria due to type 2 diabetes mellitus [facility] (current) use of insulin Type 2 diabetes mellitus with unspecified complications Hyperlipidemia, unspecified Morbid (severe) obesity due to excess calories Atherosclerotic heart disease of [place] coronary artery without angina pectoris Fibromyalgia Hypovitaminosis D Surgical History Status post sleeve gastrectomy History of open reduction and internal fixation (ORIF) procedure History of tubal ligation History of laparoscopic cholecystectomy History of section Family History Father Gout Mother Diabetes Dementia Maternal Aunt Diabetes Epilepsy Maternal Grandfather Diabetes Maternal Uncle Diabetes Maternal Grandmother Diabetes Paternal Grandfather Diabetes Paternal Grandmother Diabetes Daughter Asthma Seizure Family/Other FH: mental illness Social History Housing: Apartment Are you a primary palliative care physician to a significant other at home: No Do you presently have visiting nurse or other home services: No Alcohol intake: never Patient Tobacco Use Status: Never used Tobacco e-Cigarette/Vaping Use: Never Used Second Hand Smoke Exposure: No service: No Current occupational status: employed Current occupational exposures/hazards: No Gender identity: Female Cognitive needs: No Hearing needs: No Vision needs: Yes Coding
--- NOTE | 2025-01-28 14:29 | MHC.OFFVIS ---
Vital Signs 01/28/25 14:32 Height 5 ft 7 in Weight 243 lb BMI 38.1 BP 120/74 Blood Pressure Location Lt brachial Position Sitting Pulse 93 Pulse Source Pulse Oximeter Pulse Oximetry (%) 98 Oxygen Delivery Method Room Air Intake Visit Reasons: Follow up Intake Note: Patient presents for follow up on PSA. She was last seen in the office on 11/06/[address] Saleem. Ultrasound is scheduled for March. Allergies morphine [MORPHINE] Allergy (Severe, Verified 01/28/25 14:34) Anaphylaxis golimumab [From Simponi] Allergy (Intermediate, Verified 01/28/25 14:34) Rash latex [LATEX] Allergy (Intermediate, Verified 01/28/25 14:34) Rash shellfish derived Allergy (Intermediate, Verified 01/28/25 14:34) swelling calcium Adverse Reaction (Intermediate, Verified 01/28/25 14:34) weakness, swells iron Adverse Reaction (Intermediate, Verified 01/28/25 14:34) weakness, swells metformin Adverse Reaction (Intermediate, Verified 01/28/25 14:34) Diarrhea pioglitazone Adverse Reaction (Intermediate, Verified 01/28/25 14:34) Swelling HPI Comments Details: Patient is a 48-year-old female with diabetes, hypertension, hyperlipidemia, mild depressive disorder, psoriasis and psoriatic arthritis here today for follow up Interval History: Patient last seen 11/06/24 with me. At that time she was on Taltz and continued to complain of prolonged AM stiffness, widespread joint pain and intermittent joint swelling Her medication was changed to Cimzia and she was given a prednisone taper. Today she reports improvement in her joints on the Cimzia Rheumatologic History: Methotrexate ineffective Enbrel- pain with injection Xeljanz 09/2020- 12/2021- stopped due to CAD Humira december 2021-Present , advanced to weekly 10/2023. DC 04/2024 due to secondary nonresponse with ++ adalimumab antibodies Simponi 04/2024 DC after 1 dose due to an allergic reaction (allergic to latex) Taltz 05/2024 - 10/2024. Secondary non response Only had a small PsO patch around her ankle Thought simponi had some benefit but the preparation had latex and so she discontinued it Current Rheumatology Medication(s): Cimzia 200mg SC every 2 weeks [facility] Medical History Physical exam Diabetes type 2, uncontrolled Compression fracture of T7 vertebra Renal calculi Diaphragmatic hernia PONV (postoperative nausea and vomiting) Preoperative cardiovascular examination Renal calculi Palpitation Situational depression Urinary incontinence Migraines Overactive bladder Varicose veins of right lower extremity with inflammation Dyslipidemia Peripheral arterial disease Menometrorrhagia COVID-19 Nausea Psoriatic arthritis Microalbuminuria due to type 2 diabetes mellitus 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 Type 2 diabetes mellitus with unspecified complications Hyperlipidemia, unspecified Morbid (severe) obesity due to excess calories Atherosclerotic heart disease of [place] coronary artery without angina pectoris Fibromyalgia Hypovitaminosis D Surgical History Status post sleeve gastrectomy History of open reduction and internal fixation (ORIF) procedure History of tubal ligation History of laparoscopic cholecystectomy History of section Family History Father Gout Mother Diabetes Dementia Maternal Aunt Diabetes Epilepsy Maternal Grandfather Diabetes Maternal Uncle Diabetes Maternal Grandmother Diabetes Paternal Grandfather Diabetes Paternal Grandmother Diabetes Daughter Asthma Seizure Family/Other FH: mental illness Social History Housing: Apartment Are you a primary personal care assistant to a significant other at home: No Do you presently have visiting nurse or other home services: No Alcohol intake: never Patient Tobacco Use Status: Never used Tobacco e-Cigarette/Vaping Use: Never Used Second Hand Smoke Exposure: No service: No Current occupational status: employed Current occupational exposures/hazards: No Gender identity: Female Cognitive needs: No Hearing needs: No Vision needs: Yes Review of Systems Const Details: Review of Systems Constitutional: Denies fever, chills, weight loss ENT: Denies vision changes, eye pain or eye redness, dental caries, dry mouth GI: Denies nausea, vomiting, diarrhea, abdominal pain, change in BM Pulm: Denies SOB, NELSON, hemoptysis, wheezing Cards: Denies chest pain, palpitations Skin: Denies Raynaud's, rash, nail changes, photosensitivity, CROCHETER: Denies headaches, weakness, paresthesias, recurrent falls MSK: as per HPI All other systems reviewed and are unremarkable except noted above Physical Exam Vital Signs: Last Vital Signs Pulse 93 01/28/25 14:32 BP 120/74 01/28/25 14:32 Pulse Ox 98 01/28/25 14:32 Oxygen Delivery Method Room Air 01/28/25 14:32 BMI result Body Mass Index 38.1 Vital signs reviewed Physical Examination CONSTITUITIONAL Patient alert and cooperative. Well appearing and in no apparent painful distress HEENT Conjunctiva and sclera clear. ?Pupils equal round and reactive to light. ?No lymphadenopathy. ? CHEST/RESPIRATORY SYSTEM Normal respiratory effort and able to speak in complete sentences. ?Clear to auscultation bilaterally. ?No crackles, rales, rhonchi, wheezes heard. CARDIAC SYSTEM Regular rate and rhythm. ?S1 and S2 heard no murmurs. ?Radial pulses intact bilaterally MSK Hands: ?Good salesperson pianos and organs strength bilaterally. No deformities noted. ?No synovitis noted to the MCPs, PIPs or DIPs. ?No tenderness to palpation of these joints. Wrists: ?Full range of motion at the wrists without pain. ?No tenderness to palpation or synovitis noted to the wrists. Elbows: Full range of motion without pain. No tenderness, weakness, swelling, increased warmth or erythema. Shoulders: Full range of motion without pain. No tenderness, weakness, swelling, increased warmth or erythema. Hips: Full range of motion without pain. Hip bursa: No tenderness to palpation Knees: ?Full range of motion. ?No tenderness, swelling, increased warmth or erythema.?No effusion or crepitations Ankles: Full range of motion. ?No tenderness, swelling, increased warmth or erythema.? Feet: ?Negative squeeze test. ?No tenderness to palpation or swelling of the MTPs. Tender points:?No tenderness to palpation of the bilateral trapezius, supraspinatus, greater trochanters, anterior costochondral junctions, bilateral gluteal areas, bilateral suboccipital muscle insertions SKIN Skin intact without rashes. Results Reviewed Results Reviewed: Laboratory Tests 12/11/24 01/27/25 07:11 12:14 WBC 8.1 RBC 5.00 Hgb 13.3 Hct 41.4 Plt Count 251 ESR 17 Sodium 138 Potassium 3.8 Chloride 106 Carbon Dioxide 23 BUN 19 H Creatinine 0.79 AST 33 H 27 ALT 37 H 32 H C-Reactive Protein < 0.10 Infectious serologies 12/11/24 07:11 Hepatitis A IgM Ab Nonreactive Hep Bs Antigen Negative Hep Bs Antibody NONREACTIVE Hep B Core Total Ab Nonreactive Hepatitis C Ab (EIA) Nonreactive TB Test (T-Spot) Com Negative Assessment & Plan Assessment & Plan (1) Psoriatic arthritis: Comment: Methotrexate ineffective Enbrel- pain with injection Xeljanz 09/2020- 12/2021- stopped due to CAD Humira december 2021-Present , advanced to weekly 10/2023. DC 04/2024 due to secondary nonresponse with ++ adalimumab antibodies Simponi 04/2024 DC after 1 dose due to an allergic reaction (allergic to latex) Taltz 05/2024 - 10/2024 secondary non response Cimzia 10/2024 Code(s): L40.50 - Arthropathic psoriasis, unspecified Category: Medical Plan: #PsO complicated by PsA Patient is a 49-year-old female with psoriasis complicated by psoriatic arthritis here today for follow up. Patient doing much better on Cimzia. 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: Code(s): Z79.899 - Other long term acute care registered nurse (current) drug therapy Category: Medical Plan: #Long-term Use of TNF Inhibitors: Cimzia Discussed with the patient the benefits and risks of TNF inhibitors for the management of the rheumatic condition Benefits include reduce pain, maintenance of remission and reduction of flares as well as ?progression of the disease Risks include injection sites/infusion reactions, serious infections (such as bacterial infections, opportunistic infections), malignancy, delaminating syndromes, autoimmune phenomena, CHF exacerbations, palmar plantar psoriasis and cytopenias Recommended rotating injection sites, and holding medication during and for up to 1 week after resolution of a febrile illness or open skin wound Plan I spent 32 minutes reviewing the record and labs, taking a history, examining the patient, discussing the treatment plan and documenting in the medical record Orders: Orders Comprehensive Met. Panel 4 Months L40.50 - Arthropathic psoriasis, unspecified C Reactive Protein 4 Months L40.50 - Arthropathic psoriasis, unspecified Complete Blood Count Auto Diff 4 Months L40.50 - Arthropathic psoriasis, unspecified Erythrocyte Sedimentation Rate 4 Months L40.50 - Arthropathic psoriasis, unspecified Medications: Refilled pregabalin 75 mg PO BID 90 days 180 caps 1RF M79.7 - Fibromyalgia certolizumab pegol (Cimzia) To start after the starter dose 200 mg subcut Q2W 2 ea 4RF L40.50 - Arthropathic psoriasis, unspecified Discontinued certolizumab pegol (Cimzia Starter Kit) administer as 2 equally divided doses at 2 different sites in abdomen or thigh Discontinued Reason: Doctor's Order 400 mg (2 mL) subcut Q2W 3 ea 0RF L40.50 - Arthropathic psoriasis, unspecified Coding Level of Care Code Est Pt Level 4 (98028) Complex EM visit Add On G2211 Diagnoses Psoriatic arthritis L40.50 Fibromyalgia M79.7 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
[2025-01-28 14:32] VITALS: BP 120/74; PULSE 93; O2SAT 98; BMI 38.1
--- OUTSIDE RECORDS SUMMARY | 2025-01-28 17:16 | XMS_ITS | Clinical Summary ---
Author Organization [employer] Address [address] [place] [address] Care Team Providers Care Wig Stylist Name Role Phone Unavailable Primary Care Provider [...] patient's age to complete this topic [place] [place] [address] STANDARD
--- OUTSIDE RECORDS SUMMARY | 2025-01-28 17:17 | XMS_ITS | Clinical Summary ---
Author Organization [employer] [facility] ity Address [address] [place] [address] Care Team Providers Care Dj Instructor Name Role Phone Yessi Ball MD Primary Care Provider [phone] Social History Tobacco Use Types Packs/Day Years [...] Vaccine (2023-2 5 season) 2024 Influenza Vaccine (Season Ended) 2025 HIB Vaccines Aged Out No longer eligi [...] age to complete this topic Meningococcal B Vaccine Aged Out No l onger eligible based on patient's age to complete [...] age to complete this topic Care Teams Dj Instructor Relationship Specialty Start Date End Date Yessi Ball MD [address] [facility] , [address] [facility] D/B/A: [facility] RONIT Jose PCP - General Internal Medicine 07/11/17
== END 2025-01-28 15:03 | disposition home or self-care (01) ==
LOC: HO.RHE 14:25
PROVIDERS: PCP Internal Medicine; Visit Provider Student in an Organized Health Care Education/Training Program
DX: L40.50 Arthropathic psoriasis, unspecified (principal); M79.7 Fibromyalgia; Z79.899 Other long term (current) drug therapy
CPT/HCPCS: 99214; G2211

== ENCOUNTER → 2025-01-28 14:24 | Outpatient (BNVA) | payer OTHER, SELFPAY | PROVIDERS: PCP Internal Medicine; Visit Provider Student in an Organized Health Care Education/Training Program | DX: L40.50 Arthropathic psoriasis, unspecified (principal); M79.7 Fibromyalgia; Z79.899 Other long term (current) drug therapy | CPT/HCPCS: 99212 ==

== ENCOUNTER 2025-03-05 11:14 | Outpatient (AMB) | payer OTHER, SELFPAY ==
--- NOTE | 2025-03-05 11:19 | MHC.OFFVIS ---
Vital Signs 03/05/25 11:32 Height 5 ft 7 in Weight 246 lb 14.684 oz BMI 38.7 BP 120/72 Blood Pressure Location Lt radial Position Sitting Pulse 89 Pulse Source Pulse Oximeter Pulse Oximetry (%) 97 Oxygen Delivery Method Room Air Intake Visit Reasons: Rash Intake Note: Patient presents for Rash follow up. Warehouse Record Clerk Required: Yes Warehouse Record Clerk Language: Newspaper Correspondent Services: Warehouse Record Clerk Offered & Declined Warehouse Record Clerk Name: Jimmybandar Nazarios Information Interpreted: non-clinical & clinical Keymodule Assembly Supervisor: Keymodule Assembly Supervisor Present (Clemente Valencia) Accompanied by: Daughter Allergies morphine [MORPHINE] Allergy (Severe, Verified 03/05/25 11:27) Anaphylaxis golimumab [From Simponi] Allergy (Intermediate, Verified 03/05/25 11:27) Rash latex [LATEX] Allergy (Intermediate, Verified 03/05/25 11:27) Rash shellfish derived Allergy (Intermediate, Verified 03/05/25 11:27) swelling calcium Adverse Reaction (Intermediate, Verified 03/05/25 11:27) weakness, swells iron Adverse Reaction (Intermediate, Verified 03/05/25 11:27) weakness, swells metformin Adverse Reaction (Intermediate, Verified 03/05/25 11:27) Diarrhea pioglitazone Adverse Reaction (Intermediate, Verified 03/05/25 11:27) Swelling Lipid Transfer Protein Adverse Reaction (Severe, Uncoded 03/05/25 11:32) Anaphylaxis Medication List - Last Reconciled 03/05/25 by Danii Saleem MD albuterol sulfate 2.5 mg (3 mL) inhalation Q4-6H PRN 30 days bacitracin 1 appl topical Q8H 1 week betamethasone dipropionate 0.05% 1 appl topical BID blood sugar diagnostic (FreeStyle Lite Strips) Use 1 test strip once a da blood-glucose meter (FreeStyle Lite Meter kit) As directed buspirone 5 mg PO BID cane As directed certolizumab pegol (Cimzia) 200 mg subcut Q2W flash glucose sensor (FreeStyle Vandana 14 Day Sensor kit) every 14 days lancets (FreeStyle Lancets) Use 1 lancet once a day nebulizers (AeroEclipse II Nebulizer) As directed pregabalin 75 mg PO BID 90 days rosuvastatin 40 mg PO DAILY semaglutide (Ozempic) 2 mg (0.75 mL) subcut QWEEK 4 weeks sertraline 25 mg PO DAILY 90 days silver sulfadiazine 1% 1 appl topical DAILY 14 days tramadol 50 mg PO BID PRN 30 days underpads (Bed Underpads) Use 1 to 3 bedpads as needed daily Ventolin HFA 90 mcg/actuation (albuterol sulfate) 2 puffs inhalation Q6H PRN 30 days NS vitamin E (dl, acetate) 180 mg PO BID 90 days HPI Comments Details: Patient is a 48-year-old female with diabetes, hypertension, hyperlipidemia, mild depressive disorder, psoriasis and psoriatic arthritis here today for follow up Interval History: Patient last seen 01/28/2025 with me. At that time she was following up for her psoriasis/psoriatic arthritis on Cimzia. She had recently switched from Taltz due to secondary nonresponse and was having good response on Cimzia at that visit. Today she is here for an urgent visit for a rash Started about 2 weeks ago Only on hands Associated with itching and burning No new soaps, detergents, or new cleaning products Rheumatologic History: Methotrexate ineffective Enbrel- pain with injection Xeljanz 09/2020- 12/2021- stopped due to CAD Humira december 2021-Present , advanced to weekly 10/2023. DC 04/2024 due to secondary nonresponse with ++ adalimumab antibodies Simponi 04/2024 DC after 1 dose due to an allergic reaction (allergic to latex) Taltz 05/2024 - 10/2024. Secondary non response Only had a small PsO patch around her ankle Thought simponi had some benefit but the preparation had latex and so she discontinued it Current Rheumatology Medication(s): Cimzia 200mg SC every 2 weeks [facility] Medical History Physical exam Diabetes type 2, uncontrolled Compression fracture of T7 vertebra Renal calculi Diaphragmatic hernia PONV (postoperative nausea and vomiting) Preoperative cardiovascular examination Renal calculi Palpitation Situational depression Urinary incontinence Migraines Overactive bladder Varicose veins of right lower extremity with inflammation Dyslipidemia Peripheral arterial disease Menometrorrhagia COVID-19 Nausea Psoriatic arthritis Microalbuminuria due to type 2 diabetes mellitus 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 Type 2 diabetes mellitus with unspecified complications Hyperlipidemia, unspecified Morbid (severe) obesity due to excess calories Atherosclerotic heart disease of creek coronary artery without angina pectoris Fibromyalgia Hypovitaminosis D Surgical History Status post sleeve gastrectomy History of open reduction and internal fixation (ORIF) procedure History of tubal ligation History of laparoscopic cholecystectomy History of section Family History Father Gout Mother Diabetes Dementia Maternal Aunt Diabetes Epilepsy Maternal Grandfather Diabetes Maternal Uncle Diabetes Maternal Grandmother Diabetes Paternal Grandfather Diabetes Paternal Grandmother Diabetes Daughter Asthma Seizure Family/Other FH: mental illness Social History Housing: Apartment Are you a primary director of primary care to a significant other at home: No Do you presently have visiting nurse or other home services: No Alcohol intake: never Patient Tobacco Use Status: Never used Tobacco e-Cigarette/Vaping Use: Never Used Second Hand Smoke Exposure: No service: No Current occupational status: employed Current occupational exposures/hazards: No Gender identity: Female Cognitive needs: No Hearing needs: No Vision needs: Yes Review of Systems Const Details: Review of Systems Constitutional: Denies fever, chills, weight loss ENT: Denies vision changes, eye pain or eye redness, dental caries, dry mouth GI: Denies nausea, vomiting, diarrhea, abdominal pain, change in BM Pulm: Denies SOB, NELSON, hemoptysis, wheezing Cards: Denies chest pain, palpitations Skin: Denies Raynaud's, nail changes, photosensitivity, FIRE MEDIC: Denies headaches, weakness, paresthesias, recurrent falls MSK: as per HPI All other systems reviewed and are unremarkable except noted above Physical Exam Vital Signs: Last Vital Signs Pulse 89 03/05/25 11:32 BP 120/72 03/05/25 11:32 Pulse Ox 97 03/05/25 11:32 Oxygen Delivery Method Room Air 03/05/25 11:32 BMI result Body Mass Index 38.7 Vital signs reviewed Physical Examination SKIN Faint erythematous macules noted on bilateral arms extending to upper arm No plaques noted Results Reviewed Results Reviewed: Laboratory Tests 12/11/24 01/27/25 07:11 12:14 WBC 8.1 RBC 5.00 Hgb 13.3 Hct 41.4 Plt Count 251 ESR 17 Sodium 138 Potassium 3.8 Chloride 106 Carbon Dioxide 23 BUN 19 H Creatinine 0.79 AST 33 H 27 ALT 37 H 32 H C-Reactive Protein < 0.10 Infectious serologies 12/11/24 07:11 Hepatitis A IgM Ab Nonreactive Hep Bs Antigen Negative Hep Bs Antibody NONREACTIVE Hep B Core Total Ab Nonreactive Hepatitis C Ab (EIA) Nonreactive TB Test (T-Spot) Com Negative Assessment & Plan Assessment & Plan (1) Rash: Code(s): R21 - Rash and other nonspecific skin eruption Plan: #Rash Patient with PsO/PsA on Cimzia, here today for eval of rash. The rash appears to be contact dermatitis related Will try topical betamethasone ointment Keep regular f/u Plan I spent 20 minutes reviewing the record and labs, taking a history, examining the patient, discussing the treatment plan, and documenting in the medical record Medications: New betamethasone dipropionate 0.05% 1 appl topical BID 45 grams 3RF R21 - Rash and other nonspecific skin eruption Discontinued clobetasol 0.05% Discontinued Reason: Doctor's Order 1 appl topical BID 30 grams 1RF Coding Level of Care Code Est Pt Level 3 (29935) Diagnoses Rash R21
[2025-03-05 11:32] VITALS: BP 120/72; PULSE 89; O2SAT 97; BMI 38.7
--- OUTSIDE RECORDS SUMMARY | 2025-03-05 12:14 | XMS_ITS | Clinical Summary ---
Author Organization [employer] Address [address] [facility] [address] [place] [address] Care Team Providers Care Money Laundering Investigator Name Role Phone Unavailable Primary Care Provider [...] Screening 1977 SDOH Screening 1977 Sigmoidoscopy 1977 Disability Screening 1977 Alcohol/Substance Use Screening 1989 Tobacco Screening [...] patient's age to complete this topic [place] [address] [place] [address] STANDARD
== END 2025-03-05 11:54 | disposition home or self-care (01) ==
LOC: HO.RHE 11:15
PROVIDERS: PCP Internal Medicine; Visit Provider Student in an Organized Health Care Education/Training Program
DX: R21 Rash and other nonspecific skin eruption (principal)
CPT/HCPCS: 99213

== ENCOUNTER → 2025-03-05 11:14 | Outpatient (BNVA) | payer OTHER, SELFPAY | PROVIDERS: PCP Internal Medicine; Visit Provider Student in an Organized Health Care Education/Training Program | DX: L40.50 Arthropathic psoriasis, unspecified (principal); R21 Rash and other nonspecific skin eruption | CPT/HCPCS: 99212 ==

== ENCOUNTER 2025-07-21 12:39 | Outpatient (REF) | payer OTHER, SELFPAY ==
--- OUTSIDE RECORDS SUMMARY | 2025-07-21 12:43 | XMS_ITS | Clinical Summary ---
Author Organization [employer] Address [address] [facility] [address] [place] [address] Care Team Providers Care Social Services Assistant Name Role Phone Unavailable Primary Care Provider [...] FIT 1977 FOBT 1977 HIV Screening 1977 Lipid Panel 1977 SDOH Screening 1977 Sigmoidoscopy 1977 Disability Screening 1977 Alcohol/Substance Use Screening 1989 Tobacco Screening 1989 Family Planning (PISQ) 1992 Hepatitis C Screening 1995 DTaP/Tdap/Td Vaccines (1 - Tdap) 1996 Hepatitis B Vaccines (1 of 3 - 19+ 3-dose series) 1996 Pap Smear 1998 Cervical Cancer Screening 2007 HPV/Cotest 2007 Mammogram 2017 COVID-19 Vaccine (3 - 2024-2 6 season) 2025 04/04/2021, 03/14/2021 Influenza Vaccine (#1) 2025 , 09/04/2015, 07/28/2014 Zoster Vaccines (1 of 2) 2027 RSV Patients and Patients Aged 60 years or older (1 - 1-dose 75+ series) 2052 Pneumococcal Vaccine: Pediatrics (0 to 5 Years) and At-Risk Patients (6 to 49) Years Aged Out 04/17/2019 No longer eligible b [...] patient's age to complete this topic Insurance [facility] STANDARD
--- OUTSIDE RECORDS SUMMARY | 2025-07-21 12:43 | XMS_ITS | Clinical Summary ---
Author Organization [address] [place] [address] Address [address] [place] [address] Phone Care Team Providers Care Bridge Expert Name Role Phone Yessi Ball MD Primary Care Provider [phone] Allergies Active Allergy Reactions Criticality Noted Date Comments Latex, Natural Rubber 02/07/2025 Quinn 02/07/2025 Morphine (Pf) 02/07/2025 Shrimp 02/07/2025 Medications busPIRone (BUSPAR) 10 mg tablet 12/18/2024 Active Cimzia 400 mg/2 mL (200 mg/mL x 2) syringe kit 01/21/2025 Acti ve clobetasoL (TEMOVATE) 0.05 % cream 09/12/2024 Active pregabalin (LYRICA) 75 mg capsule 01/31/2025 Active rosuvastatin (CRESTOR) 40 mg tablet 02/01/2025 Active Ozempic 2 mg/dose (8 mg/3 mL) injection pen 01/08/2025 Active sertraline (ZOLOFT) 25 mg tablet 01/17/2025 Active traMADoL (ULTRAM) 50 mg tablet TAKE 1 TABLET ORALLY 2 TIMES A DAY NEEDED FOR PAIN FOR 30 DAYS 01/06/2025 Active vitamin E, dl,tocopheryl acet, (vitamin E, dl, acetate,) 180 mg (400 unit) capsule take 1 capsule by mouth twice a day for 90 days 01/06/2025 Active Active Problems Problem Noted Date Diagnosed Date Class 2 severe obesity with serious comorbidity and body mass index (BMI) of 38.0 to 38.9 in adult 03/19/2025 Social History Tobacco Use Types Packs/Day Years Used Date Smoking Tobacco: Never Assessed Comments Unknown Sex and Gender Information Value Date Recorded Sex Assigned at Not on file Legal Sex Female 4:18 AM EST Gender Identity Not on file Sexual Orientation Not on file Last Filed Vital Signs Vital Sign Reading Time Taken Comments Blood Pressure 126/83 02/07/2025 11:30 AM EDT Pulse 85 02/07/2025 11:30 AM EDT Temperature - - Respiratory Rate - - Oxygen Saturation - - Inhaled Oxygen Concentration - - Weight 112 kg (248 lb) 03/19/2025 1:15 PM EDT Height 170.2 cm (5' 7 ) 02/07/2025 11:30 AM EDT Body Mass Index 38.84 02/07/2025 11:30 AM EDT Plan of Treatment Upcoming Encounters Date Type Department Care Team (Late st Contact Info) Description 09/03/2025 12:30 PM EST Nutrition Bariatric Surgery - [place] [address] [facility] [address] [place] [address] Merline Pratt, RD [address] [address] Health Maintenance Due Date Last Done Comments Breast Cancer Screening 1977 Colorectal Cancer Screening: Colonoscopy 1977 DTaP,Tdap,and Td Vaccines (1 - Tdap) 1996 Hepatitis B Vaccines (1 of 3 - 19+ 3-dose series) 1996 Cervical Cancer Screening: P ap Smear 1998 Depression Screening 10/09/2024 Cholesterol Screening (Lipid Panel) 01/30/2025 HIV Screening 01/30/2025 Hepatitis C Screening 01/30/2025 Social Influencers of Health Screening 01/30/2025 COVID-19 Vaccine (3 - 2024-2 6 season) 2025 04/04/2021, 03/14/2021 Influenza Vaccine (#1) 2025 , 09/04/2015, 07/28/2014 RSV Immunization Adult Patients (1 - 1-dose 75+ series) 2052 Pneumococcal Vaccine: Pediatrics (0 to 5 Years) and At-Risk Patients (6 to 49 Years) Aged Out 04/17/2019 No longer eligible [...] to complete this topic RSV Immunization Patients Under 20 months Aged Out No longer eligible b ased on patient's age to complete this topic Varicella Vaccines Aged Out No longer eligible based on patient's age to complete this topic Insurance Care Teams Bridge Expert Relationship Specialty Start Date End Date Yessi Ball MD [address] [place] [address] , [address] [facility] D/B/A: [facility] [place], [place] PCP - General Internal Medicine 07/11/17
[2025-07-21 12:58] LABS: MANUAL DIFF FLAG NO
[2025-07-21 13:52] LABS: Hematocrit 43.7 % (37.0-47.0); Hemoglobin 13.6 g/dl (12.0-16.0); Imm Gran Abs Auto 0.01 X10*3/uL (0.00-0.03); Imm Gran Pct Auto 0.1 % (0.0-0.4); Lymphocytes Absolute Auto 3.2 X10*3/uL (1.2-4.9); Mean Corpuscular HGB Conc 31.1 g/dl (31.0-35.0); Mean Corpuscular Hemoglobin 26.1 pg (27.0-33.0); Mean Corpuscular Volume 83.7 fL (80.0-98.0); NRBC Abs Auto 0.000 X10*3/uL (0.0-0.012); NRBC Pct Auto 0.0 /100WBC (0.0-0.2); Platelet Count 271 X10*3/uL (160-400); Red Blood Count 5.22 X10*6/uL (4.20-5.50); White Blood Count 8.1 X10*3/uL (4.8-10.8)
[2025-07-21 14:34] LABS: Alanine Aminotransferase 35 U/L (0-31); Albumin Level 4.6 g/dL (3.5-5.0); Alkaline Phosphatase 83 U/L (39-117); Anion Gap 12 (12-20); Aspartate Amino Transferase 30 U/L (5-31); Blood Urea Nitrogen 16 mg/dL (9-16); Calcium 9.5 mg/dL (8.4-10.2); Carbon Dioxide 24 mmol/L (22-29); Chloride 106 mmol/L (96-108); Estimated Glomerular Filt Rate > 60; Potassium 4.2 mmol/L (3.3-5.1); Sodium 138 mmol/L (135-145); Total Protein 8.1 g/dL (6.5-8.0)
== END 2025-07-21 12:40 | disposition home or self-care (01) ==
LOC: HO.LAB 12:39
PROVIDERS: PCP Internal Medicine; Visit Provider Student in an Organized Health Care Education/Training Program
DX: L40.50 Arthropathic psoriasis, unspecified (principal)
CPT/HCPCS: 36415; 80053; 85025; 85652; 86140

== ENCOUNTER 2025-07-22 13:52 | Outpatient (AMB) | payer OTHER, SELFPAY ==
--- NOTE | 2025-07-22 14:25 | MHC.OFFVIS ---
Vital Signs 07/22/25 14:32 Height 5 ft 7 in Weight 251 lb 1.704 oz BMI 39.3 BP 124/72 Blood Pressure Location Lt radial Position Sitting Pulse 84 Pulse Source Pulse Oximeter Pulse Oximetry (%) 97 Oxygen Delivery Method Room Air Intake Visit Reasons: follow up Intake Note: Patient presents for rash follow up. Allergies morphine (MORPHINE) Allergy (Severe, Verified 07/22/25 14:31) Anaphylaxis golimumab (From Simponi) Allergy (Intermediate, Verified 07/22/25 14:31) Rash latex (LATEX) Allergy (Intermediate, Verified 07/22/25 14:31) Rash shellfish derived Allergy (Intermediate, Verified 07/22/25 14:31) swelling calcium Adverse Reaction (Intermediate, Verified 07/22/25 14:31) weakness, swells iron Adverse Reaction (Intermediate, Verified 07/22/25 14:31) weakness, swells metformin Adverse Reaction (Intermediate, Verified 07/22/25 14:31) Diarrhea pioglitazone Adverse Reaction (Intermediate, Verified 07/22/25 14:31) Swelling Lipid Transfer Protein Adverse Reaction (Severe, Uncoded 03/05/25 11:32) Anaphylaxis Medication List - Last Reconciled 07/22/25 by Danii Saleem MD albuterol sulfate 2.5 mg (3 mL) inhalation Q4-6H PRN 30 days alcohol swabs (Alcohol Prep Pads) 1 pad topical .once a day 90 days bacitracin 1 appl topical Q8H 1 week betamethasone dipropionate 0.05% 1 appl topical BID blood sugar diagnostic (FreeStyle Lite Strips) Use 1 test strip once a da blood-glucose meter (FreeStyle Lite Meter kit) As directed buspirone 5 mg PO BID cane As directed certolizumab pegol (Cimzia) 200 mg subcut Q2W flash glucose sensor (FreeStyle Vandana 14 Day Sensor kit) every 14 days lancets (FreeStyle Lancets) Use 1 lancet once a day liraglutide (Victoza 2-Gennaro) 0.6 mg (0.1 mL) subcut DAILY 4 weeks liraglutide (Victoza 3-Gennaro) 0.6 mg (0.1 mL) subcut DAILY 4 weeks liraglutide (Victoza 3-Gennaro) 1.8 mg subcut Q24H nebulizers (AeroEclipse II Nebulizer) As directed pen needle, diabetic (1st Tier Unifine Pentips) Use 1 pen needle once a day pregabalin 75 mg PO BID 90 days rosuvastatin 40 mg PO DAILY sertraline 25 mg PO DAILY 90 days silver sulfadiazine 1% 1 appl topical DAILY 14 days tramadol 50 mg PO BID PRN 30 days underpads (Bed Underpads) Use 1 to 3 bedpads as needed daily Ventolin HFA 90 mcg/actuation (albuterol sulfate) 2 puffs inhalation Q6H PRN 30 days NS vitamin E (dl, acetate) 180 mg PO BID 90 days HPI Comments Details: Patient is a 49-year-old female with diabetes, hypertension, hyperlipidemia, mild depressive disorder, osteoarthritis, psoriasis and psoriatic arthritis here today for follow up Interval History: Patient last seen 03/05/2025 with me. - On Cimzia 200mg SC every 2 weeks - Urgent visit for a rash - Started about 2 weeks ago - Only on hands - Associated with itching and burning - No new soaps, detergents, or new cleaning products - Assessed as contact dermatitis , given topical betamethosone ointment Today - On Cimzia 200mg SC every 2 weeks - Rash improved on topical betamethasone, but it still comes and goes - Notes that the week after Cimzia administration is good but notes waning of effect after 7-10 days of administration Rheumatologic History: Methotrexate ineffective Enbrel- pain with injection Xeljanz 09/2020- 12/2021- stopped due to CAD Humira december 2021-Present , advanced to weekly 10/2023. DC 04/2024 due to secondary nonresponse with ++ adalimumab antibodies Simtrinidadi 04/2024 DC after 1 dose due to an allergic reaction (allergic to latex) Ariane 05/2024 - 10/2024. Secondary non response Cimzia 10/2024 - Only had a small PsO patch around her ankle Thought simponi had some benefit but the preparation had latex and so she discontinued it Current Rheumatology Medication(s): Cimzia 200mg SC every 2 weeks PFSH Medical History Physical exam Diabetes type 2, uncontrolled Compression fracture of T7 vertebra Renal calculi Diaphragmatic hernia PONV (postoperative nausea and vomiting) Preoperative cardiovascular examination Renal calculi Palpitation Situational depression Urinary incontinence Migraines Overactive bladder Varicose veins of right lower extremity with inflammation Dyslipidemia Peripheral arterial disease Menometrorrhagia COVID-19 Nausea Psoriatic arthritis Microalbuminuria due to type 2 diabetes mellitus 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 Type 2 diabetes mellitus with unspecified complications Hyperlipidemia, unspecified Morbid (severe) obesity due to excess calories Atherosclerotic heart disease of [place] coronary artery without angina pectoris Fibromyalgia Hypovitaminosis D Surgical History Status post sleeve gastrectomy History of open reduction and internal fixation (ORIF) procedure History of tubal ligation History of laparoscopic cholecystectomy History of section Family History Father Gout Mother Diabetes Dementia Maternal Aunt Diabetes Epilepsy Maternal Grandfather Diabetes Maternal Uncle Diabetes Maternal Grandmother Diabetes Paternal Grandfather Diabetes Paternal Grandmother Diabetes Daughter Asthma Seizure Family/Other FH: mental illness Social History Housing: Apartment Are you a primary careers adviser to a significant other at home: No Do you presently have visiting nurse or other home services: No Alcohol intake: never Patient Tobacco Use Status: Never used Tobacco e-Cigarette/Vaping Use: Never Used Second Hand Smoke Exposure: No service: No Current occupational status: employed Current occupational exposures/hazards: No Gender identity: Female Cognitive needs: No Hearing needs: No Vision needs: Yes Review of Systems Const Details: Review of Systems Constitutional: Denies fever, chills, weight loss ENT: Denies vision changes, eye pain or eye redness, dental caries, dry mouth GI: Denies nausea, vomiting, diarrhea, abdominal pain, change in BM Pulm: Denies SOB, NELSON, hemoptysis, wheezing Cards: Denies chest pain, palpitations Skin: Denies Raynaud's, rash, nail changes, photosensitivity, SSN/SSBN WEAPONS EQUIPMENT OPERATOR: Denies headaches, weakness, paresthesias, recurrent falls MSK: as per HPI All other systems reviewed and are unremarkable except noted above Physical Exam Exam Exam: Vital signs reviewed Physical Examination CONSTITUITIONAL Patient alert and cooperative. Well appearing and in no apparent painful distress MSK Hands Right Hand: Able to make a fist. No swelling but Tenderness to palpation of the MCPs, PIPs or DIPs. No deformities noted. Left Hand: Able to make a fist. No swelling but Tenderness to palpation of the MCPs, PIPs or DIPs. No deformities noted. Wrists Right Wrist: Full ROM to flexion and extension. No swelling. TTP Left Wrist: Full ROM to flexion and extension. No swelling. TTP Elbows Right Elbow: Full ROM. No swelling or TTP. No TTP of the medial epicondyle. No TTP of the lateral epicondyle Left Elbow: Full ROM. No swelling or TTP. No TTP of the medial epicondyle. No TTP of the lateral epicondyle Shoulders Right shoulder: Decreased ROM 2/2 pain. No swelling noted. No TTP of the AC joint. TTP of the subacromial bursa. No TTP of the posterior shoulder Left shoulder: Decreased ROM 2/2 pain. No TTP of the AC joint. TTP of the subacromial bursa. No TTP of the posterior shoulder Knees Right knee: Decreased ROM. No swelling noted. TTP of the knee joint line. No TTP of pes anserine bursa Left knee: Decreased ROM. No swelling noted. TTP of the knee joint line. No TTP of pes anserine bursa. Ankles Right ankle: Swelling noted and TTP of the ankle joint Left ankle: No swelling. No TTP of the ankle joint Feet Right foot: Negative squeeze test Left foot: Negative squeeze test Tender points? No tenderness to palpation of the bilateral trapezius, supraspinatus, anterior costochondral junctions, bilateral suboccipital muscle insertions SKIN No rashes Vital Signs: BMI result Body Mass Index 39.3 Results Reviewed Results Reviewed: Laboratory Tests 01/27/25 07/21/25 12:14 12:51 WBC 8.1 8.1 RBC 5.22 Hgb 13.6 Hct 43.7 MCV 83.7 Plt Count 271 ESR 20 Sodium 138 Potassium 4.2 Chloride 106 Carbon Dioxide 24 BUN 16 Creatinine 0.67 AST 30 ALT 35 H C-Reactive Protein 0.12 Laboratory Tests 12/11/24 07:11 Hepatitis A IgM Ab Nonreactive Hep Bs Antigen Negative Hep Bs Antibody NONREACTIVE Hep B Core Total Ab Nonreactive Hepatitis C Ab (EIA) Nonreactive TB Test (T-Spot) Com Negative Assessment & Plan Assessment & Plan (1) Psoriatic arthritis: Comment: Methotrexate ineffective Enbrel- pain with injection Xeljanz 09/2020- 12/2021- stopped due to CAD Humira december 2021-Present , advanced to weekly 10/2023. DC 04/2024 due to secondary nonresponse with ++ adalimumab antibodies Simponi 04/2024 DC after 1 dose due to an allergic reaction (allergic to latex) Ariane 05/2024 - 10/2024 secondary non response Cimzia 10/2024 Code(s): L40.50 - Arthropathic psoriasis, unspecified Category: Medical Plan: #PsO complicated by PsA Patient is a 49-year-old female with psoriasis complicated by psoriatic arthritis here today for follow up. Last injected Cimzia 07/19 but today has TTP of multiple joints including the DIPs, PIPs and MCPs. 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 immunosuppressive drug: Code(s): Z79.899 - Other predatory animal exterminator (current) drug therapy Category: Medical Plan: #Long-term Use of TNF Inhibitors: Cimzia Discussed with the patient the benefits and risks of TNF inhibitors for the management of the rheumatic condition Benefits include reduce pain, maintenance of remission and reduction of flares as well as ?progression of the disease Risks include injection sites/infusion reactions, serious infections (such as bacterial infections, opportunistic infections), malignancy, delaminating syndromes, autoimmune phenomena, CHF exacerbations, palmar plantar psoriasis and cytopenias Recommended rotating injection sites, and holding medication during and for up to 1 week after resolution of a febrile illness or open skin wound (4) Encounter for methotrexate monitoring: Code(s): Z51.81 - Encounter for therapeutic drug level monitoring; Z79.631 - predatory animal exterminator (current) use of antimetabolite agent Plan: #Long-term Current Use of Methotrexate Discussed with patient the benefits and risks of methotrexate for managing their rheumatic condition Benefits include reduced pain, reduced mortality, maintenance of remission and reduction of flares Risks include oral ulcers, photosensitivity, hepatotoxicity, hematologic toxicity, pneumonitis, flu-like symptoms (especially day after administration), nodulosis, lymphomas ? Limit alcohol and avoid Bactrim ? Monitoring: CBC, BMP, LFTs every 3-4 months and hepatitis serologies as needed ? Methotrexate is teratogenic. 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
[2025-07-22 14:32] VITALS: BP 124/72; PULSE 84; O2SAT 97; BMI 39.3
--- OUTSIDE RECORDS SUMMARY | 2025-07-22 16:53 | XMS_ITS | Clinical Summary ---
Author Organization [employer] Address [address] [facility] [address] [place] [address] Care Team Providers Care Corporate Relations Manager Name Role Phone Unavailable Primary Care Provider [...] patient's age to complete this topic Insurance [facility] ST[facility]
--- OUTSIDE RECORDS SUMMARY | 2025-07-22 16:53 | XMS_ITS | Clinical Summary ---
Author Organization [address] [place] [address] Address [address] [place] [address] Phone Care Team Providers Care Weapons Mechanic Name Role Phone Yessi Ball MD Primary Care Provider [phone] Allergies Active Allergy Reactions Criticality Noted Date [...] 12:30 PM EST Nutrition Bariatric Surgery - [place] [address] [facility] [address] [place] [address] Merline Pratt, RD [address] [address] Health Maintenance Due Date Last [...] to complete this topic Insurance Care Teams Weapons Mechanic Relationship Specialty Start Date End Date Yessi Ball MD [address] [place] [address] , [address] [facility] D/B/A: [facility] [place], [place] PCP - General Internal Medicine 07/11/17
== END 2025-07-22 15:11 | disposition home or self-care (01) ==
LOC: HO.RHES 13:53
PROVIDERS: PCP Internal Medicine; Visit Provider Student in an Organized Health Care Education/Training Program
DX: L40.50 Arthropathic psoriasis, unspecified (principal); M79.7 Fibromyalgia; Z79.899 Other long term (current) drug therapy; Z51.81 Encounter for therapeutic drug level monitoring; Z79.631 Long term (current) use of antimetabolite agent
CPT/HCPCS: 99215

== ENCOUNTER → 2025-07-22 13:52 | Outpatient (BNVA) | payer OTHER, SELFPAY | PROVIDERS: PCP Internal Medicine; Visit Provider Student in an Organized Health Care Education/Training Program | DX: M79.7 Fibromyalgia (principal); L40.50 Arthropathic psoriasis, unspecified; Z79.899 Other long term (current) drug therapy; Z79.631 Long term (current) use of antimetabolite agent | CPT/HCPCS: 99212 ==

== ENCOUNTER 2025-08-07 13:46 | Outpatient (AMB) | payer OTHER, SELFPAY ==
--- NOTE | 2025-08-07 13:55 | A.OFFVIS_ITS ---
Vital Signs 08/07/25 13:56 Height 5 ft 7 in Weight 246 lb 14.684 oz BMI 38.7 BP 124/68 Blood Pressure Location Lt brachial Position Sitting Pulse 83 Pulse Source Monitor Intake Visit Reasons: 1 yr f/up Allergies morphine (MORPHINE) Allergy (Severe, Verified 07/22/25 14:31) Anaphylaxis golimumab (From Simponi) Allergy (Intermediate, Verified 07/22/25 14:31) Rash latex (LATEX) Allergy (Intermediate, Verified 07/22/25 14:31) Rash shellfish derived Allergy (Intermediate, Verified 07/22/25 14:31) swelling calcium Adverse Reaction (Intermediate, Verified 07/22/25 14:31) weakness, swells iron Adverse Reaction (Intermediate, Verified 07/22/25 14:31) weakness, swells metformin Adverse Reaction (Intermediate, Verified 07/22/25 14:31) Diarrhea pioglitazone Adverse Reaction (Intermediate, Verified 07/22/25 14:31) Swelling Lipid Transfer Protein Adverse Reaction (Severe, Uncoded 03/05/25 11:32) Anaphylaxis Medication List - Last Reconciled 08/07/25 by Martin Tamayo MD albuterol sulfate 2.5 mg (3 mL) inhalation Q4-6H PRN 30 days alcohol swabs (Alcohol Prep Pads) 1 pad topical .once a day 90 days blood sugar diagnostic (FreeStyle Lite Strips) Use 1 test strip once a da blood-glucose meter (FreeStyle Lite Meter kit) As directed cane As directed certolizumab pegol (Cimzia) 200 mg subcut Q2W flash glucose sensor (FreeStyle Vandana 14 Day Sensor kit) every 14 days folic acid 1 mg PO DAILY lancets (FreeStyle Lancets) Use 1 lancet once a day liraglutide (Victoza 3-Gennaro) 1.8 mg subcut Q24H methotrexate (PF) 25 mg (0.4 mL) subcut QWEEK nebulizers (AeroEclipse II Nebulizer) As directed pen needle, diabetic (1st Tier Unifine Pentips) Use 1 pen needle once a day pregabalin 75 mg PO BID 90 days rosuvastatin 40 mg PO DAILY sertraline 25 mg PO DAILY 90 days tramadol 50 mg PO BID PRN 30 days underpads (Bed Underpads) Use 1 to 3 bedpads as needed daily Ventolin HFA 90 mcg/actuation (albuterol sulfate) 2 puffs inhalation Q6H PRN 30 days NS vitamin E (dl, acetate) 180 mg PO BID 90 days HPI Comments Details: Hanna returns for follow-up. She has numerous medical comorbidities including morbid obesity, type 2 diabetes, dyslipidemia, untreated sleep apnea. In the past, she was seen for chest pain at different times, but somewhat atypical. She underwent workup including echocardiogram, stress test as well as coronary CTA and being treated for stable CAD. Since last seen, she states she has generally been okay. No new concerns. Still gets some random palpitations. In the past, she had bariatric surgery and lost weight but she is still quite obese. [facility] Medical History Physical exam Diabetes type 2, uncontrolled Compression fracture of T7 vertebra Renal calculi Diaphragmatic hernia PONV (postoperative nausea and vomiting) Preoperative cardiovascular examination Renal calculi Palpitation Situational depression Urinary incontinence Migraines Overactive bladder Varicose veins of right lower extremity with inflammation Dyslipidemia Peripheral arterial disease Menometrorrhagia COVID-19 Nausea Psoriatic arthritis Microalbuminuria due to type 2 diabetes mellitus MCFP (current) use of insulin Type 2 diabetes mellitus with unspecified complications Hyperlipidemia, unspecified Morbid (severe) obesity due to excess calories Atherosclerotic heart disease of [place] coronary artery without angina pectoris Fibromyalgia Hypovitaminosis D Surgical History Status post sleeve gastrectomy History of open reduction and internal fixation (ORIF) procedure History of tubal ligation History of laparoscopic cholecystectomy History of section Family History Father Gout Mother Diabetes Dementia Maternal Aunt Diabetes Epilepsy Maternal Grandfather Diabetes Maternal Uncle Diabetes Maternal Grandmother Diabetes Paternal Grandfather Diabetes Paternal Grandmother Diabetes Daughter Asthma Seizure Family/Other FH: mental illness Social History Housing: Apartment Are you a primary manager medicare to a significant other at home: No Do you presently have visiting nurse or other home services: No Alcohol intake: never Patient Tobacco Use Status: Never used Tobacco e-Cigarette/Vaping Use: Never Used Second Hand Smoke Exposure: No service: No Current occupational status: employed Current occupational exposures/hazards: No Gender identity: Female Cognitive needs: No Hearing needs: No Vision needs: Yes Review of Systems Const Denies weakness ENT Denies dizziness Card Denies chest pain, Denies chest pain with activity, Denies syncope, Denies rapid heart rate, Denies pedal edema, Denies edema, Denies leg edema, Denies lightheadedness, Denies palpitations, Denies dyspnea, Denies dyspnea on exertion and Denies orthopnea Resp Denies cough, Denies dyspnea and Denies dyspnea on exertion GI Denies hematochezia and Denies change in stool character Musc Denies abnormal gait, Denies muscle cramps, Denies muscle weakness, Denies numbness, Denies radiating pain into limb and Denies tingling Neuro Denies abnormal gait, Denies dizziness, Denies syncope, Denies numbness, Denies tingling and Denies weakness Endo Denies palpitations Physical Exam Vital Signs: Last Vital Signs Pulse 83 08/07/25 13:56 BP 124/68 08/07/25 13:56 BMI result Body Mass Index 38.7 Const General: comfortable and no acute distress Orientation/consciousness: patient oriented x3 HEENT Other: Unremarkable Head: Yes normal to inspection Neck Neck: Yes normal visual inspection Chest Chest palpation & inspection: normal inspection of the chest Resp Auscultation: clear to auscultation bilaterally Cardio Palpation: normal PMI Heart sounds: S1 normal heart sound present, S2 normal heart sound present, no gallops, no murmurs and no rubs GI Palpation (GI): Soft to palpation Back/Spine/Pelvis Other: unremarkable Skin General skin exam: no rashes or lesions noted Neuro General: patient oriented x3 Extrem General: Yes normal to inspection Psych Mental Status: mental status grossly normal Office Procedures EKG Details: EKG with sinus rhythm at 83/Min; no ischemic changes; [place]. [address]-[id number], Complete Assessment & Plan Assessment & Plan (1) Atherosclerotic heart disease of [place] coronary artery without angina pectoris: Code(s): I25.10 - Atherosclerotic heart disease of [place] coronary artery without angina pectoris Category: Medical Qualifiers: [place] vs. transplanted heart: [place] heart Qualified Code(s): I25.10 - Atherosclerotic heart disease of [place] coronary artery without angina pectoris (2) Morbid (severe) obesity due to excess calories: Code(s): E66.01 - Morbid (severe) obesity due to excess calories Category: Medical (3) Essential hypertension: Code(s): I10 - Essential (primary) hypertension Category: Medical (4) Hyperlipidemia, unspecified: Code(s): E78.5 - Hyperlipidemia, unspecified Category: Medical Qualifiers: Hyperlipidemia type: mixed hyperlipidemia Qualified Code(s): E78.2 - Mixed hyperlipidemia (5) Type 2 diabetes mellitus with unspecified complications: Code(s): E11.8 - Type 2 diabetes mellitus with unspecified complications Category: Medical Plan Cardiac studies reviewed. Echocardiogram with LVEF 57%. No significant valvular issues or wall motion abnormalities or anything else of concern. Holter shows underlying sinus rhythm with an average rate of 86/Min. No significant arrhythmias. Myocardial perfusion imaging study 2017 with mild intensity basal inferior, inferolateral and anterior wall ischemia. In the coronary CTA, there was mild calcification distal left main as well as proximal left anterior descending coronary artery. There was no significant disease elsewhere. Overall, morbid obesity, multiple risk factors, mild CAD, atypical symptoms. Could have either anxiety or some components of microvascular disease versus noncardiac chest pain. Any case, continue aggressive risk factor modification. She did lose weight but not much. With regard to diabetes, hemoglobin A1c is 6.6%. On Liraglutide. Blood pressure seems stable. With regard to lipids, LDL is 51 mg/dL. On statins. Follow up in one year. In the interim, call with concerns. Coding Level of Care Code Est Pt Level 4 (18878) Complex EM visit Add On G2211 Diagnoses Atherosclerosis of [place] coronary artery of [place] heart without angina pectoris I25.10 [place] vs. transplanted heart: [place] heart Morbid (severe) obesity due to excess calories E66.01 Essential hypertension I10 Mixed hyperlipidemia E78.2 Hyperlipidemia type: mixed hyperlipidemia Type 2 diabetes mellitus with unspecified complications E11.8 CPT Codes EKG - CPT: 04676-[id number], Complete ([id number])
[2025-08-07 13:56] VITALS: BP 124/68; PULSE 83; BMI 38.7
--- OUTSIDE RECORDS SUMMARY | 2025-08-07 16:47 | XMS_ITS | Clinical Summary ---
Author Organization [address] [place] [address] Address [address] [place] [address] Phone Care Team Providers Care Labor Relations Worker Name Role Phone Yessi Ball MD Primary Care Provider [phone] Allergies Active Allergy Reactions Criticality Noted Date [...] 12:30 PM EST Nutrition Bariatric Surgery - [place] 175 [facility] [address] [place] [address] Merline Pratt, RD [address] [address] Health Maintenance Due Date Last [...] to complete this topic Insurance Care Teams Labor Relations Worker Relationship Specialty Start Date End Date Yessi Ball MD [address] [place] [address] , [address] [facility] D/B/A: [facility] [place], [place] PCP - General Internal Medicine 07/11/17
--- OUTSIDE RECORDS SUMMARY | 2025-08-07 16:47 | XMS_ITS | Clinical Summary ---
Author Organization [employer] Address [address] [facility] [address] [place] [address] Care Team Providers Care Parts Analyst Name Role Phone Unavailable Primary Care Provider [...] patient's age to complete this topic Insurance [facility] STANDARD
== END 2025-08-07 14:15 | disposition home or self-care (01) ==
LOC: HO.HCS 13:47
PROVIDERS: PCP Internal Medicine; Visit Provider Internal Medicine
DX: I25.10 Atherosclerotic heart disease of native coronary artery without angina pectoris (principal); E66.01 Morbid (severe) obesity due to excess calories; I10 Essential (primary) hypertension; E78.2 Mixed hyperlipidemia; E11.8 Type 2 diabetes mellitus with unspecified complications
CPT/HCPCS: 93010; 99214

== ENCOUNTER → 2025-08-07 13:46 | Outpatient (BNVA) | payer OTHER, SELFPAY | PROVIDERS: PCP Internal Medicine; Visit Provider Internal Medicine | DX: E11.8 Type 2 diabetes mellitus with unspecified complications (principal); E78.2 Mixed hyperlipidemia; I10 Essential (primary) hypertension; E66.01 Morbid (severe) obesity due to excess calories; I25.10 Atherosclerotic heart disease of native coronary artery without angina pectoris | CPT/HCPCS: 93005; 99212 ==